=== PATIENT | female | born 1980 | race Caucasian/White ===

== ENCOUNTER 2020-08-12 22:09 | Emergency (ER) | payer MEDICAID, SELFPAY ==
--- NOTE | ~2020-08-12 | XR_ITS ---
EXAMINATION: XR CHEST CLINICAL INFORMATION: Chest pain COMPARISON: None TECHNIQUE: Frontal portable view of the chest was obtained. 10:57 PM FINDINGS: Lungs are clear. No pulmonary vascular congestion. There is no pleural effusion. The heart size is normal. The cardiac and mediastinal contours are normal. There are multilevel degenerative changes of dorsal spine. XR/XR chest 1V IMPRESSION: Unremarkable examination.
[2020-08-12 22:13] VITALS: BP 120/85; PULSE 137; RESP 22; O2SAT 99; BMI 46.9
--- NOTE | 2020-08-12 22:16 | ECG_ITS ---
Test Reason : CP Blood Pressure : / mmHG Vent. Rate : 125 BPM Atrial Rate : 125 BPM P-R Int : 152 ms QRS Dur : 076 ms QT Int : 306 ms P-R-T Axes : 055 087 045 degrees QTc Int : 441 ms Sinus tachycardia Possible Left atrial enlargement Borderline ECG No previous ECGs available Referred By: Generic ED Physician Electronically Signed By:Costa Guidry
--- NOTE | 2020-08-12 23:11 | ED.CHESTPAIN ---
HPI - Chest Pain General Chief Complaint: Chest Pain <Lore Schroeder PA-C - Last Filed: 08/13/20 02:03> Stated Complaint: cp <Lore Schroeder PA-C - Last Filed: 08/13/20 02:03> Time Seen by Provider: 08/12/20 23:02 <Lore Schroeder PA-C - Last Filed: 08/13/20 02:03> Source: patient <Lore Schroeder PA-C - Last Filed: 08/13/20 02:03> Mode of arrival: ambulatory <HEIKE Helms Last Filed: 08/13/20 02:03> Limitations: no limitations <Lore Schroeder PA-C - Last Filed: 08/13/20 02:03> History of Present Illness HPI narrative: Patient is a 39-year-old female with a past medical history of diabetes with neuropathy complaining of stabbing chest pain since yesterday. Patient states she has left-sided chest pain that is stabbing in nature which radiates to her left shoulder. She states it is worse with deep breathing and it has been getting worse over the past 2 days. She denies any injury or trauma to the area, she denies excessive coughing. She denies numbness or tingling in her neck shoulder or left arm. She denies taking any medication or using ice to try to make it feel better. She denies shortness of breath. She does state when she lifts her left arm over her head that the pain got a little bit better but that is not working anymore. <Lore Schroeder PA-C - Last Filed: 08/13/20 02:03> Related Data Allergies/Adverse Reactions: Allergies Allergy/AdvReac Type Severity Reaction Status Date / Time No Known Allergies Allergy Verified 08/12/20 22:15 <Lore Shcroeder PA-C - Last Filed: 08/13/20 02:03> Review of Systems Review of Systems: Yes all other systems are reviewed and are negative <Lore Schroeder PA-C - Last Filed: 08/13/20 02:03> [facility] Past Medical History Medical History: Medical History Diabetes <Lore Schroeder PA-C - Last Filed: 08/13/20 02:03> Social History Social History: Social History Alcohol intake: current Alcohol intake frequency: 0-2 drinks per day Patient Tobacco Use Status: Current everyday Tobacco user Smoked in Last 30 Days: Yes Use of substances other than those prescribed or required for medical reasons: No Advance Directives: No Patient : No <Lore Schroeder PA-C - Last Filed: 08/13/20 02:03> Physical Exam Vital Signs: Vital Signs: Last Vital Signs Pulse 91 08/13/20 02:00 Resp 18 08/13/20 02:00 BP 132/78 08/13/20 02:00 Pulse Ox 100 08/13/20 02:00 Body Mass Index 46.9 <Lore Schroeder PA-C - Last Filed: 08/13/20 02:03> Vital Signs: Last Vital Signs Pulse 91 08/13/20 02:00 Resp 18 08/13/20 02:00 BP 132/78 08/13/20 02:00 Pulse Ox 100 08/13/20 02:00 Body Mass Index 46.9 <Anjali Shepherd MD - Last Filed: 08/13/20 03:18> Const: General: cooperative, healthy appearing, well developed and anxious (Clutching left chest, pushing in and breathing fast) <Lore Schroeder PA-C - Last Filed: 08/13/20 02:03> Nutritional Appearance: obese <Lore Schroeder PA-C - Last Filed: 08/13/20 02:03> HENMT: Head: Yes normal to inspection, Yes No palpable skull fracture present, Yes normocephalic and Yes atraumatic <Lore Schroeder PA-C - Last Filed: 08/13/20 02:03> Eyes: General: appearance normal, both eyes and all related structures <Lore Schroeder PA-C - Last Filed: 08/13/20 02:03> Neck: Neck: Yes normal visual inspection and Yes full ROM <Lore Schroeder PA-C - Last Filed: 08/13/20 02:03> Chest: Chest palpation & inspection: normal inspection of the chest and localized rib tenderness with anteroposterior compression left mid-clavicular line <Lore Schroeder PA-C Susanne Last Filed: 08/13/20 02:03> Resp: Effort & Inspection: able to speak in complete sentences <Lore Schroeder PA-C Susanne Last Filed: 08/13/20 02:03> Auscultation: clear to auscultation bilaterally <Lore Schroeder PA-C Susanne Last Filed: 08/13/20 02:03> Cardio: Rate: tachycardic <Lore Schroeder PA-C Susanne Last Filed: 08/13/20 02:03> GI: Inspection: Yes obesity <Lore Schroeder PA-C Susanne Last Filed: 08/13/20 02:03> Palpation (GI): Soft to palpation and nontender <Lore Schroeder PA-C Susanne Last Filed: 08/13/20 02:03> Skin: General skin exam: no rashes or lesions noted <Lore Schroeder PA-C Susanne Last Filed: 08/13/20 02:03> Extrem: Other: 2 1cm circular healing wounds on right foot, dorsal aspect; NVI bilaterally, sensation to light touch intact bilaterally <Lore Schroeder PA-C Susanne Last Filed: 08/13/20 02:03> General: Yes no pedal edema <Lore Schroeder PA-C Susanne Last Filed: 08/13/20 02:03> Course Course Course Narrative: Patient is a 39-year-old female with a past medical history of diabetes with neuropathy complaining of stabbing chest pain since yesterday. Patient states she has left-sided chest pain that is stabbing in nature which radiates to her left shoulder. Vital signs significant for tachycardia at 137 BPM, tachypnea at 22, other vital signs WNL. Physical exam reveals reproducible tenderness left central chest. EKG showed sinus tachycardia at 125BPM. Will get CXR and labs to rule out cardiac issue, most likely costochondritis or possible rib fx. <HEIKE Helms Last Filed: 08/13/20 02:03> I re-evaluated the patient who states that the pain has now somewhat improved in that it is no longer constant and instead comes and goes and again is reproducible associated with deep inspiration but not changed in position from lying down to sitting up. Patient states that she is feeling overall better and endorses that she will be able to take her home medication as prescribed. On review of all investigations as well as most recent glucose level patient is stable for discharge with resumption home regimen and instructions for costochondritis. <Anjali Shepherd MD - Last Filed: 08/13/20 03:18> Reevaluation(s) Reevaluation #1: Patient is common cooperative, no longer clutching her chest an tachypneic. Her vital signs are all stable. Labs are resulting, chemistry, lipase and troponin still pending. CXR negative for acute process. <Lore Schroeder PA-C - Last Filed: 08/13/20 02:03> Time: 23:51 <Lore Schroeder PA-C - Last Filed: 08/13/20 02:03> Reevaluation #2: Patient's glucose is 519, she states she ate fruit loops for dinner but did not take her diabetes medications because of her chest pain. Patient states she checks her blood sugar each morning but she is working on it with her PCP and she has a follow-up appointment already scheduled on 08/14/2020. Will give 5U sub cu insulin and 1L LR, get acetone and UA. <Lore Schroeder PA-C - Last Filed: 08/13/20 02:03> Time: 00:26 <Lore Schroeder PA-C - Last Filed: 08/13/20 02:03> Reevaluation #3: giving pt total of 3L LR, another 5U sub cu insulin lispro. UA pending, acetone is negative. Dr Shepherd agrees with assessment and plan. Signing out pt to Dr Shepherd 2:03AM <Lore Schroeder PA-C - Last Filed: 08/13/20 02:03> Time: 01:47 <Lore Schroeder PA-C - Last Filed: 08/13/20 02:03> MDM - Chest Pain Medical Records Data Attestation: I reviewed the patient's medical records. <Lore Schroeder PA-C - Last Filed: 08/13/20 02:03> Lab Data Attestation: I reviewed the patient's lab results. <Lore Schroeder PA-C - Last Filed: 08/13/20 02:03> Result diagrams: : 08/12/20 23:19 08/12/20 23:19 <Lore Schroeder PA-C - Last Filed: 08/13/20 02:03> Labs: Lab Results 08/12/20 08/12/20 08/12/20 Range/Units 23:18 23:18 23:19 WBC 11.6 H (4.8-10.8) X10*3/uL RBC 5.51 H (4.20-5.50) X10*6/uL Hgb 12.3 (12.0-16.0) g/dl Hct 40.7 (37-47) % MCV 73.9 L (80-98) fL MCH 22.3 L (27.0-33.0) pg MCHC 30.2 L (31.0-35.0) g/dl RDW 16.4 H (11.0-16.0) % Plt Count 336 (160-400) X10*3/uL MPV 9.9 (9.4-12.3) fL Immature Gran % (Auto) 0.7 H (0.0-0.4) % Neut % (Auto) 70.3 (45-73) % Lymph % (Auto) 18.2 L (20-40) % Mason % (Auto) 9.0 (2-11) % Eos % (Auto) 1.5 (0-4) % Baso % (Auto) 0.3 (0-2) % Lymph # (Auto) 2.1 (1.2-4.9) X10*3/uL Mason # (Auto) 1.1 (0.1-1.2) X10*3/uL Eos # (Auto) 0.2 (0.0-0.4) X10*3/uL Baso # (Auto) 0.0 (0.0-0.2) X10*3/uL Abs Immat Gran (auto) 0.08 H (0.00-0.03) X10*3/uL Absolute Neuts (auto) 8.2 (2.0-8.3) X10*3/uL Absolute Nucleated RBC 0.000 (0.0-0.012) X10*3/uL Nucleated RBC % (auto) 0.0 (0.0-0.2) /100WBC PT (10.8-13.0) SEC INR (0.9-1.1) Sodium (135-145) mmol/L Potassium (3.3-5.1) mmol/L Chloride (96-108) mmol/L Carbon Dioxide (22-29) mmol/L Anion Gap (12-20) BUN (9-16) mg/dL Creatinine (0.5-1.4) mg/dL Estim Creat Clear Calc Estimated GFR POC Glucose (60-115) mg/dL Random Glucose (60-115) mg/dL Calcium (8.4-10.2) mg/dL Total Bilirubin 0.6 (0.0-1.0) mg/dL Direct Bilirubin 0.2 (0.0-0.5) mg/dL AST 21 (5-31) U/L ALT 37 H (0-31) U/L Alkaline Phosphatase 74 (39-117) U/L Troponin I High Sens 3.7 (<3.5-17.0) ng/L Total Protein 7.5 (6.5-8.0) g/dL Albumin 4.3 (3.5-5.0) g/dL Lipase 43 (8-78) U/L Specimen Comment Urine Color Urine Appearance Urine pH (5.0-8.0) Ur Specific [place] (1.005-1.025) Urine Protein (NEG-TRACE) MG/DL Urine Glucose (UA) (NEG) MG/DL Urine Ketones (NEG) MG/DL Urine Blood (NEG) Urine Nitrite (NEG) Ur Leukocyte Esterase (NEG) Urine RBC (0) /HPF Urine WBC (0-4) /HPF Ur Squamous Epith Cells /LPF Urine Bacteria /LPF Hyaline Casts /LPF Acetone, Qual Negative (Negative) 08/12/20 08/12/20 08/12/20 Range/Units 23:19 23:19 23:52 WBC (4.8-10.8) X10*3/uL RBC (4.20-5.50) X10*6/uL Hgb (12.0-16.0) g/dl Hct (37-47) % MCV (80-98) fL MCH (27.0-33.0) pg MCHC (31.0-35.0) g/dl RDW (11.0-16.0) % Plt Count (160-400) X10*3/uL MPV (9.4-12.3) fL Immature Gran % (Auto) (0.0-0.4) % Neut % (Auto) (45-73) % Lymph % (Auto) (20-40) % Mason % (Auto) (2-11) % Eos % (Auto) (0-4) % Baso % (Auto) (0-2) % Lymph # (Auto) (1.2-4.9) X10*3/uL Mason # (Auto) (0.1-1.2) X10*3/uL Eos # (Auto) (0.0-0.4) X10*3/uL Baso # (Auto) (0.0-0.2) X10*3/uL Abs Immat Gran (auto) (0.00-0.03) X10*3/uL Absolute Neuts (auto) (2.0-8.3) X10*3/uL Absolute Nucleated RBC (0.0-0.012) X10*3/uL Nucleated RBC % (auto) (0.0-0.2) /100WBC PT 11.2 (10.8-13.0) SEC INR 0.9 (0.9-1.1) Sodium 135 (135-145) mmol/L Potassium 4.5 (3.3-5.1) mmol/L Chloride 99 (96-108) mmol/L Carbon Dioxide 23 (22-29) mmol/L Anion Gap 18 (12-20) BUN 16 (9-16) mg/dL Creatinine 1.25 (0.5-1.4) mg/dL Estim Creat Clear Calc 74.3 Estimated GFR 47 POC Glucose (60-115) mg/dL Random Glucose 519 H* (60-115) mg/dL Calcium 9.4 (8.4-10.2) mg/dL Total Bilirubin (0.0-1.0) mg/dL Direct Bilirubin (0.0-0.5) mg/dL AST (5-31) U/L ALT (0-31) U/L Alkaline Phosphatase (39-117) U/L Troponin I High Sens (<3.5-17.0) ng/L Total Protein (6.5-8.0) g/dL Albumin (3.5-5.0) g/dL Lipase (8-78) U/L Specimen Comment DELAY Urine Color Urine Appearance Urine pH (5.0-8.0) Ur Specific [place] (1.005-1.025) Urine Protein (NEG-TRACE) MG/DL Urine Glucose (UA) (NEG) MG/DL Urine Ketones (NEG) MG/DL Urine Blood (NEG) Urine Nitrite (NEG) Ur Leukocyte Esterase (NEG) Urine RBC (0) /HPF Urine WBC (0-4) /HPF Ur Squamous Epith Cells /LPF Urine Bacteria /LPF Hyaline Casts /LPF Acetone, Qual (Negative) 08/13/20 08/13/20 08/13/20 Range/Units 01:11 02:05 02:38 WBC (4.8-10.8) X10*3/uL RBC (4.20-5.50) X10*6/uL Hgb (12.0-16.0) g/dl Hct (37-47) % MCV (80-98) fL MCH (27.0-33.0) pg MCHC (31.0-35.0) g/dl RDW (11.0-16.0) % Plt Count (160-400) X10*3/uL MPV (9.4-12.3) fL Immature Gran % (Auto) (0.0-0.4) % Neut % (Auto) (45-73) % Lymph % (Auto) (20-40) % Mason % (Auto) (2-11) % Eos % (Auto) (0-4) % Baso % (Auto) (0-2) % Lymph # (Auto) (1.2-4.9) X10*3/uL Mason # (Auto) (0.1-1.2) X10*3/uL Eos # (Auto) (0.0-0.4) X10*3/uL Baso # (Auto) (0.0-0.2) X10*3/uL Abs Immat Gran (auto) (0.00-0.03) X10*3/uL Absolute Neuts (auto) (2.0-8.3) X10*3/uL Absolute Nucleated RBC (0.0-0.012) X10*3/uL Nucleated RBC % (auto) (0.0-0.2) /100WBC PT (10.8-13.0) SEC INR (0.9-1.1) Sodium (135-145) mmol/L Potassium (3.3-5.1) mmol/L Chloride (96-108) mmol/L Carbon Dioxide (22-29) mmol/L Anion Gap (12-20) BUN (9-16) mg/dL Creatinine (0.5-1.4) mg/dL Estim Creat Clear Calc Estimated GFR POC Glucose 494 H* 365 H* (60-115) mg/dL Random Glucose (60-115) mg/dL Calcium (8.4-10.2) mg/dL Total Bilirubin (0.0-1.0) mg/dL Direct Bilirubin (0.0-0.5) mg/dL AST (5-31) U/L ALT (0-31) U/L Alkaline Phosphatase (39-117) U/L Troponin I High Sens (<3.5-17.0) ng/L Total Protein (6.5-8.0) g/dL Albumin (3.5-5.0) g/dL Lipase (8-78) U/L Specimen Comment Urine Color YELLOW Urine Appearance CLEAR Urine pH 6.0 (5.0-8.0) Ur Specific [place] 1.020 (1.005-1.025) Urine Protein NEG (NEG-TRACE) MG/DL Urine Glucose (UA) >=1000 H (NEG) MG/DL Urine Ketones NEG (NEG) MG/DL Urine Blood NEG (NEG) Urine Nitrite NEG (NEG) Ur Leukocyte Esterase NEG (NEG) Urine RBC 1-4 (0) /HPF Urine WBC 1-4 (0-4) /HPF Ur Squamous Epith Cells 2+ /LPF Urine Bacteria 3+ /LPF Hyaline Casts 1-4 /LPF Acetone, Qual (Negative) <Lore Schroeder PA-C - Last Filed: 08/13/20 02:03> Lab Results 08/12/20 08/12/20 08/12/20 Range/Units 23:18 23:18 23:19 WBC 11.6 H (4.8-10.8) X10*3/uL RBC 5.51 H (4.20-5.50) X10*6/uL Hgb 12.3 (12.0-16.0) g/dl Hct 40.7 (37-47) % MCV 73.9 L (80-98) fL MCH 22.3 L (27.0-33.0) pg MCHC 30.2 L (31.0-35.0) g/dl RDW 16.4 H (11.0-16.0) % Plt Count 336 (160-400) X10*3/uL MPV 9.9 (9.4-12.3) fL Immature Gran % (Auto) 0.7 H (0.0-0.4) % Neut % (Auto) 70.3 (45-73) % Lymph % (Auto) 18.2 L (20-40) % Mason % (Auto) 9.0 (2-11) % Eos % (Auto) 1.5 (0-4) % Baso % (Auto) 0.3 (0-2) % Lymph # (Auto) 2.1 (1.2-4.9) X10*3/uL Mason # (Auto) 1.1 (0.1-1.2) X10*3/uL Eos # (Auto) 0.2 (0.0-0.4) X10*3/uL Baso # (Auto) 0.0 (0.0-0.2) X10*3/uL Abs Immat Gran (auto) 0.08 H (0.00-0.03) X10*3/uL Absolute Neuts (auto) 8.2 (2.0-8.3) X10*3/uL Absolute Nucleated RBC 0.000 (0.0-0.012) X10*3/uL Nucleated RBC % (auto) 0.0 (0.0-0.2) /100WBC PT (10.8-13.0) SEC INR (0.9-1.1) Sodium (135-145) mmol/L Potassium (3.3-5.1) mmol/L Chloride (96-108) mmol/L Carbon Dioxide (22-29) mmol/L Anion Gap (12-20) BUN (9-16) mg/dL Creatinine (0.5-1.4) mg/dL Estim Creat Clear Calc Estimated GFR POC Glucose (60-115) mg/dL Random Glucose (60-115) mg/dL Calcium (8.4-10.2) mg/dL Total Bilirubin 0.6 (0.0-1.0) mg/dL Direct Bilirubin 0.2 (0.0-0.5) mg/dL AST 21 (5-31) U/L ALT 37 H (0-31) U/L Alkaline Phosphatase 74 (39-117) U/L Troponin I High Sens 3.7 (<3.5-17.0) ng/L Total Protein 7.5 (6.5-8.0) g/dL Albumin 4.3 (3.5-5.0) g/dL Lipase 43 (8-78) U/L Specimen Comment Urine Color Urine Appearance Urine pH (5.0-8.0) Ur Specific [place] (1.005-1.025) Urine Protein (NEG-TRACE) MG/DL Urine Glucose (UA) (NEG) MG/DL Urine Ketones (NEG) MG/DL Urine Blood (NEG) Urine Nitrite (NEG) Ur Leukocyte Esterase (NEG) Urine RBC (0) /HPF Urine WBC (0-4) /HPF Ur Squamous Epith Cells /LPF Urine Bacteria /LPF Hyaline Casts /LPF Acetone, Qual Negative (Negative) 08/12/20 08/12/20 08/12/20 Range/Units 23:19 23:19 23:52 WBC (4.8-10.8) X10*3/uL RBC (4.20-5.50) X10*6/uL Hgb (12.0-16.0) g/dl Hct (37-47) % MCV (80-98) fL MCH (27.0-33.0) pg MCHC (31.0-35.0) g/dl RDW (11.0-16.0) % Plt Count (160-400) X10*3/uL MPV (9.4-12.3) fL Immature Gran % (Auto) (0.0-0.4) % Neut % (Auto) (45-73) % Lymph % (Auto) (20-40) % Mason % (Auto) (2-11) % Eos % (Auto) (0-4) % Baso % (Auto) (0-2) % Lymph # (Auto) (1.2-4.9) X10*3/uL Mason # (Auto) (0.1-1.2) X10*3/uL Eos # (Auto) (0.0-0.4) X10*3/uL Baso # (Auto) (0.0-0.2) X10*3/uL Abs Immat Gran (auto) (0.00-0.03) X10*3/uL Absolute Neuts (auto) (2.0-8.3) X10*3/uL Absolute Nucleated RBC (0.0-0.012) X10*3/uL Nucleated RBC % (auto) (0.0-0.2) /100WBC PT 11.2 (10.8-13.0) SEC INR 0.9 (0.9-1.1) Sodium 135 (135-145) mmol/L Potassium 4.5 (3.3-5.1) mmol/L Chloride 99 (96-108) mmol/L Carbon Dioxide 23 (22-29) mmol/L Anion Gap 18 (12-20) BUN 16 (9-16) mg/dL Creatinine 1.25 (0.5-1.4) mg/dL Estim Creat Clear Calc 74.3 Estimated GFR 47 POC Glucose (60-115) mg/dL Random Glucose 519 H* (60-115) mg/dL Calcium 9.4 (8.4-10.2) mg/dL Total Bilirubin (0.0-1.0) mg/dL Direct Bilirubin (0.0-0.5) mg/dL AST (5-31) U/L ALT (0-31) U/L Alkaline Phosphatase (39-117) U/L Troponin I High Sens (<3.5-17.0) ng/L Total Protein (6.5-8.0) g/dL Albumin (3.5-5.0) g/dL Lipase (8-78) U/L Specimen Comment DELAY Urine Color Urine Appearance Urine pH (5.0-8.0) Ur Specific [place] (1.005-1.025) Urine Protein (NEG-TRACE) MG/DL Urine Glucose (UA) (NEG) MG/DL Urine Ketones (NEG) MG/DL Urine Blood (NEG) Urine Nitrite (NEG) Ur Leukocyte Esterase (NEG) Urine RBC (0) /HPF Urine WBC (0-4) /HPF Ur Squamous Epith Cells /LPF Urine Bacteria /LPF Hyaline Casts /LPF Acetone, Qual (Negative) 08/13/20 08/13/20 08/13/20 Range/Units 01:11 02:05 02:38 WBC (4.8-10.8) X10*3/uL RBC (4.20-5.50) X10*6/uL Hgb (12.0-16.0) g/dl Hct (37-47) % MCV (80-98) fL MCH (27.0-33.0) pg MCHC (31.0-35.0) g/dl RDW (11.0-16.0) % Plt Count (160-400) X10*3/uL MPV (9.4-12.3) fL Immature Gran % (Auto) (0.0-0.4) % Neut % (Auto) (45-73) % Lymph % (Auto) (20-40) % Mason % (Auto) (2-11) % Eos % (Auto) (0-4) % Baso % (Auto) (0-2) % Lymph # (Auto) (1.2-4.9) X10*3/uL Mason # (Auto) (0.1-1.2) X10*3/uL Eos # (Auto) (0.0-0.4) X10*3/uL Baso # (Auto) (0.0-0.2) X10*3/uL Abs Immat Gran (auto) (0.00-0.03) X10*3/uL Absolute Neuts (auto) (2.0-8.3) X10*3/uL Absolute Nucleated RBC (0.0-0.012) X10*3/uL Nucleated RBC % (auto) (0.0-0.2) /100WBC PT (10.8-13.0) SEC INR (0.9-1.1) Sodium (135-145) mmol/L Potassium (3.3-5.1) mmol/L Chloride (96-108) mmol/L Carbon Dioxide (22-29) mmol/L Anion Gap (12-20) BUN (9-16) mg/dL Creatinine (0.5-1.4) mg/dL Estim Creat Clear Calc Estimated GFR POC Glucose 494 H* 365 H* (60-115) mg/dL Random Glucose (60-115) mg/dL Calcium (8.4-10.2) mg/dL Total Bilirubin (0.0-1.0) mg/dL Direct Bilirubin (0.0-0.5) mg/dL AST (5-31) U/L ALT (0-31) U/L Alkaline Phosphatase (39-117) U/L Troponin I High Sens (<3.5-17.0) ng/L Total Protein (6.5-8.0) g/dL Albumin (3.5-5.0) g/dL Lipase (8-78) U/L Specimen Comment Urine Color YELLOW Urine Appearance CLEAR Urine pH 6.0 (5.0-8.0) Ur Specific [place] 1.020 (1.005-1.025) Urine Protein NEG (NEG-TRACE) MG/DL Urine Glucose (UA) >=1000 H (NEG) MG/DL Urine Ketones NEG (NEG) MG/DL Urine Blood NEG (NEG) Urine Nitrite NEG (NEG) Ur Leukocyte Esterase NEG (NEG) Urine RBC 1-4 (0) /HPF Urine WBC 1-4 (0-4) /HPF Ur Squamous Epith Cells 2+ /LPF Urine Bacteria 3+ /LPF Hyaline Casts 1-4 /LPF Acetone, Qual (Negative) <Anjali Shepherd MD - Last Filed: 08/13/20 03:18> Imaging Data Chest x-ray: Attestation: I personally reviewed and interpreted this imaging study as follows: <Lore Schroeder PA-C - Last Filed: 08/13/20 02:03> My impression: Nothing acute <Lore Schroeder PA-C - Last Filed: 08/13/20 02:03> Radiologist's impression: [address] [id number] ReportSigned Patient: Mc Marie#: [id number]: 1980Acct:[id number]/Sex: 39 / FADM Date: 08/12/20Loc: [facility] Dr: Ordering Physician: Generic ED Physician Date of Service: 08/12/20 Procedure(s): XR chest 1V Accession Number(s): [id number] cc: Generic ED Physician~ EXAMINATION: XR CHEST CLINICAL INFORMATION: Chest pain COMPARISON: None TECHNIQUE: Frontal portable view of the chest was obtained. 10:57 PM FINDINGS: Lungs are clear. No pulmonary vascular congestion. There is no pleural effusion. The heart size is normal. The cardiac and mediastinal contours are normal. There are multilevel degenerative changes of dorsal spine. XR/XR chest 1V IMPRESSION: Unremarkable examination. 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 Case Trim: VIDAL <Lore Schroeder PA-C - Last Filed: 08/13/20 02:03> ECG Data ECG #1: Attestation: I personally reviewed and interpreted this ECG as follows: <Lore Schroeder PA-C - Last Filed: 08/13/20 02:03> Interpretation: sinus tach at 125 BPM, Dr Carvalho signed off on it <Lore Schroeder PA-C - Last Filed: 08/13/20 02:03> Discharge Plan Discharge Clinical Impression: Costalchondritis, Elevated random blood glucose level <Lore Schroeder PA-C - Last Filed: 08/13/20 02:03> Patient Disposition: Home, Self-Care <Lore Schroeder PA-C - Last Filed: 08/13/20 02:03> Instructions: Costochondritis (ED), Diabetic Hyperglycemia (ED) <Lore Schroeder PA-C - Last Filed: 08/13/20 02:03> Additional Instructions: Your pain is likely musculoskeletal, you may use ice, ibuprofen and Tylenol, just be sure to alternate the ibuprofen and acetaminophen. Tonight in the ED, I have given you a medication called Toradol for pain, it is a type of NSAID so please do not take any NSAIDs (Aleve, Motrin, Advil, ibuprofen) for the next 8 hours. You may take acetaminophen for additional pain relief once you get home. Your costochondritis should get a little bit better each day but may take a few weeks to resolve completely, this is normal. If you have any shortness of breath, chest pain, please return to the emergency department. Please be sure to take your diabetes medications daily and check your glucose levels before each meal. If you levels remain elevated (above 180), please be sure to follow up with your PCP as you may need a medication adjustment. Recommend using [id number] lidocaine patch for additional symptom relief. Use as directed on the outside packaging. <Lore Schroeder PA-C - Last Filed: 08/13/20 02:03> Referrals: Maddison Floyd, NATALEE [Primary Care Provider] - 2 days (if not better or if glucose levels are still elevated, may need med adjustment) <Lore Schroeder PA-C - Last Filed: 08/13/20 02:03>
[2020-08-12 23:24] LABS: MANUAL DIFF FLAG NO
[2020-08-12 23:25] LABS: Basophils Percent Auto 0.3 % (0-2); Eosinophils Absolute Auto 0.2 X10*3/uL (0.0-0.4); Eosinophils Percent Auto 1.5 % (0-4); Hematocrit 40.7 % (37-47); Hemoglobin 12.3 g/dl (12.0-16.0); Imm Gran Abs Auto 0.08 X10*3/uL (0.00-0.03); Imm Gran Pct Auto 0.7 % (0.0-0.4); Lymphocytes Absolute Auto 2.1 X10*3/uL (1.2-4.9); Lymphocytes Percent Auto 18.2 % (20-40); Mean Corpuscular HGB Conc 30.2 g/dl (31.0-35.0); Mean Corpuscular Hemoglobin 22.3 pg (27.0-33.0); Mean Corpuscular Volume 73.9 fL (80-98); Mean Platelet Volume 9.9 fL (9.4-12.3); Monocytes Absolute Auto 1.1 X10*3/uL (0.1-1.2); Neutrophils Absolute Auto 8.2 X10*3/uL (2.0-8.3); Neutrophils Percent Auto 70.3 % (45-73); Platelet Count 336 X10*3/uL (160-400); Red Blood Count 5.51 X10*6/uL (4.20-5.50); Red Cell Distribution Width 16.4 % (11.0-16.0); White Blood Count 11.6 X10*3/uL (4.8-10.8)
[2020-08-12 23:30] LABS: INTERNATIONAL NORM RATIO 0.9 (0.9-1.1); Prothrombin Time 11.2 SEC (10.8-13.0)
[2020-08-12 23:45] VITALS: BP 117/69; PULSE 103; RESP 18; O2SAT 98
[2020-08-12 23:47] VITALS: PULSE 104
[2020-08-12 23:53] LABS: Delay - Chemistry DELAY
[2020-08-13 00:03] LABS: Alanine Aminotransferase 37 U/L (0-31); Albumin Level 4.3 g/dL (3.5-5.0); Alkaline Phosphatase 74 U/L (39-117); Aspartate Amino Transferase 21 U/L (5-31); Bilirubin Direct 0.2 mg/dL (0.0-0.5); Bilirubin Total 0.6 mg/dL (0.0-1.0); Lipase 43 U/L (8-78); Total Protein 7.5 g/dL (6.5-8.0)
[2020-08-13 00:04] LABS: Anion Gap 18 (12-20); Blood Urea Nitrogen 16 mg/dL (9-16); Calcium 9.4 mg/dL (8.4-10.2); Carbon Dioxide 23 mmol/L (22-29); Chloride 99 mmol/L (96-108); Creatinine Clr Calc Pharmacy 74.3; Estimated Glomerular Filt Rate 47; Glucose Random 519 mg/dL (60-115); Potassium 4.5 mmol/L (3.3-5.1); Sodium 135 mmol/L (135-145)
[2020-08-13 00:11] LABS: Troponin-I High Sensitivity 3.7 ng/L (<3.5-17.0)
[2020-08-13] MEDS: Insulin Lispro 100 UNIT/ML 3 ML VIAL SUBCUT ×2 (00:25→02:02)
[2020-08-13] MEDS: Lactated Ringers 1,000 ML 999 ML IV ×3 (00:25→01:24)
[2020-08-13] MEDS: Ketorolac Tromethamine 30 MG/ML VIAL IVPUSH (00:42)
[2020-08-13 01:15] LABS: Glucose, Whole Blood 494 mg/dL (60-115)
[2020-08-13 01:29] LABS: Acetone, serum QL Negative (Negative)
[2020-08-13 02:00] VITALS: BP 132/78; PULSE 91; RESP 18; O2SAT 100
[2020-08-13 02:17] LABS: Glucose Urine UA >=1000 MG/DL (NEG); Leukocyte Esterase Urine NEG (NEG); Nitrite Urine NEG (NEG); Urine Blood NEG (NEG); Urine Ketones NEG (NEG); Urine Protein NEG (NEG-TRACE)
[2020-08-13 02:31] LABS: Appearance Urine CLEAR; Color Urine YELLOW
[2020-08-13 02:32] LABS: Bacteria Urine 3+ /LPF; Squamous Epithelial Cell Urine 2+ /LPF
[2020-08-13 02:41] LABS: Glucose, Whole Blood 365 mg/dL (60-115)
== END 2020-08-13 03:45 | disposition home or self-care (01) ==
PROVIDERS: Physician Assistant; Emergency Provider Student in an Organized Health Care Education/Training Program; PCP Nurse Practitioner Adult Health
DX: M94.0 Chondrocostal junction syndrome [Tietze] (principal); E11.65 Type 2 diabetes mellitus with hyperglycemia; M25.512 Pain in left shoulder; R07.9 Chest pain, unspecified; R79.89 Other specified abnormal findings of blood chemistry; F17.200 Nicotine dependence, unspecified, uncomplicated; Z71.6 Tobacco abuse counseling; Z79.899 Other long term (current) drug therapy
CPT/HCPCS: 36415; 71045; 80048; 80076; 81001; 82009; 82947; 83690; 84484; 85025; 85610; 93005; 96365; 96372; 96375; 99285; J1885

== ENCOUNTER 2021-07-04 10:14 | Inpatient (IN) | payer MEDICAID, SELFPAY ==
[2021-07-04] VITALS (8 sets, daily range): BP systolic 106–152; BP diastolic 64–88; PULSE 72–87; RESP 14–19; TEMP 36.6–38; O2SAT 89–99; BMI 36.6
--- NOTE | ~2021-07-04 | US_ITS ---
EXAMINATION: US VENOUS ULTRASOUND WITH DOPPLER LOWER EXTREMITY, BILATERAL CLINICAL INFORMATION: Bilateral leg swelling COMPARISON: None TECHNIQUE: Ultrasound of the deep veins is performed from the hip to the calf with compression sonography and color and pulse Doppler assessment. Spectral analysis with color-flow imaging is performed. FINDINGS: RIGHT: There is normal venous compression and respiratory variation and augmented flow. The visualized common femoral vein, superficial femoral vein, profunda femoral vein, popliteal vein, and the trifurcation region shows no evidence of deep venous thrombosis. There is no significant popliteal fossa cyst. LEFT: There is normal venous compression and respiratory variation and augmented flow. The visualized common femoral vein, superficial femoral vein, profunda femoral vein, popliteal vein, and the trifurcation region shows no evidence of deep venous thrombosis. There is no significant popliteal fossa cyst. US/US venous duplex LE BI IMPRESSION: No DVT demonstrated in the bilateral lower extremity.
--- NOTE | ~2021-07-04 | CT_ITS ---
EXAMINATION: CT ABDOMEN AND PELVIS WITHOUT CONTRAST CLINICAL INFORMATION: Bacteremia. COMPARISON: None TECHNIQUE: Multidetector volumetric imaging was performed from the superior aspect of the liver through the pubic symphysis. Sagittal and coronal reformatted images were obtained on the technologist's workstation. This CT examination was performed using dose optimization techniques as appropriate, variously including the following: *Automated exposure control *Adjustment of mA and/or kV according to patient size (this includes techniques or standardized protocols for targeted exams where dose is matched to indication/reason for exam; i.e. extremities or head) *Use of iterative reconstruction technique DLP: 981 mGy-cm FINDINGS: LUNG BASES: Minor linear atelectasis is seen at the left lung base. LIVER, GALLBLADDER, AND BILIARY TREE: The liver is mildly enlarged measuring 21.3 cm laterally and 19 cm in the midclavicular line. Surgical clips are seen from prior cholecystectomy. PANCREAS: Unremarkable. SPLEEN: The spleen is homogeneous but enlarged measuring 13.9 cm in AP dimension and 15.8 cm in length. ADRENAL GLANDS: Unremarkable. KIDNEYS AND URETERS: The bilateral kidneys are not significantly enlarged. There is mild fullness of the left renal pelvis without significant hydronephrosis. BLADDER: The bladder is moderately distended and unremarkable. GASTROINTESTINAL TRACT: The stomach, small and large bowel are nondilated. Radiopaque density which may reflect an ingested tablet or food is seen at the gastric antrum. No bowel wall thickening. The appendix is normal. RETROPERITONEUM: Soft tissue stranding is seen in the infrarenal retroperitoneum, right greater than left side, extending to the level of the upper pelvis. No focal fluid collection is seen. ABDOMINAL WALL: Small fat-containing epigastric and umbilical hernias are demonstrated. LYMPH NODES: Normal. VASCULAR: Limited evaluation on this noncontrast study. No evidence of aneurysm. PELVIC VISCERA: Unremarkable. OSSEOUS STRUCTURES: No acute osseous abnormality is seen. Moderate spondylosis is seen in the lower thoracic spine. Mild degenerative disc disease at L5-S1. CT/CT abdomen pelvis wo con IMPRESSION: Kidneys are symmetric in size with mild fullness of the renal pelves and no significant hydronephrosis. Soft tissue stranding is seen in the infrarenal retroperitoneum, right greater than left side, without focal fluid collection. This finding is not specific. No discrete cause for the bacteremia is seen. No evidence of thickened bowel loops or bowel obstruction. The appendix is normal. Mild hepatosplenomegaly.
--- NOTE | ~2021-07-04 | XR_ITS ---
EXAMINATION: XR CHEST CLINICAL INFORMATION: Suspected infection. COMPARISON: Chest done on 08/12/2020. TECHNIQUE: Frontal view of the chest was obtained. FINDINGS: No significant abnormality is noted involving the heart, lungs, mediastinum, bony thorax or soft tissues. No significant change since prior study dated 08/12/2020. XR/XR chest 1V IMPRESSION: Unremarkable examination.
--- NOTE | ~2021-07-04 | CT_ITS ---
EXAMINATION: CT HEAD WITHOUT CONTRAST CLINICAL INFORMATION: Slow to respond for one week COMPARISON: None TECHNIQUE: Contiguous axial imaging was performed from the skull base to vertex without intravenous administration of contrast. This CT examination was performed using dose optimization techniques as appropriate, variously including the following: *Automated exposure control *Adjustment of mA and/or kV according to patient size (this includes techniques or standardized protocols for targeted exams where dose is matched to indication/reason for exam; i.e. extremities or head) *Use of iterative reconstruction technique DLP: 676 mGy-cm FINDINGS: There is no evidence of acute intracranial hemorrhage or territorial infarction. No abnormal mass effect or midline shift is seen. Melendez to white matter differentiation is well preserved. No extra-axial fluid collections are identified. The ventricles are normal in size. There is no abnormal attenuation within the brain parenchyma. The osseous structures and soft tissues are normal. The mastoid air cells and visualized portions of the paranasal sinuses are well aerated. CT/CT head/brain wo con IMPRESSION: Unremarkable exam.
[2021-07-04 11:10] LABS: Hematocrit 30.5 % (37.0-47.0); Hemoglobin 9.7 g/dl (12.0-16.0); Mean Corpuscular HGB Conc 31.8 g/dl (31.0-35.0); Mean Corpuscular Hemoglobin 23.4 pg (27.0-33.0); Mean Corpuscular Volume 73.7 fL (80.0-98.0); Mean Platelet Volume 9.9 fL (9.4-12.3); Platelet Count 269 X10*3/uL (160-400); Red Blood Count 4.14 X10*6/uL (4.20-5.50); Red Cell Distribution Width 14.9 % (11.0-16.0); White Blood Count 12.9 X10*3/uL (4.8-10.8)
[2021-07-04 11:21] LABS: Troponin-I High Sensitivity < 3.5 ng/L (<3.5-17.0)
--- NOTE | 2021-07-04 11:28 | ECG_ITS ---
Test Reason : CP Blood Pressure : / mmHG Vent. Rate : 081 BPM Atrial Rate : 081 BPM P-R Int : 186 ms QRS Dur : 114 ms QT Int : 386 ms P-R-T Axes : 058 032 055 degrees QTc Int : 448 ms Normal sinus rhythm Normal ECG When compared with ECG of 12-AUG-2020 22:18, Vent. rate has decreased BY 44 BPM Referred By: Ellen Rojo Electronically Signed By:RAVINDRA NASCIMENTO
[2021-07-04 11:39] LABS: Lactic Acid 1.5 mmol/L (0.5-2.0)
[2021-07-04 11:50] LABS: Atypical Lymph Absolute Manual 0.3 x10*3/uL; Atypical Lymphs Percent Manual 2 % (0-6); Band Neutrophils Percent 10 % (3-5); Basophils Abs Manual 0.1 X10*3/uL (0.0-0.2); Basophils Percent Manual 1 % (0-2); Lymphocytes Absolute Manual 0.6 X10*3/uL (1.2-4.9); Lymphocytes Percent Manual 5 % (20-40); Metamyelocytes Absolute 0.4 X10*3/uL; Metamyelocytes Percent 3 %; Monocytes Absolute Manual 0.9 X10*3/uL (0.1-1.2); Monocytes Percent Manual 7 % (2-11); Neutrophils Absolute Manual 10.6 X10*3/uL (2.0-8.3); Neutrophils Percent Manual 72 % (45-73)
[2021-07-04 11:51] LABS: Hypochromasia 2+ (15-30) /OIF; Microcytosis 2+ (15-30) /OIF; Platelet Estimate NORMAL (NORMAL); Platelet Morphology Comment NORMAL; RBC Morphology NOTED
[2021-07-04 11:54] LABS: Influenza A PCR NEGATIVE (Negative); Influenza B PCR NEGATIVE (Negative); Resp Syncy Virus RNA Qual PCR NEGATIVE (Negative); SARS COV2 PCR INHOUSE NEGATIVE (Negative)
--- NOTE | 2021-07-04 12:04 | ED.GENADULT ---
HPI - General Adult General Chief complaint: General Medical Stated complaint: Fever/Hallucinations/Body aches Time Seen by Provider: 07/04/21 10:45 Source: patient Mode of arrival: ambulatory Limitations: no limitations History of Present Illness HPI narrative: 40-year-old female with a past medical history of insulin-dependent diabetes, hypertension, hyperlipidemia, presents today for worsening fatigue, hallucinations, and her mother's concerns. Mother states that patient has been sleeping all week, and is slow to respond. Mother states that patient's daughter was taken by DCF in April of this year, and that she is emotionally drained. The patient states she is tired today, and for the last week has had fevers, high blood sugars, body aches, and sore throat. She has pain in her entire body. She vomited twice 5 days ago. She had a UTI that was diagnosed on June 28, and prescribed Macrobid. Her mother has been making sure she is taking her antibiotic, but she still has a refill to left when she should be almost come with them. Related Data Home Medications Medication Instructions Recorded Confirmed bupropion HCl 300 mg 24 hr tablet, 1 tab PO DAILY 07/04/21 07/04/21 extended release gabapentin 300 mg capsule 3 cap PO BEDTIME 07/04/21 07/04/21 glipizide 10 mg tablet, extended 2 tab PO QAM 07/04/21 07/04/21 release 24 hr hydroxyzine HCl 25 mg tablet 1 tab PO BEDTIME PRN 07/04/21 07/04/21 insulin aspart U-100 100 unit/mL See Rx Instructions .ROUTE .COMPLEX 07/04/21 07/04/21 (3 mL) subcutaneous pen (Novolog Flexpen U-100 Insulin aspart) insulin glargine 100 unit/mL (3 60 unit SUBCUT BID 07/04/21 07/04/21 mL) subcutaneous pen (Lantus Solostar U-100 Insulin) metformin 1,000 mg tablet 1 tab PO BID 07/04/21 07/04/21 nitrofurantoin 1 cap PO BID 07/04/21 07/04/21 monohydrate/macrocrystals 100 mg capsule rosuvastatin 5 mg tablet 1 tab PO DAILY 07/04/21 07/04/21 venlafaxine 150 mg 1 cap PO DAILY 07/04/21 07/04/21 capsule,extended release 24 hr venlafaxine 75 mg capsule,extended 1 cap PO DAILY 07/04/21 07/04/21 release 24 hr Allergies Allergy/AdvReac Type Severity Reaction Status Date / Time No Known Allergies Allergy Verified 08/12/20 22:15 Review of Systems Constitutional: Constitutional: Reports body ache(s), Reports chills, Reports fatigue, Reports fever(s), Denies headache(s), Reports malaise and Reports weakness Eyes: Eyes: Denies blurry vision and Denies diplopia ENT: Reports Normal hearing present, Denies vertigo, Denies dizziness, Denies otalgia, Denies headache(s), Denies mouth pain, Denies post nasal drip, Denies sinus pain, Denies sinus pressure, Reports sore throat and Denies throat swelling Cardiovascular: Cardiovascular: Denies chest pain, Denies syncope, Denies leg edema, Denies lightheadedness, Denies Loss of Consciousness, Denies palpitations and Denies dyspnea Respiratory: Respiratory: Denies chest congestion, Denies cough and Denies dyspnea Gastrointestinal: Gastrointestinal: Denies abdominal pain, Denies hematochezia, Denies constipation, Denies diarrhea, Reports nausea and Denies vomiting Genitourinary: Genitourinary: Denies dysuria, Denies pelvic pain, Denies flank pain, Denies urinary urgency and Denies vaginal discharge Musculoskeletal: Musculoskeletal: Reports myalgias Integumentary/Breasts: Skin/Breast: Denies rash Neurologic: Reports Normal hearing present, Denies Abnormal speech present, Denies confusion, Denies vertigo, Denies dizziness, Denies syncope, Denies headache(s), Denies lack of coordination, Denies focal weakness and Reports weakness Psychiatric: Psychiatric: Reports anxiety, Denies confusion, Reports depression, Reports auditory hallucinations and Reports visual hallucinations Endocrine: Endocrine: Reports fatigue and Denies palpitations Allergic/Immunologic: Allergic/Immunologic: Denies throat swelling PMFSH Past Medical History Medical History Diabetes Neuropathy Social History Social History Alcohol intake: current Alcohol intake frequency: 0-2 drinks per day Patient Tobacco Use Status: Current everyday Tobacco user Advance Directives: No Advance Directives Information Provided: No Patient : No Physical Exam ED Vital Signs: Vital Signs - 24 hr 07/04/21 10:17 07/04/21 10:30 07/04/21 11:40 Temperature 98 F 99.2 F 100.4 F Pulse Rate 86 81 Respiratory Rate 19 18 Blood Pressure 148/76 H 152/88 H Pulse Oximetry 96 07/04/21 14:31 07/04/21 14:32 Temperature Pulse Rate 78 Respiratory Rate 16 Blood Pressure 112/64 Pulse Oximetry 89 L 95 BMI result Body Mass Index 36.6 Const General: alert and awake; No confusion Nutritional Appearance: obese centrally obese Orientation/consciousness: patient oriented x3 and No confusion Limitations: other limitations (slow to respond) HENMT Head: Yes normal to inspection, Yes normocephalic and Yes atraumatic Ears: hearing grossly normal bilaterally General nose exam: Normal external nose present Face and sinus: Yes sinuses nontender and Yes erythema (Bilateral cheeks) Mouth: Normal oral and palatal mucosa present and abnormal tongue (Yellow coating on tongue) Throat: Yes posterior oropharynx normal Eyes Sclerae: sclerae normal Pupils: Equal, round and reactive pupils present EOM: EOMs intact bilaterally Neck Neck: Yes normal visual inspection, Yes full ROM, Yes no meningeal signs, Yes trachea midline and Yes supple Resp Effort & Inspection: normal respiratory effort and able to speak in complete sentences Auscultation: clear to auscultation bilaterally, no crackles, no rales, no rhonchi and no wheezes Cardio Rate: regular rate Rhythm: regular rhythm GI Inspection: Yes Abdominal panniculus present, Yes obesity and Yes striae Palpation (GI): Soft to palpation, nontender, no guarding and not rigid Percussion: Yes normal to percussion Auscultation: normal bowel sounds General: Yes no CVA tenderness Back/Spine/Pelvis Back: no CVA tenderness Skin General skin exam: no rashes or lesions noted Neuro General: patient oriented x3, no meningeal signs, No confusion and Unable to assess gait Cranial nerves: Yes CN's II-XII intact bilaterally, Yes Facial sensation intact/muscles of mastication intact, Yes Equal, round and reactive pupils present, Yes Bilaterally intact EOM present, Yes Nystagmus not present, Yes Normal facial strength present, Yes Midline tongue present, Yes Normal hearing present, Yes Ability to bilaterally rotate head present and Yes Ability to bilaterally elevate shoulders present Cognition (Neuro): normal cognition Speech: No Abnormal speech present Gait exam (Neuro): Unable to assess gait Motor exam (neuro): 5/5 motor strength present throughout and Pronator motor function not present Coordination: [id number] test normal and [id number] test normal Pupils: Normal pupillary reactivity/response: bilateral Extrem General: Yes normal to inspection, Yes full ROM and Yes capillary refill normal Psych Appearance: disheveled Mental Status: other ( slow to respond) Speech and movement: Clear speech present Affect: Depressed mood present Attitude: cooperative Thought content: suicidality, no homicidality and Hallucination(s) present auditory (Hearing muffled voices) and visual (Seeing black spots in her peripheral vision) Course Course Course Narrative: 40-year-old insulin-dependent diabetic female who is been sleepy and was treated for UTI 1 week ago. Patient has not been compliant with her Macrobid, patient is telling her mother she is taking her insulin, but I am not sure that is true. There is a psych component were patient had her daughter taken by DCF, patient is endorsing hallucinations and says she has thoughts of self-harm every day. On exam, patient is slow to respond, although she is able to complete her neurological exam and has no focal deficits. And patient is obese, lungs are clear to auscultation bilaterally. When asked to move, patient endorses pain in her entire body. Labs show a glucose of 586, creatinine 4.03, sodium of 120. Leukocytosis is at 12.9, H&H is 9.7 and 30.5. Patient has a potassium of 4.8 magnesium of 1.9. Troponin negative, EKG shows no ischemia, chest x-ray is negative. Urine shows infection. Patient is not For sepsis screening, patient has a temperature rectally of 100.4, and has a UTI. Lactic is 1.5, creatinine is elevated. Patient did receive sepsis bolus, blood cultures, antibiotics as soon as I identified she had UTI. Most likely patient's symptoms are from her hyperglycemia and pseudo hypo natremia. Gave insulin, ceftriaxone, fluids. I do not think this is DKA, patient has a bicarb of 21, anion gap is 16, urine is negative for ketones. However will get acetone and VBG Patient is negative for COVID, flu, strep. Medical Decision Making Lab Data Result diagrams: 07/04/21 10:51 07/04/21 11:36 Labs: Lab Results 07/04/21 07/04/21 07/04/21 Range/Units 10:51 10:51 10:51 WBC 12.9 H (4.8-10.8) X10*3/uL RBC 4.14 L (4.20-5.50) X10*6/uL Hgb 9.7 L (12.0-16.0) g/dl Hct 30.5 L (37.0-47.0) % MCV 73.7 L (80.0-98.0) fL MCH 23.4 L (27.0-33.0) pg MCHC 31.8 (31.0-35.0) g/dl RDW 14.9 (11.0-16.0) % Plt Count 269 (160-400) X10*3/uL MPV 9.9 (9.4-12.3) fL Immature Gran % (Auto) Cancelled Neut % (Auto) Cancelled Lymph % (Auto) Cancelled [place] % (Auto) Cancelled Eos % (Auto) Cancelled Baso % (Auto) Cancelled Lymph # (Auto) Cancelled [place] # (Auto) Cancelled Eos # (Auto) Cancelled Baso # (Auto) Cancelled Abs Immat Gran (auto) Cancelled Absolute Neuts (auto) Cancelled Absolute Nucleated RBC 0.000 (0.0-0.012) X10*3/uL Nucleated RBC % (auto) 0.0 (0.0-0.2) /100WBC Neutrophils % (Manual) 72 (45-73) % Band Neutrophils % 10 H (3-5) % Lymphocytes % (Manual) 5 L (20-40) % Atypical Lymphs % (Man) 2 (0-6) % Monocytes % (Manual) 7 (2-11) % Basophils % (Manual) 1 (0-2) % Metamyelocytes % 3 % Abs Neuts (Manual) 10.6 H (2.0-8.3) X10*3/uL Lymphocytes # (Manual) 0.6 L (1.2-4.9) X10*3/uL Atyp Lymphs # (Manual) 0.3 x10*3/uL Monocytes # (Manual) 0.9 (0.1-1.2) X10*3/uL Basophils # (Manual) 0.1 (0.0-0.2) X10*3/uL Metamyelocytes # 0.4 X10*3/uL Platelet Estimate NORMAL (NORMAL) Plt Morphology Comment NORMAL RBC Morphology NOTED Hypochromasia 2+ (15-30) /OIF Microcytosis 2+ (15-30) /OIF Sodium (135-145) mmol/L Potassium (3.3-5.1) mmol/L Chloride (96-108) mmol/L Carbon Dioxide (22-29) mmol/L Anion Gap (12-20) BUN (9-16) mg/dL Creatinine (0.5-1.4) mg/dL Estim Creat Clear Calc Estimated GFR POC Glucose (60-115) mg/dL Random Glucose (60-115) mg/dL Lactic Acid 1.5 (0.5-2.0) mmol/L Calcium (8.4-10.2) mg/dL Magnesium (1.6-2.6) mg/dL Total Bilirubin (0.0-1.0) mg/dL Direct Bilirubin (0.0-0.5) mg/dL AST (5-31) U/L ALT (0-31) U/L Alkaline Phosphatase (39-117) U/L Total Creatine Kinase (26-140) U/L Troponin I High Sens < 3.5 (<3.5-17.0) ng/L Total Protein (6.5-8.0) g/dL Albumin (3.5-5.0) g/dL TSH (0.32-4.0) uIU/mL Urine Color Urine Appearance Urine pH (5.0-8.0) Ur Specific [place] (1.005-1.025) Urine Protein (NEG-TRACE) MG/DL Urine Glucose (UA) (NEG) MG/DL Urine Ketones (NEG) MG/DL Urine Blood (NEG) Urine Nitrite (NEG) Ur Leukocyte Esterase (NEG) Urine RBC (0) /HPF Urine WBC (0-4) /HPF Ur Squamous Epith Cells /LPF Urine Bacteria /LPF Urine Test (NEGATIVE) Acetone, Qual (Negative) Influenza Type A (PCR) (Negative) Influenza Type B (PCR) (Negative) RSV RNA Qual (PCR) (Negative) SARS-CoV-2 RNA (RT-PCR) (Negative) S. pyogenes GrpA TABATHA (Negative) 07/04/21 07/04/21 07/04/21 Range/Units 10:51 11:36 11:36 WBC (4.8-10.8) X10*3/uL RBC (4.20-5.50) X10*6/uL Hgb (12.0-16.0) g/dl Hct (37.0-47.0) % MCV (80.0-98.0) fL MCH (27.0-33.0) pg MCHC (31.0-35.0) g/dl RDW (11.0-16.0) % Plt Count (160-400) X10*3/uL MPV (9.4-12.3) fL Immature Gran % (Auto) Neut % (Auto) Lymph % (Auto) [place] % (Auto) Eos % (Auto) Baso % (Auto) Lymph # (Auto) [place] # (Auto) Eos # (Auto) Baso # (Auto) Abs Immat Gran (auto) Absolute Neuts (auto) Absolute Nucleated RBC (0.0-0.012) X10*3/uL Nucleated RBC % (auto) (0.0-0.2) /100WBC Neutrophils % (Manual) (45-73) % Band Neutrophils % (3-5) % Lymphocytes % (Manual) (20-40) % Atypical Lymphs % (Man) (0-6) % Monocytes % (Manual) (2-11) % Basophils % (Manual) (0-2) % Metamyelocytes % % Abs Neuts (Manual) (2.0-8.3) X10*3/uL Lymphocytes # (Manual) (1.2-4.9) X10*3/uL Atyp Lymphs # (Manual) x10*3/uL Monocytes # (Manual) (0.1-1.2) X10*3/uL Basophils # (Manual) (0.0-0.2) X10*3/uL Metamyelocytes # X10*3/uL Platelet Estimate (NORMAL) Plt Morphology Comment RBC Morphology Hypochromasia /OIF Microcytosis /OIF Sodium 120 L* (135-145) mmol/L Potassium 4.8 (3.3-5.1) mmol/L Chloride 88 L (96-108) mmol/L Carbon Dioxide 21 L (22-29) mmol/L Anion Gap 16 (12-20) BUN 75 H (9-16) mg/dL Creatinine 4.03 H* (0.5-1.4) mg/dL Estim Creat Clear Calc 19.0 Estimated GFR 12 POC Glucose (60-115) mg/dL Random Glucose 586 H* (60-115) mg/dL Lactic Acid (0.5-2.0) mmol/L Calcium 7.7 L D (8.4-10.2) mg/dL Magnesium 1.9 (1.6-2.6) mg/dL Total Bilirubin 0.7 (0.0-1.0) mg/dL Direct Bilirubin 0.3 (0.0-0.5) mg/dL AST 33 H D (5-31) U/L ALT 35 H (0-31) U/L Alkaline Phosphatase 324 H D (39-117) U/L Total Creatine Kinase 133 (26-140) U/L Troponin I High Sens (<3.5-17.0) ng/L Total Protein 5.9 L D (6.5-8.0) g/dL Albumin 2.4 L D (3.5-5.0) g/dL TSH 3.22 (0.32-4.0) uIU/mL Urine Color Urine Appearance Urine pH (5.0-8.0) Ur Specific [place] (1.005-1.025) Urine Protein (NEG-TRACE) MG/DL Urine Glucose (UA) (NEG) MG/DL Urine Ketones (NEG) MG/DL Urine Blood (NEG) Urine Nitrite (NEG) Ur Leukocyte Esterase (NEG) Urine RBC (0) /HPF Urine WBC (0-4) /HPF Ur Squamous Epith Cells /LPF Urine Bacteria /LPF Urine Test (NEGATIVE) Acetone, Qual Negative (Negative) Influenza Type A (PCR) NEGATIVE (Negative) Influenza Type B (PCR) NEGATIVE (Negative) RSV RNA Qual (PCR) NEGATIVE (Negative) SARS-CoV-2 RNA (RT-PCR) NEGATIVE (Negative) S. pyogenes GrpA TABATHA Negative (Negative) 04/24/22 04/24/22 04/24/22 Range/Units 12:26 12:26 13:03 WBC (4.8-10.8) X10*3/uL RBC (4.20-5.50) X10*6/uL Hgb (12.0-16.0) g/dl Hct (37.0-47.0) % MCV (80.0-98.0) fL MCH (27.0-33.0) pg MCHC (31.0-35.0) g/dl RDW (11.0-16.0) % Plt Count (160-400) X10*3/uL MPV (9.4-12.3) fL Immature Gran % (Auto) Neut % (Auto) Lymph % (Auto) [place] % (Auto) Eos % (Auto) Baso % (Auto) Lymph # (Auto) [place] # (Auto) Eos # (Auto) Baso # (Auto) Abs Immat Gran (auto) Absolute Neuts (auto) Absolute Nucleated RBC (0.0-0.012) X10*3/uL Nucleated RBC % (auto) (0.0-0.2) /100WBC Neutrophils % (Manual) (45-73) % Band Neutrophils % (3-5) % Lymphocytes % (Manual) (20-40) % Atypical Lymphs % (Man) (0-6) % Monocytes % (Manual) (2-11) % Basophils % (Manual) (0-2) % Metamyelocytes % % Abs Neuts (Manual) (2.0-8.3) X10*3/uL Lymphocytes # (Manual) (1.2-4.9) X10*3/uL Atyp Lymphs # (Manual) x10*3/uL Monocytes # (Manual) (0.1-1.2) X10*3/uL Basophils # (Manual) (0.0-0.2) X10*3/uL Metamyelocytes # X10*3/uL Platelet Estimate (NORMAL) Plt Morphology Comment RBC Morphology Hypochromasia /OIF Microcytosis /OIF Sodium (135-145) mmol/L Potassium (3.3-5.1) mmol/L Chloride (96-108) mmol/L Carbon Dioxide (22-29) mmol/L Anion Gap (12-20) BUN (9-16) mg/dL Creatinine (0.5-1.4) mg/dL Estim Creat Clear Calc Estimated GFR POC Glucose 507 H* (60-115) mg/dL Random Glucose (60-115) mg/dL Lactic Acid (0.5-2.0) mmol/L Calcium (8.4-10.2) mg/dL Magnesium (1.6-2.6) mg/dL Total Bilirubin (0.0-1.0) mg/dL Direct Bilirubin (0.0-0.5) mg/dL AST (5-31) U/L ALT (0-31) U/L Alkaline Phosphatase (39-117) U/L Total Creatine Kinase (26-140) U/L Troponin I High Sens (<3.5-17.0) ng/L Total Protein (6.5-8.0) g/dL Albumin (3.5-5.0) g/dL TSH (0.32-4.0) uIU/mL Urine Color YELLOW Urine Appearance CLOUDY Urine pH 6.0 (5.0-8.0) Ur Specific [place] <= 1.005 (1.005-1.025) Urine Protein NEG (NEG-TRACE) MG/DL Urine Glucose (UA) >=1000 H (NEG) MG/DL Urine Ketones NEG (NEG) MG/DL Urine Blood 3+ H (NEG) Urine Nitrite NEG (NEG) Ur Leukocyte Esterase 1+ H (NEG) Urine RBC 1-4 (0) /HPF Urine WBC 5-9 H (0-4) /HPF Ur Squamous Epith Cells 2+ /LPF Urine Bacteria 2+ /LPF Urine Test NEGATIVE (NEGATIVE) Acetone, Qual (Negative) Influenza Type A (PCR) (Negative) Influenza Type B (PCR) (Negative) RSV RNA Qual (PCR) (Negative) SARS-CoV-2 RNA (RT-PCR) (Negative) S. pyogenes GrpA TABATHA (Negative) 07/04/21 Range/Units 14:29 WBC (4.8-10.8) X10*3/uL RBC (4.20-5.50) X10*6/uL Hgb (12.0-16.0) g/dl Hct (37.0-47.0) % MCV (80.0-98.0) fL MCH (27.0-33.0) pg MCHC (31.0-35.0) g/dl RDW (11.0-16.0) % Plt Count (160-400) X10*3/uL MPV (9.4-12.3) fL Immature Gran % (Auto) Neut % (Auto) Lymph % (Auto) [place] % (Auto) Eos % (Auto) Baso % (Auto) Lymph # (Auto) [place] # (Auto) Eos # (Auto) Baso # (Auto) Abs Immat Gran (auto) Absolute Neuts (auto) Absolute Nucleated RBC (0.0-0.012) X10*3/uL Nucleated RBC % (auto) (0.0-0.2) /100WBC Neutrophils % (Manual) (45-73) % Band Neutrophils % (3-5) % Lymphocytes % (Manual) (20-40) % Atypical Lymphs % (Man) (0-6) % Monocytes % (Manual) (2-11) % Basophils % (Manual) (0-2) % Metamyelocytes % % Abs Neuts (Manual) (2.0-8.3) X10*3/uL Lymphocytes # (Manual) (1.2-4.9) X10*3/uL Atyp Lymphs # (Manual) x10*3/uL Monocytes # (Manual) (0.1-1.2) X10*3/uL Basophils # (Manual) (0.0-0.2) X10*3/uL Metamyelocytes # X10*3/uL Platelet Estimate (NORMAL) Plt Morphology Comment RBC Morphology Hypochromasia /OIF Microcytosis /OIF Sodium (135-145) mmol/L Potassium (3.3-5.1) mmol/L Chloride (96-108) mmol/L Carbon Dioxide (22-29) mmol/L Anion Gap (12-20) BUN (9-16) mg/dL Creatinine (0.5-1.4) mg/dL Estim Creat Clear Calc Estimated GFR POC Glucose 438 H* (60-115) mg/dL Random Glucose (60-115) mg/dL Lactic Acid (0.5-2.0) mmol/L Calcium (8.4-10.2) mg/dL Magnesium (1.6-2.6) mg/dL Total Bilirubin (0.0-1.0) mg/dL Direct Bilirubin (0.0-0.5) mg/dL AST (5-31) U/L ALT (0-31) U/L Alkaline Phosphatase (39-117) U/L Total Creatine Kinase (26-140) U/L Troponin I High Sens (<3.5-17.0) ng/L Total Protein (6.5-8.0) g/dL Albumin (3.5-5.0) g/dL TSH (0.32-4.0) uIU/mL Urine Color Urine Appearance Urine pH (5.0-8.0) Ur Specific [place] (1.005-1.025) Urine Protein (NEG-TRACE) MG/DL Urine Glucose (UA) (NEG) MG/DL Urine Ketones (NEG) MG/DL Urine Blood (NEG) Urine Nitrite (NEG) Ur Leukocyte Esterase (NEG) Urine RBC (0) /HPF Urine WBC (0-4) /HPF Ur Squamous Epith Cells /LPF Urine Bacteria /LPF Urine Test (NEGATIVE) Acetone, Qual (Negative) Influenza Type A (PCR) (Negative) Influenza Type B (PCR) (Negative) RSV RNA Qual (PCR) (Negative) SARS-CoV-2 RNA (RT-PCR) (Negative) S. pyogenes GrpA TABATHA (Negative) ECG Data Interpretation: Sinus at a rate of 81, MD interval 186, QRS 114, QTC 448, normal axis, no ST depressions or elevations, no T-wave abnormalities. Discharge Plan Discharge Clinical Impression: Acute hyperglycemia, Acute hyponatremia, UTI (urinary tract infection), TOÑO (acute kidney injury), Hallucinations
[2021-07-04] MEDS: Ketorolac Tromethamine 30 MG/ML VIAL IVPUSH (12:08)
[2021-07-04 12:14] LABS: IDNOW Serial# 08D9AD1C
[2021-07-04 12:15] LABS: Strep A Nucleic Acid Negative (Negative)
[2021-07-04] MEDS: 0.9 % Sodium Chloride 2,721.54 ML 2721.54 ML IV (12:15)
[2021-07-04] MEDS: Acetaminophen 325 MG TABLET 975 MG PO (12:19)
[2021-07-04 12:20] LABS: Alanine Aminotransferase 35 U/L (0-31); Albumin Level 2.4 g/dL (3.5-5.0); Alkaline Phosphatase 324 U/L (39-117); Anion Gap 16 (12-20); Aspartate Amino Transferase 33 U/L (5-31); Bilirubin Direct 0.3 mg/dL (0.0-0.5); Bilirubin Total 0.7 mg/dL (0.0-1.0); Blood Urea Nitrogen 75 mg/dL (9-16); Calcium 7.7 mg/dL (8.4-10.2); Carbon Dioxide 21 mmol/L (22-29); Chloride 88 mmol/L (96-108); Estimated Glomerular Filt Rate 12; Glucose Random 586 mg/dL (60-115); Potassium 4.8 mmol/L (3.3-5.1); Sodium 120 mmol/L (135-145); Total Protein 5.9 g/dL (6.5-8.0)
[2021-07-04 12:40] LABS: Appearance Urine CLOUDY; Color Urine YELLOW; Glucose Urine UA >=1000 MG/DL (NEG); Leukocyte Esterase Urine 1+ (NEG); Nitrite Urine NEG (NEG); Specific Gravity - Urine <= 1.005 (1.005-1.025); UACC Culture Trigger YES; Urine Blood 3+ (NEG); Urine Ketones NEG (NEG); Urine Protein NEG (NEG-TRACE)
[2021-07-04 12:44] LABS: UPreg QC Valid YES; Urine Pregnancy NEGATIVE (NEGATIVE)
[2021-07-04 12:46] LABS: Squamous Epithelial Cell Urine 2+ /LPF
[2021-07-04 12:49] LABS: Bacteria Urine 2+ /LPF
[2021-07-04] MEDS: Insulin Regular, Human 100 UNIT/ML 3 ML VIAL 10 UNIT IVPUSH (13:03)
[2021-07-04 13:04] LABS: Magnesium 1.9 mg/dL (1.6-2.6)
[2021-07-04 13:09] LABS: Glucose, Whole Blood 507 mg/dL (60-115)
[2021-07-04] MEDS: cefTRIAXone sodium 2 GM in 0.9 % Sodium Chloride 50 ML IV (13:14)
[2021-07-04 14:08] LABS: Thyroid Stimulating Hormone 3.22 uIU/mL (0.32-4.0)
[2021-07-04 14:37] LABS: Glucose, Whole Blood 438 mg/dL (60-115)
--- NOTE | 2021-07-04 15:10 | PHA.MEDREC ---
Pharmacy Consult ? Medication Reconciliation Pharmacy has completed the medication reconciliation.
[2021-07-04 15:18] LABS: Acetone, serum QL Negative (Negative)
--- NOTE | 2021-07-04 15:33 | PM.IMHP ---
History of Present Illness Date of Service: 07/04/21 Attending physician on admission: Javier Stewart Chief Complaint: dm uncontrolled, toño 40-year-old female with history of diabetes, hypercholesteremia,, depression, peripheral neuropathy: Patient was getting weak, fevers, chills and urinary discomfort 5-7 days back an she went to her PCP and was given antibiotics-nitrofurantoin: Patient claims that make her nauseated so she decided not to take it, in addition even before having these symptoms patient was noncompliant with her diabetic medications and getting sleepy. Her mother is at bedside who added that patient was not hydrating herself fell as well as not compliant with her medication due to possible depression and noncompliance at the baseline also. She denies any other complaints except has suprapubic discomfort and still generalized weak, also complains of throat pain. She denies any sick contacts, but feels sad and depressed says that she has suicidal thoughts often. But so far did not try to commit suicide. Her mother says that she had fever of 102 5-7 days back but afterwards resolved. , she also had headache 5 days back which were resolved. ED physician also noted question of hallucination but patient denies it. has nausea Denies any new complaint of chest pain or shortness of breath or abdominal pain or vomiting Denies any cough or [place] or any ear pain. Denies any weakness or numbness. Lab imaging and EKG reviewed: Review of Systems Review of Systems: As above. Yes all other systems are reviewed and are negative [facility] Medical History Diabetes Neuropathy Pertinent family history: Her father has diabetes, and her stepsister also has diabetes, step sister has diabetes, steps brother had diabetes and he . Social History Alcohol intake: current Alcohol intake frequency: 0-2 drinks per day Patient Tobacco Use Status: Current everyday Tobacco user Advance Directives: No Advance Directives Information Provided: No Patient : No Meds Allergies Allergy/AdvReac Type Severity Reaction Status Date / Time No Known Allergies Allergy Verified 08/12/20 22:15 Active Medications: Current Medications Dextrose (Dextrose 50 % 25 Gm/50 Ml Syringe) 25 gm IVPUSH Q15M PRN; Protocol PRN Reason: per Hypoglycemia Standing Ord. Glucose (Glucose Gel 15 Gm Gel..Gram.) 15 gm PO Q15M PRN; Protocol PRN Reason: per Hypoglycemia Standing Ord. Heparin Sodium (Porcine) (Heparin Sodium,Porcine 5,000 Unit/Ml Vial) 5,000 unit SUBCUT Q8H [facility] Lactated Ringer's (Lr) 1,000 mls @ 100 mls/hr IVCONT .Q10H [facility] Ceftriaxone Sodium 1 gm/ (Sodium Chloride) 50 mls @ 100 mls/hr IV DAILY [facility] Insulin Human Lispro (Insulin Lispro 100 Unit/Ml 3 Ml Vial) 0 unit SUBCUT QIDACHS [facility]; Protocol Omeprazole (Omeprazole 20 Mg Capsule.Dr) 20 mg PO DAILY [facility] Pharmacy Consult (Consult Rx Perform Med Rec) 1 each MISCELLANE ONCE PRN PRN Reason: Consult order Sodium Chloride (0.9 % Sodium Chloride Flush 3 Ml Syringe) 3 ml IVFLUSH QSHIFT [facility] Home Medications Medication Instructions Recorded Confirmed Last Taken Type bupropion HCl 300 mg 24 hr tablet, 1 tab PO DAILY 07/04/21 07/04/21 07/03/21 History extended release gabapentin 300 mg capsule 3 cap PO BEDTIME 07/04/21 07/04/21 07/03/21 History glipizide 10 mg tablet, extended 2 tab PO QAM 07/04/21 07/04/21 07/03/21 History release 24 hr hydroxyzine HCl 25 mg tablet 1 tab PO BEDTIME PRN 07/04/21 07/04/21 07/03/21 History insulin aspart U-100 100 unit/mL See Rx Instructions .ROUTE .COMPLEX 07/04/21 07/04/21 07/03/21 History (3 mL) subcutaneous pen (Novolog Flexpen U-100 Insulin aspart) insulin glargine 100 unit/mL (3 60 unit SUBCUT BID 07/04/21 07/04/21 07/03/21 History mL) subcutaneous pen (Lantus Solostar U-100 Insulin) metformin 1,000 mg tablet 1 tab PO BID 07/04/21 07/04/21 07/03/21 History nitrofurantoin 1 cap PO BID 07/04/21 07/04/21 07/04/21 History monohydrate/macrocrystals 100 mg capsule rosuvastatin 5 mg tablet 1 tab PO DAILY 07/04/21 07/04/21 07/03/21 History venlafaxine 150 mg 1 cap PO DAILY 07/04/21 07/04/21 07/03/21 History capsule,extended release 24 hr venlafaxine 75 mg capsule,extended 1 cap PO DAILY 07/04/21 07/04/21 07/03/21 History release 24 hr Physical Exam Vital Signs and Narrative: Vital Signs: Last Vital Signs Temp 100.4 F 07/04/21 11:40 Pulse 78 07/04/21 14:31 Resp 16 07/04/21 14:31 BP 112/64 07/04/21 14:31 Pulse Ox 95 07/04/21 14:32 BMI result Body Mass Index 36.6 Appearance: Alert.? Oriented X3 but some what confused .? Seems more alert but still very weak Eyes: Pupils equal, round and reactive to light.? Sclera nonicteric.? ENT: Pharynx normal.? Moist mucous dry. cvs: rrr, [id number] . res: clear to auscultation ,no rhonchii or wheezing abd: no rebound or guarding ,nt, bs present. ext pulses present , no cyanosis . neuro: axo3 , moves all extremities. Results Labs CBC and Chem 7: 07/04/21 10:51 07/04/21 11:36 Labs: Laboratory Results - last 24 hr 07/04/21 07/04/21 07/04/21 10:51 10:51 10:51 MCV 73.7 L MCH 23.4 L MCHC 31.8 RDW 14.9 Plt Count 269 MPV 9.9 Immature Gran % (Auto) Cancelled Neut % (Auto) Cancelled Lymph % (Auto) Cancelled [place] % (Auto) Cancelled Eos % (Auto) Cancelled Baso % (Auto) Cancelled Lymph # (Auto) Cancelled [place] # (Auto) Cancelled Eos # (Auto) Cancelled Baso # (Auto) Cancelled Abs Immat Gran (auto) Cancelled Absolute Neuts (auto) Cancelled Absolute Nucleated RBC 0.000 Nucleated RBC % (auto) 0.0 Neutrophils % (Manual) 72 Band Neutrophils % 10 H Lymphocytes % (Manual) 5 L Atypical Lymphs % (Man) 2 Monocytes % (Manual) 7 Basophils % (Manual) 1 Metamyelocytes % 3 Abs Neuts (Manual) 10.6 H Lymphocytes # (Manual) 0.6 L Atyp Lymphs # (Manual) 0.3 Monocytes # (Manual) 0.9 Basophils # (Manual) 0.1 Metamyelocytes # 0.4 Platelet Estimate NORMAL Plt Morphology Comment NORMAL RBC Morphology NOTED Hypochromasia 2+ (15-30) Microcytosis 2+ (15-30) Anion Gap Estim Creat Clear Calc Estimated GFR POC Glucose Random Glucose Lactic Acid 1.5 Calcium Magnesium Total Bilirubin Direct Bilirubin AST ALT Alkaline Phosphatase Total Creatine Kinase Troponin I High Sens < 3.5 Total Protein Albumin TSH Urine Color Urine Appearance Urine pH Ur Specific Sikes Urine Protein Urine Glucose (UA) Urine Ketones Urine Blood Urine Nitrite Ur Leukocyte Esterase Urine RBC Urine WBC Ur Squamous Epith Cells Urine Bacteria Urine Test Acetone, Qual Influenza Type A (PCR) Influenza Type B (PCR) RSV RNA Qual (PCR) SARS-CoV-2 RNA (RT-PCR) S. pyogenes GrpA TABATHA 07/04/21 07/04/21 07/04/21 10:51 11:36 11:36 MCV MCH MCHC RDW Plt Count MPV Immature Gran % (Auto) Neut % (Auto) Lymph % (Auto) [place] % (Auto) Eos % (Auto) Baso % (Auto) Lymph # (Auto) [place] # (Auto) Eos # (Auto) Baso # (Auto) Abs Immat Gran (auto) Absolute Neuts (auto) Absolute Nucleated RBC Nucleated RBC % (auto) Neutrophils % (Manual) Band Neutrophils % Lymphocytes % (Manual) Atypical Lymphs % (Man) Monocytes % (Manual) Basophils % (Manual) Metamyelocytes % Abs Neuts (Manual) Lymphocytes # (Manual) Atyp Lymphs # (Manual) Monocytes # (Manual) Basophils # (Manual) Metamyelocytes # Platelet Estimate Plt Morphology Comment RBC Morphology Hypochromasia Microcytosis Anion Gap 16 Estim Creat Clear Calc 19.0 Estimated GFR 12 POC Glucose Random Glucose 586 H* Lactic Acid Calcium 7.7 L D Magnesium 1.9 Total Bilirubin 0.7 Direct Bilirubin 0.3 AST 33 H D ALT 35 H Alkaline Phosphatase 324 H D Total Creatine Kinase 133 Troponin I High Sens Total Protein 5.9 L D Albumin 2.4 L D TSH 3.22 Urine Color Urine Appearance Urine pH Ur Specific Sikes Urine Protein Urine Glucose (UA) Urine Ketones Urine Blood Urine Nitrite Ur Leukocyte Esterase Urine RBC Urine WBC Ur Squamous Epith Cells Urine Bacteria Urine Test Acetone, Qual Negative Influenza Type A (PCR) NEGATIVE Influenza Type B (PCR) NEGATIVE RSV RNA Qual (PCR) NEGATIVE SARS-CoV-2 RNA (RT-PCR) NEGATIVE S. pyogenes GrpA TABATHA Negative 07/04/21 07/04/21 07/04/21 12:26 12:26 13:03 MCV MCH MCHC RDW Plt Count MPV Immature Gran % (Auto) Neut % (Auto) Lymph % (Auto) [place] % (Auto) Eos % (Auto) Baso % (Auto) Lymph # (Auto) [place] # (Auto) Eos # (Auto) Baso # (Auto) Abs Immat Gran (auto) Absolute Neuts (auto) Absolute Nucleated RBC Nucleated RBC % (auto) Neutrophils % (Manual) Band Neutrophils % Lymphocytes % (Manual) Atypical Lymphs % (Man) Monocytes % (Manual) Basophils % (Manual) Metamyelocytes % Abs Neuts (Manual) Lymphocytes # (Manual) Atyp Lymphs # (Manual) Monocytes # (Manual) Basophils # (Manual) Metamyelocytes # Platelet Estimate Plt Morphology Comment RBC Morphology Hypochromasia Microcytosis Anion Gap Estim Creat Clear Calc Estimated GFR POC Glucose 507 H* Random Glucose Lactic Acid Calcium Magnesium Total Bilirubin Direct Bilirubin AST ALT Alkaline Phosphatase Total Creatine Kinase Troponin I High Sens Total Protein Albumin TSH Urine Color YELLOW Urine Appearance CLOUDY Urine pH 6.0 Ur Specific Sikes <= 1.005 Urine Protein NEG Urine Glucose (UA) >=1000 H Urine Ketones NEG Urine Blood 3+ H Urine Nitrite NEG Ur Leukocyte Esterase 1+ H Urine RBC 1-4 Urine WBC 5-9 H Ur Squamous Epith Cells 2+ Urine Bacteria 2+ Urine Test NEGATIVE Acetone, Qual Influenza Type A (PCR) Influenza Type B (PCR) RSV RNA Qual (PCR) SARS-CoV-2 RNA (RT-PCR) S. pyogenes GrpA TABATHA 07/04/21 14:29 MCV MCH MCHC RDW Plt Count MPV Immature Gran % (Auto) Neut % (Auto) Lymph % (Auto) [place] % (Auto) Eos % (Auto) Baso % (Auto) Lymph # (Auto) [place] # (Auto) Eos # (Auto) Baso # (Auto) Abs Immat Gran (auto) Absolute Neuts (auto) Absolute Nucleated RBC Nucleated RBC % (auto) Neutrophils % (Manual) Band Neutrophils % Lymphocytes % (Manual) Atypical Lymphs % (Man) Monocytes % (Manual) Basophils % (Manual) Metamyelocytes % Abs Neuts (Manual) Lymphocytes # (Manual) Atyp Lymphs # (Manual) Monocytes # (Manual) Basophils # (Manual) Metamyelocytes # Platelet Estimate Plt Morphology Comment RBC Morphology Hypochromasia Microcytosis Anion Gap Estim Creat Clear Calc Estimated GFR POC Glucose 438 H* Random Glucose Lactic Acid Calcium Magnesium Total Bilirubin Direct Bilirubin AST ALT Alkaline Phosphatase Total Creatine Kinase Troponin I High Sens Total Protein Albumin TSH Urine Color Urine Appearance Urine pH Ur Specific Sikes Urine Protein Urine Glucose (UA) Urine Ketones Urine Blood Urine Nitrite Ur Leukocyte Esterase Urine RBC Urine WBC Ur Squamous Epith Cells Urine Bacteria Urine Test Acetone, Qual Influenza Type A (PCR) Influenza Type B (PCR) RSV RNA Qual (PCR) SARS-CoV-2 RNA (RT-PCR) S. pyogenes GrpA TABATHA ECG Attestation: I personally reviewed and interpreted this ECG as follows: (EKG seems fine nsr) Imaging Radiologist's Impressions: Impressions Chest X-Ray 07/04/21 12:00 IMPRESSION: Unremarkable examination. Head CT 07/04/21 12:57 IMPRESSION: Unremarkable exam. Assessment and Plan (1) Acute hyperglycemia: Status: Acute (2) Acute hyponatremia: Status: Acute (3) UTI (urinary tract infection): Status: Acute (4) TOÑO (acute kidney injury): Status: Acute Plan 46-year-old female who came to the hospital because of TOÑO, uncontrolled diabetes, toxic metabolic encephalopathy and UTI. Sepsis secondary to UTI: As per ED physician note patient temperature rectally was 100.4, has white count of 12.9 Patient was given IV antibiotic, blood cultures sent, lactic acid normal, sepsis exam completed, patient also received fluid bolus as per sepsis. TOÑO: Multifactorial dehydration, uncontrolled diabetes, UTI Started patient on hydration and received IV insulin in the ED. Monitor renal function closely. Uncontrolled diabetes due to noncompliance. Fingersticks improving to 400 range Monitor fingerstick with sliding scale coverage, hemoglobin A1c. Hold oralhypoglycemic for now. Patient has component pseudo hyponatremia due to hyperglycemia-when adjust for fingersticks-patient's sodium should be around 128 instead of 120. Will check BMP. Peripheral neuropathy: Continue gabapentin. toxic metabolic encephalopathy: Multifactorial UTI, TOÑO, uncontrolled diabetes, decreased p.o. intake. Getting treatment with hydration, insulin, antibiotics and will continue to monitor. CT head is negative She is improving mental status . Morbid obesity: Encouraged to cut down calories once stable and encourage for weight loss. anemia microcytic : denies any hx of blood moniter h/h added anemia workup DVT prophylaxis with subQ heparin Above management discussed the patient and her mother at the bedside they both understand and in agreement with the above plan, time spent 70 minute, patient full code, considering multiple issues above UTI, TOÑO, uncontrolled diabetes, toxic metabolic encephalopathy patient may benefit from 2 midnight stays. Quality Stroke Does the patient have a stroke diagnosis?: No VTE Prior VTE?: No VTE Risk Level:: Medical - moderate - high VTE Device Contraindication: N/A - Device Ordered VTE Drug Contraindication: N/A - Med Ordered
[2021-07-04 16:19] LABS: Glucose, Whole Blood 415 mg/dL (60-115)
[2021-07-04] MEDS: Heparin Sodium,Porcine 5,000 UNIT/ML VIAL 5000 UNIT SUBCUT (16:20)
[2021-07-04] MEDS: Insulin Lispro 100 UNIT/ML 3 ML VIAL SUBCUT ×2 (16:20→21:17)
[2021-07-04] MEDS: Lactated Ringers 1,000 ML 100 ML IVCONT (16:28)
[2021-07-04] MEDS: 0.9 % Sodium Chloride Flush 3 ML SYRINGE IVFLUSH (16:29)
[2021-07-04 16:31] LABS: Hemoglobin A1c % > 14.0 %
--- NOTE | 2021-07-04 17:33 | PM.CNNEP ---
History of Present Illness Reason for Consult Consult date: 07/04/21 Reason for consult: TOÑO Chief Complaint Chief complaint: TOÑO/Hyperglycemia/Toxic metabolic encephalopathy, History of Present Illness Narrative: 40-year-old female with history of diabetes, hypercholesteremia,, depression, peripheral neuropathy: Patient was getting weak, fevers, chills and urinary discomfort 5-7 days back an she went to her PCP and was given antibiotics-nitrofurantoin. She vomited twice ~ 5 days ago. Patient has not been hydrating herself well according to her mother. Her mother says that she had fever of 102 5-7 days back but afterwards resolved. , she also had headache 5 days back which were resolved. ROS otherwise negative. Review of Systems Review of Systems Yes all other systems are reviewed and are negative Constitutional: Reports as per [facility] Past Medical History Medical History Diabetes Neuropathy Social History Social History Alcohol intake: current Alcohol intake frequency: 0-2 drinks per day Patient Tobacco Use Status: Current everyday Tobacco user Advance Directives: No Advance Directives Information Provided: No Patient : No Meds Allergies Allergy/AdvReac Type Severity Reaction Status Date / Time No Known Allergies Allergy Verified 08/12/20 22:15 Active Medications: Current Medications Dextrose (Dextrose 50 % 25 Gm/50 Ml Syringe) 25 gm IVPUSH Q15M PRN; Protocol PRN Reason: per Hypoglycemia Standing Ord. Glucose (Glucose Gel 15 Gm Gel..Gram.) 15 gm PO Q15M PRN; Protocol PRN Reason: per Hypoglycemia Standing Ord. Heparin Sodium (Porcine) (Heparin Sodium,Porcine 5,000 Unit/Ml Vial) 5,000 unit SUBCUT Q8H [facility] Last Admin: 07/04/21 16:20 Dose: 5,000 unit Documented by: Lactated Ringer's (Lr) 1,000 mls @ 100 mls/hr IVCONT .Q10H [facility] Last Admin: 07/04/21 16:28 Dose: 100 mls/hr Documented by: Ceftriaxone Sodium 1 gm/ (Sodium Chloride) 50 mls @ 100 mls/hr IV Q24H [facility] Insulin Human Lispro (Insulin Lispro 100 Unit/Ml 3 Ml Vial) 0 unit SUBCUT QIDACHS [facility]; Protocol Last Admin: 07/04/21 16:20 Dose: 10 unit Documented by: Omeprazole (Omeprazole 20 Mg Odalys.) 20 mg PO DAILY@0630 [facility] Pharmacy Consult (Consult Rx Perform Med Rec) 1 each MISCELLANE ONCE PRN PRN Reason: Consult order Sodium Chloride (0.9 % Sodium Chloride Flush 3 Ml Syringe) 3 ml IVFLUSH [facility] Last Admin: 07/04/21 16:29 Dose: 3 ml Documented by: Home Medications Medication Instructions Recorded Confirmed Last Taken Type bupropion HCl 300 mg 24 hr tablet, 1 tab PO DAILY 07/04/21 07/04/21 07/03/21 History extended release gabapentin 300 mg capsule 3 cap PO BEDTIME 07/04/21 07/04/21 07/03/21 History glipizide 10 mg tablet, extended 2 tab PO QAM 07/04/21 07/04/21 07/03/21 History release 24 hr hydroxyzine HCl 25 mg tablet 1 tab PO BEDTIME PRN 07/04/21 07/04/21 07/03/21 History insulin aspart U-100 100 unit/mL See Rx Instructions .ROUTE .COMPLEX 07/04/21 07/04/21 07/03/21 History (3 mL) subcutaneous pen (Novolog Flexpen U-100 Insulin aspart) insulin glargine 100 unit/mL (3 60 unit SUBCUT BID 07/04/21 07/04/21 07/03/21 History mL) subcutaneous pen (Lantus Solostar U-100 Insulin) metformin 1,000 mg tablet 1 tab PO BID 07/04/21 07/04/21 07/03/21 History nitrofurantoin 1 cap PO BID 07/04/21 07/04/21 07/04/21 History monohydrate/macrocrystals 100 mg capsule rosuvastatin 5 mg tablet 1 tab PO DAILY 07/04/21 07/04/21 07/03/21 History venlafaxine 150 mg 1 cap PO DAILY 07/04/21 07/04/21 07/03/21 History capsule,extended release 24 hr venlafaxine 75 mg capsule,extended 1 cap PO DAILY 07/04/21 07/04/21 07/03/21 History release 24 hr Physical Exam Vital Signs: Last Vital Signs Temp 98.4 F 07/04/21 16:23 Pulse 72 07/04/21 16:23 Resp 14 07/04/21 16:23 BP 147/83 H 07/04/21 16:23 Pulse Ox 99 07/04/21 16:23 BMI result Body Mass Index 36.6 Const General: cooperative, comfortable and no acute distress Orientation/consciousness: patient oriented x3 HEENT Head: Yes normocephalic and Yes atraumatic Neck Neck: Yes no JVD Resp Effort & Inspection: normal respiratory effort Auscultation: clear to auscultation bilaterally Cardio Jugular venous distension: no JVD Rate: regular rate Rhythm: regular rhythm Heart sounds: S1 normal heart sound present and S2 normal heart sound present GI Auscultation: normal bowel sounds Neuro General: patient oriented x3 Extrem General: Yes no clubbing, cyanosis or edema Results Lab Results Result Diagrams: 07/04/21 10:51 07/04/21 11:36 Lab results: Chemistry 07/04/21 11:36 Sodium 120 L* Potassium 4.8 Carbon Dioxide 21 L BUN 75 H Creatinine 4.03 H* Calcium 7.7 L D Hematology 07/04/21 10:51 WBC 12.9 H Hgb 9.7 L Plt Count 269 Urinalysis 07/04/21 12:26 Urine Color YELLOW Urine Appearance CLOUDY Urine pH 6.0 Ur Specific [employer] <= 1.005 Urine Protein NEG Urine Glucose (UA) >=1000 H Urine Ketones NEG Urine Blood 3+ H Urine Nitrite NEG Ur Leukocyte Esterase 1+ H Urine RBC 1-4 Urine WBC 5-9 H Ur Squamous Epith Cells 2+ Assessment and Plan (1) Acute hyponatremia: Status: Acute (2) TOÑO (acute kidney injury): Status: Acute Plan #TOÑO, non-oliguric: secondary to volume depletion and hyperglycemia which resulted in osmotic diuresis and further pre-renal injury. -Prior BL S-Cr (last known ~ 1.25 mg/dL on 08/2020) consistent with mild ckd at BL. -In setting of TOÑO from osmotic diuresis and subsequent use of nitrofurantoin, its possible she also predisposed herself to renal injury from AIN. will attain UA to assess for hematuria/proteinuria and will also add urine eosinophils. -Continue with volume replacement with IVF's. -Renal panel daily. -Monitor K, phos, calcium, Mg with volume repletion. -Added urine studies. -Hold metformin -Please attain renal US -I/O's, please place garrett if patient becomes oliguric -avoidance of metformin for now, avoidance of nsaids, acei/arb, IV contrast, renal dosing abx #Hyponatremia - combination of pseudohyponatremia given hyperglycemia (c-Na ~ 127 meq/L), volume depletion with some loss of medullary gradient. Continue with volume support in form of IVF s. -Hold SSRI's/SNRI's, hold thiazide diuretics, #Hyperglycemia - mgt per primary team #glucosuria - BS control. #Anemia - Iron panel added. May be component of CKD. Establish BL S-Cr. Procedures Date of Service Date of Service: 07/04/21
[2021-07-04 17:41] LABS: Alanine Aminotransferase 40 U/L (0-31); Albumin Level 2.4 g/dL (3.5-5.0); Alkaline Phosphatase 337 U/L (39-117); Anion Gap 15 (12-20); Aspartate Amino Transferase 42 U/L (5-31); Bilirubin Direct 0.3 mg/dL (0.0-0.5); Bilirubin Total 0.4 mg/dL (0.0-1.0); Blood Urea Nitrogen 78 mg/dL (9-16); Calcium 7.7 mg/dL (8.4-10.2); Carbon Dioxide 19 mmol/L (22-29); Chloride 93 mmol/L (96-108); Creatinine Clr Calc Pharmacy 18.4; Estimated Glomerular Filt Rate 12; Glucose Random 480 mg/dL (60-115); Iron 41 mcg/dL (30-160); Percent Iron Saturation 17 % (15-50); Potassium 4.9 mmol/L (3.3-5.1); Sodium 122 mmol/L (135-145); Total Iron Binding Capacity 235 mcg/dL (228-428); Total Protein 5.9 g/dL (6.5-8.0); Unsaturated Iron Binding 194 ug/dL
[2021-07-04 17:43] LABS: Ferritin 294 ng/mL (10-250)
[2021-07-04 18:03] LABS: Glucose, Whole Blood 435 mg/dL (60-115)
[2021-07-04 20:40] LABS: Glucose, Whole Blood 309 mg/dL (60-115)
[2021-07-04 20:43] LABS: Amphetamine Screen Urine Not Detected (Not Detect); Barbiturates, Urine Not Detected (Not Detect); Benzodiazepines Screen Urine Not Detected (Not Detect); Cannabinoid Screen Urine Not Detected (Not Detect); Cocaine Screen Urine Not Detected (Not Detect); Fentanyl, urine Not Detected (Not Detect); Opiate Screen Urine Not Detected (Not Detect); Phencyclidine Screen Urine Not Detected (Not Detect)
[2021-07-04 20:51] LABS: Anion Gap 15 (12-20); Blood Urea Nitrogen 77 mg/dL (9-16); Calcium 7.8 mg/dL (8.4-10.2); Carbon Dioxide 20 mmol/L (22-29); Chloride 93 mmol/L (96-108); Creatinine Clr Calc Pharmacy 18.9; Estimated Glomerular Filt Rate 12; Glucose Random 369 mg/dL (60-115); Sodium 123 mmol/L (135-145)
[2021-07-04] MEDS: Insulin Glargine,Hum.rec.anlog 100 UNIT/ML 10 ML VIAL 60 UNIT SUBCUT (21:17)
[2021-07-04] MEDS: Gabapentin 300 MG CAPSULE 900 MG PO (21:18)
[2021-07-05 01:04] LABS: Lactic Acid 1.4 mmol/L (0.5-2.0)
[2021-07-05] MEDS: Lactated Ringers 1,000 ML 100 ML IVCONT ×2 (02:12→12:58)
[2021-07-05] MEDS: vancomycin HCL 1,250 MG in 0.9 % Sodium Chloride 250 ML 166.67 MG IV (02:17)
--- NOTE | 2021-07-05 04:36 | PC.NURSE ---
I assumed nursing care of Elis at 1900. Since that time she has been sleepy but arousable to verbal stimuli and oriented x 3. She makes eye contact with Rn and is calm and cooperative, normal affect. Respirations are non-labored, RR WNL, no cyanosis, room air sat's 95% or better. She denies nausea, no vomiting. She denies chest pain. She has been taking PO fluids without difficulty - ice water, lots of it. She has ambulated to and from the bathroom independently with slow but steady gait. Elis is aware that she has been admitted to the hospital and verbalizes an understanding that she is awaiting a bed assignment. T-Max was 100.1. pt requested and was given PO Tylenol and additional blood cultures and venous lactate were obtained at that time by phlebotomy,. Will continue to monitor.
[2021-07-05 05:42] VITALS: BP 114/63; PULSE 83; RESP 14; TEMP 37.2; O2SAT 95
[2021-07-05 05:58] LABS: Glucose, Whole Blood 290 mg/dL (60-115)
[2021-07-05 06:08] LABS: Hematocrit 31.2 % (37.0-47.0); Hemoglobin 9.7 g/dl (12.0-16.0); Mean Corpuscular HGB Conc 31.1 g/dl (31.0-35.0); Mean Corpuscular Hemoglobin 23.4 pg (27.0-33.0); Mean Corpuscular Volume 75.2 fL (80.0-98.0); Platelet Count 271 X10*3/uL (160-400); Red Blood Count 4.15 X10*6/uL (4.20-5.50); White Blood Count 12.5 X10*3/uL (4.8-10.8)
[2021-07-05 06:21] LABS: Folate 13.3 ng/mL (> or = 4.0); Vitamin B12 1275 pg/mL (200-900)
[2021-07-05 06:30] LABS: Anion Gap 15 (12-20); Blood Urea Nitrogen 72 mg/dL (9-16); Calcium 7.7 mg/dL (8.4-10.2); Carbon Dioxide 20 mmol/L (22-29); Chloride 94 mmol/L (96-108); Creatinine Clr Calc Pharmacy 20.2; Estimated Glomerular Filt Rate 13; Glucose Random 313 mg/dL (60-115); Potassium 4.8 mmol/L (3.3-5.1); Sodium 124 mmol/L (135-145)
[2021-07-05] MEDS: Omeprazole 20 MG CAPSULE.DR PO (06:57)
[2021-07-05 07:16] VITALS: BP 115/69; PULSE 83; RESP 19; TEMP 38.1; O2SAT 95
[2021-07-05 07:30] LABS: Glucose, Whole Blood 291 mg/dL (60-115)
[2021-07-05] MEDS: Heparin Sodium,Porcine 5,000 UNIT/ML VIAL 5000 UNIT SUBCUT ×3 (07:57→23:58)
[2021-07-05] MEDS: buPROPion HCl XL 300 MG TAB.ER.24H PO (07:58)
[2021-07-05] MEDS: Insulin Lispro 100 UNIT/ML 3 ML VIAL SUBCUT ×4 (07:58→20:43)
[2021-07-05] MEDS: Venlafaxine HCl ER 150 MG CAP.ER.24H PO (07:58)
[2021-07-05] MEDS: Atorvastatin Calcium 20 MG TABLET PO (07:58)
[2021-07-05] MEDS: Venlafaxine HCl ER 75 MG CAP.ER.24H PO (07:58)
--- NOTE | 2021-07-05 08:05 | P.PNIM_ITS ---
Subjective Subjective Date of Service: 07/05/21 Interval History: toño,hyponatremia ,uncontrolled dm Review of Systems Seems more awake and active today walk to the bathroom, denies any chest pain or shortness of breath or abdominal pain or fever chills Physical Exam Vital Signs: Vital Signs: Last Vital Signs Temp 100.5 F H 07/05/21 07:16 Pulse 83 07/05/21 07:16 Resp 19 07/05/21 07:16 BP 115/69 07/05/21 07:16 Pulse Ox 95 07/05/21 07:16 BMI result Body Mass Index 36.6 Appearance: Alert.? Oriented X3,Seems more alert but still very weak cvs: rrr, [id number] . res: clear to auscultation ,no rhonchii or wheezing abd: no rebound or guarding ,nt, bs present. ext pulses present , no cyanosis . neuro: axo3 , moves all extremities. Objective Data Active Medications Acetaminophen (Acetaminophen 325 Mg Tablet) 650 mg PO Q6H PRN PRN Reason: Pain, Severe (Pain Scale 7-10) Atorvastatin Calcium (Atorvastatin Calcium 20 Mg Tablet) 20 mg PO DAILY [facility] [place] Last Admin: 07/05/21 07:58 Dose: 20 mg Documented by: ERMELINDA Bupropion HCl (Bupropion Hcl Xl 300 Mg Tab.Er.24h) 300 mg PO DAILY [facility] [place] Last Admin: 07/05/21 07:58 Dose: 300 mg Documented by: ERMELINDA Dextrose (Dextrose 50 % 25 Gm/50 Ml Syringe) 25 gm IVPUSH Q15M PRN; Protocol PRN Reason: per Hypoglycemia Standing Ord. Gabapentin (Gabapentin 300 Mg Capsule) 900 mg PO BEDTIME [facility] [place] Last Admin: 07/04/21 21:18 Dose: 900 mg Documented by: HARDEEP Glucose (Glucose Gel 15 Gm Gel..Gram.) 15 gm PO Q15M PRN; Protocol PRN Reason: per Hypoglycemia Standing Ord. Heparin Sodium (Porcine) (Heparin Sodium,Porcine 5,000 Unit/Ml Vial) 5,000 unit SUBCUT Q8H [facility] [place] Last Admin: 07/05/21 07:57 Dose: 5,000 unit Documented by: ERMELINDA Hydroxyzine HCl (Hydroxyzine Hcl 25 Mg Tablet) 25 mg PO BEDTIME PRN PRN Reason: insomnia Lactated Ringer's (Lr) 1,000 mls @ 100 mls/hr IVCONT .Q10H [facility] [place] Last Admin: 07/05/21 02:12 Dose: 100 mls/hr Documented by: HARDEEP Ceftriaxone Sodium 1 gm/ (Sodium Chloride) 50 mls @ 100 mls/hr IV Q24H [facility] [place] Vancomycin HCl 1,250 mg/ (Sodium Chloride) 250 mls @ 166.667 mls/hr IV Q12H [facility] [place] Last Admin: 07/05/21 02:17 Dose: 166.67 mls/hr Documented by: HARDEEP Insulin Glargine (Insulin Glargine,Hum.Rec.Anlog 100 Unit/Ml 10 Ml Vial) 60 unit SUBCUT BID [facility] [place] Insulin Human Lispro (Insulin Lispro 100 Unit/Ml 3 Ml Vial) 0 unit SUBCUT QIDACHS [facility]; Protocol Last Admin: 07/05/21 07:58 Dose: 6 unit Documented by: ERMELINDA Omeprazole (Omeprazole 20 Mg Capsule.Dr) 20 mg PO DAILY@0630 [facility] [place] Last Admin: 07/05/21 06:57 Dose: 20 mg Documented by: ALVINIA Pharmacy Consult (Consult Rx Perform Med Rec) 1 each MISCELLANE ONCE PRN PRN Reason: Consult order Pharmacy Consult (Consult Rx Vancomycin Dosing) 1 each MISCELLANE DAILY PRN PRN Reason: Consult order Sodium Chloride (0.9 % Sodium Chloride Flush 3 Ml Syringe) 3 ml IVFLUSH QSHIFT [facility] [place] Last Admin: 07/05/21 08:02 Dose: Not Given Documented by: ERMELINDA Non-Admin Reason: IV Running Venlafaxine HCl (Venlafaxine Hcl Er 75 Mg Cap.Er.24h) 75 mg PO DAILY [facility] [place] Last Admin: 07/05/21 07:58 Dose: 75 mg Documented by: ERMELINDA Venlafaxine HCl (Venlafaxine Hcl Er 150 Mg Cap.Er.24h) 150 mg PO DAILY [facility] [place] Last Admin: 07/05/21 07:58 Dose: 150 mg Documented by: ERMELINDA Labs CBC & Chem 7: 07/05/21 06:02 07/05/21 06:02 Labs: Laboratory Results - last 24 hr 07/04/21 07/04/21 07/04/21 10:51 10:51 10:51 MCV 73.7 L MCH 23.4 L MCHC 31.8 RDW 14.9 Plt Count 269 MPV 9.9 Immature Gran % (Auto) Cancelled Neut % (Auto) Cancelled Lymph % (Auto) Cancelled [place] % (Auto) Cancelled Eos % (Auto) Cancelled Baso % (Auto) Cancelled Lymph # (Auto) Cancelled [place] # (Auto) Cancelled Eos # (Auto) Cancelled Baso # (Auto) Cancelled Abs Immat Gran (auto) Cancelled Absolute Neuts (auto) Cancelled Absolute Nucleated RBC 0.000 Nucleated RBC % (auto) 0.0 Neutrophils % (Manual) 72 Band Neutrophils % 10 H Lymphocytes % (Manual) 5 L Atypical Lymphs % (Man) 2 Monocytes % (Manual) 7 Basophils % (Manual) 1 Metamyelocytes % 3 Abs Neuts (Manual) 10.6 H Lymphocytes # (Manual) 0.6 L Atyp Lymphs # (Manual) 0.3 Monocytes # (Manual) 0.9 Basophils # (Manual) 0.1 Metamyelocytes # 0.4 Platelet Estimate NORMAL Plt Morphology Comment NORMAL RBC Morphology NOTED Hypochromasia 2+ (15-30) Microcytosis 2+ (15-30) Anion Gap Estim Creat Clear Calc Estimated GFR POC Glucose Random Glucose Estimat Average Glucose Hemoglobin A1c % Lactic Acid 1.5 Calcium Magnesium Iron TIBC % Saturation Unsat Iron Binding Ferritin Total Bilirubin Direct Bilirubin AST ALT Alkaline Phosphatase Total Creatine Kinase Troponin I High Sens < 3.5 Total Protein Albumin Vitamin B12 Folate TSH Urine Color Urine Appearance Urine pH Ur Specific [place] Urine Protein Urine Glucose (UA) Urine Ketones Urine Blood Urine Nitrite Ur Leukocyte Esterase Urine RBC Urine WBC Ur Squamous Epith Cells Urine Bacteria Urine Test Urine Opiates Screen Urine Fentanyl Screen Ur Barbiturates Screen Ur Phencyclidine Scrn Ur Amphetamines Screen U Benzodiazepines Scrn Urine Cocaine Screen U Marijuana (THC) Screen Acetone, Qual Influenza Type A (PCR) Influenza Type B (PCR) RSV RNA Qual (PCR) SARS-CoV-2 RNA (RT-PCR) S. pyogenes GrpA TABATHA 07/04/21 07/04/21 07/04/21 10:51 10:56 11:36 MCV MCH MCHC RDW Plt Count MPV Immature Gran % (Auto) Neut % (Auto) Lymph % (Auto) [place] % (Auto) Eos % (Auto) Baso % (Auto) Lymph # (Auto) [place] # (Auto) Eos # (Auto) Baso # (Auto) Abs Immat Gran (auto) Absolute Neuts (auto) Absolute Nucleated RBC Nucleated RBC % (auto) Neutrophils % (Manual) Band Neutrophils % Lymphocytes % (Manual) Atypical Lymphs % (Man) Monocytes % (Manual) Basophils % (Manual) Metamyelocytes % Abs Neuts (Manual) Lymphocytes # (Manual) Atyp Lymphs # (Manual) Monocytes # (Manual) Basophils # (Manual) Metamyelocytes # Platelet Estimate Plt Morphology Comment RBC Morphology Hypochromasia Microcytosis Anion Gap 16 Estim Creat Clear Calc 19.0 Estimated GFR 12 POC Glucose Random Glucose 586 H* Estimat Average Glucose TNP Hemoglobin A1c % > 14.0 Lactic Acid Calcium 7.7 L D Magnesium 1.9 Iron TIBC % Saturation Unsat Iron Binding Ferritin Total Bilirubin 0.7 Direct Bilirubin 0.3 AST 33 H D ALT 35 H Alkaline Phosphatase 324 H D Total Creatine Kinase 133 Troponin I High Sens Total Protein 5.9 L D Albumin 2.4 L D Vitamin B12 Folate TSH 3.22 Urine Color Urine Appearance Urine pH Ur Specific [place] Urine Protein Urine Glucose (UA) Urine Ketones Urine Blood Urine Nitrite Ur Leukocyte Esterase Urine RBC Urine WBC Ur Squamous Epith Cells Urine Bacteria Urine Test Urine Opiates Screen Urine Fentanyl Screen Ur Barbiturates Screen Ur Phencyclidine Scrn Ur Amphetamines Screen U Benzodiazepines Scrn Urine Cocaine Screen U Marijuana (THC) Screen Acetone, Qual Negative Influenza Type A (PCR) NEGATIVE Influenza Type B (PCR) NEGATIVE RSV RNA Qual (PCR) NEGATIVE SARS-CoV-2 RNA (RT-PCR) NEGATIVE S. pyogenes GrpA TABATHA 07/04/21 07/04/21 07/04/21 11:36 12:26 12:26 MCV MCH MCHC RDW Plt Count MPV Immature Gran % (Auto) Neut % (Auto) Lymph % (Auto) [place] % (Auto) Eos % (Auto) Baso % (Auto) Lymph # (Auto) [place] # (Auto) Eos # (Auto) Baso # (Auto) Abs Immat Gran (auto) Absolute Neuts (auto) Absolute Nucleated RBC Nucleated RBC % (auto) Neutrophils % (Manual) Band Neutrophils % Lymphocytes % (Manual) Atypical Lymphs % (Man) Monocytes % (Manual) Basophils % (Manual) Metamyelocytes % Abs Neuts (Manual) Lymphocytes # (Manual) Atyp Lymphs # (Manual) Monocytes # (Manual) Basophils # (Manual) Metamyelocytes # Platelet Estimate Plt Morphology Comment RBC Morphology Hypochromasia Microcytosis Anion Gap Estim Creat Clear Calc Estimated GFR POC Glucose Random Glucose Estimat Average Glucose Hemoglobin A1c % Lactic Acid Calcium Magnesium Iron TIBC % Saturation Unsat Iron Binding Ferritin Total Bilirubin Direct Bilirubin AST ALT Alkaline Phosphatase Total Creatine Kinase Troponin I High Sens Total Protein Albumin Vitamin B12 Folate TSH Urine Color YELLOW Urine Appearance CLOUDY Urine pH 6.0 Ur Specific [place] <= 1.005 Urine Protein NEG Urine Glucose (UA) >=1000 H Urine Ketones NEG Urine Blood 3+ H Urine Nitrite NEG Ur Leukocyte Esterase 1+ H Urine RBC 1-4 Urine WBC 5-9 H Ur Squamous Epith Cells 2+ Urine Bacteria 2+ Urine Test NEGATIVE Urine Opiates Screen Urine Fentanyl Screen Ur Barbiturates Screen Ur Phencyclidine Scrn Ur Amphetamines Screen U Benzodiazepines Scrn Urine Cocaine Screen U Marijuana (THC) Screen Acetone, Qual Influenza Type A (PCR) Influenza Type B (PCR) RSV RNA Qual (PCR) SARS-CoV-2 RNA (RT-PCR) S. pyogenes GrpA TABATHA Negative 07/04/21 07/04/21 07/04/21 12:26 13:03 14:29 MCV MCH MCHC RDW Plt Count MPV Immature Gran % (Auto) Neut % (Auto) Lymph % (Auto) [place] % (Auto) Eos % (Auto) Baso % (Auto) Lymph # (Auto) [place] # (Auto) Eos # (Auto) Baso # (Auto) Abs Immat Gran (auto) Absolute Neuts (auto) Absolute Nucleated RBC Nucleated RBC % (auto) Neutrophils % (Manual) Band Neutrophils % Lymphocytes % (Manual) Atypical Lymphs % (Man) Monocytes % (Manual) Basophils % (Manual) Metamyelocytes % Abs Neuts (Manual) Lymphocytes # (Manual) Atyp Lymphs # (Manual) Monocytes # (Manual) Basophils # (Manual) Metamyelocytes # Platelet Estimate Plt Morphology Comment RBC Morphology Hypochromasia Microcytosis Anion Gap Estim Creat Clear Calc Estimated GFR POC Glucose 507 H* 438 H* Random Glucose Estimat Average Glucose Hemoglobin A1c % Lactic Acid Calcium Magnesium Iron TIBC % Saturation Unsat Iron Binding Ferritin Total Bilirubin Direct Bilirubin AST ALT Alkaline Phosphatase Total Creatine Kinase Troponin I High Sens Total Protein Albumin Vitamin B12 Folate TSH Urine Color Urine Appearance Urine pH Ur Specific [place] Urine Protein Urine Glucose (UA) Urine Ketones Urine Blood Urine Nitrite Ur Leukocyte Esterase Urine RBC Urine WBC Ur Squamous Epith Cells Urine Bacteria Urine Test Urine Opiates Screen Not Detected Urine Fentanyl Screen Not Detected Ur Barbiturates Screen Not Detected Ur Phencyclidine Scrn Not Detected Ur Amphetamines Screen Not Detected U Benzodiazepines Scrn Not Detected Urine Cocaine Screen Not Detected U Marijuana (THC) Screen Not Detected Acetone, Qual Influenza Type A (PCR) Influenza Type B (PCR) RSV RNA Qual (PCR) SARS-CoV-2 RNA (RT-PCR) S. pyogenes GrpA TABATHA 07/04/21 07/04/21 07/04/21 16:15 16:55 16:55 MCV MCH MCHC RDW Plt Count MPV Immature Gran % (Auto) Neut % (Auto) Lymph % (Auto) [place] % (Auto) Eos % (Auto) Baso % (Auto) Lymph # (Auto) [place] # (Auto) Eos # (Auto) Baso # (Auto) Abs Immat Gran (auto) Absolute Neuts (auto) Absolute Nucleated RBC Nucleated RBC % (auto) Neutrophils % (Manual) Band Neutrophils % Lymphocytes % (Manual) Atypical Lymphs % (Man) Monocytes % (Manual) Basophils % (Manual) Metamyelocytes % Abs Neuts (Manual) Lymphocytes # (Manual) Atyp Lymphs # (Manual) Monocytes # (Manual) Basophils # (Manual) Metamyelocytes # Platelet Estimate Plt Morphology Comment RBC Morphology Hypochromasia Microcytosis Anion Gap 15 Estim Creat Clear Calc 18.4 Estimated GFR 12 POC Glucose 415 H* Random Glucose 480 H* Estimat Average Glucose Hemoglobin A1c % Lactic Acid Calcium 7.7 L Magnesium Iron 41 TIBC 235 % Saturation 17 Unsat Iron Binding 194 Ferritin 294 H Total Bilirubin 0.4 Direct Bilirubin 0.3 AST 42 H ALT 40 H Alkaline Phosphatase 337 H Total Creatine Kinase Troponin I High Sens Total Protein 5.9 L Albumin 2.4 L Vitamin B12 1275 H Folate 13.3 TSH Urine Color Urine Appearance Urine pH Ur Specific [place] Urine Protein Urine Glucose (UA) Urine Ketones Urine Blood Urine Nitrite Ur Leukocyte Esterase Urine RBC Urine WBC Ur Squamous Epith Cells Urine Bacteria Urine Test Urine Opiates Screen Urine Fentanyl Screen Ur Barbiturates Screen Ur Phencyclidine Scrn Ur Amphetamines Screen U Benzodiazepines Scrn Urine Cocaine Screen U Marijuana (THC) Screen Acetone, Qual Influenza Type A (PCR) Influenza Type B (PCR) RSV RNA Qual (PCR) SARS-CoV-2 RNA (RT-PCR) S. pyogenes GrpA TABATHA 07/04/21 07/04/21 07/04/21 18:00 20:11 20:37 MCV MCH MCHC RDW Plt Count MPV Immature Gran % (Auto) Neut % (Auto) Lymph % (Auto) [place] % (Auto) Eos % (Auto) Baso % (Auto) Lymph # (Auto) [place] # (Auto) Eos # (Auto) Baso # (Auto) Abs Immat Gran (auto) Absolute Neuts (auto) Absolute Nucleated RBC Nucleated RBC % (auto) Neutrophils % (Manual) Band Neutrophils % Lymphocytes % (Manual) Atypical Lymphs % (Man) Monocytes % (Manual) Basophils % (Manual) Metamyelocytes % Abs Neuts (Manual) Lymphocytes # (Manual) Atyp Lymphs # (Manual) Monocytes # (Manual) Basophils # (Manual) Metamyelocytes # Platelet Estimate Plt Morphology Comment RBC Morphology Hypochromasia Microcytosis Anion Gap 15 Estim Creat Clear Calc 18.9 Estimated GFR 12 POC Glucose 435 H* 309 H Random Glucose 369 H* Estimat Average Glucose Hemoglobin A1c % Lactic Acid Calcium 7.8 L Magnesium Iron TIBC % Saturation Unsat Iron Binding Ferritin Total Bilirubin Direct Bilirubin AST ALT Alkaline Phosphatase Total Creatine Kinase Troponin I High Sens Total Protein Albumin Vitamin B12 Folate TSH Urine Color Urine Appearance Urine pH Ur Specific [place] Urine Protein Urine Glucose (UA) Urine Ketones Urine Blood Urine Nitrite Ur Leukocyte Esterase Urine RBC Urine WBC Ur Squamous Epith Cells Urine Bacteria Urine Test Urine Opiates Screen Urine Fentanyl Screen Ur Barbiturates Screen Ur Phencyclidine Scrn Ur Amphetamines Screen U Benzodiazepines Scrn Urine Cocaine Screen U Marijuana (THC) Screen Acetone, Qual Influenza Type A (PCR) Influenza Type B (PCR) RSV RNA Qual (PCR) SARS-CoV-2 RNA (RT-PCR) S. pyogenes GrpA TABATHA 07/05/21 07/05/21 07/05/21 00:42 05:37 06:02 MCV 75.2 L MCH 23.4 L MCHC 31.1 RDW 15.0 Plt Count 271 MPV 10.0 Immature Gran % (Auto) Neut % (Auto) Lymph % (Auto) [place] % (Auto) Eos % (Auto) Baso % (Auto) Lymph # (Auto) [place] # (Auto) Eos # (Auto) Baso # (Auto) Abs Immat Gran (auto) Absolute Neuts (auto) Absolute Nucleated RBC 0.000 Nucleated RBC % (auto) 0.0 Neutrophils % (Manual) Band Neutrophils % Lymphocytes % (Manual) Atypical Lymphs % (Man) Monocytes % (Manual) Basophils % (Manual) Metamyelocytes % Abs Neuts (Manual) Lymphocytes # (Manual) Atyp Lymphs # (Manual) Monocytes # (Manual) Basophils # (Manual) Metamyelocytes # Platelet Estimate Plt Morphology Comment RBC Morphology Hypochromasia Microcytosis Anion Gap Estim Creat Clear Calc Estimated GFR POC Glucose 290 H Random Glucose Estimat Average Glucose Hemoglobin A1c % Lactic Acid 1.4 Calcium Magnesium Iron TIBC % Saturation Unsat Iron Binding Ferritin Total Bilirubin Direct Bilirubin AST ALT Alkaline Phosphatase Total Creatine Kinase Troponin I High Sens Total Protein Albumin Vitamin B12 Folate TSH Urine Color Urine Appearance Urine pH Ur Specific [place] Urine Protein Urine Glucose (UA) Urine Ketones Urine Blood Urine Nitrite Ur Leukocyte Esterase Urine RBC Urine WBC Ur Squamous Epith Cells Urine Bacteria Urine Test Urine Opiates Screen Urine Fentanyl Screen Ur Barbiturates Screen Ur Phencyclidine Scrn Ur Amphetamines Screen U Benzodiazepines Scrn Urine Cocaine Screen U Marijuana (THC) Screen Acetone, Qual Influenza Type A (PCR) Influenza Type B (PCR) RSV RNA Qual (PCR) SARS-CoV-2 RNA (RT-PCR) S. pyogenes GrpA TABATHA 07/05/21 07/05/21 06:02 07:14 MCV MCH MCHC RDW Plt Count MPV Immature Gran % (Auto) Neut % (Auto) Lymph % (Auto) [place] % (Auto) Eos % (Auto) Baso % (Auto) Lymph # (Auto) [place] # (Auto) Eos # (Auto) Baso # (Auto) Abs Immat Gran (auto) Absolute Neuts (auto) Absolute Nucleated RBC Nucleated RBC % (auto) Neutrophils % (Manual) Band Neutrophils % Lymphocytes % (Manual) Atypical Lymphs % (Man) Monocytes % (Manual) Basophils % (Manual) Metamyelocytes % Abs Neuts (Manual) Lymphocytes # (Manual) Atyp Lymphs # (Manual) Monocytes # (Manual) Basophils # (Manual) Metamyelocytes # Platelet Estimate Plt Morphology Comment RBC Morphology Hypochromasia Microcytosis Anion Gap 15 Estim Creat Clear Calc 20.2 Estimated GFR 13 POC Glucose 291 H Random Glucose 313 H Estimat Average Glucose Hemoglobin A1c % Lactic Acid Calcium 7.7 L Magnesium Iron TIBC % Saturation Unsat Iron Binding Ferritin Total Bilirubin Direct Bilirubin AST ALT Alkaline Phosphatase Total Creatine Kinase Troponin I High Sens Total Protein Albumin Vitamin B12 Folate TSH Urine Color Urine Appearance Urine pH Ur Specific [place] Urine Protein Urine Glucose (UA) Urine Ketones Urine Blood Urine Nitrite Ur Leukocyte Esterase Urine RBC Urine WBC Ur Squamous Epith Cells Urine Bacteria Urine Test Urine Opiates Screen Urine Fentanyl Screen Ur Barbiturates Screen Ur Phencyclidine Scrn Ur Amphetamines Screen U Benzodiazepines Scrn Urine Cocaine Screen U Marijuana (THC) Screen Acetone, Qual Influenza Type A (PCR) Influenza Type B (PCR) RSV RNA Qual (PCR) SARS-CoV-2 RNA (RT-PCR) S. pyogenes GrpA TABATHA Microbiology Microbiology Results: Microbiology 07/04/21 10:51 Blood Culture - Preliminary Blood - Venous Prelim: GPC Gram Stain only Prelim: GNR Gram Stain only 07/04/21 10:51 Blood Culture - Preliminary Blood - Venous Prelim: GPC Gram Stain only Prelim: GNR Gram Stain only Assessment and Plan (1) Acute hyperglycemia: Status: Acute (2) Acute hyponatremia: Status: Acute (3) UTI (urinary tract infection): Status: Acute (4) TOÑO (acute kidney injury): Status: Acute Plan 46-year-old female who came to the hospital because of TOÑO, uncontrolled diabetes, toxic metabolic encephalopathy and UTI. Sepsis secondary to UTI: As per ED physician note patient temperature rectally was 100.4, has white count of 12.9 Patient was given IV antibiotic, blood cultures pending, lactic acid normal, sepsis exam completed, patient also received fluid bolus as per sepsis. ?TOÑO: Multifactorial dehydration, uncontrolled diabetes, UTI Started patient on hydration and received IV insulin in the ED. slightly imrpoving Monitor renal function closely. ?Uncontrolled diabetes due to noncompliance. Fingersticks improving [id number] range Patient has component? pseudo hyponatremia due to hyperglycemia-when adjust for fingersticks-patient's sodium should be around 127-128 instead of 124. Monitor fingerstick with sliding scale coverage, hemoglobin A1c-14 Hold oralhypoglycemic for now. Since renal function is slow to respond, will adjust Lantus to 40 b.i.d. for for now. Will check BMP. ?Peripheral neuropathy:? Continue gabapentin. ?toxic metabolic encephalopathy:? Multifactorial UTI, TOÑO, uncontrolled diabetes, decreased p.o. intake. Getting treatment with hydration, insulin, antibiotics -seems to be improved to baseline. CT head is negative Morbid obesity:? Encouraged to cut down calories once stable and encourage for weight loss. anemia? microcytic : denies any hx of blood moniter h/h anemia workup added , fobt . Depression and SI: currently denies any plan added care team lance,also has bhn added intially by ed. also spoke to Ed staff in detail about sitter. DVT prophylaxis with subQ heparin Quality Stroke Does the patient have a stroke diagnosis?: No VTE Prior VTE?: No VTE Risk Level:: Medical - moderate - high VTE Device Contraindication: N/A - Device Ordered VTE Drug Contraindication: N/A - Med Ordered
--- NOTE | 2021-07-05 09:04 | PHA.PROG ---
Admission Date/Time: July 04, 2021 15:28 Indication: Sepsis secondary to UTI Weight in k.718 kg Adjusted body weight in K.347 [place] body weight in K.1 Obesity Dosing Indication % IBW: 81% Serum Creatinine - Last 168 Hours 07/04/21 07/04/21 07/04/21 11:36 16:55 20:11 Creatinine 4.03 H* 4.15 H* 4.05 H* 07/05/21 06:02 Creatinine 3.79 H Estimated CrCl and GFR - Last 168 Hours 07/04/21 07/04/21 07/04/21 11:36 16:55 20:11 Estim Creat Clear Calc 19.0 18.4 18.9 Estimated GFR 12 12 12 07/05/21 06:02 Estim Creat Clear Calc 20.2 Estimated GFR 13 Vancomycin Loading Dose: 1250mg x 1 Current Vancomycin Dosing Regimen: 750mg Q24H Vancomycin Monitoring using AUC goal of 400 - 600 range with trough as surrogate marker: 520mg/L Date and Time for next Vancomycin Level to be drawn: random level 07/06/21 @1999 Pharmacist Comments on Vancomycin Plan: Pt is in TOÑO, used obese model. Starting at 750mg Q24H to start, will continue to monitor Vancomycin dosing will take advantage of [employer] as a clinical decision support tool that uses Bayesian modeling to calculate individual patient's pharmacokinetic parameters and forecast the patient's drug concentration time course with the target goal AUC 24 range of 400 - 600 mg/L/hr.
[2021-07-05 09:56] VITALS: BP 120/65; PULSE 82; RESP 18; TEMP 37.8; O2SAT 97
[2021-07-05] MEDS: Insulin Glargine,Hum.rec.anlog 100 UNIT/ML 10 ML VIAL 60 UNIT SUBCUT (10:02)
[2021-07-05 10:03] LABS: Glucose, Whole Blood 295 mg/dL (60-115)
--- NOTE | 2021-07-05 10:28 | PC.NURSE ---
pt changed over- belongings placed in locker 12
--- NOTE | 2021-07-05 11:25 | P.PNNP_ITS ---
Subjective Subjective Date of Service: 07/09/21 Interval history: toño,hyponatremia ,uncontrolled dm Physical Exam Vital Signs: Vital Signs: Last Vital Signs Temp 100.0 F 07/05/21 09:56 Pulse 82 07/05/21 09:56 Resp 18 07/05/21 09:56 BP 120/65 07/05/21 09:56 Pulse Ox 97 07/05/21 09:56 BMI result Body Mass Index 36.6 Const: General: comfortable and alert Eyes: Sclerae: sclerae normal Resp: Effort & Inspection: able to speak in complete sentences Auscultation: no crackles Cardio: Jugular venous distension: no JVD Heart sounds: S2 normal heart sound present GI: Palpation (GI): nontender Auscultation: normal bowel sounds : General: Yes no CVA tenderness Back/Spine/Pelvis: Back: no CVA tenderness Skin: General skin exam: no rashes or lesions noted Extrem: General: Yes full ROM Objective Data Labs CBC & Chem 7: 07/06/21 05:51 07/09/21 06:32 Labs: Laboratory Results - last 24 hr 07/04/21 07/04/21 07/04/21 10:51 10:51 10:51 WBC RBC Hgb Hct MCV MCH MCHC RDW Plt Count MPV Absolute Nucleated RBC Nucleated RBC % (auto) Neutrophils % (Manual) 72 Band Neutrophils % 10 H Lymphocytes % (Manual) 5 L Atypical Lymphs % (Man) 2 Monocytes % (Manual) 7 Basophils % (Manual) 1 Metamyelocytes % 3 Abs Neuts (Manual) 10.6 H Lymphocytes # (Manual) 0.6 L Atyp Lymphs # (Manual) 0.3 Monocytes # (Manual) 0.9 Basophils # (Manual) 0.1 Metamyelocytes # 0.4 Platelet Estimate NORMAL Plt Morphology Comment NORMAL RBC Morphology NOTED Hypochromasia 2+ (15-30) Microcytosis 2+ (15-30) Sodium Potassium Chloride Carbon Dioxide Anion Gap BUN Creatinine Estim Creat Clear Calc Estimated GFR POC Glucose Random Glucose Estimat Average Glucose Hemoglobin A1c % Lactic Acid 1.5 Calcium Magnesium Iron TIBC % Saturation Unsat Iron Binding Ferritin Total Bilirubin Direct Bilirubin AST ALT Alkaline Phosphatase Total Creatine Kinase Total Protein Albumin Vitamin B12 Folate TSH Urine Color Urine Appearance Urine pH Ur Specific Rombauer Urine Protein Urine Glucose (UA) Urine Ketones Urine Blood Urine Nitrite Ur Leukocyte Esterase Urine RBC Urine WBC Ur Squamous Epith Cells Urine Bacteria Urine Test Urine Opiates Screen Urine Fentanyl Screen Ur Barbiturates Screen Ur Phencyclidine Scrn Ur Amphetamines Screen U Benzodiazepines Scrn Urine Cocaine Screen U Marijuana (THC) Screen Acetone, Qual Influenza Type A (PCR) NEGATIVE Influenza Type B (PCR) NEGATIVE RSV RNA Qual (PCR) NEGATIVE SARS-CoV-2 RNA (RT-PCR) NEGATIVE S. pyogenes GrpA TABATHA 07/04/21 07/04/21 07/04/21 10:56 11:36 11:36 WBC RBC Hgb Hct MCV MCH MCHC RDW Plt Count MPV Absolute Nucleated RBC Nucleated RBC % (auto) Neutrophils % (Manual) Band Neutrophils % Lymphocytes % (Manual) Atypical Lymphs % (Man) Monocytes % (Manual) Basophils % (Manual) Metamyelocytes % Abs Neuts (Manual) Lymphocytes # (Manual) Atyp Lymphs # (Manual) Monocytes # (Manual) Basophils # (Manual) Metamyelocytes # Platelet Estimate Plt Morphology Comment RBC Morphology Hypochromasia Microcytosis Sodium 120 L* Potassium 4.8 Chloride 88 L Carbon Dioxide 21 L Anion Gap 16 BUN 75 H Creatinine 4.03 H* Estim Creat Clear Calc 19.0 Estimated GFR 12 POC Glucose Random Glucose 586 H* Estimat Average Glucose TNP Hemoglobin A1c % > 14.0 Lactic Acid Calcium 7.7 L D Magnesium 1.9 Iron TIBC % Saturation Unsat Iron Binding Ferritin Total Bilirubin 0.7 Direct Bilirubin 0.3 AST 33 H D ALT 35 H Alkaline Phosphatase 324 H D Total Creatine Kinase 133 Total Protein 5.9 L D Albumin 2.4 L D Vitamin B12 Folate TSH 3.22 Urine Color Urine Appearance Urine pH Ur Specific Rombauer Urine Protein Urine Glucose (UA) Urine Ketones Urine Blood Urine Nitrite Ur Leukocyte Esterase Urine RBC Urine WBC Ur Squamous Epith Cells Urine Bacteria Urine Test Urine Opiates Screen Urine Fentanyl Screen Ur Barbiturates Screen Ur Phencyclidine Scrn Ur Amphetamines Screen U Benzodiazepines Scrn Urine Cocaine Screen U Marijuana (THC) Screen Acetone, Qual Negative Influenza Type A (PCR) Influenza Type B (PCR) RSV RNA Qual (PCR) SARS-CoV-2 RNA (RT-PCR) S. pyogenes GrpA TABATHA Negative 07/04/21 07/04/21 07/04/21 12:26 12:26 12:26 WBC RBC Hgb Hct MCV MCH MCHC RDW Plt Count MPV Absolute Nucleated RBC Nucleated RBC % (auto) Neutrophils % (Manual) Band Neutrophils % Lymphocytes % (Manual) Atypical Lymphs % (Man) Monocytes % (Manual) Basophils % (Manual) Metamyelocytes % Abs Neuts (Manual) Lymphocytes # (Manual) Atyp Lymphs # (Manual) Monocytes # (Manual) Basophils # (Manual) Metamyelocytes # Platelet Estimate Plt Morphology Comment RBC Morphology Hypochromasia Microcytosis Sodium Potassium Chloride Carbon Dioxide Anion Gap BUN Creatinine Estim Creat Clear Calc Estimated GFR POC Glucose Random Glucose Estimat Average Glucose Hemoglobin A1c % Lactic Acid Calcium Magnesium Iron TIBC % Saturation Unsat Iron Binding Ferritin Total Bilirubin Direct Bilirubin AST ALT Alkaline Phosphatase Total Creatine Kinase Total Protein Albumin Vitamin B12 Folate TSH Urine Color YELLOW Urine Appearance CLOUDY Urine pH 6.0 Ur Specific Rombauer <= 1.005 Urine Protein NEG Urine Glucose (UA) >=1000 H Urine Ketones NEG Urine Blood 3+ H Urine Nitrite NEG Ur Leukocyte Esterase 1+ H Urine RBC 1-4 Urine WBC 5-9 H Ur Squamous Epith Cells 2+ Urine Bacteria 2+ Urine Test NEGATIVE Urine Opiates Screen Not Detected Urine Fentanyl Screen Not Detected Ur Barbiturates Screen Not Detected Ur Phencyclidine Scrn Not Detected Ur Amphetamines Screen Not Detected U Benzodiazepines Scrn Not Detected Urine Cocaine Screen Not Detected U Marijuana (THC) Screen Not Detected Acetone, Qual Influenza Type A (PCR) Influenza Type B (PCR) RSV RNA Qual (PCR) SARS-CoV-2 RNA (RT-PCR) S. pyogenes GrpA TABATHA 07/04/21 07/04/21 07/04/21 13:03 14:29 16:15 WBC RBC Hgb Hct MCV MCH MCHC RDW Plt Count MPV Absolute Nucleated RBC Nucleated RBC % (auto) Neutrophils % (Manual) Band Neutrophils % Lymphocytes % (Manual) Atypical Lymphs % (Man) Monocytes % (Manual) Basophils % (Manual) Metamyelocytes % Abs Neuts (Manual) Lymphocytes # (Manual) Atyp Lymphs # (Manual) Monocytes # (Manual) Basophils # (Manual) Metamyelocytes # Platelet Estimate Plt Morphology Comment RBC Morphology Hypochromasia Microcytosis Sodium Potassium Chloride Carbon Dioxide Anion Gap BUN Creatinine Estim Creat Clear Calc Estimated GFR POC Glucose 507 H* 438 H* 415 H* Random Glucose Estimat Average Glucose Hemoglobin A1c % Lactic Acid Calcium Magnesium Iron TIBC % Saturation Unsat Iron Binding Ferritin Total Bilirubin Direct Bilirubin AST ALT Alkaline Phosphatase Total Creatine Kinase Total Protein Albumin Vitamin B12 Folate TSH Urine Color Urine Appearance Urine pH Ur Specific [place] Urine Protein Urine Glucose (UA) Urine Ketones Urine Blood Urine Nitrite Ur Leukocyte Esterase Urine RBC Urine WBC Ur Squamous Epith Cells Urine Bacteria Urine Test Urine Opiates Screen Urine Fentanyl Screen Ur Barbiturates Screen Ur Phencyclidine Scrn Ur Amphetamines Screen U Benzodiazepines Scrn Urine Cocaine Screen U Marijuana (THC) Screen Acetone, Qual Influenza Type A (PCR) Influenza Type B (PCR) RSV RNA Qual (PCR) SARS-CoV-2 RNA (RT-PCR) S. pyogenes GrpA TABATHA 07/04/21 07/04/21 07/04/21 16:55 16:55 18:00 WBC RBC Hgb Hct MCV MCH MCHC RDW Plt Count MPV Absolute Nucleated RBC Nucleated RBC % (auto) Neutrophils % (Manual) Band Neutrophils % Lymphocytes % (Manual) Atypical Lymphs % (Man) Monocytes % (Manual) Basophils % (Manual) Metamyelocytes % Abs Neuts (Manual) Lymphocytes # (Manual) Atyp Lymphs # (Manual) Monocytes # (Manual) Basophils # (Manual) Metamyelocytes # Platelet Estimate Plt Morphology Comment RBC Morphology Hypochromasia Microcytosis Sodium 122 L Potassium 4.9 Chloride 93 L Carbon Dioxide 19 L Anion Gap 15 BUN 78 H Creatinine 4.15 H* Estim Creat Clear Calc 18.4 Estimated GFR 12 POC Glucose 435 H* Random Glucose 480 H* Estimat Average Glucose Hemoglobin A1c % Lactic Acid Calcium 7.7 L Magnesium Iron 41 TIBC 235 % Saturation 17 Unsat Iron Binding 194 Ferritin 294 H Total Bilirubin 0.4 Direct Bilirubin 0.3 AST 42 H ALT 40 H Alkaline Phosphatase 337 H Total Creatine Kinase Total Protein 5.9 L Albumin 2.4 L Vitamin B12 1275 H Folate 13.3 TSH Urine Color Urine Appearance Urine pH Ur Specific R[place] Urine Protein Urine Glucose (UA) Urine Ketones Urine Blood Urine Nitrite Ur Leukocyte Esterase Urine RBC Urine WBC Ur Squamous Epith Cells Urine Bacteria Urine Test Urine Opiates Screen Urine Fentanyl Screen Ur Barbiturates Screen Ur Phencyclidine Scrn Ur Amphetamines Screen U Benzodiazepines Scrn Urine Cocaine Screen U Marijuana (THC) Screen Acetone, Qual Influenza Type A (PCR) Influenza Type B (PCR) RSV RNA Qual (PCR) SARS-CoV-2 RNA (RT-PCR) S. pyogenes GrpA TABATHA 07/04/21 07/04/21 07/05/21 20:11 20:37 00:42 WBC RBC Hgb Hct MCV MCH MCHC RDW Plt Count MPV Absolute Nucleated RBC Nucleated RBC % (auto) Neutrophils % (Manual) Band Neutrophils % Lymphocytes % (Manual) Atypical Lymphs % (Man) Monocytes % (Manual) Basophils % (Manual) Metamyelocytes % Abs Neuts (Manual) Lymphocytes # (Manual) Atyp Lymphs # (Manual) Monocytes # (Manual) Basophils # (Manual) Metamyelocytes # Platelet Estimate Plt Morphology Comment RBC Morphology Hypochromasia Microcytosis Sodium 123 L Potassium 5.0 Chloride 93 L Carbon Dioxide 20 L Anion Gap 15 BUN 77 H Creatinine 4.05 H* Estim Creat Clear Calc 18.9 Estimated GFR 12 POC Glucose 309 H Random Glucose 369 H* Estimat Average Glucose Hemoglobin A1c % Lactic Acid 1.4 Calcium 7.8 L Magnesium Iron TIBC % Saturation Unsat Iron Binding Ferritin Total Bilirubin Direct Bilirubin AST ALT Alkaline Phosphatase Total Creatine Kinase Total Protein Albumin Vitamin B12 Folate TSH Urine Color Urine Appearance Urine pH Ur Specific R[place] Urine Protein Urine Glucose (UA) Urine Ketones Urine Blood Urine Nitrite Ur Leukocyte Esterase Urine RBC Urine WBC Ur Squamous Epith Cells Urine Bacteria Urine Test Urine Opiates Screen Urine Fentanyl Screen Ur Barbiturates Screen Ur Phencyclidine Scrn Ur Amphetamines Screen U Benzodiazepines Scrn Urine Cocaine Screen U Marijuana (THC) Screen Acetone, Qual Influenza Type A (PCR) Influenza Type B (PCR) RSV RNA Qual (PCR) SARS-CoV-2 RNA (RT-PCR) S. pyogenes GrpA TABATHA 07/05/21 07/05/21 07/05/21 05:37 06:02 06:02 WBC 12.5 H RBC 4.15 L Hgb 9.7 L Hct 31.2 L MCV 75.2 L MCH 23.4 L MCHC 31.1 RDW 15.0 Plt Count 271 MPV 10.0 Absolute Nucleated RBC 0.000 Nucleated RBC % (auto) 0.0 Neutrophils % (Manual) Band Neutrophils % Lymphocytes % (Manual) Atypical Lymphs % (Man) Monocytes % (Manual) Basophils % (Manual) Metamyelocytes % Abs Neuts (Manual) Lymphocytes # (Manual) Atyp Lymphs # (Manual) Monocytes # (Manual) Basophils # (Manual) Metamyelocytes # Platelet Estimate Plt Morphology Comment RBC Morphology Hypochromasia Microcytosis Sodium 124 L Potassium 4.8 Chloride 94 L Carbon Dioxide 20 L Anion Gap 15 BUN 72 H Creatinine 3.79 H Estim Creat Clear Calc 20.2 Estimated GFR 13 POC Glucose 290 H Random Glucose 313 H Estimat Average Glucose Hemoglobin A1c % Lactic Acid Calcium 7.7 L Magnesium Iron TIBC % Saturation Unsat Iron Binding Ferritin Total Bilirubin Direct Bilirubin AST ALT Alkaline Phosphatase Total Creatine Kinase Total Protein Albumin Vitamin B12 Folate TSH Urine Color Urine Appearance Urine pH Ur Specific [place] Urine Protein Urine Glucose (UA) Urine Ketones Urine Blood Urine Nitrite Ur Leukocyte Esterase Urine RBC Urine WBC Ur Squamous Epith Cells Urine Bacteria Urine Test Urine Opiates Screen Urine Fentanyl Screen Ur Barbiturates Screen Ur Phencyclidine Scrn Ur Amphetamines Screen U Benzodiazepines Scrn Urine Cocaine Screen U Marijuana (THC) Screen Acetone, Qual Influenza Type A (PCR) Influenza Type B (PCR) RSV RNA Qual (PCR) SARS-CoV-2 RNA (RT-PCR) S. pyogenes GrpA TABATHA 07/05/21 07/05/21 07:14 09:55 WBC RBC Hgb Hct MCV MCH MCHC RDW Plt Count MPV Absolute Nucleated RBC Nucleated RBC % (auto) Neutrophils % (Manual) Band Neutrophils % Lymphocytes % (Manual) Atypical Lymphs % (Man) Monocytes % (Manual) Basophils % (Manual) Metamyelocytes % Abs Neuts (Manual) Lymphocytes # (Manual) Atyp Lymphs # (Manual) Monocytes # (Manual) Basophils # (Manual) Metamyelocytes # Platelet Estimate Plt Morphology Comment RBC Morphology Hypochromasia Microcytosis Sodium Potassium Chloride Carbon Dioxide Anion Gap BUN Creatinine Estim Creat Clear Calc Estimated GFR POC Glucose 291 H 295 H Random Glucose Estimat Average Glucose Hemoglobin A1c % Lactic Acid Calcium Magnesium Iron TIBC % Saturation Unsat Iron Binding Ferritin Total Bilirubin Direct Bilirubin AST ALT Alkaline Phosphatase Total Creatine Kinase Total Protein Albumin Vitamin B12 Folate TSH Urine Color Urine Appearance Urine pH Ur Specific [place] Urine Protein Urine Glucose (UA) Urine Ketones Urine Blood Urine Nitrite Ur Leukocyte Esterase Urine RBC Urine WBC Ur Squamous Epith Cells Urine Bacteria Urine Test Urine Opiates Screen Urine Fentanyl Screen Ur Barbiturates Screen Ur Phencyclidine Scrn Ur Amphetamines Screen U Benzodiazepines Scrn Urine Cocaine Screen U Marijuana (THC) Screen Acetone, Qual Influenza Type A (PCR) Influenza Type B (PCR) RSV RNA Qual (PCR) SARS-CoV-2 RNA (RT-PCR) S. pyogenes GrpA TABATHA Microbiology Microbiology Results: Microbiology 07/04/21 10:51 Blood - Venous Blood Culture - Preliminary Prelim: GPC Gram Stain only Gram negative philip 07/04/21 10:51 Blood - Venous Blood Culture - Preliminary Prelim: GPC Gram Stain only Prelim: GNR Gram Stain only Procedures Date of Service Date of Service: 07/05/21 Assessment & Plan Assessment and plan (1) Acute hyponatremia: Status: Acute (2) TOÑO (acute kidney injury): Status: Acute Plan #TOÑO, non-oliguric: secondary to volume depletion and hyperglycemia which resulted in osmotic diuresis and further pre-renal injury. -Prior BL S-Cr (last known ~ 1.25 mg/dL on 08/2020) consistent with mild ckd at BL. -In setting of TOÑO from osmotic diuresis and subsequent use of nitrofurantoin, its possible she also predisposed herself to renal injury from AIN. will attain UA to assess for hematuria/proteinuria and will also add urine eosinophils. -Continue with volume replacement with IVF's. -Renal panel daily. -Monitor K, phos, calcium, Mg with volume repletion. -Added urine studies. -Hold metformin -Please attain renal US -I/O's, please place garrett if patient becomes oliguric -avoidance of metformin for now, avoidance of nsaids, acei/arb, IV contrast, renal dosing abx #Hyponatremia - combination of pseudohyponatremia given hyperglycemia (c-Na ~ 127 meq/L), volume depletion with some loss of medullary gradient. Continue with volume support in form of IVF s. -Hold SSRI's/SNRI's, hold thiazide diuretics, #Hyperglycemia - mgt per primary team #glucosuria - BS control. #Anemia - . May be component of CKD. Establish BL S-Cr. Time Spent With Patient Time: Total time spent is greater than 50% in coordination of care (as documented) at patient's floor/unit and/or counseling patient: Progress Note: Quality Stroke Does the patient have a stroke diagnosis?: No
[2021-07-05 12:27] LABS: Glucose, Whole Blood 265 mg/dL (60-115)
[2021-07-05] MEDS: cefTRIAXone sodium 1 GM in 0.9 % Sodium Chloride 50 ML IV (12:53)
--- NOTE | 2021-07-05 14:09 | W.PM.IDCN ---
History of Present Illness Data of Consult Service Date: 07/05/21 Requesting physician: Javier Stewart Primary Care Provider: Maddison Floyd NP HPI Reason for consult: bacteremia She was brought in to ER hallucinating and lethargic per family this am She has no prior incidents She has chills She has blood culture gram negative philip and gram positive cocci, Review of Systems Review of Systems: Yes all other systems are reviewed and are negative PMFSH Past Medical History Medical History (Updated 07/05/21 @ 14:11 by Farideh Aquino MD) Bacteremia Diabetes Neuropathy Family History Family history: reviewed and not pertinent Social History Social History Alcohol intake: current Alcohol intake frequency: 0-2 drinks per day Patient Tobacco Use Status: Current everyday Tobacco user Advance Directives: No Advance Directives Information Provided: No Patient : No Meds Allergies Allergy/AdvReac Type Severity Reaction Status Date / Time No Known Allergies Allergy Verified 08/12/20 22:15 Active Medications: Current Medications Acetaminophen (Acetaminophen 325 Mg Tablet) 650 mg PO Q6H PRN PRN Reason: Pain, Severe (Pain Scale 7-10) Atorvastatin Calcium (Atorvastatin Calcium 20 Mg Tablet) 20 mg PO DAILY [facility] Last Admin: 07/05/21 07:58 Dose: 20 mg Documented by: Bupropion HCl (Bupropion Hcl Xl 300 Mg Tab.Er.24h) 300 mg PO DAILY [facility] Last Admin: 07/05/21 07:58 Dose: 300 mg Documented by: Dextrose (Dextrose 50 % 25 Gm/50 Ml Syringe) 25 gm IVPUSH Q15M PRN; Protocol PRN Reason: per Hypoglycemia Standing Ord. Gabapentin (Gabapentin 300 Mg Capsule) 900 mg PO BEDTIME [facility] Last Admin: 07/04/21 21:18 Dose: 900 mg Documented by: Glucose (Glucose Gel 15 Gm Gel..Gram.) 15 gm PO Q15M PRN; Protocol PRN Reason: per Hypoglycemia Standing Ord. Heparin Sodium (Porcine) (Heparin Sodium,Porcine 5,000 Unit/Ml Vial) 5,000 unit SUBCUT Q8H [facility] Last Admin: 07/05/21 07:57 Dose: 5,000 unit Documented by: Hydroxyzine HCl (Hydroxyzine Hcl 25 Mg Tablet) 25 mg PO BEDTIME PRN PRN Reason: insomnia Lactated Ringer's (Lr) 1,000 mls @ 100 mls/hr IVCONT .Q10H [facility] Last Admin: 07/05/21 12:58 Dose: 100 mls/hr Documented by: Ceftriaxone Sodium 1 gm/ (Sodium Chloride) 50 mls @ 100 mls/hr IV Q24H [facility] Last Admin: 07/05/21 12:53 Dose: 100 mls/hr Documented by: Vancomycin HCl 750 mg/ Sodium (Chloride) 265 mls @ 265 mls/hr IV Q24H [facility] Insulin Glargine (Insulin Glargine,Hum.Rec.Anlog 100 Unit/Ml 10 Ml Vial) 40 unit SUBCUT BID [facility] Insulin Human Lispro (Insulin Lispro 100 Unit/Ml 3 Ml Vial) 0 unit SUBCUT QIDACHS [facility]; Protocol Last Admin: 07/05/21 12:52 Dose: 6 unit Documented by: Omeprazole (Omeprazole 20 Mg Capsule.Dr) 20 mg PO DAILY@0630 [facility] Last Admin: 07/05/21 06:57 Dose: 20 mg Documented by: Pharmacy Consult (Consult Rx Perform Med Rec) 1 each MISCELLANE ONCE PRN PRN Reason: Consult order Pharmacy Consult (Consult Rx Vancomycin Dosing) 1 each MISCELLANE DAILY PRN PRN Reason: Consult order Sodium Chloride (0.9 % Sodium Chloride Flush 3 Ml Syringe) 3 ml IVFLUSH QSHIFT [facility] Last Admin: 07/05/21 08:02 Dose: Not Given Documented by: Venlafaxine HCl (Venlafaxine Hcl Er 75 Mg Cap.Er.24h) 75 mg PO DAILY [facility] [place] Last Admin: 07/05/21 07:58 Dose: 75 mg Documented by: Venlafaxine HCl (Venlafaxine Hcl Er 150 Mg Cap.Er.24h) 150 mg PO DAILY [facility] [place] Last Admin: 07/05/21 07:58 Dose: 150 mg Documented by: Home Medications Medication Instructions Recorded Confirmed Last Taken Type bupropion HCl 300 mg 24 hr tablet, 1 tab PO DAILY 07/04/21 07/04/21 07/03/21 History extended release gabapentin 300 mg capsule 3 cap PO BEDTIME 07/04/21 07/04/21 07/03/21 History glipizide 10 mg tablet, extended 2 tab PO QAM 07/04/21 07/04/21 07/03/21 History release 24 hr hydroxyzine HCl 25 mg tablet 1 tab PO BEDTIME PRN 07/04/21 07/04/21 07/03/21 History insulin aspart U-100 100 unit/mL See Rx Instructions .ROUTE .COMPLEX 07/04/21 07/04/21 07/03/21 History (3 mL) subcutaneous pen (Novolog Flexpen U-100 Insulin aspart) insulin glargine 100 unit/mL (3 60 unit SUBCUT BID 07/04/21 07/04/21 07/03/21 History mL) subcutaneous pen (Lantus Solostar U-100 Insulin) metformin 1,000 mg tablet 1 tab PO BID 07/04/21 07/04/21 07/03/21 History nitrofurantoin 1 cap PO BID 07/04/21 07/04/21 07/04/21 History monohydrate/macrocrystals 100 mg capsule rosuvastatin 5 mg tablet 1 tab PO DAILY 07/04/21 07/04/21 07/03/21 History venlafaxine 150 mg 1 cap PO DAILY 07/04/21 07/04/21 07/03/21 History capsule,extended release 24 hr venlafaxine 75 mg capsule,extended 1 cap PO DAILY 07/04/21 07/04/21 07/03/21 History release 24 hr Physical Exam Vital Signs: Vital Signs: Last Vital Signs Temp 100.0 F 07/05/21 09:56 Pulse 82 07/05/21 09:56 Resp 18 07/05/21 09:56 BP 120/65 07/05/21 09:56 Pulse Ox 97 07/05/21 09:56 BMI result Body Mass Index 36.6 Const: General: cooperative HEENT: Head: Yes normal to inspection Mouth: Normal oral and palatal mucosa present Resp: Effort & Inspection: normal respiratory effort Cardio: Rate: regular rate Rhythm: regular rhythm GI: Palpation (GI): Soft to palpation and nontender Extrem: General: Yes normal to inspection Results Labs CBC & Chem 7: 07/05/21 06:02 07/05/21 06:02 Labs: Short CBC 07/05/21 Range/Units 06:02 WBC 12.5 H (4.8-10.8) X10*3/uL Hgb 9.7 L (12.0-16.0) g/dl Hct 31.2 L (37.0-47.0) % Plt Count 271 (160-400) X10*3/uL BMP 07/04/21 07/04/21 07/05/21 16:55 20:11 06:02 Sodium 122 L 123 L 124 L Potassium 4.9 5.0 4.8 Chloride 93 L 93 L 94 L Carbon Dioxide 19 L 20 L 20 L BUN 78 H 77 H 72 H Creatinine 4.15 H* 4.05 H* 3.79 H Calcium 7.7 L 7.8 L 7.7 L Liver Function 07/04/21 Range/Units 16:55 Total Bilirubin 0.4 (0.0-1.0) mg/dL Direct Bilirubin 0.3 (0.0-0.5) mg/dL AST 42 H (5-31) U/L ALT 40 H (0-31) U/L Alkaline Phosphatase 337 H (39-117) U/L Albumin 2.4 L (3.5-5.0) g/dL Microbiology Microbiology Results: Microbiology 07/04/21 Unknown Urine clean catch - Urine carver top Urine Culture - Preliminary Culture in progress. 07/04/21 10:51 Blood - Venous Blood Culture - Preliminary Prelim: GPC Gram Stain only Gram negative philip 07/04/21 10:51 Blood - Venous Blood Culture - Preliminary Prelim: GPC Gram Stain only Prelim: GNR Gram Stain only Assessment and Plan (1) Acute hyperglycemia: Status: Acute (2) UTI (urinary tract infection): Status: Acute (3) Bacteremia: Status: Acute She has bacteremia,gram negative philip Gram positive cocci There is concern over UTI or abdominal process,obstructive Plan Check CT abdomen and pelvis,no contrast and look obstruction Continue Vancomycin Change Ceftriaxone to Zosyn until ID of blood culture
--- NOTE | 2021-07-05 14:10 | MHC.CM.PN ---
CM HAS ATTEMPTED TO SEE PT TWICE, PT CONTINUES TO SLEEP SOUNDLY AND DOES NOT RESPOND TO T/W. CM WILL REVISIT
--- NOTE | 2021-07-05 14:48 | MHC.CARE ---
CARE Team met with Pt who reported depression and SI. Pt aware of plan to have crisis assessment when medically cleared.
--- NOTE | 2021-07-05 15:04 | MHC.CARE ---
CARE Team will be re-consulted when medically cleared.
--- NOTE | 2021-07-05 15:12 | MHC.CARE ---
Section 12A placed in chart after discussion with Dr. Stewart
[2021-07-05 16:40] LABS: Glucose, Whole Blood 264 mg/dL (60-115)
[2021-07-05 16:53] VITALS: BP 117/47; PULSE 88; TEMP 37.2; O2SAT 97
--- NOTE | 2021-07-05 18:44 | MHC.CM.PN ---
Awakened for assessment. Pt has room assignment. A&Ox3. No HCP on file. Pt states copy at PCP's. Copy requested if needed. HCP/mother Ya Chatman ([phone]). Pt is NOT vaccinated against Covid 19. Lives at home with 2 children, 9 and 15 years old. Pt mother is caring for children while she is hospitalized. 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 Has DM testing supplies at home and has no services. D/C plan: Home without services. Family to provide transportation home. CM to follow for d/c needs.
[2021-07-05 20:00] VITALS: BP 139/65; PULSE 95; RESP 18; TEMP 37.9; O2SAT 98
[2021-07-05 20:30] LABS: Glucose, Whole Blood 354 mg/dL (60-115)
[2021-07-05] MEDS: Gabapentin 300 MG CAPSULE 900 MG PO (20:42)
[2021-07-05] MEDS: Insulin Glargine,Hum.rec.anlog 100 UNIT/ML 10 ML VIAL 40 UNIT SUBCUT (20:43)
[2021-07-05] MEDS: vancomycin HCL 750 MG in 0.9 % Sodium Chloride 250 ML 265 MG IV (21:29)
[2021-07-06] VITALS (7 sets, daily range): BP systolic 119–130; BP diastolic 57–86; PULSE 80–112; RESP 16–20; TEMP 36.8–37.8; O2SAT 94–99
[2021-07-06] MEDS: Acetaminophen 325 MG TABLET 650 MG PO ×2 (00:05→20:50)
[2021-07-06] MEDS: Lactated Ringers 1,000 ML 100 ML IVCONT ×3 (01:26→15:18)
[2021-07-06] MEDS: Omeprazole 20 MG CAPSULE.DR PO (05:51)
[2021-07-06 06:02] LABS: Hematocrit 27.3 % (37.0-47.0); Hemoglobin 8.6 g/dl (12.0-16.0); Mean Corpuscular HGB Conc 31.5 g/dl (31.0-35.0); Mean Corpuscular Hemoglobin 23.8 pg (27.0-33.0); Mean Corpuscular Volume 75.6 fL (80.0-98.0); Mean Platelet Volume 9.6 fL (9.4-12.3); Platelet Count 309 X10*3/uL (160-400); Red Blood Count 3.61 X10*6/uL (4.20-5.50); Red Cell Distribution Width 15.3 % (11.0-16.0); White Blood Count 12.7 X10*3/uL (4.8-10.8)
[2021-07-06 06:13] LABS: Anion Gap 12 (12-20); Blood Urea Nitrogen 65 mg/dL (9-16); Carbon Dioxide 22 mmol/L (22-29); Chloride 100 mmol/L (96-108); Creatinine Clr Calc Pharmacy 21.3; Estimated Glomerular Filt Rate 14; Glucose Random 181 mg/dL (60-115); Potassium 4.5 mmol/L (3.3-5.1); Sodium 129 mmol/L (135-145)
[2021-07-06] MEDS: Throat Lozenge, Medicated LOZENGE 1 LOZENGE MUCOUS MEM ×3 (06:22→21:17)
[2021-07-06 07:17] LABS: Glucose, Whole Blood 149 mg/dL (60-115)
[2021-07-06] MEDS: Piperacillin Sodium/Tazobactam 2.25 GM in 0.9 % Sodium Chloride 50 ML IV ×3 (08:21→20:51)
[2021-07-06] MEDS: Heparin Sodium,Porcine 5,000 UNIT/ML VIAL 5000 UNIT SUBCUT ×3 (08:21→23:07)
[2021-07-06] MEDS: Insulin Glargine,Hum.rec.anlog 100 UNIT/ML 10 ML VIAL 40 UNIT SUBCUT ×2 (08:21→20:50)
[2021-07-06] MEDS: Venlafaxine HCl ER 75 MG CAP.ER.24H PO (08:23)
[2021-07-06] MEDS: buPROPion HCl XL 300 MG TAB.ER.24H PO (08:23)
[2021-07-06] MEDS: Atorvastatin Calcium 20 MG TABLET PO (08:23)
[2021-07-06] MEDS: Venlafaxine HCl ER 150 MG CAP.ER.24H PO (08:23)
[2021-07-06 08:59] LABS: Adenovirus PCR Not Detected (Not Detect.); Bordetella parapertussis PCR Not Detected (Not Detect.); Bordetella pertussis PCR Not Detected (Not Detect.); Chlamydia pneumoniae PCR Not Detected (Not Detect.); Coronavirus 229E PCR Not Detected (Not Detect.); Coronavirus HKU1 PCR Not Detected (Not Detect.); Coronavirus NL63 PCR Not Detected (Not Detect.); Coronavirus OC43 PCR Not Detected (Not Detect.); Human metapneumovirus PCR Not Detected (Not Detect.); Influenza A PCR Not Detected (Not Detect.); Influenza B PCR Not Detected (Not Detect.); Mycoplasma pneumoniae PCR Not Detected (Not Detect.); Parainfluenza 1 PCR Not Detected (Not Detect.); Parainfluenza 2 PCR Not Detected (Not Detect.); Parainfluenza 3 PCR Not Detected (Not Detect.); Parainfluenza 4 PCR Not Detected (Not Detect.); RSV PCR Not Detected (Not Detect.); Rhino/Enterovirus PCR Not Detected (Not Detect.); SARS-CoV-2 PCR Not Detected (Not Detect.)
--- NOTE | 2021-07-06 10:40 | P.PNNP_ITS ---
Subjective Subjective Date of Service: 07/09/21 Interval history: toño,hyponatremia ,uncontrolled dm Sleepy Arousible Physical Exam Vital Signs: Vital Signs: Last Vital Signs Temp 99.3 F 07/06/21 07:45 Pulse 84 07/06/21 07:45 Resp 20 07/06/21 07:45 BP 130/71 07/06/21 07:45 Pulse Ox 97 07/06/21 07:45 BMI result Body Mass Index 36.6 Const: General: comfortable and alert Eyes: Sclerae: sclerae normal Resp: Effort & Inspection: able to speak in complete sentences Au scultation: no crackles Cardio: Jugular venous distension: no JVD Heart sounds: S2 normal heart sound present GI: Palpation (GI): nontender Auscultation: normal bowel sounds : General: Yes no CVA tenderness Back/Spine/Pelvis: Back: no CVA tenderness Skin: General skin exam: no rashes or lesions noted Extrem: General: Yes full ROM Objective Data Labs CBC & Chem 7: 07/06/21 05:51 07/09/21 06:32 Labs: Laboratory Results - last 24 hr 07/05/21 07/05/21 07/05/21 12:21 16:33 17:00 WBC RBC Hgb Hct MCV MCH MCHC RDW Plt Count MPV Absolute Nucleated RBC Nucleated RBC % (auto) Sodium Potassium Chloride Carbon Dioxide Anion Gap BUN Creatinine Estim Creat Clear Calc Estimated GFR POC Glucose 265 H 264 H Random Glucose Calcium Respiratory Panel Kirkpatrick See Note Adenovirus (Rapid PCR) Not Detected B.pert (TEM-PCR) Not Detected B.parapertussis DNA PCR Not Detected C. pneumoniae DNA (PCR) Not Detected Coronavirus OC43 (PCR) Not Detected Coronavirus HKU1 (PCR) Not Detected Coronavirus 229E (PCR) Not Detected Coronavirus NL63 (PCR) Not Detected Human Metapneumovir PCR Not Detected Influenza A (RT-PCR) Not Detected Influenza B (RT-PCR) Not Detected M. pneumoniae (PCR) Not Detected Parainfluenza 1 (PCR) Not Detected Parainfluenza 2 (PCR) Not Detected Parainfluenza 3 (PCR) Not Detected Parainfluenza 4 (PCR) Not Detected RSV (PCR) Not Detected Entero/Rhino (PCR) Not Detected SARS-CoV-2 RNA (RT-PCR) Not Detected 07/05/21 07/06/21 07/06/21 20:26 05:51 05:51 WBC 12.7 H RBC 3.61 L Hgb 8.6 L Hct 27.3 L MCV 75.6 L MCH 23.8 L MCHC 31.5 RDW 15.3 Plt Count 309 MPV 9.6 Absolute Nucleated RBC 0.000 Nucleated RBC % (auto) 0.0 Sodium 129 L Potassium 4.5 Chloride 100 Carbon Dioxide 22 Anion Gap 12 BUN 65 H Creatinine 3.59 H Estim Creat Clear Calc 21.3 Estimated GFR 14 POC Glucose 354 H* Random Glucose 181 H Calcium 8.0 L Respiratory Panel Kirkpatrick Adenovirus (Rapid PCR) B.pert (TEM-PCR) B.parapertussis DNA PCR C. pneumoniae DNA (PCR) Coronavirus OC43 (PCR) Coronavirus HKU1 (PCR) Coronavirus 229E (PCR) Coronavirus NL63 (PCR) Human Metapneumovir PCR Influenza A (RT-PCR) Influenza B (RT-PCR) M. pneumoniae (PCR) Parainfluenza 1 (PCR) Parainfluenza 2 (PCR) Parainfluenza 3 (PCR) Parainfluenza 4 (PCR) RSV (PCR) Entero/Rhino (PCR) SARS-CoV-2 RNA (RT-PCR) 07/06/21 07:09 WBC RBC Hgb Hct MCV MCH MCHC RDW Plt Count MPV Absolute Nucleated RBC Nucleated RBC % (auto) Sodium Potassium Chloride Carbon Dioxide Anion Gap BUN Creatinine Estim Creat Clear Calc Estimated GFR POC Glucose 149 H Random Glucose Calcium Respiratory Panel Kirkpatrick Adenovirus (Rapid PCR) B.pert (TEM-PCR) B.parapertussis DNA PCR C. pneumoniae DNA (PCR) Coronavirus OC43 (PCR) Coronavirus HKU1 (PCR) Coronavirus 229E (PCR) Coronavirus NL63 (PCR) Human Metapneumovir PCR Influenza A (RT-PCR) Influenza B (RT-PCR) M. pneumoniae (PCR) Parainfluenza 1 (PCR) Parainfluenza 2 (PCR) Parainfluenza 3 (PCR) Parainfluenza 4 (PCR) RSV (PCR) Entero/Rhino (PCR) SARS-CoV-2 RNA (RT-PCR) Microbiology Microbiology Results: Microbiology 07/04/21 10:51 Blood - Venous Blood Culture - Preliminary Prelim: GPC Gram Stain only Escherichia coli 07/05/21 00:42 Blood - Venous Blood Culture - Preliminary No growth after 24 hours. 07/05/21 00:42 Blood - Venous Blood Culture - Preliminary Prelim: GPC Gram Stain only 07/04/21 Unknown Urine clean catch - Urine carver top Urine Culture - Preliminary Culture in progress. 07/04/21 10:51 Blood - Venous Blood Culture - Preliminary Prelim: GPC Gram Stain only Prelim: GNR Gram Stain only Procedures Date of Service Date of Service: 07/06/21 Assessment & Plan Assessment and plan (1) Acute hyponatremia: Status: Acute (2) TOÑO (acute kidney injury): Status: Acute Plan #TOÑO, non-oliguric: secondary to volume depletion and hyperglycemia which resulted in osmotic diuresis and further pre-renal injury. -Prior BL S-Cr (last known ~ 1.25 mg/dL on 08/2020) consistent with mild ckd at BL. -In setting of TOÑO from osmotic diuresis and subsequent use of nitrofurantoin, its possible she also predisposed herself to renal injury from AIN. will attain UA to assess for hematuria/proteinuria and will also add urine eosinophils. -Continue with volume replacement with IVF's. -Renal panel daily. -Monitor K, phos, calcium, Mg with volume repletion. -Hold metformin renal US -avoidance of metformin for now, avoidance of nsaids, acei/arb, IV contrast, renal dosing abx #Hyponatremia - combination of pseudohyponatremia given hyperglycemia (c-Na ~ 127 meq/L), volume depletion with some loss of medullary gradient. Continue with volume support in form of IVF s. -Hold SSRI's/SNRI's, hold thiazide diuretics, #Hyperglycemia - mgt per primary team #glucosuria - BS control. #Anemia - . May be component of CKD. Establish BL S-Cr. Sepsis - ID note appreciated Creatinine is gradually trending down KeepI > O NO indication for dialysis Time Spent With Patient Time: Total time spent is greater than 50% in coordination of care (as documented) at patient's floor/unit and/or counseling patient: Progress Note: Quality Stroke Does the patient have a stroke diagnosis?: No
[2021-07-06 11:24] LABS: Glucose, Whole Blood 275 mg/dL (60-115)
[2021-07-06] MEDS: Insulin Lispro 100 UNIT/ML 3 ML VIAL SUBCUT ×3 (11:48→20:50)
--- NOTE | 2021-07-06 12:17 | P.PNIM_ITS ---
Subjective Subjective Date of Service: 07/06/21 Interval History: F/u on sepsis, TOÑO interval history: She seems pretty clear, cooperative Review of Systems no fever/chills no dysuria Physical Exam Vital Signs: Vital Signs: Last Vital Signs Temp 98.9 F 07/06/21 11:04 Pulse 87 07/06/21 11:04 Resp 16 07/06/21 11:04 BP 123/57 L 07/06/21 11:04 Pulse Ox 96 07/06/21 11:04 BMI result Body Mass Index 36.6 Const: Other: General: AO X 3, no acute distress Resp: CTA bilateral CVS: S1,S2,RRR GI: +BS, NT, no distention Skin: No rash Neuro: motor grossly intact Psych: appropriate affect Objective Data Active Medications Acetaminophen (Acetaminophen 325 Mg Tablet) 650 mg PO Q6H PRN PRN Reason: Pain, Severe (Pain Scale 7-10) Last Admin: 07/06/21 00:05 Dose: 650 mg Documented by: ORLIN Atorvastatin Calcium (Atorvastatin Calcium 20 Mg Tablet) 20 mg PO DAILY [facility] Last Admin: 07/06/21 08:23 Dose: 20 mg Documented by: GISELA Benzocaine (Throat Lozenge, Medicated Lozenge) 1 lozenge MUCOUS MEM Q2H PRN PRN Reason: Sore Throat Last Admin: 07/06/21 06:22 Dose: 1 lozenge Documented by: ORLIN Bupropion HCl (Bupropion Hcl Xl 300 Mg Tab.Er.24h) 300 mg PO DAILY [facility] Last Admin: 07/06/21 08:23 Dose: 300 mg Documented by: GISELA Dextrose (Dextrose 50 % 25 Gm/50 Ml Syringe) 25 gm IVPUSH Q15M PRN; Protocol PRN Reason: per Hypoglycemia Standing Ord. Gabapentin (Gabapentin 300 Mg Capsule) 900 mg PO BEDTIME [facility] Last Admin: 07/05/21 20:42 Dose: 900 mg Documented by: LIZETTE Glucose (Glucose Gel 15 Gm Gel..Gram.) 15 gm PO Q15M PRN; Protocol PRN Reason: per Hypoglycemia Standing Ord. Heparin Sodium (Porcine) (Heparin Sodium,Porcine 5,000 Unit/Ml Vial) 5,000 unit SUBCUT Q8H [facility] Last Admin: 07/06/21 08:21 Dose: 5,000 unit Documented by: GISELA Hydroxyzine HCl (Hydroxyzine Hcl 25 Mg Tablet) 25 mg PO BEDTIME PRN PRN Reason: insomnia Lactated Ringer's (Lr) 1,000 mls @ 100 mls/hr IVCONT .Q10H [facility] Last Admin: 07/06/21 08:32 Dose: 100 mls/hr Documented by: GISELA Vancomycin HCl 750 mg/ Sodium (Chloride) 265 mls @ 265 mls/hr IV Q24H [facility] Last Infusion: 07/05/21 23:05 Dose: 0 mls/hr Documented by: LIZETTE Piperacillin Sod/Tazobactam (Sod 2.25 gm/ Sodium Chloride) 50 mls @ 100 mls/hr IV Q6H [facility] Last Infusion: 07/06/21 09:41 Dose: 0 mls/hr Documented by: GISELA Insulin Glargine (Insulin Glargine,Hum.Rec.Anlog 100 Unit/Ml 10 Ml Vial) 40 unit SUBCUT BID [facility] Last Admin: 07/06/21 08:21 Dose: 40 unit Documented by: GISELA Insulin Human Lispro (Insulin Lispro 100 Unit/Ml 3 Ml Vial) 0 unit SUBCUT QIDACHS [facility]; Protocol Last Admin: 07/06/21 11:48 Dose: 6 unit Documented by: GISELA Omeprazole (Omeprazole 20 Mg Capsule.Dr) 20 mg PO DAILY@0630 [facility] Last Admin: 07/06/21 05:51 Dose: 20 mg Documented by: ORLIN Pharmacy Consult (Consult Rx Perform Med Rec) 1 each MISCELLANE ONCE PRN PRN Reason: Consult order Pharmacy Consult (Consult Rx Vancomycin Dosing) 1 each MISCELLANE DAILY PRN PRN Reason: Consult order Sodium Chloride (0.9 % Sodium Chloride Flush 3 Ml Syringe) 3 ml IVFLUSH QSHIFT [facility] Last Admin: 07/06/21 09:42 Dose: Not Given Documented by: GISELA Non-Admin Reason: IV Running Venlafaxine HCl (Venlafaxine Hcl Er 75 Mg Cap.Er.24h) 75 mg PO DAILY [facility] Last Admin: 07/06/21 08:23 Dose: 75 mg Documented by: GISELA Venlafaxine HCl (Venlafaxine Hcl Er 150 Mg Cap.Er.24h) 150 mg PO DAILY [facility] Last Admin: 07/06/21 08:23 Dose: 150 mg Documented by: GISELA Labs CBC & Chem 7: 07/06/21 05:51 07/06/21 05:51 Labs: Laboratory Results - last 24 hr 07/04/21 07/04/21 07/04/21 11:36 16:55 20:11 MCV MCH MCHC RDW Plt Count MPV Absolute Nucleated RBC Nucleated RBC % (auto) Anion Gap Creatinine 4.03 H* 4.15 H* 4.05 H* Estim Creat Clear Calc Estimated GFR POC Glucose Random Glucose Calcium Respiratory Panel Kirkpatrick Adenovirus (Rapid PCR) B.pert (TEM-PCR) B.parapertussis DNA PCR C. pneumoniae DNA (PCR) Coronavirus OC43 (PCR) Coronavirus HKU1 (PCR) Coronavirus 229E (PCR) Coronavirus NL63 (PCR) Human Metapneumovir PCR Influenza A (RT-PCR) Influenza B (RT-PCR) M. pneumoniae (PCR) Parainfluenza 1 (PCR) Parainfluenza 2 (PCR) Parainfluenza 3 (PCR) Parainfluenza 4 (PCR) RSV (PCR) Entero/Rhino (PCR) SARS-CoV-2 RNA (RT-PCR) 07/05/21 07/05/21 07/05/21 06:02 12:21 16:33 MCV MCH MCHC RDW Plt Count MPV Absolute Nucleated RBC Nucleated RBC % (auto) Anion Gap Creatinine 3.79 H Estim Creat Clear Calc Estimated GFR POC Glucose 265 H 264 H Random Glucose Calcium Respiratory Panel Kirkpatrick Adenovirus (Rapid PCR) B.pert (TEM-PCR) B.parapertussis DNA PCR C. pneumoniae DNA (PCR) Coronavirus OC43 (PCR) Coronavirus HKU1 (PCR) Coronavirus 229E (PCR) Coronavirus NL63 (PCR) Human Metapneumovir PCR Influenza A (RT-PCR) Influenza B (RT-PCR) M. pneumoniae (PCR) Parainfluenza 1 (PCR) Parainfluenza 2 (PCR) Parainfluenza 3 (PCR) Parainfluenza 4 (PCR) RSV (PCR) Entero/Rhino (PCR) SARS-CoV-2 RNA (RT-PCR) 07/05/21 07/05/21 07/06/21 17:00 20:26 05:51 MCV 75.6 L MCH 23.8 L MCHC 31.5 RDW 15.3 Plt Count 309 MPV 9.6 Absolute Nucleated RBC 0.000 Nucleated RBC % (auto) 0.0 Anion Gap Creatinine Estim Creat Clear Calc Estimated GFR POC Glucose 354 H* Random Glucose Calcium Respiratory Panel Kirkpatrick See Note Adenovirus (Rapid PCR) Not Detected B.pert (TEM-PCR) Not Detected B.parapertussis DNA PCR Not Detected C. pneumoniae DNA (PCR) Not Detected Coronavirus OC43 (PCR) Not Detected Coronavirus HKU1 (PCR) Not Detected Coronavirus 229E (PCR) Not Detected Coronavirus NL63 (PCR) Not Detected Human Metapneumovir PCR Not Detected Influenza A (RT-PCR) Not Detected Influenza B (RT-PCR) Not Detected M. pneumoniae (PCR) Not Detected Parainfluenza 1 (PCR) Not Detected Parainfluenza 2 (PCR) Not Detected Parainfluenza 3 (PCR) Not Detected Parainfluenza 4 (PCR) Not Detected RSV (PCR) Not Detected Entero/Rhino (PCR) Not Detected SARS-CoV-2 RNA (RT-PCR) Not Detected 07/06/21 07/06/21 07/06/21 05:51 07:09 11:03 MCV MCH MCHC RDW Plt Count MPV Absolute Nucleated RBC Nucleated RBC % (auto) Anion Gap 12 Creatinine 3.59 H Estim Creat Clear Calc 21.3 Estimated GFR 14 POC Glucose 149 H 275 H Random Glucose 181 H Calcium 8.0 L Respiratory Panel Kirkpatrick Adenovirus (Rapid PCR) B.pert (TEM-PCR) B.parapertussis DNA PCR C. pneumoniae DNA (PCR) Coronavirus OC43 (PCR) Coronavirus HKU1 (PCR) Coronavirus 229E (PCR) Coronavirus NL63 (PCR) Human Metapneumovir PCR Influenza A (RT-PCR) Influenza B (RT-PCR) M. pneumoniae (PCR) Parainfluenza 1 (PCR) Parainfluenza 2 (PCR) Parainfluenza 3 (PCR) Parainfluenza 4 (PCR) RSV (PCR) Entero/Rhino (PCR) SARS-CoV-2 RNA (RT-PCR) Microbiology Microbiology Results: Microbiology 07/04/21 Unknown Urine Culture - Final Urine clean catch - Urine carver top Strep agalactiae (Grp B) 07/05/21 00:42 Blood Culture - Preliminary Blood - Venous Prelim: GPC Gram Stain only 07/04/21 10:51 Blood Culture - Preliminary Blood - Venous Strep agalactiae (Grp B) Escherichia coli 07/04/21 10:51 Blood Culture - Preliminary Blood - Venous Strep agalactiae (Grp B) Gram negative philip 07/05/21 00:42 Blood Culture - Preliminary Blood - Venous No growth after 24 hours. Assessment and Plan (1) Acute hyperglycemia: Status: Acute (2) Acute hyponatremia: Status: Acute (3) UTI (urinary tract infection): Status: Acute (4) TOÑO (acute kidney injury): Status: Acute Plan 46-year-old female who came to the hospital because of TOÑO, uncontrolled di abetes, toxic metabolic encephalopathy and UTI. Sepsis secondary to UTI, blood cultures = E. coli and Group B strep. She is on on Vanco and Zosyn, I will change it to Ceftriaxone. TOÑO: Likely ATN. Cr is trendind down slowly, Ongoing work up by Nephrology Diabetes--FBS 181, continue Lantus and SSI Peripheral neuropathy:? Continue gabapentin. Toxic metabolic encephalopathy:? Multifactorial UTI, TOÑO, uncontrolled diabetes, decreased p.o. intake. Getting treatment with hydration, insulin, antibiotics -seems to be improved to baseline. CT head is negative -At the present she is lucid. - Morbid obesity:? Encouraged to cut down calories once stable and encourage for weight loss. anemia? microcytic : denies any hx of blood moniter h/h anemia workup added , fobt . Depression and SI: currently denies any plan added care team lance,also has bhn added intially by ed. continue sitter DVT prophylaxis with subQ heparin Quality Stroke Does the patient have a stroke diagnosis?: No VTE Prior VTE?: No VTE Risk Level:: Medical - moderate - high VTE Device Contraindication: N/A - Device Ordered VTE Drug Contraindication: N/A - Med Ordered
[2021-07-06 15:50] LABS: Glucose, Whole Blood 268 mg/dL (60-115)
[2021-07-06 19:55] LABS: Glucose, Whole Blood 231 mg/dL (60-115)
[2021-07-06] MEDS: Gabapentin 300 MG CAPSULE 900 MG PO (20:50)
[2021-07-06 20:52] LABS: Vancomycin Random 14.9 mcg/mL (15-20)
--- NOTE | 2021-07-06 20:58 | HE.PHANOTE ---
Vancomycin Dosing Based off trough of 14.9 today 07/06 dose continued at 011e70s. Next trough 07/08 @1999. predicted AUC of 549
[2021-07-06] MEDS: 0.9 % Sodium Chloride Flush 3 ML SYRINGE IVFLUSH ×2 (21:12)
[2021-07-06] MEDS: vancomycin HCL 750 MG in 0.9 % Sodium Chloride 250 ML 265 MG IV (23:03)
[2021-07-07] VITALS: BP 145/78; PULSE 75; RESP 19; TEMP 37.1; O2SAT 96
[2021-07-07] MEDS: Piperacillin Sodium/Tazobactam 2.25 GM in 0.9 % Sodium Chloride 50 ML IV ×2 (02:00→08:16)
[2021-07-07 03:47] VITALS: BP 118/64; PULSE 76; RESP 17; TEMP 36.8; O2SAT 96
[2021-07-07] MEDS: Omeprazole 20 MG CAPSULE.DR PO (05:40)
[2021-07-07] MEDS: Throat Lozenge, Medicated LOZENGE 1 LOZENGE MUCOUS MEM ×2 (05:46→20:53)
[2021-07-07 07:04] LABS: Glucose, Whole Blood 132 mg/dL (60-115)
[2021-07-07 07:12] VITALS: BP 121/60; PULSE 87; RESP 17; TEMP 36.8; O2SAT 98
--- NOTE | 2021-07-07 08:04 | PHA.PROG ---
Admission Date/Time: July 04, 2021 15:28 Indication: Weight in k.718 kg Adjusted body weight in Kg: Powell body weight in Kg: Obesity Dosing Indication % IBW: Obese model used for predictions Serum Creatinine - Last 168 Hours 07/04/21 07/04/21 07/04/21 11:36 16:55 20:11 Creatinine 4.03 H* 4.15 H* 4.05 H* 07/05/21 07/06/21 06:02 05:51 Creatinine 3.79 H 3.59 H Estimated CrCl and GFR - Last 168 Hours 07/04/21 07/04/21 07/04/21 11:36 16:55 20:11 Estim Creat Clear Calc 19.0 18.4 18.9 Estimated GFR 12 12 12 07/05/21 07/06/21 06:02 05:51 Estim Creat Clear Calc 20.2 21.3 Estimated GFR 13 14 Vancomycin Loading Dose: Current Vancomycin Dosing Regimen: Changed the regimen to 500 mg q24h because last trough came back at 14.9. Vancomycin Monitoring using AUC goal of 400 - 600 range with trough as surrogate marker: the program predicts a AUC of 512 and a trough of 18.8 with the new regimen. Date and Time for next Vancomycin Level to be drawn: Will get a random level 07/07. Pharmacist Comments on Vancomycin Plan: Will continue to monitor renal function Vancomycin dosing will take advantage of [employer] as a clinical decision support tool that uses Bayesian modeling to calculate individual patient's pharmacokinetic parameters and forecast the patient's drug concentration time course with the target goal AUC 24 range of 400 - 600 mg/L/hr.
[2021-07-07] MEDS: 0.9 % Sodium Chloride Flush 3 ML SYRINGE IVFLUSH ×3 (08:14→21:06)
[2021-07-07] MEDS: Heparin Sodium,Porcine 5,000 UNIT/ML VIAL 5000 UNIT SUBCUT ×2 (08:15→16:50)
[2021-07-07] MEDS: Insulin Glargine,Hum.rec.anlog 100 UNIT/ML 10 ML VIAL 40 UNIT SUBCUT ×2 (08:15→20:53)
[2021-07-07] MEDS: Venlafaxine HCl ER 150 MG CAP.ER.24H PO (08:16)
[2021-07-07] MEDS: buPROPion HCl XL 300 MG TAB.ER.24H PO (08:16)
[2021-07-07] MEDS: Atorvastatin Calcium 20 MG TABLET PO (08:16)
[2021-07-07] MEDS: Venlafaxine HCl ER 75 MG CAP.ER.24H PO (08:16)
--- NOTE | 2021-07-07 08:38 | P.CDIC_ITS ---
CDI Concurrent Query Documentation Clarification: PHYSICIAN'S DOCUMENTATION REQUEST Date of Query: 07/07/21 0838 Patient Name: Elis Marie Admit Date: 07/04/21 Dear Doctor, A review of the medical record indicates additional documentation may be needed. Please review below and update the documentation accordingly. Clinical Indicators: The following clinical information was noted in the record: Risk Factors/Clinical Indicators/Treatments Nephrology note 07/04 - Prior BL S-CR 1.25 consistent with mild CKD at BL. Nephrology note 07/06 - Assessment/plan - anemia - may be component of CKD. Please clarify which of the following accurately represents the patient's renal status: * Acute renal failure (with type, appropriate) on Chronic Kidney Disease (CKD) - see criteria * CKD, please provide stage - see criteria * Other (please specify) * Unable to determine Criteria for TOÑO* Stages of Chronic Kidney Disease* 1. Increase in serum creatinine by ? 0.3 mg/dL Level Description GFR (?26.5 micromol/L) within 48 hours, or G1 Normal or High > 90 2. Increase in serum creatinine to ?1.5 times baseline, G2 Mildly decreased 60 ? 89 which is known or presumed to have occurred within 7 days, or G3a Mildly to moderately decreased 45 ? 59 3. Urine volume <0.5 mL/kg/hour for six hours G3b Moderately to severely decreased 30 - 44 G4 Severely decreased 15 ? 29 G5 Kidney failure < 15 *Source: Kidney Disease: Improving Global Outcomes (KDIGO) 2012 Use of terms such as suspected, likely, concern for, or probable (associated with a specific diagnosis that is being evaluated, monitored, or treated as if it exists) are acceptable and can be coded in the inpatient setting, when documented at the time of discharge. Thank you, Valeria Spicer [facility], CDIS Extension: [phone] Please use your independent medical judgment in providing your response. THIS QUERY IS PART OF THE PERMANENT MEDICAL RECORD Provider Response: CKD Stage 1
[2021-07-07 09:56] LABS: Creatinine Clr Calc Pharmacy 22.1; Estimated Glomerular Filt Rate 14
[2021-07-07 09:58] LABS: Anion Gap 14 (12-20); Blood Urea Nitrogen 58 mg/dL (9-16); Calcium 8.5 mg/dL (8.4-10.2); Carbon Dioxide 22 mmol/L (22-29); Chloride 103 mmol/L (96-108); Creatinine Clr Calc Pharmacy 21.8; Estimated Glomerular Filt Rate 14; Glucose Random 154 mg/dL (60-115); Sodium 134 mmol/L (135-145)
--- NOTE | 2021-07-07 11:03 | P.PNIM_ITS ---
Subjective Subjective Date of Service: 07/07/21 Interval History: F/u on sepsis, TOÑO interval history: She seems pretty clear, cooperative and no SI, Cre is slightly worse today Review of Systems no fever/chills no dysuria Physical Exam Vital Signs: Vital Signs: Last Vital Signs Temp 98.3 F 07/07/21 07:12 Pulse 87 07/07/21 07:12 Resp 17 07/07/21 07:12 BP 121/60 07/07/21 07:12 Pulse Ox 98 07/07/21 07:12 BMI result Body Mass Index 36.6 Const: Other: General: AO X 3, no acute distress Resp: CTA bilateral CVS: S1,S2,RRR GI: +BS, NT, no distention Skin: No rash Neuro: motor grossly intact Psych: appropriate affect Objective Data Active Medications Acetaminophen (Acetaminophen 325 Mg Tablet) 650 mg PO Q6H PRN PRN Reason: Pain, Severe (Pain Scale 7-10) Last Admin: 07/06/21 20:50 Dose: 650 mg Documented by: JADON Atorvastatin Calcium (Atorvastatin Calcium 20 Mg Tablet) 20 mg PO DAILY [facility] Last Admin: 07/07/21 08:16 Dose: 20 mg Documented by: FLACA Benzocaine (Throat Lozenge, Medicated Lozenge) 1 lozenge MUCOUS MEM Q2H PRN PRN Reason: Sore Throat Last Admin: 07/07/21 05:46 Dose: 1 lozenge Documented by: JADON Bupropion HCl (Bupropion Hcl Xl 300 Mg Tab.Er.24h) 300 mg PO DAILY [facility] Last Admin: 07/07/21 08:16 Dose: 300 mg Documented by: FLACA Dextrose (Dextrose 50 % 25 Gm/50 Ml Syringe) 25 gm IVPUSH Q15M PRN; Protocol PRN Reason: per Hypoglycemia Standing Ord. Gabapentin (Gabapentin 300 Mg Capsule) 900 mg PO BEDTIME [facility] Last Admin: 07/06/21 20:50 Dose: 900 mg Documented by: JADON Glucose (Glucose Gel 15 Gm Gel..Gram.) 15 gm PO Q15M PRN; Protocol PRN Reason: per Hypoglycemia Standing Ord. Heparin Sodium (Porcine) (Heparin Sodium,Porcine 5,000 Unit/Ml Vial) 5,000 unit SUBCUT Q8H [facility] Last Admin: 07/07/21 08:15 Dose: 5,000 unit Documented by: FLACA Hydroxyzine HCl (Hydroxyzine Hcl 25 Mg Tablet) 25 mg PO BEDTIME PRN PRN Reason: insomnia Ceftriaxone Sodium 2 gm/ (Sodium Chloride) 50 mls @ 100 mls/hr IV Q24H [facility] Insulin Glargine (Insulin Glargine,Hum.Rec.Anlog 100 Unit/Ml 10 Ml Vial) 40 unit SUBCUT BID [facility] Last Admin: 07/07/21 08:15 Dose: 40 unit Documented by: FLACA Insulin Human Lispro (Insulin Lispro 100 Unit/Ml 3 Ml Vial) 0 unit SUBCUT QIDACHS [facility]; Protocol Last Admin: 07/07/21 08:14 Dose: Not Given Documented by: FLACA Non-Admin Reason: No Insulin Coverage Omeprazole (Omeprazole 20 Mg Capsule.Dr) 20 mg PO DAILY@0630 [facility] Last Admin: 07/07/21 05:40 Dose: 20 mg Documented by: JADON Pharmacy Consult (Consult Rx Perform Med Rec) 1 each MISCELLANE ONCE PRN PRN Reason: Consult order Pharmacy Consult (Consult Rx Vancomycin Dosing) 1 each MISCELLANE DAILY PRN PRN Reason: Consult order Sodium Chloride (0.9 % Sodium Chloride Flush 3 Ml Syringe) 3 ml IVFLUSH QSHIFT [facility] Last Admin: 07/07/21 08:14 Dose: 3 ml Documented by: FLACA Venlafaxine HCl (Venlafaxine Hcl Er 75 Mg Cap.Er.24h) 75 mg PO DAILY [facility] Last Admin: 07/07/21 08:16 Dose: 75 mg Documented by: FLACA Venlafaxine HCl (Venlafaxine Hcl Er 150 Mg Cap.Er.24h) 150 mg PO DAILY [facility] Last Admin: 07/07/21 08:16 Dose: 150 mg Documented by: FLACA Labs CBC & Chem 7: 07/06/21 05:51 07/07/21 09:20 Labs: Laboratory Results - last 24 hr 07/06/21 07/06/21 07/06/21 11:03 15:47 19:12 Anion Gap Estim Creat Clear Calc Estimated GFR POC Glucose 275 H 268 H 231 H Random Glucose Calcium Random Vancomycin 07/06/21 07/07/21 07/07/21 20:18 06:57 09:20 Anion Gap Estim Creat Clear Calc 22.1 Estimated GFR 14 POC Glucose 132 H Random Glucose Calcium Random Vancomycin 14.9 L 07/07/21 09:20 Anion Gap 14 Estim Creat Clear Calc 21.8 Estimated GFR 14 POC Glucose Random Glucose 154 H Calcium 8.5 D Random Vancomycin Microbiology Microbiology Results: Microbiology 07/05/21 00:42 Blood Culture - Preliminary Blood - Venous Staphylococcus aureus 07/04/21 10:51 Blood Culture - Final Blood - Venous Strep agalactiae (Grp B) Escherichia coli 07/04/21 10:51 Blood Culture - Preliminary Blood - Venous Strep agalactiae (Grp B) Escherichia coli Staphylococcus aureus 07/05/21 00:42 Blood Culture - Preliminary Blood - Venous No growth after 48 hours. 07/04/21 Unknown Urine Culture - Final Urine clean catch - Urine carver top Strep agalactiae (Grp B) Assessment and Plan (1) Acute hyperglycemia: Status: Acute (2) Acute hyponatremia: Status: Acute (3) UTI (urinary tract infection): Status: Acute (4) TOÑO (acute kidney injury): Status: Acute Plan 46-year-old female who came to the hospital because of TOÑO, uncontrolled diabetes, toxic metabolic encephalopathy and UTI. Sepsis secondary to UTI, blood cultures = E. coli and Group B strep. She is on on Vanco and Zosyn, Change to Ceftriaxone TOÑO: Likely ATN, and possibly underlying mild CKD Cr is slighly up today, Ongoing work up by Nephrology Diabetes--FBS 181, continue Lantus and SSI Peripheral neuropathy:? Continue gabapentin. Toxic metabolic encephalopathy:? Multifactorial UTI, TOÑO, uncontrolled diabetes, decreased p.o. intake. Getting treatment with hydration, insulin, antibiotics -seems to be improved to baseline. CT head is negative -At the present she is lucid. - Morbid obesity:? Encouraged to cut down calories once stable and encourage for weight loss. anemia? microcytic : denies any hx of blood moniter h/h anemia workup added , fobt . Depression and SI: Denies, SI, she has lots of social stresses but not intention to harm herself. BHN to clear and dc sitter DVT prophylaxis with subQ heparin Quality Stroke Does the patient have a stroke diagnosis?: No VTE Prior VTE?: No VTE Risk Level:: Medical - moderate - high VTE Device Contraindication: N/A - Device Ordered VTE Drug Contraindication: N/A - Med Ordered
--- NOTE | 2021-07-07 11:11 | MHC.CM.PN ---
Per ROUNDS discussion, Patient is not yet medically cleared for dc (Sitter r/t SI/needs BHN clearance before anticipated dc to home); CM will follow.
[2021-07-07 11:16] VITALS: BP 136/77; PULSE 84; RESP 17; TEMP 37.2; O2SAT 98
[2021-07-07] MEDS: cefTRIAXone sodium 2 GM in 0.9 % Sodium Chloride 50 ML IV (11:22)
[2021-07-07] MEDS: Insulin Lispro 100 UNIT/ML 3 ML VIAL SUBCUT ×3 (11:28→20:53)
[2021-07-07] MEDS: Acetaminophen 325 MG TABLET 650 MG PO (11:28)
[2021-07-07 11:47] LABS: Glucose, Whole Blood 198 mg/dL (60-115)
[2021-07-07 16:00] VITALS: BP 151/84; PULSE 82; RESP 17; TEMP 37.1; O2SAT 100
[2021-07-07 16:34] LABS: Glucose, Whole Blood 228 mg/dL (60-115)
--- NOTE | 2021-07-07 17:42 | MHC.CARE ---
CARE Team meets with pt after being advised that she has been medically cleared.? Pt stated that there are a great number of stressors in her life, her daughter overdosed, she lost her children to [facility] as a result, and there have been frequent interactions since that point with [facility] that have been anxiety provoking.? She stated she feels like giving up, she is tired.? She clarifies by saying that the multiple stressors have been exhausting and she wants her children back.? She stated that she ?wants to give up, because I?m tired, but that doesn?t mean I want to .?? She states that her children are very important to her and she desires to have them back in the home.? At present they are with her Mother.? She denies SI, HI, , and self-harm urges and has not had any such thoughts. She reports having a director of residence life who used to be her counselor until he retired.? She has a prescriber who works closely with her director of residence life. Pt does not appear to be a risk for self harm.
--- NOTE | 2021-07-07 18:16 | PM.PNNEP ---
Subjective Subjective Date of Service: 07/10/21 Interval history: F/u on sepsis, TOÑO interval history: She seems pretty clear, cooperative and no SI, Cre is slightly worse today Physical Exam Vital Signs: Vital Signs: Last Vital Signs Temp 98.7 F 07/07/21 16:00 Pulse 82 07/07/21 16:00 Resp 17 07/07/21 16:00 BP 151/84 H 07/07/21 16:00 Pulse Ox 100 07/07/21 16:00 BMI result Body Mass Index 36.6 Const: General: comfortable and alert Eyes: Sclerae: sclerae normal Resp: Effort & Inspection: able to speak in complete sentences Auscultation: no crackles Cardio: Jugular venous distension: no JVD Heart sounds: S2 normal heart sound present GI: Palpation (GI): nontender Auscultation: normal bowel sounds : General: Yes no CVA tenderness Back/Spine/Pelvis: Back: no CVA tenderness Skin: General skin exam: no rashes or lesions noted Extrem: General: Yes full ROM Objective Data Labs CBC & Chem 7: 07/06/21 05:51 07/10/21 06:18 Labs: Laboratory Results - last 24 hr 07/06/21 07/06/21 07/07/21 19:12 20:18 06:57 Sodium Potassium Chloride Carbon Dioxide Anion Gap BUN Creatinine Estim Creat Clear Calc Estimated GFR POC Glucose 231 H 132 H Random Glucose Calcium Random Vancomycin 14.9 L 07/07/21 07/07/21 07/07/21 09:20 09:20 11:18 Sodium 134 L Potassium 5.0 Chloride 103 Carbon Dioxide 22 Anion Gap 14 BUN 58 H Creatinine 3.47 H 3.51 H Estim Creat Clear Calc 22.1 21.8 Estimated GFR 14 14 POC Glucose 198 H Random Glucose 154 H Calcium 8.5 D Random Vancomycin 07/07/21 16:30 Sodium Potassium Chloride Carbon Dioxide Anion Gap BUN Creatinine Estim Creat Clear Calc Estimated GFR POC Glucose 228 H Random Glucose Calcium Random Vancomycin Microbiology Microbiology Results: Microbiology 07/05/21 00:42 Blood - Venous Blood Culture - Preliminary Staphylococcus aureus 07/04/21 10:51 Blood - Venous Blood Culture - Final Strep agalactiae (Grp B) Escherichia coli 07/04/21 10:51 Blood - Venous Blood Culture - Preliminary Strep agalactiae (Grp B) Escherichia coli Staphylococcus aureus 07/05/21 00:42 Blood - Venous Blood Culture - Preliminary No growth after 48 hours. 07/04/21 Unknown Urine clean catch - Urine carver top Urine Culture - Final Strep agalactiae (Grp B) Procedures Date of Service Date of Service: 07/07/21 Assessment & Plan Assessment and plan (1) Acute hyponatremia: Status: Acute (2) TOÑO (acute kidney injury): Status: Acute Plan #TOÑO, non-oliguric: secondary to volume depletion and hyperglycemia which resulted in osmotic diuresis and further pre-renal injury. -Prior BL S-Cr (last known ~ 1.25 mg/dL on 08/2020) consistent with mild ckd at BL. -In setting of TOÑO from osmotic diuresis and subsequent use of nitrofurantoin, its possible she also predisposed herself to renal injury from AIN. will attain UA to assess for hematuria/proteinuria and will also add urine eosinophils. -Continue with volume replacement with IVF's. -Renal panel daily. -Monitor K, phos, calcium, Mg with volume repletion. -Hold metformin renal US -avoidance of metformin for now, avoidance of nsaids, acei/arb, IV contrast, renal dosing abx #Hyponatremia - combination of pseudohyponatremia given hyperglycemia (c-Na ~ 127 meq/L), volume depletion with some loss of medullary gradient. Continue with volume support in form of IVF s. -Hold SSRI's/SNRI's, hold thiazide diuretics, #Hyperglycemia - mgt per primary team #glucosuria - BS control. #Anemia - . May be component of CKD. Establish BL S-Cr. Sepsis - ID note appreciated Creatinine is gradually trending down KeepI > O NO indication for dialysis Time Spent With Patient Time: Total time spent is greater than 50% in coordination of care (as documented) at patient's floor/unit and/or counseling patient: Progress Note: Quality Stroke Does the patient have a stroke diagnosis?: No
[2021-07-07 19:27] VITALS: BP 151/89; PULSE 89; RESP 17; TEMP 36.6; O2SAT 98
[2021-07-07 20:19] LABS: Glucose, Whole Blood 229 mg/dL (60-115)
[2021-07-07] MEDS: Gabapentin 300 MG CAPSULE 900 MG PO (20:53)
[2021-07-08 00:11] VITALS: BP 140/79; PULSE 90; RESP 18; TEMP 37.5; O2SAT 94
[2021-07-08] MEDS: Heparin Sodium,Porcine 5,000 UNIT/ML VIAL 5000 UNIT SUBCUT ×3 (00:39→16:23)
[2021-07-08] MEDS: Throat Lozenge, Medicated LOZENGE 1 LOZENGE MUCOUS MEM ×7 (00:39→20:24)
[2021-07-08] MEDS: Omeprazole 20 MG CAPSULE.DR PO (05:47)
[2021-07-08] MEDS: Acetaminophen 325 MG TABLET 650 MG PO (05:59)
[2021-07-08 06:24] LABS: Anion Gap 13 (12-20); Blood Urea Nitrogen 50 mg/dL (9-16); Calcium 8.1 mg/dL (8.4-10.2); Carbon Dioxide 24 mmol/L (22-29); Chloride 107 mmol/L (96-108); Creatinine Clr Calc Pharmacy 26.2; Estimated Glomerular Filt Rate 18; Glucose Random 107 mg/dL (60-115); Sodium 139 mmol/L (135-145)
[2021-07-08 08:16] LABS: Glucose, Whole Blood 95 mg/dL (60-115)
[2021-07-08] MEDS: Insulin Glargine,Hum.rec.anlog 100 UNIT/ML 10 ML VIAL 40 UNIT SUBCUT ×2 (09:23→20:25)
[2021-07-08] MEDS: Venlafaxine HCl ER 75 MG CAP.ER.24H PO (09:23)
[2021-07-08] MEDS: Venlafaxine HCl ER 150 MG CAP.ER.24H PO (09:23)
[2021-07-08] MEDS: 0.9 % Sodium Chloride Flush 3 ML SYRINGE IVFLUSH ×3 (09:23→20:26)
[2021-07-08] MEDS: Atorvastatin Calcium 20 MG TABLET PO (09:23)
[2021-07-08] MEDS: buPROPion HCl XL 300 MG TAB.ER.24H PO (09:23)
[2021-07-08] MEDS: cefTRIAXone sodium 2 GM in 0.9 % Sodium Chloride 50 ML IV (09:24)
--- NOTE | 2021-07-08 10:14 | PM.PNNEP ---
Subjective Subjective Date of Service: 07/09/21 Interval history: More awake today Physical Exam Vital Signs: Vital Signs: Last Vital Signs Temp 97.5 F 07/08/21 07:17 Pulse 80 07/08/21 07:17 Resp 16 07/08/21 07:17 BP 119/70 07/08/21 07:17 Pulse Ox 92 07/08/21 07:17 BMI result Body Mass Index 36.6 Const: General: comfortable and alert Eyes: Sclerae: sclerae normal Resp: Effort & Inspection: able to speak in complete sentences Auscultation: no crackles Cardio: Jugular venous distension: no JVD Heart sounds: S2 normal heart sound present GI: Palpation (GI): nontender Auscultation: normal bowel sounds : General: Yes no CVA tenderness Back/Spine/Pelvis: Back: no CVA tenderness Skin: General skin exam: no rashes or lesions noted Extrem: General: Yes full ROM Objective Data Labs CBC & Chem 7: 07/06/21 05:51 07/09/21 06:32 Labs: Laboratory Results - last 24 hr 07/07/21 07/07/21 07/07/21 11:18 16:30 20:15 Sodium Potassium Chloride Carbon Dioxide Anion Gap BUN Creatinine Estim Creat Clear Calc Estimated GFR POC Glucose 198 H 228 H 229 H Random Glucose Calcium 07/08/21 07/08/21 06:00 07:20 Sodium 139 Potassium 5.0 Chloride 107 Carbon Dioxide 24 Anion Gap 13 BUN 50 H Creatinine 2.93 H Estim Creat Clear Calc 26.2 Estimated GFR 18 POC Glucose 95 Random Glucose 107 Calcium 8.1 L Microbiology Microbiology Results: Microbiology 07/05/21 00:42 Blood - Venous Blood Culture - Final Staphylococcus aureus 07/04/21 10:51 Blood - Venous Blood Culture - Final Strep agalactiae (Grp B) Escherichia coli Staphylococcus aureus 07/04/21 10:51 Blood - Venous Blood Culture - Final Strep agalactiae (Grp B) Escherichia coli 07/05/21 00:42 Blood - Venous Blood Culture - Preliminary No growth after 48 hours. 07/04/21 Unknown Urine clean catch - Urine carver top Urine Culture - Final Strep agalactiae (Grp B) Procedures Date of Service Date of Service: 07/08/21 Assessment & Plan Assessment and plan (1) Acute hyponatremia: Status: Acute (2) TOÑO (acute kidney injury): Status: Acute Plan #TOÑO, non-oliguric: secondary to volume depletion and hyperglycemia which resulted in osmotic diuresis and further pre-renal injury. -Prior BL S-Cr (last known ~ 1.25 mg/dL on 08/2020) consistent with mild ckd at BL. -In setting of TOÑO from osmotic diuresis and subsequent use of nitrofurantoin, its possible she also predisposed herself to renal injury from AIN. will attain UA to assess for hematuria/proteinuria and will also add urine eosinophils. -Continue with volume replacement with IVF's. -Renal panel daily. -Monitor K, phos, calcium, Mg with volume repletion. -Hold metformin renal US -avoidance of metformin for now, avoidance of nsaids, acei/arb, IV contrast, renal dosing abx #Hyponatremia - combination of pseudohyponatremia given hyperglycemia (c-Na ~ 127 meq/L), volume depletion with some loss of medullary gradient. Continue with volume support in form of IVF s. -Hold SSRI's/SNRI's, hold thiazide diuretics, #Hyperglycemia - mgt per primary team #Anemia - . May be component of CKD. Establish BL S-Cr. Creatinine is gradually trending down Keep I > O NO indication for dialysis Time Spent With Patient Time: Total time spent is greater than 50% in coordination of care (as documented) at patient's floor/unit and/or counseling patient: Progress Note: Quality Stroke Does the patient have a stroke diagnosis?: No
[2021-07-08 11:09] LABS: Glucose, Whole Blood 155 mg/dL (60-115)
[2021-07-08] MEDS: Insulin Lispro 100 UNIT/ML 3 ML VIAL SUBCUT ×2 (11:35→16:23)
--- NOTE | 2021-07-08 11:43 | P.PNIM_ITS ---
Subjective Subjective Date of Service: 07/08/21 Interval History: F/u on sepsis, TOÑO interval history: Feel better, fully alert Review of Systems no fever/chills no dysuria Physical Exam 2 Vital Signs: Vital Signs: Last Vital Signs Temp 97.5 F 07/08/21 07:17 Pulse 80 07/08/21 07:17 Resp 16 07/08/21 07:17 BP 119/70 07/08/21 07:17 Pulse Ox 92 07/08/21 07:17 BMI result Body Mass Index 36.6 Const: Other: General: AO X 3, no acute distress Resp: CTA bilateral CVS: S1,S2,RRR GI: +BS, NT, no distention Skin: No rash Neuro: motor grossly intact Psych: appropriate affect Objective Data Active Medications Acetaminophen (Acetaminophen 325 Mg Tablet) 650 mg PO Q6H PRN PRN Reason: Pain, Severe (Pain Scale 7-10) Last Admin: 07/08/21 05:59 Dose: 650 mg Documented by: CECILIA Atorvastatin Calcium (Atorvastatin Calcium 20 Mg Tablet) 20 mg PO DAILY [facility] Last Admin: 07/08/21 09:23 Dose: 20 mg Documented by: MARY KATE Benzocaine (Throat Lozenge, Medicated Lozenge) 1 lozenge MUCOUS MEM Q2H PRN PRN Reason: Sore Throat Last Admin: 07/08/21 11:34 Dose: 1 lozenge Documented by: MARY KATE Bupropion HCl (Bupropion Hcl Xl 300 Mg Tab.Er.24h) 300 mg PO DAILY [facility] Last Admin: 07/08/21 09:23 Dose: 300 mg Documented by: MARY KATE Dextrose (Dextrose 50 % 25 Gm/50 Ml Syringe) 25 gm IVPUSH Q15M PRN; Protocol PRN Reason: per Hypoglycemia Standing Ord. Gabapentin (Gabapentin 300 Mg Capsule) 900 mg PO BEDTIME [facility] Last Admin: 07/07/21 20:53 Dose: 900 mg Documented by: CECILIA Glucose (Glucose Gel 15 Gm Gel..Gram.) 15 gm PO Q15M PRN; Protocol PRN Reason: per Hypoglycemia Standing Ord. Heparin Sodium (Porcine) (Heparin Sodium,Porcine 5,000 Unit/Ml Vial) 5,000 unit SUBCUT Q8H [facility] Last Admin: 07/08/21 09:23 Dose: 5,000 unit Documented by: MARY KATE Hydroxyzine HCl (Hydroxyzine Hcl 25 Mg Tablet) 25 mg PO BEDTIME PRN PRN Reason: insomnia Ceftriaxone Sodium 2 gm/ (Sodium Chloride) 50 mls @ 100 mls/hr IV Q24H [facility] Last Infusion: 07/08/21 09:54 Dose: 0 mls/hr Documented by: MARY KATE Insulin Glargine (Insulin Glargine,Hum.Rec.Anlog 100 Unit/Ml 10 Ml Vial) 40 unit SUBCUT BID [facility] Last Admin: 07/08/21 09:23 Dose: 40 unit Documented by: MARY KATE Insulin Human Lispro (Insulin Lispro 100 Unit/Ml 3 Ml Vial) 0 unit SUBCUT QIDACHS [facility]; Protocol Last Admin: 07/08/21 11:35 Dose: 2 unit Documented by: MARY KATE Omeprazole (Omeprazole 20 Mg Capsule.Dr) 20 mg PO DAILY@0630 [facility] Last Admin: 07/08/21 05:47 Dose: 20 mg Documented by: CECILIA Pharmacy Consult (Consult Rx Perform Med Rec) 1 each MISCELLANE ONCE PRN PRN Reason: Consult order Pharmacy Consult (Consult Rx Vancomycin Dosing) 1 each MISCELLANE DAILY PRN PRN Reason: Consult order Sodium Chloride (0.9 % Sodium Chloride Flush 3 Ml Syringe) 3 ml IVFLUSH QSHIFT [facility] Last Admin: 07/08/21 09:23 Dose: 3 ml Documented by: MARY KATE Venlafaxine HCl (Venlafaxine Hcl Er 75 Mg Cap.Er.24h) 75 mg PO DAILY [facility] Last Admin: 07/08/21 09:23 Dose: 75 mg Documented by: MARY KATE Venlafaxine HCl (Venlafaxine Hcl Er 150 Mg Cap.Er.24h) 150 mg PO DAILY [facility] Last Admin: 07/08/21 09:23 Dose: 150 mg Documented by: MARY KATE Labs CBC & Chem 7: 07/06/21 05:51 07/08/21 06:00 Labs: Laboratory Results - last 24 hr 07/07/21 07/07/21 07/07/21 11:18 16:30 20:15 Anion Gap Estim Creat Clear Calc Estimated GFR POC Glucose 198 H 228 H 229 H Random Glucose Calcium 07/08/21 07/08/21 07/08/21 02:01 06:00 07:20 Anion Gap 13 Estim Creat Clear Calc Cancelled 26.2 Estimated GFR Cancelled 18 POC Glucose 95 Random Glucose 107 Calcium 8.1 L 07/08/21 11:01 Anion Gap Estim Creat Clear Calc Estimated GFR POC Glucose 155 H Random Glucose Calcium Microbiology Microbiology Results: Microbiology 07/05/21 00:42 Blood Culture - Final Blood - Venous Staphylococcus aureus 07/04/21 10:51 Blood Culture - Final Blood - Venous Strep agalactiae (Grp B) Escherichia coli Staphylococcus aureus 07/04/21 10:51 Blood Culture - Final Blood - Venous Strep agalactiae (Grp B) Escherichia coli Assessment and Plan (1) Acute hyperglycemia: Status: Acute (2) Acute hyponatremia: Status: Acute (3) UTI (urinary tract infection): Status: Acute (4) TOÑO (acute kidney injury): Status: Acute Plan 46-year-old female who came to the hospital because of TOÑO, uncontrolled diabetes, toxic metabolic encephalopathy and UTI. Sepsis secondary to UTI, blood cultures = E. coli and Group B strep. She was on on Vanco and Zosyn, Changed to Ceftriaxone TOÑO: Likely ATN, and possibly underlying mild CKD 2, Cr is slighly better today, Ongoing work up by Nephrology, continue IVF for one more day Diabetes--, continue Lantus and SSI Peripheral neuropathy:? Continue gabapentin. Toxic metabolic encephalopathy:? Multifactorial d/t UTI, TOÑO, uncontrolled diabetes, decreased p.o. intake. This has resolveed Morbid obesity:? Encouraged to cut down calories once stable and encourage for weight loss. anemia? microcytic : denies any hx of blood moniter h/h anemia workup added , fobt . Depression and ? SI: Denies, SI, she has lots of social stresses but not intention to harm herself. Has been cleared by [facility], doesn't need sitter DVT prophylaxis with subQ heparin Quality Stroke Does the patient have a stroke diagnosis?: No VTE Prior VTE?: No VTE Risk Level:: Medical - moderate - high VTE Device Contraindication: N/A - Device Ordered VTE Drug Contraindication: N/A - Med Ordered
[2021-07-08 12:03] VITALS: BP 119/70; PULSE 80; RESP 16; TEMP 36.4; O2SAT 92
[2021-07-08 15:53] VITALS: BP 147/72; PULSE 88; RESP 17; TEMP 36.4; O2SAT 95
[2021-07-08 16:01] LABS: Glucose, Whole Blood 169 mg/dL (60-115)
[2021-07-08 19:10] VITALS: BP 141/63; PULSE 89; RESP 17; TEMP 36.7; O2SAT 98
[2021-07-08 19:38] LABS: Glucose, Whole Blood 147 mg/dL (60-115)
[2021-07-08] MEDS: Gabapentin 300 MG CAPSULE 900 MG PO (20:25)
[2021-07-08 21:00] LABS: Vancomycin Random 9.2 mcg/mL (15-20)
[2021-07-08 23:51] VITALS: BP 128/63; PULSE 87; RESP 16; TEMP 36.4; O2SAT 94
[2021-07-09 04:00] VITALS: BP 131/63; PULSE 79; RESP 18; TEMP 37.3; O2SAT 95
[2021-07-09] MEDS: Throat Lozenge, Medicated LOZENGE 1 LOZENGE MUCOUS MEM ×2 (06:22→21:23)
[2021-07-09] MEDS: Omeprazole 20 MG CAPSULE.DR PO (06:22)
[2021-07-09 07:14] VITALS: BP 140/73; PULSE 88; RESP 20; TEMP 36.9; O2SAT 98
[2021-07-09 07:20] LABS: Anion Gap 13 (12-20); Blood Urea Nitrogen 40 mg/dL (9-16); Calcium 8.5 mg/dL (8.4-10.2); Carbon Dioxide 24 mmol/L (22-29); Chloride 104 mmol/L (96-108); Creatinine Clr Calc Pharmacy 29.2; Estimated Glomerular Filt Rate 20; Glucose Random 168 mg/dL (60-115); Sodium 136 mmol/L (135-145)
[2021-07-09 07:45] LABS: Glucose, Whole Blood 137 mg/dL (60-115)
[2021-07-09] MEDS: Heparin Sodium,Porcine 5,000 UNIT/ML VIAL 5000 UNIT SUBCUT ×2 (08:42→17:41)
[2021-07-09] MEDS: Venlafaxine HCl ER 150 MG CAP.ER.24H PO (08:43)
[2021-07-09] MEDS: buPROPion HCl XL 300 MG TAB.ER.24H PO (08:43)
[2021-07-09] MEDS: Atorvastatin Calcium 20 MG TABLET PO (08:43)
[2021-07-09] MEDS: 0.9 % Sodium Chloride Flush 3 ML SYRINGE IVFLUSH ×3 (08:43→21:20)
[2021-07-09] MEDS: Venlafaxine HCl ER 75 MG CAP.ER.24H PO (08:43)
[2021-07-09] MEDS: Insulin Glargine,Hum.rec.anlog 100 UNIT/ML 10 ML VIAL 40 UNIT SUBCUT ×2 (08:44→21:18)
[2021-07-09] MEDS: cefTRIAXone sodium 2 GM in 0.9 % Sodium Chloride 50 ML IV (10:15)
[2021-07-09 11:21] VITALS: BP 158/76; PULSE 80; RESP 20; TEMP 36.7; O2SAT 96
[2021-07-09 11:28] LABS: Glucose, Whole Blood 216 mg/dL (60-115)
[2021-07-09] MEDS: Insulin Lispro 100 UNIT/ML 3 ML VIAL SUBCUT ×2 (12:12→17:41)
--- NOTE | 2021-07-09 12:17 | P.PNNP_ITS ---
Subjective Subjective Date of Service: 07/09/21 Interval history: F/u on sepsis, TOÑO interval history: Feel better, fully alert Physical Exam Vital Signs: Vital Signs: Last Vital Signs Temp 98.0 F 07/09/21 11:21 Pulse 80 07/09/21 11:21 Resp 20 07/09/21 11:21 BP 158/76 H 07/09/21 11:21 Pulse Ox 96 07/09/21 11:21 BMI result Body Mass Index 36.6 Const: General: comfortable and alert Eyes: Sclerae: sclerae normal Resp: Effort & Inspection: able to speak in complete sentences Auscultation: no crackles Cardio: Jugular venous distension: no JVD Heart sounds: S2 normal heart so und present GI: Palpation (GI): nontender Auscultation: normal bowel sounds : General: Yes no CVA tenderness Back/Spine/Pelvis: Back: no CVA tenderness Skin: General skin exam: no rashes or lesions noted Extrem: General: Yes full ROM Objective Data Labs CBC & Chem 7: 07/06/21 05:51 07/09/21 06:32 Labs: Laboratory Results - last 24 hr 07/08/21 07/08/21 07/08/21 15:57 19:14 20:14 Sodium Potassium Chloride Carbon Dioxide Anion Gap BUN Creatinine Estim Creat Clear Calc Estimated GFR POC Glucose 169 H 147 H Random Glucose Calcium Random Vancomycin 9.2 L 07/09/21 07/09/21 07/09/21 06:32 07:12 11:19 Sodium 136 Potassium 5.0 Chloride 104 Carbon Dioxide 24 Anion Gap 13 BUN 40 H Creatinine 2.62 H Estim Creat Clear Calc 29.2 Estimated GFR 20 POC Glucose 137 H 216 H Random Glucose 168 H Calcium 8.5 Random Vancomycin Microbiology Microbiology Results: Microbiology 07/05/21 00:42 Blood - Venous Blood Culture - Final Staphylococcus aureus 07/04/21 10:51 Blood - Venous Blood Culture - Final Strep agalactiae (Grp B) Escherichia coli Staphylococcus aureus 07/04/21 10:51 Blood - Venous Blood Culture - Final Strep agalactiae (Grp B) Escherichia coli 07/05/21 00:42 Blood - Venous Blood Culture - Preliminary No growth after 48 hours. 07/04/21 Unknown Urine clean catch - Urine carver top Urine Culture - Final Strep agalactiae (Grp B) Procedures Date of Service Date of Service: 07/09/21 Assessment & Plan Assessment and plan (1) Acute hyponatremia: Status: Acute (2) TOÑO (acute kidney injury): Status: Acute Plan #TOÑO, non-oliguric: secondary to volume depletion and hyperglycemia which resulted in osmotic diuresis and further pre-renal injury. -Prior BL S-Cr (last known ~ 1.25 mg/dL on 08/2020) consistent with mild ckd at BL. -In setting of TOÑO from osmotic diuresis and subsequent use of nitrofurantoin, its possible she also predisposed herself to renal injury from AIN. will attain UA to assess for hematuria/proteinuria and will also add urine eosinophils. -Continue with volume replacement with IVF's. -Renal panel daily. -Monitor K, phos, calcium, Mg with volume repletion. -Hold metformin renal US -avoidance of metformin for now, avoidance of nsaids, acei/arb, IV contrast, renal dosing abx #Hyponatremia - combination of pseudohyponatremia given hyperglycemia (c-Na ~ 127 meq/L), volume depletion with some loss of medullary gradient. Continue with volume support in form of IVF s. -Hold SSRI's/SNRI's, hold thiazide diuretics, #Hyperglycemia - mgt per primary team #glucosuria - BS control. #Anemia - . May be component of CKD. Establish BL S-Cr. Sepsis - ID note appreciated Creatinine is gradually trending down KeepI > O NO indication for dialysis Time Spent With Patient Time: Total time spent is greater than 50% in coordination of care (as documented) at patient's floor/unit and/or counseling patient: Progress Note: Quality Stroke Does the patient have a stroke diagnosis?: No
--- NOTE | 2021-07-09 12:26 | P.PNIM_ITS ---
Subjective Subjective Date of Service: 07/09/21 Interval History: F/u on sepsis, TOÑO interval history: Feel better, no new issues Review of Systems no fever/chills no dysuria Physical Exam Vital Signs: Vital Signs: Last Vital Signs Temp 98.0 F 07/09/21 11:21 Pulse 80 07/09/21 11:21 Resp 20 07/09/21 11:21 BP 158/76 H 07/09/21 11:21 Pulse Ox 96 07/09/21 11:21 BMI result Body Mass Index 36.6 Const: Other: General: AO X 3, no acute distress Resp: CTA bilateral CVS: S1,S2,RRR GI: +BS, NT, no distention Skin: No rash Neuro: motor grossly intact Psych: appropriate affect Objective Data Active Medications Acetaminophen (Acetaminophen 325 Mg Tablet) 650 mg PO Q6H PRN PRN Reason: Pain, Severe (Pain Scale 7-10) Last Admin: 07/08/21 05:59 Dose: 650 mg Documented by: CECILIA Atorvastatin Calcium (Atorvastatin Calcium 20 Mg Tablet) 20 mg PO DAILY [facility] Last Admin: 07/09/21 08:43 Dose: 20 mg Documented by: MARIA EUGENIA Benzocaine (Throat Lozenge, Medicated Lozenge) 1 lozenge MUCOUS MEM Q2H PRN PRN Reason: Sore Throat Last Admin: 07/09/21 06:22 Dose: 1 lozenge Documented by: MATTEI Bupropion HCl (Bupropion Hcl Xl 300 Mg Tab.Er.24h) 300 mg PO DAILY [facility] Last Admin: 07/09/21 08:43 Dose: 300 mg Documented by: MARIA EUGENIA Dextrose (Dextrose 50 % 25 Gm/50 Ml Syringe) 25 gm IVPUSH Q15M PRN; Protocol PRN Reason: per Hypoglycemia Standing Ord. Gabapentin (Gabapentin 300 Mg Capsule) 900 mg PO BEDTIME [facility] Last Admin: 07/08/21 20:25 Dose: 900 mg Documented by: CECILIA Glucose (Glucose Gel 15 Gm Gel..Gram.) 15 gm PO Q15M PRN; Protocol PRN Reason: per Hypoglycemia Standing Ord. Heparin Sodium (Porcine) (Heparin Sodium,Porcine 5,000 Unit/Ml Vial) 5,000 unit SUBCUT Q8H [facility] Last Admin: 07/09/21 08:42 Dose: 5,000 unit Documented by: MARIA EUGENIA Hydroxyzine HCl (Hydroxyzine Hcl 25 Mg Tablet) 25 mg PO BEDTIME PRN PRN Reason: insomnia Ceftriaxone Sodium 2 gm/ (Sodium Chloride) 50 mls @ 100 mls/hr IV Q24H [facility] Last Infusion: 07/09/21 11:03 Dose: 0 mls/hr Documented by: MARIA EUGENIA Insulin Glargine (Insulin Glargine,Hum.Rec.Anlog 100 Unit/Ml 10 Ml Vial) 40 unit SUBCUT BID [facility] Last Admin: 07/09/21 08:44 Dose: 40 unit Documented by: MARIA EUGENIA Insulin Human Lispro (Insulin Lispro 100 Unit/Ml 3 Ml Vial) 0 unit SUBCUT QIDACHS [facility]; Protocol Last Admin: 07/09/21 12:12 Dose: 4 unit Documented by: MARIA EUGENIA Omeprazole (Omeprazole 20 Mg Capsule.Dr) 20 mg PO DAILY@0630 [facility] Last Admin: 07/09/21 06:22 Dose: 20 mg Documented by: MATTIE Pharmacy Consult (Consult Rx Perform Med Rec) 1 each MISCELLANE ONCE PRN PRN Reason: Consult order Pharmacy Consult (Consult Rx Vancomycin Dosing) 1 each MISCELLANE DAILY PRN PRN Reason: Consult order Sodium Chloride (0.9 % Sodium Chloride Flush 3 Ml Syringe) 3 ml IVFLUSH QSHIFT [facility] Last Admin: 07/09/21 08:43 Dose: 3 ml Documented by: MARIA EUGENIA Venlafaxine HCl (Venlafaxine Hcl Er 75 Mg Cap.Er.24h) 75 mg PO DAILY [facility] Last Admin: 07/09/21 08:43 Dose: 75 mg Documented by: MARIA EUGENIA Venlafaxine HCl (Venlafaxine Hcl Er 150 Mg Cap.Er.24h) 150 mg PO DAILY [facility] Last Admin: 07/09/21 08:43 Dose: 150 mg Documented by: MARIA EUGENIA Labs CBC & Chem 7: 07/06/21 05:51 07/09/21 06:32 Labs: Laboratory Results - last 24 hr 07/08/21 07/08/21 07/08/21 15:57 19:14 20:14 Anion Gap Estim Creat Clear Calc Estimated GFR POC Glucose 169 H 147 H Random Glucose Calcium Random Vancomycin 9.2 L 07/09/21 07/09/21 07/09/21 06:32 07:12 11:19 Anion Gap 13 Estim Creat Clear Calc 29.2 Estimated GFR 20 POC Glucose 137 H 216 H Random Glucose 168 H Calcium 8.5 Random Vancomycin Microbiology Microbiology Results: Microbiology 07/05/21 00:42 Blood Culture - Final Blood - Venous Staphylococcus aureus Assessment and Plan (1) Bacteremia: Status: Acute (2) Acute hyperglycemia: Status: Acute (3) UTI (urinary tract infection): Status: Acute (4) TOÑO (acute kidney injury): Status: Acute Plan 46-year-old female who came to the hospital because of TOÑO, uncontrolled diabetes, toxic metabolic encephalopathy and UTI. Sepsis secondary to UTI, blood cultures = E. coli and Group B strep. She was on on Vanco and Zosyn, Changed to Ceftriaxone TOÑO: Likely ATN, and possibly underlying mild CKD 2, Cr is slighly better today, will discuss further management with Nephrology, Diabetes--, continue Lantus and SSI Peripheral neuropathy:? Continue gabapentin. Toxic metabolic encephalopathy:? Multifactorial d/t UTI, TOÑO, uncontrolled diabetes, decreased p.o. intake. This has resolveed Morbid obesity:? Encouraged to cut down calories once stable and encourage for weight loss. anemia? microcytic : denies any hx of blood moniter h/h anemia workup added , fobt . Depression and ? SI: Denies, SI, she has lots of social stresses but not intention to harm herself. Has been cleared by [facility], doesn't need sitter DVT prophylaxis with subQ heparin Quality Stroke Does the patient have a stroke diagnosis?: No VTE Prior VTE?: No VTE Risk Level:: Medical - moderate - high VTE Device Contraindication: N/A - Device Ordered VTE Drug Contraindication: N/A - Med Ordered
--- NOTE | 2021-07-09 12:33 | MHC.CM.PN ---
per rounds today possible dc today plan home no servceis
[2021-07-09 15:13] VITALS: BP 140/65; PULSE 85; RESP 18; TEMP 36.6; O2SAT 97
[2021-07-09 17:19] LABS: Glucose, Whole Blood 162 mg/dL (60-115)
[2021-07-09 20:00] VITALS: BP 165/76; PULSE 88; RESP 16; TEMP 37.2; O2SAT 97
[2021-07-09 20:18] LABS: Glucose, Whole Blood 146 mg/dL (60-115)
[2021-07-09] MEDS: Gabapentin 300 MG CAPSULE 900 MG PO (21:18)
[2021-07-09 23:27] VITALS: BP 130/75; PULSE 83; RESP 20; TEMP 36.4; O2SAT 97
[2021-07-10 02:57] VITALS: BP 163/77; PULSE 81; RESP 20; TEMP 36.9; O2SAT 98
[2021-07-10] MEDS: Omeprazole 20 MG CAPSULE.DR PO (06:04)
[2021-07-10 06:55] LABS: Creatinine Clr Calc Pharmacy 36.6; Estimated Glomerular Filt Rate 26
[2021-07-10 07:23] VITALS: BP 142/75; PULSE 78; RESP 18; TEMP 36.6; O2SAT 95
[2021-07-10 07:32] LABS: Glucose, Whole Blood 78 mg/dL (60-115)
[2021-07-10] MEDS: buPROPion HCl XL 300 MG TAB.ER.24H PO (09:29)
[2021-07-10] MEDS: Heparin Sodium,Porcine 5,000 UNIT/ML VIAL 5000 UNIT SUBCUT ×2 (09:29→16:39)
[2021-07-10] MEDS: Venlafaxine HCl ER 150 MG CAP.ER.24H PO (09:29)
[2021-07-10] MEDS: Venlafaxine HCl ER 75 MG CAP.ER.24H PO (09:29)
[2021-07-10] MEDS: Atorvastatin Calcium 20 MG TABLET PO (09:29)
[2021-07-10] MEDS: Insulin Glargine,Hum.rec.anlog 100 UNIT/ML 10 ML VIAL 40 UNIT SUBCUT ×2 (09:29→21:28)
--- NOTE | 2021-07-10 09:42 | P.PNIM_ITS ---
Subjective Subjective Date of Service: 07/10/21 Interval History: F/u on sepsis, TOÑO interval history: Feel better, no new issues some nausea this morning but doesn't med Review of Systems no fever/chills no dysuria Physical Exam Vital Signs: Vital Signs: Last Vital Signs Temp 97.8 F 07/10/21 07:23 Pulse 78 07/10/21 07:23 Resp 18 07/10/21 07:23 BP 142/75 H 07/10/21 07:23 Pulse Ox 95 07/10/21 07:23 BMI result Body Mass Index 36.6 Const: Other: General: AO X 3, no acute distress Resp: CTA bilateral CVS: S1,S2,RRR GI: +BS, NT, no distention Skin: No rash Neuro: motor grossly intact Psych: appropriate affect Objective Data Active Medications Acetaminophen (Acetaminophen 325 Mg Tablet) 650 mg PO Q6H PRN PRN Reason: Pain, Severe (Pain Scale 7-10) Last Admin: 07/08/21 05:59 Dose: 650 mg Documented by: CECILIA Atorvastatin Calcium (Atorvastatin Calcium 20 Mg Tablet) 20 mg PO DAILY [facility] Last Admin: 07/10/21 09:29 Dose: 20 mg Documented by: MARIA EUGENIA Benzocaine (Throat Lozenge, Medicated Lozenge) 1 lozenge MUCOUS MEM Q2H PRN PRN Reason: Sore Throat Last Admin: 07/09/21 21:23 Dose: 1 lozenge Documented by: JADON Bupropion HCl (Bupropion Hcl Xl 300 Mg Tab.Er.24h) 300 mg PO DAILY [facility] Last Admin: 07/10/21 09:29 Dose: 300 mg Documented by: MARIA EUGENIA Dextrose (Dextrose 50 % 25 Gm/50 Ml Syringe) 25 gm IVPUSH Q15M PRN; Protocol PRN Reason: per Hypoglycemia Standing Ord. Gabapentin (Gabapentin 300 Mg Capsule) 900 mg PO BEDTIME [facility] Last Admin: 07/09/21 21:18 Dose: 900 mg Documented by: JADON Glucose (Glucose Gel 15 Gm Gel..Gram.) 15 gm PO Q15M PRN; Protocol PRN Reason: per Hypoglycemia Standing Ord. Heparin Sodium (Porcine) (Heparin Sodium,Porcine 5,000 Unit/Ml Vial) 5,000 unit SUBCUT Q8H [facility] Last Admin: 07/10/21 09:29 Dose: 5,000 unit Documented by: MARIA EUGENIA Hydroxyzine HCl (Hydroxyzine Hcl 25 Mg Tablet) 25 mg PO BEDTIME PRN PRN Reason: insomnia Ceftriaxone Sodium 2 gm/ (Sodium Chloride) 50 mls @ 100 mls/hr IV Q24H [facility] Last Infusion: 07/09/21 11:03 Dose: 0 mls/hr Documented by: MARIA EUGENIA Sodium Chloride (Ns) 1,000 mls @ 100 mls/hr IVCONT .Q10H [facility] Insulin Glargine (Insulin Glargine,Hum.Rec.Anlog 100 Unit/Ml 10 Ml Vial) 40 unit SUBCUT BID [facility] Last Admin: 07/10/21 09:29 Dose: 40 unit Documented by: MARIA EUGENIA Insulin Human Lispro (Insulin Lispro 100 Unit/Ml 3 Ml Vial) 0 unit SUBCUT QIDACHS [facility]; Protocol Last Admin: 07/10/21 07:36 Dose: Not Given Documented by: MARIA EUGENIA Non-Admin Reason: IV Running Omeprazole (Omeprazole 20 Mg Capsule.Dr) 20 mg PO DAILY@0630 [facility] Last Admin: 07/10/21 06:04 Dose: 20 mg Documented by: JADON Pharmacy Consult (Consult Rx Perform Med Rec) 1 each MISCELLANE ONCE PRN PRN Reason: Consult order Pharmacy Consult (Consult Rx Vancomycin Dosing) 1 each MISCELLANE DAILY PRN PRN Reason: Consult order Sodium Chloride (0.9 % Sodium Chloride Flush 3 Ml Syringe) 3 ml IVFLUSH QSHIFT [facility] Last Admin: 07/10/21 09:27 Dose: Not Given Documented by: MARIA EUGENIA Non-Admin Reason: No Access Venlafaxine HCl (Venlafaxine Hcl Er 75 Mg Cap.Er.24h) 75 mg PO DAILY [facility] Last Admin: 07/10/21 09:29 Dose: 75 mg Documented by: MARIA EUGENIA Venlafaxine HCl (Venlafaxine Hcl Er 150 Mg Cap.Er.24h) 150 mg PO DAILY [facility] Last Admin: 07/10/21 09:29 Dose: 150 mg Documented by: MARIA EUGENIA Labs CBC & Chem 7: 07/06/21 05:51 07/10/21 06:18 Labs: Laboratory Results - last 24 hr 07/09/21 07/09/21 07/09/21 11:19 17:15 20:09 Estim Creat Clear Calc Estimated GFR POC Glucose 216 H 162 H 146 H 07/10/21 07/10/21 06:18 07:25 Estim Creat Clear Calc 36.6 Estimated GFR 26 POC Glucose 78 Microbiology Microbiology Results: Microbiology 07/05/21 00:42 Blood Culture - Final Blood - Venous No growth after 5 days. Assessment and Plan (1) Bacteremia: Status: Acute (2) Acute hyperglycemia: Status: Acute Plan 46-year-old female who came to the hospital because of TOÑO, uncontrolled diabetes, toxic metabolic encephalopathy and UTI. Sepsis secondary to UTI, blood cultures = E. coli and Group B strep and staph aurueus. Changing Abx to Ceftriaxone for E.coli and group B and Doxy and Doxy for Staph and ID to make further recommendation TOÑO: Likely ATN, and possibly underlying mild CKD 2, Cr is slighly better today, resume IVF and discuss with nephrology Diabetes--, continue Lantus and SSI Peripheral neuropathy:? Continue gabapentin. Toxic metabolic encephalopathy:? Multifactorial d/t UTI, TOÑO, uncontrolled diabetes, decreased p.o. intake. This has resolveed Morbid obesity:? Encouraged to cut down calories once stable and encourage for weight loss. anemia? microcytic : denies any hx of blood moniter h/h anemia workup added , fobt . Depression and ? SI: Denies, SI, she has lots of social stresses but not intention to harm herself. Needing IV antibiotics for bacteremia DVT prophylaxis with subQ heparin Quality Stroke Does the patient have a stroke diagnosis?: No VTE Prior VTE?: No VTE Risk Level:: Medical - moderate - high VTE Device Contraindication: N/A - Device Ordered VTE Drug Contraindication: N/A - Med Ordered
[2021-07-10 11:18] VITALS: BP 157/75; PULSE 75; RESP 20; TEMP 36.4; O2SAT 97
[2021-07-10 11:28] LABS: Glucose, Whole Blood 165 mg/dL (60-115)
[2021-07-10] MEDS: cefTRIAXone sodium 2 GM in 0.9 % Sodium Chloride 50 ML IV (11:49)
[2021-07-10] MEDS: 0.9 % Sodium Chloride 1,000 ML 100 ML IVCONT (11:49)
[2021-07-10] MEDS: Insulin Lispro 100 UNIT/ML 3 ML VIAL SUBCUT ×2 (12:07→16:38)
--- NOTE | 2021-07-10 12:14 | PM.PNNEP ---
Subjective Subjective Date of Service: 07/10/21 Interval history: Events noted Does not want to go home now Physical Exam Vital Signs: Vital Signs: Last Vital Signs Temp 97.5 F 07/10/21 11:18 Pulse 75 07/10/21 11:18 Resp 20 07/10/21 11:18 BP 157/75 H 07/10/21 11:18 Pulse Ox 97 07/10/21 11:18 BMI result Body Mass Index 36.6 Const: General: comfortable and alert Eyes: Sclerae: sclerae normal Resp: Effort & Inspection: able to speak in complete sentences Auscultation: no crackles Cardio: Jugular venous distension: no JVD Heart sounds: S2 normal heart sound present GI: Palpation (GI): nontender Auscultation: normal bowel sounds : General: Yes no CVA tenderness Back/Spine/Pelvis: Back: no CVA tenderness Skin: General skin exam: no rashes or lesions noted Extrem: General: Yes full ROM Objective Data Labs CBC & Chem 7: 07/06/21 05:51 07/10/21 06:18 Labs: Laboratory Results - last 24 hr 07/09/21 07/09/21 07/10/21 17:15 20:09 06:18 Creatinine 2.10 H Estim Creat Clear Calc 36.6 Estimated GFR 26 POC Glucose 162 H 146 H 07/10/21 07/10/21 07:25 11:20 Creatinine Estim Creat Clear Calc Estimated GFR POC Glucose 78 165 H Microbiology Microbiology Results: Microbiology 07/05/21 00:42 Blood - Venous Blood Culture - Final No growth after 5 days. 07/05/21 00:42 Blood - Venous Blood Culture - Final Staphylococcus aureus 07/04/21 10:51 Blood - Venous Blood Culture - Final Strep agalactiae (Grp B) Escherichia coli Staphylococcus aureus 07/04/21 10:51 Blood - Venous Blood Culture - Final Strep agalactiae (Grp B) Escherichia coli 07/04/21 Unknown Urine clean catch - Urine carver top Urine Culture - Final Strep agalactiae (Grp B) Procedures Date of Service Date of Service: 07/10/21 Assessment & Plan Assessment and plan (1) Acute hyponatremia: Status: Acute (2) TOÑO (acute kidney injury): Status: Acute Plan #TOÑO, non-oliguric: secondary to volume depletion and hyperglycemia which resulted in osmotic diuresis and further pre-renal injury. -Prior BL S-Cr (last known ~ 1.25 mg/dL on 08/2020) consistent with mild ckd at BL. -In setting of TOÑO from osmotic diuresis and subsequent use of nitrofurantoin, its possible she also predisposed herself to renal injury from AIN. will attain UA to assess for hematuria/proteinuria and will also add urine eosinophils. -Continue with volume replacement with IVF's. -Renal panel daily. -Monitor K, phos, calcium, Mg with volume repletion. -Hold metformin renal US -avoidance of metformin for now, avoidance of nsaids, acei/arb, IV contrast, renal dosing abx #Hyponatremia - combination of pseudohyponatremia given hyperglycemia (c-Na ~ 127 meq/L), volume depletion with some loss of medullary gradient. Continue with volume support in form of IVF s. -Hold SSRI's/SNRI's, hold thiazide diuretics, #Hyperglycemia - mgt per primary team #glucosuria - BS control. #Anemia - . May be component of CKD. Establish BL S-Cr. Sepsis - ID note appreciated Creatinine is gradually trending down Keep I > O NO indication for dialysis Shall follow as outpatient once discharged Time Spent With Patient Time: Total time spent is greater than 50% in coordination of care (as documented) at patient's floor/unit and/or counseling patient: Progress Note: Quality Stroke Does the patient have a stroke diagnosis?: No
[2021-07-10] MEDS: Doxycycline Hyclate 100 MG in 0.9 % Sodium Chloride 250 ML 166.67 MG IV ×2 (12:53→23:01)
[2021-07-10] MEDS: Acetaminophen 325 MG TABLET 650 MG PO (14:00)
[2021-07-10 15:17] VITALS: BP 157/78; PULSE 77; RESP 14; TEMP 35.8; O2SAT 98
[2021-07-10 16:05] LABS: Glucose, Whole Blood 178 mg/dL (60-115)
[2021-07-10 19:09] VITALS: BP 165/87; PULSE 83; RESP 14; TEMP 36; O2SAT 99
[2021-07-10 20:48] LABS: Glucose, Whole Blood 118 mg/dL (60-115)
[2021-07-10] MEDS: Gabapentin 300 MG CAPSULE 900 MG PO (21:28)
[2021-07-10] MEDS: Throat Lozenge, Medicated LOZENGE 1 LOZENGE MUCOUS MEM (21:28)
[2021-07-10] MEDS: 0.9 % Sodium Chloride Flush 3 ML SYRINGE IVFLUSH (21:31)
[2021-07-10 23:08] VITALS: BP 159/87; PULSE 94; RESP 18; TEMP 37.1; O2SAT 99
[2021-07-11] MEDS: 0.9 % Sodium Chloride 1,000 ML 100 ML IVCONT ×2 (01:39→16:34)
[2021-07-11 03:04] VITALS: BP 136/77; PULSE 87; RESP 18; TEMP 36.4; O2SAT 96
[2021-07-11] MEDS: Omeprazole 20 MG CAPSULE.DR PO (05:48)
[2021-07-11 07:28] VITALS: BP 162/77; PULSE 76; RESP 20; TEMP 36.6; O2SAT 97
[2021-07-11 07:35] LABS: Glucose, Whole Blood 68 mg/dL (60-115)
[2021-07-11 08:41] LABS: Anion Gap 13 (12-20); Blood Urea Nitrogen 28 mg/dL (9-16); Calcium 8.5 mg/dL (8.4-10.2); Carbon Dioxide 24 mmol/L (22-29); Chloride 108 mmol/L (96-108); Estimated Glomerular Filt Rate 29; Glucose Random 92 mg/dL (60-115); Potassium 4.7 mmol/L (3.3-5.1); Sodium 140 mmol/L (135-145)
[2021-07-11] MEDS: Heparin Sodium,Porcine 5,000 UNIT/ML VIAL 5000 UNIT SUBCUT ×2 (09:10→16:34)
[2021-07-11] MEDS: cefTRIAXone sodium 2 GM in 0.9 % Sodium Chloride 50 ML IV (09:11)
[2021-07-11] MEDS: buPROPion HCl XL 300 MG TAB.ER.24H PO (09:11)
[2021-07-11] MEDS: Venlafaxine HCl ER 150 MG CAP.ER.24H PO (09:11)
[2021-07-11] MEDS: Venlafaxine HCl ER 75 MG CAP.ER.24H PO (09:11)
[2021-07-11] MEDS: Atorvastatin Calcium 20 MG TABLET PO (09:11)
[2021-07-11] MEDS: Insulin Glargine,Hum.rec.anlog 100 UNIT/ML 10 ML VIAL 40 UNIT SUBCUT ×2 (09:12→20:26)
[2021-07-11] MEDS: Acetaminophen 325 MG TABLET 650 MG PO (09:19)
[2021-07-11 11:14] LABS: Glucose, Whole Blood 162 mg/dL (60-115)
[2021-07-11 11:38] VITALS: BP 143/83; PULSE 73; RESP 16; TEMP 36.6; O2SAT 95
--- NOTE | 2021-07-11 12:07 | PM.PNNEP ---
Subjective Subjective Date of Service: 07/11/21 Interval history: Events noted Does not want to go home now Physical Exam Vital Signs: Vital Signs: Last Vital Signs Temp 97.9 F 07/11/21 11:38 Pulse 73 07/11/21 11:38 Resp 16 07/11/21 11:38 BP 143/83 H 07/11/21 11:38 Pulse Ox 95 07/11/21 11:38 BMI result Body Mass Index 36.6 Const: Other: General: AO X 3, no acute distress Resp: CTA bilateral CVS: S1,S2,RRR GI: +BS, NT, no distention Skin: No rash Neuro: motor grossly intact Psych: appropriate affect Objective Data Labs CBC & Chem 7: 07/06/21 05:51 07/11/21 08:07 Labs: Laboratory Results - last 24 hr 07/10/21 07/10/21 07/11/21 15:56 20:36 07:27 Sodium Potassium Chloride Carbon Dioxide Anion Gap BUN Creatinine Estim Creat Clear Calc Estimated GFR POC Glucose 178 H 118 H 68 Random Glucose Calcium 07/11/21 07/11/21 08:07 11:06 Sodium 140 Potassium 4.7 Chloride 108 Carbon Dioxide 24 Anion Gap 13 BUN 28 H Creatinine 1.92 H Estim Creat Clear Calc 40.0 Estimated GFR 29 POC Glucose 162 H Random Glucose 92 Calcium 8.5 Microbiology Microbiology Results: Microbiology 07/05/21 00:42 Blood - Venous Blood Culture - Final No growth after 5 days. 07/05/21 00:42 Blood - Venous Blood Culture - Final Staphylococcus aureus 07/04/21 10:51 Blood - Venous Blood Culture - Final Strep agalactiae (Grp B) Escherichia coli Staphylococcus aureus 07/04/21 10:51 Blood - Venous Blood Culture - Final Strep agalactiae (Grp B) Escherichia coli 07/04/21 Unknown Urine clean catch - Urine carver top Urine Culture - Final Strep agalactiae (Grp B) Procedures Date of Service Date of Service: 07/11/21 Assessment & Plan Assessment and plan (1) Acute hyponatremia: Status: Acute (2) TOÑO (acute kidney injury): Status: Acute Plan #TOÑO, non-oliguric: secondary to volume depletion and hyperglycemia which resulted in osmotic diuresis and further pre-renal injury. -Prior BL S-Cr (last known ~ 1.25 mg/dL on 08/2020) consistent with mild ckd at BL. -In setting of TOÑO from osmotic diuresis and subsequent use of nitrofurantoin, its possible she also predisposed herself to renal injury from AIN. will attain UA to assess for hematuria/proteinuria and will also add urine eosinophils. -Continue with volume replacement with IVF's. -Renal panel daily. -Monitor K, phos, calcium, Mg with volume repletion. -Hold metformin renal US -avoidance of metformin for now, avoidance of nsaids, acei/arb, IV contrast, renal dosing abx #Hyponatremia - combination of pseudohyponatremia given hyperglycemia (c-Na ~ 127 meq/L), volume depletion with some loss of medullary gradient. Continue with volume support in form of IVF s. -Hold SSRI's/SNRI's, hold thiazide diuretics, #Hyperglycemia - mgt per primary team #glucosuria - BS control. #Anemia - . May be component of CKD. Establish BL S-Cr. Creatinine is gradually trending down - close to baseline Keep I > O NO indication for dialysis OK to DC from a renal stand point Shall follow as outpatient once discharged Time Spent With Patient Time: Total time spent is greater than 50% in coordination of care (as documented) at patient's floor/unit and/or counseling patient: Progress Note: Quality Stroke Does the patient have a stroke diagnosis?: No
--- NOTE | 2021-07-11 12:08 | MHC.CM.PN ---
Patient has been medically cleared for dc to home today, self care.
[2021-07-11] MEDS: cephALEXin 500 MG CAPSULE PO (12:38)
[2021-07-11] MEDS: Insulin Lispro 100 UNIT/ML 3 ML VIAL SUBCUT ×3 (12:38→20:26)
[2021-07-11 15:23] VITALS: BP 165/72; PULSE 79; RESP 14; TEMP 36.5; O2SAT 100
[2021-07-11 16:19] LABS: Glucose, Whole Blood 188 mg/dL (60-115)
[2021-07-11] MEDS: 0.9 % Sodium Chloride Flush 3 ML SYRINGE IVFLUSH ×2 (16:35→20:28)
[2021-07-11 19:27] VITALS: BP 166/90; PULSE 95; RESP 14; TEMP 36.8; O2SAT 97
[2021-07-11 20:19] LABS: Glucose, Whole Blood 170 mg/dL (60-115)
[2021-07-11] MEDS: Gabapentin 300 MG CAPSULE 900 MG PO (20:26)
[2021-07-11 23:23] VITALS: BP 172/82; PULSE 86; RESP 18; TEMP 36.8; O2SAT 99
[2021-07-12] MEDS: cephALEXin 500 MG CAPSULE PO ×3 (00:20→09:40)
[2021-07-12] MEDS: Heparin Sodium,Porcine 5,000 UNIT/ML VIAL 5000 UNIT SUBCUT ×2 (00:20→09:41)
[2021-07-12 03:45] VITALS: BP 136/65; PULSE 94; RESP 17; TEMP 37.7; O2SAT 95
--- NOTE | 2021-07-12 03:46 | PC.NURSE ---
Most recent IV site infiltrated in patient left lower arm and taken out.Overnight Md aware. Patient refused new IV to be placed
[2021-07-12] MEDS: Omeprazole 20 MG CAPSULE.DR PO (05:41)
[2021-07-12 07:08] VITALS: BP 160/80; PULSE 85; RESP 18; TEMP 36.9; O2SAT 95
[2021-07-12 07:19] LABS: Glucose, Whole Blood 65 mg/dL (60-115)
[2021-07-12 09:20] LABS: Anion Gap 13 (12-20); Blood Urea Nitrogen 23 mg/dL (9-16); Calcium 8.4 mg/dL (8.4-10.2); Carbon Dioxide 24 mmol/L (22-29); Chloride 106 mmol/L (96-108); Creatinine Clr Calc Pharmacy 42.3; Estimated Glomerular Filt Rate 31; Glucose Random 155 mg/dL (60-115); Potassium 4.9 mmol/L (3.3-5.1); Sodium 138 mmol/L (135-145)
[2021-07-12] MEDS: Venlafaxine HCl ER 75 MG CAP.ER.24H PO (09:39)
[2021-07-12] MEDS: buPROPion HCl XL 300 MG TAB.ER.24H PO (09:39)
[2021-07-12] MEDS: Venlafaxine HCl ER 150 MG CAP.ER.24H PO (09:39)
[2021-07-12] MEDS: Atorvastatin Calcium 20 MG TABLET PO (09:40)
[2021-07-12] MEDS: Insulin Glargine,Hum.rec.anlog 100 UNIT/ML 10 ML VIAL 40 UNIT SUBCUT (09:40)
--- NOTE | 2021-07-12 10:24 | P.DS_ITS ---
DS: Providers Provider Date of Service: 07/12/21 Date of admission: 07/04/21 15:28 Primary care physician: Maddison Floyd NP Consults: 07/04/21 11:28 Consult to Care Team Stat Comment: Reason for consultation: hallucinations Consult to Crisis Stat Reason for consultation: hallucinations 07/04/21 15:30 Consult to Nephrology Routine Consulting Provider: Deonte Barillas Reason for consultation: dm uncontrolled , toño Has provider been notified: No 07/05/21 07:34 Consult to Infectious Diseases Routine Consulting Provider: Farideh Aquino Reason for consultation: bacteremia Has provider been notified: No 07/05/21 09:19 Consult to Care Team Routine Comment: Reason for consultation: depression and SI 07/07/21 09:04 BHN [Consult to Crisis] Stat Reason for consultation: ?SI, medically clear.. Is sitter still needed DS: Diagnosis Discharge Diagnosis (1) Acute hyponatremia: Status: Acute (2) TOÑO (acute kidney injury): Status: Acute DS: Summary Hospital Course Hospital Course: Chief Complaint: dm uncontrolled, toño 40-year-old female with history of diabetes, hypercholesteremia,, depression, peripheral neuropathy:? Patient was getting weak, fevers, chills and urinary discomfort 5-7 days back an she went to her PCP and was given antibiotics- nitrofurantoin:? Patient claims that make her nauseated so she decided not to take it, in addition even before having these symptoms patient was noncompliant with her diabetic medications and getting sleepy. Her mother is at bedside who added that patient was not hydrating herself fell as well as not compliant with her medication due to possible depression and noncompliance at the baseline also. She denies any other complaints except has suprapubic discomfort and still gene ralized weak, also complains of throat pain. She denies any sick contacts, but feels sad and depressed says that she has suicidal thoughts often.? But so far did not try to commit suicide.? Her mother says that she had fever of 102 5-7 days back but afterwards resolved. , she also had headache 5 days back which were resolved. ED physician also noted question of hallucination but patient denies it. has nausea Denies any new complaint of chest pain or shortness of breath or abdominal pain? or vomiting Denies any cough or [place] or any ear pain. Denies any weakness or numbness. Hospital Sepsis secondary to UTI, blood cultures = E. coli and Group B strep and staph aurueus. CT of abdomen and pelvis no no bostruction or abscess, initially was on Vanconycin and Zosyn, then changed to Ceftin and Doxy to cover staph and following final culture report ID is recommending Keflex and will therefore discharge with Cefadrozil 500 bid for 14 days. TOÑO: Likely ATN, and possibly underlying mild CKD 2, ? Treated with IVF and followed by Nephrology , creatinine has improved from 4.03 on admission July 04 to 1.81 today. Diabetes--, continue? Lantus and SSI Peripheral neuropathy:? Continue gabapentin. Toxic metabolic encephalopathy:? Multifactorial d/t? UTI, TOÑO, uncontrolled diabetes, decreased p.o. intake. This has resolveed she is lucid and is at her baseline mental status. Morbid obesity:? Encouraged to cut down calories once stable and encourage for weight loss. anemia? microcytic : denies any hx of blood moniter h/h ?anemia workup added , fobt . Depression and ? SI:? Denies, SI, she has lots of social stresses but not intention to harm herself.? Was seen by the care team and was cleared. Time Spent with Patient Time attestation: Total time spent providing and/or coordinating discharge services: Discharge coordination time: Greater than 30 minutes Quality: Safe Use of Opioids Does Pt have an Active Cancer Diagnosis on the Problem List?: No Quality: Stroke Does the patient have a stroke diagnosis?: No Physical Exam Vital Signs: Vital Signs: Selected Entries 07/12/21 07:08 Temperature 98.4 F Pulse Rate 85 Blood Pressure 160/80 H Const: Other: General: AO X 3, no acute distress Resp: CTA bilateral CVS: S1,S2,RRR GI: +BS, NT, no distention Skin: No rash Neuro: motor grossly intact Psych: appropriate affect DS: Data Data Completed and Pending Labs on day of discharge: Laboratory Results - last 24 hr 07/10/21 07/10/21 07/11/21 15:56 20:36 07:27 Sodium Potassium Chloride Carbon Dioxide Anion Gap BUN Creatinine Estim Creat Clear Calc Estimated GFR POC Glucose 178 H 118 H 68 Random Glucose Calcium 07/11/21 07/11/21 08:07 11:06 Sodium 140 Potassium 4.7 Chloride 108 Carbon Dioxide 24 Anion Gap 13 BUN 28 H Creatinine 1.92 H Estim Creat Clear Calc 40.0 Estimated GFR 29 POC Glucose 162 H Random Glucose 92 Calcium 8.5 Discharge Plan Discharge Anticipated Discharge Date/Time: 07/12/21 10:09 Patient Disposition: Home, Self-Care Discharge Diagnosis: Sepsis, Bacteremia, TOÑO Referrals: Maddison Floyd NP [Primary Care Provider] - 1 Week Deonte Barillas MD [Physician] - 1 Week Discharge Medications: New cefadroxil 500 mg capsule 500 mg PO BID 14 Days Qty: 28 0RF Continued venlafaxine 75 mg capsule,extended release 24hr 1 cap PO DAILY 0RF glipizide 10 mg tablet extended release 24hr 2 tab PO QAM 0RF venlafaxine 150 mg capsule,extended release 24hr 1 cap PO DAILY 0RF gabapentin 300 mg capsule 3 cap PO BEDTIME 0RF hydroxyzine HCl 25 mg tablet 1 tab PO BEDTIME PRN (Reason: insomnia) 0RF insulin aspart U-100 [Novolog Flexpen U-100 Insulin] 100 unit/mL (3 mL) insulin pen See Rx Instructions .ROUTE .COMPLEX 0RF Rx Instructions: Patient takes sliding scale but doesnt know scale rosuvastatin 5 mg tablet 1 tab PO DAILY 0RF bupropion HCl 300 mg tablet extended release 24 hr 1 tab PO DAILY 0RF Lantus Solostar U-100 Insulin 100 unit/mL (3 mL) insulin pen 60 unit subcut BID 0RF Discontinued metformin 1,000 mg tablet 1 tab PO BID 0RF nitrofurantoin monohyd/m-cryst 100 mg capsule 1 cap PO BID 0RF Discharge Orders: Discharge Order (Routine); Ordered 07/11/21 Ordered By: Jelani Mckenzie Diet: advance to usual diet Activity on Discharge: As tolerated Stand Alone Forms: Patient Portal Discharge page Other Ambulatory Orders: Basic Metabolic Panel (Routine) Timeframe: [id number] Facility: [facility] - Location: Laboratory Ordered By: Jelani Mckenzie Care Plan Goals: Full recovery from renal failure, sepsis/bacteremia Health Concerns: Acute renal failure, UTI, bacteremia Plan of Treatment: Take Cefadroxil 500 mg twice daily for 14 days, Follow up with your PCP in a week Follow up withk Nephrology (Dr. Barillas or amy) in week Blood work (Basic Metabolic Panel ) within a week, Avodi Motrinm, Advil, Naproxen and other over the counter medications, check with your doctor first Stop taking metformin and discuss with yor Doctor Assessment: As above
--- NOTE | 2021-07-12 11:00 | MHC.CM.PN ---
PT DCD HOME NO SKILLED SERVCEIS ORDERED BY
== END 2021-07-12 11:32 | disposition home or self-care (01) | DRG 720 ==
LOC: HO.ED 11:26 → HO.EDOVER 15:43 → HO.IMC 07-05 18:28
PROVIDERS: Internal Medicine; Physician Assistant; Admitting Provider Internal Medicine; Emergency Provider Emergency Medicine; PCP Nurse Practitioner Adult Health; Visit Provider Internal Medicine
DX: A41.9 Sepsis, unspecified organism (principal); N17.0 Acute kidney failure with tubular necrosis; G92.8 Other toxic encephalopathy; R45.851 Suicidal ideations; D63.1 Anemia in chronic kidney disease; E86.0 Dehydration; E11.42 Type 2 diabetes mellitus with diabetic polyneuropathy; N39.0 Urinary tract infection, site not specified; Z20.822 Contact with and (suspected) exposure to COVID-19; E11.65 Type 2 diabetes mellitus with hyperglycemia; E78.5 Hyperlipidemia, unspecified; N18.2 Chronic kidney disease, stage 2 (mild); F32.A Depression, unspecified; E11.22 Type 2 diabetes mellitus with diabetic chronic kidney disease; B96.20 Unspecified Escherichia coli [E. coli] as the cause of diseases classified elsewhere; B95.1 Streptococcus, group B, as the cause of diseases classified elsewhere; Z91.14 Patient's other noncompliance with medication regimen; E66.01 Morbid (severe) obesity due to excess calories; Z68.36 Body mass index [BMI] 36.0-36.9, adult; Z87.891 Personal history of nicotine dependence; Z87.440 Personal history of urinary (tract) infections; Z79.4 Long term (current) use of insulin; Z79.899 Other long term (current) drug therapy
CPT/HCPCS: 0241U; 36415; 70450; 71045; 74176; 80048; 80053; 80076; 80202; 80307; 81001; 81025; 82009; 82248; 82550; 82565; 82607; 82728; 82746; 82947; 83036; 83540; 83605; 83735; 84443; 84484; 85007; 85025; 85027; 87040; 87077; 87086; 87147; 87186; 87205; 87633; 87651; 93005; 93970; 96361; 96365; 96375; 99285; J0696; J1885; J2543; J3370

== ENCOUNTER 2022-04-05 12:53 | Outpatient (RCR) | payer MEDICAID, SELFPAY | END 2022-05-16 16:00 | disposition home or self-care (01) | LOC: HO.WCC 12:53 | PROVIDERS: PCP Internal Medicine; Visit Provider Physician Assistant | DX: E11.628 Type 2 diabetes mellitus with other skin complications (principal); T24.231D Burn of second degree of right lower leg, subsequent encounter; E11.610 Type 2 diabetes mellitus with diabetic neuropathic arthropathy; E11.40 Type 2 diabetes mellitus with diabetic neuropathy, unspecified; T31.0 Burns involving less than 10% of body surface; Z87.891 Personal history of nicotine dependence | CPT/HCPCS: 11042; 16020; 99212 ==

== ENCOUNTER 2022-10-22 17:30 | Emergency (ER) | payer OTHER, SELFPAY ==
--- NOTE | ~2022-10-22 | XR_ITS ---
EXAMINATION: XR TOES, RIGHT CLINICAL INFORMATION: Great toe pain COMPARISON: None available. TECHNIQUE: 3 views of the right toes were obtained. FINDINGS: Degenerative spurring of the medial eminence of the 1st metatarsal head with overlying soft tissue swelling. No suspicious soft tissue calcification or erosion. Minimal 1st MTP joint osteoarthritis. XR/XR toe RT min 2V IMPRESSION: Degenerative spurring of the medial eminence of the 1st metatarsal head with overlying soft tissue swelling. No acute osseous abnormality.
[2022-10-22 18:13] VITALS: BP 153/90; PULSE 74; RESP 18; TEMP 37.3; O2SAT 100; BMI 42.7
--- NOTE | 2022-10-22 18:14 | ED_ITS ---
HPI - General Adult General Chief complaint: Extremity Injury, Lower Stated complaint: R toe injury Time Seen by Provider: 10/22/22 18:53 Source: patient Mode of arrival: ambulatory Limitations: no limitations History of Present Illness HPI narrative: 41-year-old female with history of extensive diabetic peripheral neuropathy do not have good feeling in her bilateral feet presented with left great toe swelling, patient may have stubbed it but do not recall. Declined any fever, chills. Related Data Home Medications Medication Instructions Recorded Confirmed bupropion HCl 300 mg 24 hr tablet, 1 tab PO DAILY 07/04/21 07/04/21 extended release gabapentin 300 mg capsule 3 cap PO BEDTIME 07/04/21 07/04/21 glipizide 10 mg tablet, extended 2 tab PO QAM 07/04/21 07/04/21 release 24 hr hydroxyzine HCl 25 mg tablet 1 tab PO BEDTIME PRN insomnia 07/04/21 07/04/21 insulin aspart U-100 100 unit/mL See Rx Instructions .Route .COMPLEX 07/04/21 07/04/21 (3 mL) subcutaneous pen (Novolog FlexPen U-100 Insulin aspart) insulin glargine 100 unit/mL (3 60 unit subcut BID 07/04/21 07/04/21 mL) subcutaneous pen (Lantus Solostar U-100 Insulin) rosuvastatin 5 mg tablet 1 tab PO DAILY 07/04/21 07/04/21 venlafaxine 150 mg 1 cap PO DAILY 07/04/21 07/04/21 capsule,extended release 24 hr venlafaxine 75 mg capsule,extended 1 cap PO DAILY 07/04/21 07/04/21 release 24 hr Previous Rx's Medication Instructions Recorded cefadroxil 500 mg capsule 500 mg PO BID 14 days #28 caps 07/11/21 doxycycline hyclate 150 mg tablet 100 mg PO BID #14 tabs 10/22/22 mupirocin 2 % ointment topical kit 1 appl topical TID #1 ea 10/22/22 Allergies Allergy/AdvReac Type Severity Reaction Status Date / Time No Known Allergies Allergy Verified 10/22/22 18:12 Review of Systems Review of Systems: All other systems are reviewed and are negative Constitutional: Reports as per HPI and Reports no additional constitutional complaints Eyes: Reports as per HPI and Reports no additional eye complaints Reports system reviewed and no additional complaints, except as documented Cardiovascular: Reports as per HPI and Reports no additional cardiovascular complaints Respiratory: Reports as per HPI and Reports no additional respiratory complaints Gastrointestinal: Reports as per HPI and Reports no additional gastrointestinal complaints Genitourinary: Reports no additional female genitourinary complaints Musculoskeletal: Reports no additional musculoskeletal complaints Skin/Breast: Reports system reviewed and no additional complaints, except as docu Psychiatric: Reports no additional psychiatric complaints Endocrine: Reports no additional endocrine complaints Hematologic/Lymphatic: Reports no additional hematologic/lymphatic complaints Allergic/Immunologic: Reports no additional allergic/immunologic complaints Reports system reviewed and no additional complaints, except as documented and Reports Abnormal speech present. [facility] Past Medical History Medical History (Updated 10/22/22 @ 19:47 by Landry Bennett MD) Bacteremia Diabetes Neuropathy Social History Social History Household Members: Family Housing: House Do you presently have visiting nurse or other home services: No Alcohol intake: current Alcohol intake frequency: 0-2 drinks per day Patient Tobacco Use Status: Former Tobacco user Advance Directives: No Advance Directives Information Provided: Yes service: No Current occupational status: employed Physical Exam ED Vital Signs: Vital Signs - 24 hr 10/22/22 18:13 Temperature 99.2 F Pulse Rate 74 Respiratory Rate 18 Blood Pressure 153/90 H Pulse Oximetry 100 Oxygen Delivery Method Room Air BMI result Body Mass Index 42.7 Vital signs have been reviewed as appeared to be correct. Blood pressure normal. Heart rate normal. Respiration rate normal. Temperature normal. Oxygen saturation normal. Appearance: Alert. Oriented X3. No acute distress. Head: Normal external exam. Normocephalic. Atraumatic. No Jiang signs noted. No raccoon eyes noted Eyes: PERRLA. EOMI. Conjunctiva and sclera normal. Eyelids normal. ENT: TM's Normal. Pharynx normal. Uvula midline. Moist mucous membranes. No trismus noted. No drooling noted. No muffled voice noted. Neck: Normal inspection. Neck supple. FROM. No adenopathy. Thyroid Normal. No meningeal signs. No neck mass noted. CVS: Normal heart rate and rhythm. Heart sound normal. No murmurs noted. Pulses normal throughout. Respiratory: No respiratory distress. Painless inspiration. Breath sounds normal. No wheezes/rales/rhonchi noted. Chest nontender. No accessory muscle usage noted or decreased air movement noted. Abdomen: Soft and nontender. Bowel sounds normal in all 4 quadrants. No distention noted. No organomegaly noted. No visible injury noted. Back: No CVA tenderness. Full range of motion noted. Skin: Skin warm and dry. Normal skin color. Normal skin turgor. No rashes/lesions/lacerations noted. Extremities: Left foot: Mild swelling at the nail bed, after complete a sterile technique fine needle drainage shows serosagnaous discharges. Neuro: Oriented X 3. Cranial nerve exam: II-XII are grossly intact No motor deficit. No sensory deficit. Reflexes normal. Course Course Course Narrative: RME- 41-year-old female presents for evaluation of right great toe swelling, pain. She has some ecchymosis and a small open wound just proximal to the nail bed. X-ray ordered Reevaluation(s) Reevaluation #1: 41-year-old female with history of advanced peripheral neuropathy due to diabetes presented with left toe swelling, no history of trauma, mild paronychia around the toenail, with complete sterile technique fine needle aspiration with serosanguineous discharge, will start the patient on doxycycline and mupirocin ointment with close follow-up. Time: 19:51 Medical Decision Making Differential Diagnosis Differential Diagnoses: The differential diagnosis associated with the presentation includes (Paronychia, felon, cellulitis, fracture.) Admission/Observation Consideration of admission/observation: Escalation of care including admission/observation considered Independent Interpretation I performed an independent interpretation of an: Plain X-Ray (Left foot:Degenerative spurring of the medial eminence of the 1st metatarsal head with overlying soft tissue swelling. No acute osseous abnormality. ) Radiology Impression Discussion of test interpretation with radiology: I have reviewed the radiologist's reading. Discharge Plan Discharge Clinical Impression: Paronychia of great toe Patient Disposition: Home, Self-Care Instructions: Paronychia (ED) Additional Instructions: Seek immediate medical attention if any fever, chills or swelling of the great toe. Return to the emergency department or see your primary doctor in 2 days to check on your toe. Prescriptions: New doxycycline hyclate 150 mg tablet 100 mg PO BID Qty: 14 0RF mupirocin 2 % ointment kit 1 appl topical TID Qty: 1 0RF No Action venlafaxine 75 mg capsule,extended release 24hr 1 cap PO DAILY glipizide 10 mg tablet extended release 24hr 2 tab PO QAM venlafaxine 150 mg capsule,extended release 24hr 1 cap PO DAILY gabapentin 300 mg capsule 3 cap PO BEDTIME hydroxyzine HCl 25 mg tablet 1 tab PO BEDTIME PRN (Reason: insomnia) insulin aspart U-100 [Novolog FlexPen U-100 Insulin] 100 unit/mL (3 mL) insulin pen See Rx Instructions .ROUTE .COMPLEX Rx Instructions: Patient takes sliding scale but doesnt know scale rosuvastatin 5 mg tablet 1 tab PO DAILY bupropion HCl 300 mg tablet extended release 24 hr 1 tab PO DAILY Lantus Solostar U-100 Insulin 100 unit/mL (3 mL) insulin pen 60 unit subcut BID cefadroxil 500 mg capsule 500 mg PO BID 14 Days Qty: 28 0RF Referrals: Mohit Dove MD [Primary Care Provider] - Stand Alone Forms: Work/School Release
== END 2022-10-22 20:48 | disposition home or self-care (01) ==
PROVIDERS: Emergency Provider Emergency Medicine; PCP Internal Medicine
DX: L03.031 Cellulitis of right toe (principal); M79.89 Other specified soft tissue disorders; E11.40 Type 2 diabetes mellitus with diabetic neuropathy, unspecified; Z79.4 Long term (current) use of insulin
CPT/HCPCS: 73660; 99282; 99283

== ENCOUNTER 2023-06-21 13:55 | Outpatient (RCR) | payer OTHER, SELFPAY | END 2023-10-06 12:19 | disposition home or self-care (01) | LOC: HO.WCC 13:55 | PROVIDERS: PCP Internal Medicine; Visit Provider Surgery | DX: E11.621 Type 2 diabetes mellitus with foot ulcer (principal); L97.512 Non-pressure chronic ulcer of other part of right foot with fat layer exposed; E11.40 Type 2 diabetes mellitus with diabetic neuropathy, unspecified; L84 Corns and callosities; Z87.891 Personal history of nicotine dependence | CPT/HCPCS: 11042; 99212 ==

== ENCOUNTER 2023-07-15 22:57 | Emergency (ER) | payer OTHER, SELFPAY ==
--- NOTE | ~2023-07-15 | XR_ITS ---
EXAMINATION: XR FOOT, RIGHT CLINICAL INFORMATION: Pain. COMPARISON: 10/22/2022 TECHNIQUE: AP, lateral, and oblique views of the right foot. FINDINGS: There is soft tissue swelling is notable throughout the foot, most pronounced at the third toe. No fracture or malalignment. No evidence of acute osteomyelitis. 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 Moderate-sized enthesopathic spurs are present at the Achilles tendon insertion and plantar fascial origin on the calcaneus. XR/XR foot RT min 3V IMPRESSION: Soft tissue swelling at the right foot, most notably at the third toe. No acute osseous findings.
[2023-07-15 23:08] VITALS: BP 160/90; PULSE 99; RESP 18; TEMP 36.8; O2SAT 96; BMI 40.0
--- NOTE | 2023-07-16 00:15 | ED_ITS ---
HPI - General Adult General Chief complaint: Extremity Problem Stated complaint: RT foot pain and swelling Time Seen by Provider: 07/16/23 00:15 Source: patient Mode of arrival: ambulatory Limitations: no limitations History of Present Illness HPI narrative: Patient is a 42 year old assigned female at with a history of DM and neuropathy presenting to the emergency department today with right foot pain. Patient states that over the last 3 days she has had right foot pain that is worse with walking. Patient states that she has a right 3rd toe wound that she follows with the wound center for that is healing well and she does not have pain there. Patient denies any dizziness, lightheadedness, abdominal pain, nausea, vomiting, fever, chills, blurry vision, double vision, loss of vision, chest pain, difficulty breathing, shortness of breath, back pain, night sweats, pain with urination, increased urinary frequency, increased urinary urgency, blood in her urine or stool, syncope or a near syncopal episode, recent trauma or falls, bowel incontinence, bladder incontinence, bowel retention, bladder retention, or any other complaints at this time. Onset (ago): day(s) (3) Location: right and lower extremity Radiation: non-radiation Severity: mild Severity scale (1-10): 3 Quality: aching and dull Pain Consistency: constant Relieving factors: none Exacerbating factors: other (palpation and walking on it) Associated symptoms: denies other symptoms Treatments prior to arrival: none Related Data Home Medications ?Medication ?Instructions ?Recorded ?Confirmed bupropion HCl 300 mg 24 hr tablet, 1 tab PO DAILY 07/04/21 07/04/21 extended release gabapentin 300 mg capsule 3 cap PO BEDTIME 07/04/21 07/04/21 glipizide 10 mg tablet, extended 2 tab PO QAM 07/04/21 07/04/21 release 24 hr hydroxyzine HCl 25 mg tablet 1 tab PO BEDTIME PRN insomnia 07/04/21 07/04/21 insulin aspart U-100 100 unit/mL See Rx Instructions .Route .COMPLEX 07/04/21 07/04/21 (3 mL) subcutaneous pen (Novolog FlexPen U-100 Insulin aspart) insulin glargine 100 unit/mL (3 60 unit subcut BID 07/04/21 07/04/21 mL) subcutaneous pen (Lantus Solostar U-100 Insulin) rosuvastatin 5 mg tablet 1 tab PO DAILY 07/04/21 07/04/21 venlafaxine 150 mg 1 cap PO DAILY 07/04/21 07/04/21 capsule,extended release 24 hr venlafaxine 75 mg capsule,extended 1 cap PO DAILY 07/04/21 07/04/21 release 24 hr Previous Rx's ?Medication ?Instructions ?Recorded cefadroxil 500 mg capsule 500 mg PO BID 14 days #28 caps 07/11/21 doxycycline hyclate 150 mg tablet 100 mg (0.6667 x 150 mg) PO BID 10/22/22 #14 tabs mupirocin 2 % ointment topical kit 1 appl topical TID #1 ea 10/22/22 cephalexin 500 mg capsule 500 mg PO Q6H 7 days #28 caps 07/16/23 doxycycline hyclate 100 mg tablet 100 mg PO BID 7 days #14 tabs 07/16/23 prednisone 20 mg tablet 20 mg PO DAILY 7 days #7 tabs 07/16/23 Allergies Allergy/AdvReac Type Severity Reaction Status Date / Time No Known Allergies Allergy Verified 07/15/23 23:17 Review of Systems Constitutional: Constitutional: Reports no additional constitutional complaints, Denies chills, Denies fever(s) and Denies night sweats Eyes: Eyes: Reports no additional eye complaints, Denies blurry vision, Denies change in vision, Denies diplopia, Denies eye discharge, Denies loss of vision and Denies eye pain ENT: Denies dizziness Cardiovascular: Cardiovascular: Reports no additional cardiovascular complaints, Denies chest pain, Denies lightheadedness, Denies Loss of Consciousness and Denies dyspnea Respiratory: Respiratory: Reports no additional respiratory complaints and Denies dyspnea Gastrointestinal: Gastrointestinal: Reports no additional gastrointestinal complaints, Denies abdominal pain, Denies melena, Denies hematochezia, Denies change in bowel habits and Denies change in stool character Genitourinary: Genitourinary: Denies hematuria, Denies urinary frequency, Denies dysuria, Denies urinary incontinence, Denies urinary hesitancy and Denies urinary urgency Musculoskeletal: Musculoskeletal: Reports no additional musculoskeletal complaints, Denies numbness and Denies tingling Comments: right foot pain Neurologic: Denies dizziness, Denies loss of vision, Denies numbness and Denies tingling Psychiatric: Psychiatric: Reports no additional psychiatric complaints Endocrine: Endocrine: Reports no additional endocrine complaints Hematologic/Lymphatic: Hematologic/Lymphatic: Reports no additional hematologic/lymphatic complaints Allergic/Immunologic: Allergic/Immunologic: Reports no additional allergic/immunologic complaints [facility] Past Medical History Attestation statement: The following information was validated with the patient. Source: old records reviewed and nursing notes reviewed Medical History Bacteremia Neuropathy Diabetes Social History Social History Household Members: Family Housing: House Do you presently have visiting nurse or other home services: No Alcohol intake: current Alcohol intake frequency: 0-2 drinks per day Comment: 1:1 sitter for SI Patient Tobacco Use Status: Former Tobacco user Advance Directives: No Advance Directives Information Provided: No service: No Current occupational status: employed Physical Exam ED Vital Signs: Vital Signs - 24 hr 07/15/23 23:08 Temperature 98.2 F Pulse Rate 99 Respiratory Rate 18 Blood Pressure 160/90 H Pulse Oximetry 96 Oxygen Delivery Method Room Air BMI result Body Mass Index 40.0 Const General: cooperative, no acute distress, alert and awake Nutritional Appearance: well nourished Orientation/consciousness: patient oriented x3 Limitations: no limitations HENMT Head: Yes normal to inspection and Yes atraumatic Ears: hearing grossly normal bilaterally and external ears normal General nose exam: Normal external nose present, no nasal discharge noted and no epistaxis Face and sinus: Yes normal facial exam, No abrasion and No laceration Mouth: Normal oral and palatal mucosa present, no drooling and no muffled voice Eyes General: appearance normal, both eyes and all related structures Periorbital: periorbital findings normal Eyelids: Yes eyelids normal Conjunctivae: conjunctivae normal Pupils: Equal, round and reactive pupils present EOM: EOMs intact bilaterally Neck Neck: Yes normal visual inspection, Yes full ROM and Yes no lymphadenopathy Chest Chest palpation & inspection: normal inspection of the chest Resp Effort & Inspection: normal respiratory effort and able to speak in complete sentences GI Inspection: Yes normal to inspection Neuro General: patient oriented x3 and moves all extremities Cranial nerves: Yes Equal, round and reactive pupils present Cognition (Neuro): normal cognition Motor exam (neuro): 5/5 motor strength present throughout Sensory Exam: Normal double simultaneous stimulation for sensation Coordination: [id number] test normal Extrem Other: minimal plantar swelling of the right foot with minimal erythema General: Yes full ROM and Yes capillary refill normal Psych Appearance: grossly normal Mental Status: mental status grossly normal Affect: normal affect Attitude: cooperative Thought process: Normal thought process present Thought content: Normal thought content present Insight: Good insight present (Psych) Medications Administered Discontinued Medications Generic Name Dose Route Start Last Admin Trade Name Geoffq PRN Reason Stop Dose Admin Cephalexin HCl 500 mg 07/16/23 00:47 07/16/23 01:05 Cephalexin 500 Mg Capsule PO 07/16/23 00:48 500 mg ONCE ONE Administration Doxycycline Monohydrate 100 mg 07/16/23 00:47 07/16/23 01:05 Doxycycline Monohydrate 100 Mg Capsule PO 07/16/23 00:48 100 mg ONCE ONE Administration Ketorolac Tromethamine 15 mg 07/16/23 00:34 07/16/23 01:05 Ketorolac Tromethamine 15 Mg/Ml Vial IM 07/16/23 00:35 15 mg ONCE ONE Administration Medical Decision Making Medical Decision Making [facility] Narrative: Patient is a 42 year old assigned female at with a history of DM and neuropathy presenting to the emergency department today with right foot pain. Patient's physical exam was as noted in the physical exam portion of this note. Patient's right foot x-ray showed no acute process. Patient's clinical presentation is most consistent with plantar fasciitis but given the patient's history of DM and the erythema present - will cover with ABX. I explained my physical exam findings as well as all test results to the patient. I answered all questions asked by the patient. I stressed the importance of the patient taking her medication as prescribed. I stressed the importance of the patient following up with her primary care provider. I stressed the importance of the patient returning to the emergency department immediately if her symptoms were to worsen or if she were to develop any dizziness, shortness of breath, difficulty breathing, chest pain, blurry vision, loss of vision, nausea, vomiti ng, abdominal pain, fever, chills, back pain, or any other complaints. Patient verbalized agreement and understanding with this treatment plan and discharge. Differential Diagnosis Differential Diagnoses: The differential diagnosis associated with the presentation includes Right foot pain Right plantar fasciitis Cellulitis Admission/Observation Consideration of admission/observation: Escalation of care including admission/observation considered Patient would have been admitted to the hospital had her work up had any findings where hospital admission was appropriate and her clinical presentation warranted hospital admission. Independent Interpretation I performed an independent interpretation of an: Plain X-Ray Interpretation: My interpretation is in agreement with the radiologist's impression of this imaging study. EXAMINATION: XR FOOT, RIGHT CLINICAL INFORMATION: Pain. COMPARISON: 10/22/2022 TECHNIQUE: AP, lateral, and oblique views of the right foot. FINDINGS: There is soft tissue swelling is notable throughout the foot, most pronounced at the third toe. No fracture or malalignment. No evidence of acute osteomyelitis. 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 Moderate-sized enthesopathic spurs are present at the Achilles tendon insertion and plantar fascial origin on the calcaneus. XR/XR foot RT min 3V IMPRESSION: Soft tissue swelling at the right foot, most notably at the third toe. No acute osseous findings. Dictated By: Alvarez Dsouza MD Signed By: Electronically signed by Alvarez Dsouza MD 07/16/23 0134 Radiology Impression Discussion of test interpretation with radiology: I have reviewed the radiologist's reading. Prescription Management I considered prescription management with: Antibiotic (patient prescribed an antibiotic to cover for possible cellulitis) Chronic Conditions Patient?s care impacted by: Diabetes Discharge Plan Discharge Clinical Impression: Cellulitis, Plantar fasciitis Patient Disposition: Home, Self-Care Instructions: Cellulitis (DC), Plantar Fasciitis (ED), Plantar Fasciitis Exercises (ED) Additional Instructions: Take your medication as prescribed. Follow up with your primary care provider and an orthopedic provider. Continue following up with the wound center. Return to the emergency department immediately if your symptoms worsen or if you develop any dizziness, shortness of breath, difficulty breathing, chest pain, blurry vision, loss of vision, nausea, vomiting, abdominal pain, fever, chills, back pain, or any other complaints. Prescriptions: New prednisone 20 mg tablet 20 mg PO DAILY 7 Days Qty: 7 0RF cephalexin 500 mg capsule 500 mg PO Q6H 7 Days Qty: 28 0RF doxycycline hyclate 100 mg tablet 100 mg PO BID 7 Days Qty: 14 0RF No Action venlafaxine 75 mg capsule,extended release 24hr 1 cap PO DAILY glipizide 10 mg tablet extended release 24hr 2 tab PO QAM venlafaxine 150 mg capsule,extended release 24hr 1 cap PO DAILY gabapentin 300 mg capsule 3 cap PO BEDTIME hydroxyzine HCl 25 mg tablet 1 tab PO BEDTIME PRN (Reason: insomnia) insulin aspart U-100 [Novolog FlexPen U-100 Insulin] 100 unit/mL (3 mL) insulin pen See Rx Instructions .ROUTE .COMPLEX Rx Instructions: Patient takes sliding scale but doesnt know scale rosuvastatin 5 mg tablet 1 tab PO DAILY bupropion HCl 300 mg tablet extended release 24 hr 1 tab PO DAILY Lantus Solostar U-100 Insulin 100 unit/mL (3 mL) insulin pen 60 unit subcut BID cefadroxil 500 mg capsule 500 mg PO BID 14 Days Qty: 28 0RF doxycycline hyclate 150 mg tablet 100 mg PO BID Qty: 14 0RF mupirocin 2 % ointment kit 1 appl topical TID Qty: 1 0RF Referrals: [facility] [Provider Group] (Call to establish and follow up with an orthopedic provider.) Maddison Floyd NP [Primary Care Provider] - Stand Alone Forms: Work/School Release Interventions: ED Discharge Assessment Last Done: 07/16/23 02:49 Discharge Date/Time: 07/16/23 02:50 Print Language: Somali
[2023-07-16] MEDS: Doxycycline Monohydrate 100 MG CAPSULE PO (01:05)
[2023-07-16] MEDS: Ketorolac Tromethamine 15 MG/ML VIAL IM (01:05)
[2023-07-16] MEDS: cephALEXin 500 MG CAPSULE PO (01:05)
[2023-07-16 02:49] VITALS: BP 152/78; PULSE 84; RESP 16; TEMP 36.8; O2SAT 100
== END 2023-07-16 02:50 | disposition home or self-care (01) ==
PROVIDERS: Emergency Provider Emergency Medicine Emergency Medical Services; PCP Nurse Practitioner Adult Health
DX: L03.115 Cellulitis of right lower limb (principal); M72.2 Plantar fascial fibromatosis; E11.40 Type 2 diabetes mellitus with diabetic neuropathy, unspecified
CPT/HCPCS: 73630; 96372; 99284; J1885

== ENCOUNTER 2024-03-01 19:22 | Inpatient (IN) | payer OTHER, SELFPAY ==
--- NOTE | ~2024-03-01 | US_ITS ---
EXAMINATION: US TRIPLEX LOWER EXTREMITY, RIGHT CLINICAL INFORMATION: Pain, spinal COMPARISON: None available. TECHNIQUE: Color-flow triplex imaging with spectral analysis and compression Doppler were performed on the right lower extremity. FINDINGS: Respiratory variation, normal compression and augmented flow are noted throughout the right lower extremity. The visualized common femoral vein, superficial femoral vein, profunda femoral vein, popliteal vein and midcalf peroneal and posterior tibial venous segments show no evidence of deep venous thrombosis. There is no Kolb's cyst. Enlarged left inguinal lymph node measuring 3.3 x 1.1 x 1.2 cm. US/US venous duplex LE RT IMPRESSION: No evidence of deep venous thrombosis involving the right lower extremity. Electronically signed by: Bartolome Zapien DO 03/01/2024 09:39 PM [facility]
--- NOTE | ~2024-03-01 | XR_ITS ---
EXAMINATION: XR FOOT, RIGHT CLINICAL INFORMATION: Osteomyelitis of the 1st/2nd metatarsals. COMPARISON: Right foot radiographs from 07/16/2023. TECHNIQUE: 3 views of the right foot (AP, lateral, and oblique views). FINDINGS: No fracture or dislocation of the right foot. The joint spaces are well-preserved. Moderate heel spur. Small enthesophyte formation at the insertion of the Achilles tendon. Chronic irregularity of the tuft of the 3rd distal phalanx. No demonstrated additional abnormal lytic or sclerotic osseous changes/regions of erosion. Mild to moderate soft tissue swelling throughout the foot. No radiopaque foreign bodies. XR/XR foot RT min 3V IMPRESSION: 1. No evidence of acute fracture or dislocation of the right foot. 2. Chronic irregularity of the tuft of the 3rd distal phalanx. No demonstrated additional regions of erosion. 3. Moderate soft tissue swelling throughout the foot. Electronically signed by: Rashad Perez DO 03/02/2024 12:42 AM [facility]
--- NOTE | 2024-03-01 19:34 | ED_ITS ---
HPI - General Adult General Chief complaint: Skin/Abscess/Foreign Body Stated complaint: cellulitis in leg/sent by pcp Time Seen by Provider: 03/01/24 21:45 Source: patient Mode of arrival: ambulatory Limitations: no limitations History of Present Illness ED Provider: Dr. Lydia Naik HPI narrative: Patient comes to the emergency room complaining of cellulitis in the right foot. Patient states it started about 2-3 days ago. Patient states that she went to see her primary care physician today, sent her to the emergency room for further evaluation. According to the patient she has not had any fever chills, patient states that her right foot is very tender and red streaks are going up her right leg. Related Data Home Medications ?Medication ?Instructions ?Recorded ?Confirmed bupropion HCl 300 mg 24 hr tablet, 1 tab PO DAILY 07/04/21 07/04/21 extended release gabapentin 300 mg capsule 3 cap PO BEDTIME 07/04/21 07/04/21 glipizide 10 mg tablet, extended 2 tab PO QAM 07/04/21 07/04/21 release 24 hr hydroxyzine HCl 25 mg tablet 1 tab PO BEDTIME PRN insomnia 07/04/21 07/04/21 insulin aspart U-100 100 unit/mL See Rx Instructions .Route .COMPLEX 07/04/21 07/04/21 (3 mL) subcutaneous pen (Novolog FlexPen U-100 Insulin aspart) insulin glargine 100 unit/mL (3 60 unit subcut BID 07/04/21 07/04/21 mL) subcutaneous pen (Lantus Solostar U-100 Insulin) rosuvastatin 5 mg tablet 1 tab PO DAILY 07/04/21 07/04/21 venlafaxine 150 mg 1 cap PO DAILY 07/04/21 07/04/21 capsule,extended release 24 hr venlafaxine 75 mg capsule,extended 1 cap PO DAILY 07/04/21 07/04/21 release 24 hr Previous Rx's ?Medication ?Instructions ?Recorded cefadroxil 500 mg capsule 500 mg PO BID 14 days #28 caps 07/11/21 doxycycline hyclate 150 mg tablet 100 mg (0.6667 x 150 mg) PO BID 10/22/22 #14 tabs mupirocin 2 % ointment topical kit 1 appl topical TID #1 ea 10/22/22 cephalexin 500 mg capsule 500 mg PO Q6H 7 days #28 caps 07/16/23 doxycycline hyclate 100 mg tablet 100 mg PO BID 7 days #14 tabs 07/16/23 prednisone 20 mg tablet 20 mg PO DAILY 7 days #7 tabs 07/16/23 Allergies Allergy/AdvReac Type Severity Reaction Status Date / Time No Known Allergies Allergy Verified 03/01/24 19:38 Review of Systems 2 Review of Systems: Constitutional : No Weight loss, No Fever, No Chills, No Night Sweats, No Fatigue, No Malaise ENT/Mouth : No Hearing loss, No Ear Pain, No Nasal Congestion, No Sinus Pain, No Hoarseness, No sore throat, No Rhinorrhea, No Swallowing Difficulty Eyes: No Eye Pain, No Swelling, No Redness, No Foreign Body, No Discharge, No Vision Changes Cardiovascular : No Chest Pain, No SOB, No Dyspnea on Exertion, No Orthopnea, No Edema, No Palpitations Respiratory : No Cough, No Sputum, No Wheezing, No Smoke Exposure, No Dyspnea Gastrointestinal : No Nausea, No Vomiting, No Diarrhea, No Constipation, No abdominal Pain, No Hematochezia, No Melena Genitourinary : no irregular bleeding, No Dysuria, No Urinary Frequency, No Hematuria, No Urinary Incontinence, No Urgency, No Flank Pain, No Urinary Flow Changes, No Hesitancy Musculoskeletal : No joint pain, No Myalgias, No Joint Swelling Skin : Complaining of cellulitis in the right foot with red streaks going up the right thigh Neuro : No Weakness, No Numbness, No Paresthesias, No Loss of Consciousness, No Dizziness, No Headache Psych : No Anxiety/Panic, No Depression, No SI/HI/AH/VH, No Social Issues, Heme/Lymph: No Bruising, No Bleeding,No Lymphadenopathy Endocrine : No Polyuria, No Polydipsia, No Temperature Intolerance PMFSH Past Medical History Medical History Bacteremia Neuropathy Diabetes Social History Social History Household Members: Family Housing: House Do you presently have visiting nurse or other home services: No Alcohol intake: current Alcohol intake frequency: 0-2 drinks per day Comment: 1:1 sitter for SI Patient Tobacco Use Status: Former Tobacco user Smoked in Last 30 Days: No Use of substances other than those prescribed or required for medical reasons: No Advance Directives: No Advance Directives Information Provided: Yes Do you have a plan to hurt others: No Plan Patient : No service: No Current occupational status: employed Physical Exam ED Vital Signs: Vital Signs - 24 hr 03/01/24 19:35 03/01/24 22:05 03/01/24 23:19 Temperature 99.9 F 98.8 F 99.2 F Pulse Rate 106 H 96 96 Respiratory Rate 16 18 16 Blood Pressure 134/86 120/67 127/69 Pulse Oximetry 100 100 96 Oxygen Delivery Method Room Air Room Air Room Air BMI result Body Mass Index 41.5 Const Other: Appearance: Alert. Oriented X3. No acute distress. Eyes: Pupils equal, round and reactive to light. ENT: Pharynx normal. Neck: Normal inspection. Neck supple. No lymph nodes noted. No crepitus CVS: Normal heart rate and rhythm. Pulses normal. Normal S1 and S2 Respiratory: No respiratory distress. Breath sounds normal. No Wheezing. No rales Abdomen: Soft and nontender. No rigidity. No distention. Skin: Skin warm and dry. Patient's dorsum of the foot is erythematous, light drainage present between the 1st and 2nd toes, thick callus without ulcer on the plantar aspect below the great toe, erythema extending upwards towards the right thigh through the medial aspect. see pictures below Extremities: See pictures above Neuro: Oriented X 3. No motor deficit. No sensory deficit. Moving all extremities. No slurred speech. CN 2 through 12 grossly intact Psych: calm, cooperative, normal affect Course Course Course Narrative: This is a rapid medical exam performed by Jarocho Cary NP: Additional HPI, ROS, PE not included below will be deferred to primary provider. Patient is a 43-year-old female with history of DM, neuropathy referred to the ED by PCP for cellulitis. Patient arrives with right foot bandaged but states she is unsure if she has any wounds. Right foot with significant erythema, warmth, 2+ DP pulse. Right leg exquisitely painful to touch. States pain extends up to thigh. Serous drainage between 1st/2nd toes. Plan: labs, U/S Medications Administered Generic Name Dose Route Start Last Admin Trade Name Freq PRN Reason Stop Dose Admin Enoxaparin Sodium 40 mg 03/01/24 23:00 03/01/24 22:44 Enoxaparin Sodium 40 Mg/0.4 Ml Syringe SUBCUT 40 mg Q24H ALEXUS Administration Insulin Glargine 48 unit 03/01/24 22:30 03/01/24 22:44 Insulin Glargine,Hum.Rec.Anlog 100 Unit/Ml 10 Ml Vial SUBCUT 48 unit BEDTIME ALEXUS Administration Discontinued Medications Generic Name Dose Route Start Last Admin Trade Name Loni PRN Reason Stop Dose Admin Vancomycin HCl 2,000 mg in 500 mls @ 250 mls/hr 03/01/24 21:52 03/01/24 22:45 Vancomycin/Ns IV 03/01/24 23:51 250 mls/hr ONCE ONE Administration Piperacillin Sod/Tazobactam 50 mls @ 100 mls/hr 03/01/24 21:52 03/01/24 22:35 Sod 3.375 gm/ Sodium Chloride IV 03/01/24 22:21 Infused ONCE ONE Infusion Sodium Chloride 1,000 mls @ 999 mls/hr 03/01/24 21:52 03/01/24 23:21 Ns IVCONT 03/01/24 22:52 Infused .Q1H1M ONE Infusion Medical Decision Making Medical Decision Making [facility] Narrative: My interpretation of labs: Patient's white blood cell count within normal limits. Patient is chronically anemic. Chemistry shows a sodium of 130, glucose of 392, lactic acid 2.8. Patient's lactic acid improved to 0.7. My interpretation of x-rays of the foot: No obvious signs of osteomyelitis. Patient being treated with vancomycin, Zosyn, IV fluids No episodes of hypotension fever tachycardia, sepsis is not suspected I discussed the patient with Dr. Garces, patient is being admitted. Patient has only pain to palpation over the erythematous area. No significant gross swelling, DVT not suspected Differential Diagnosis Differential Diagnoses: The differential diagnosis associated with the presentation includes (Cellulitis, osteomyelitis) Lab Data [facility] Lab Attestation statement: I reviewed the patient's lab results. 03/01/24 20:34 03/01/24 20:34 Labs: Lab Results 03/01/24 03/01/24 03/01/24 Range/Units 20:34 21:44 23:13 WBC 10.7 (4.8-10.8) X10*3/uL RBC 4.52 D (4.20-5.50) X10*6/uL Hgb 8.5 L (12.0-16.0) g/dl Hct 28.9 L (37.0-47.0) % MCV 63.9 L (80.0-98.0) fL MCH 18.8 L (27.0-33.0) pg MCHC 29.4 L (31.0-35.0) g/dl RDW 16.7 H (11.0-16.0) % Plt Count 251 (160-400) X10*3/uL MPV 9.9 (9.4-12.3) fL Immature Gran % (Auto) 0.4 (0.0-0.4) % Neut % (Auto) 79.2 H (45-73) % Lymph % (Auto) 10.3 L (20-40) % [place] % (Auto) 9.4 (2-11) % Eos % (Auto) 0.4 (0-4) % Baso % (Auto) 0.3 (0-2) % Lymph # (Auto) 1.1 L (1.2-4.9) X10*3/uL [place] # (Auto) 1.0 (0.1-1.2) X10*3/uL Eos # (Auto) 0.0 (0.0-0.4) X10*3/uL Baso # (Auto) 0.0 (0.0-0.2) X10*3/uL Abs Immat Gran (auto) 0.04 H (0.00-0.03) X10*3/uL Absolute Neuts (auto) 8.5 H (2.0-8.3) x10*3/uL Absolute Nucleated RBC 0.000 (0.0-0.012) X10*3/uL Nucleated RBC % (auto) 0.0 (0.0-0.2) /100WBC ESR 74 H (0-20) MM/HR PT 11.4 (10.9-12.4) SEC INR 1.0 (0.9-1.1) Sodium 130 L (135-145) mmol/L Potassium 4.8 (3.3-5.1) mmol/L Chloride 97 (96-108) mmol/L Carbon Dioxide 21 L (22-29) mmol/L Anion Gap 17 (12-20) BUN 18 H (9-16) mg/dL Creatinine 1.12 (0.5-1.4) mg/dL Estim Creat Clear Calc 71.3 Estimated GFR 53 POC Glucose 360 H* (60-115) mg/dL Random Glucose 392 H* (60-115) mg/dL Lactic Acid 2.8 H* (0.5-2.0) mmol/L Lactic Acid F/U @ 2Hr 0.7 (0.5-2.0) mmol/L Calcium 9.0 D (8.4-10.2) mg/dL Total Bilirubin 0.5 (0.0-1.0) mg/dL AST 20 (5-31) U/L ALT 19 (0-31) U/L Alkaline Phosphatase 79 (39-117) U/L C-Reactive Protein 21.52 H (< or = 0.50) mg/dL Total Protein 7.3 (6.5-8.0) g/dL Albumin 3.5 (3.5-5.0) g/dL Independent Interpretation I performed an independent interpretation of an: Plain X-Ray Critical Care Time Critical Care Time Critical Care Time: Yes Total Critical Care Time: 60 Attestation: I have personally provided critical care time. Time includes review of lab data, radiology results, discussion with consultants, and monitoring for potential decompensation. Intervention performed as documented. Discharge Plan Discharge Clinical Impression: Cellulitis of right foot Patient Disposition: Admitted As Inpatient Prescriptions: No Action venlafaxine 75 mg capsule,extended release 24hr 1 cap PO DAILY glipizide 10 mg tablet extended release 24hr 2 tab PO QAM venlafaxine 150 mg capsule,extended release 24hr 1 cap PO DAILY gabapentin 300 mg capsule 3 cap PO BEDTIME hydroxyzine HCl 25 mg tablet 1 tab PO BEDTIME PRN (Reason: insomnia) insulin aspart U-100 [Novolog FlexPen U-100 Insulin] 100 unit/mL (3 mL) insulin pen See Rx Instructions .ROUTE .COMPLEX Rx Instructions: Patient takes sliding scale but doesnt know scale rosuvastatin 5 mg tablet 1 tab PO DAILY bupropion HCl 300 mg tablet extended release 24 hr 1 tab PO DAILY Lantus Solostar U-100 Insulin 100 unit/mL (3 mL) insulin pen 60 unit subcut BID cefadroxil 500 mg capsule 500 mg PO BID 14 Days Qty: 28 0RF prednisone 20 mg tablet 20 mg PO DAILY 7 Days Qty: 7 0RF cephalexin 500 mg capsule 500 mg PO Q6H 7 Days Qty: 28 0RF doxycycline hyclate 100 mg tablet 100 mg PO BID 7 Days Qty: 14 0RF doxycycline hyclate 150 mg tablet 100 mg PO BID Qty: 14 0RF mupirocin 2 % ointment kit 1 appl topical TID Qty: 1 0RF Print Language: Serbian
[2024-03-01 19:35] VITALS: BP 134/86; PULSE 106; RESP 16; TEMP 37.7; O2SAT 100; BMI 41.5
[2024-03-01 20:41] LABS: MANUAL DIFF FLAG NO
[2024-03-01 20:42] LABS: Basophils Percent Auto 0.3 % (0-2); Eosinophils Percent Auto 0.4 % (0-4); Hematocrit 28.9 % (37.0-47.0); Hemoglobin 8.5 g/dl (12.0-16.0); Imm Gran Abs Auto 0.04 X10*3/uL (0.00-0.03); Imm Gran Pct Auto 0.4 % (0.0-0.4); Lymphocytes Absolute Auto 1.1 X10*3/uL (1.2-4.9); Lymphocytes Percent Auto 10.3 % (20-40); Mean Corpuscular HGB Conc 29.4 g/dl (31.0-35.0); Mean Corpuscular Hemoglobin 18.8 pg (27.0-33.0); Mean Corpuscular Volume 63.9 fL (80.0-98.0); Mean Platelet Volume 9.9 fL (9.4-12.3); Monocytes Percent Auto 9.4 % (2-11); Neutrophils Absolute Auto 8.5 x10*3/uL (2.0-8.3); Neutrophils Percent Auto 79.2 % (45-73); Platelet Count 251 X10*3/uL (160-400); Red Blood Count 4.52 X10*6/uL (4.20-5.50); Red Cell Distribution Width 16.7 % (11.0-16.0); White Blood Count 10.7 X10*3/uL (4.8-10.8)
[2024-03-01 20:47] LABS: Prothrombin Time 11.4 SEC (10.9-12.4)
[2024-03-01 21:04] LABS: Alanine Aminotransferase 19 U/L (0-31); Albumin Level 3.5 g/dL (3.5-5.0); Alkaline Phosphatase 79 U/L (39-117); Anion Gap 17 (12-20); Aspartate Amino Transferase 20 U/L (5-31); Bilirubin Total 0.5 mg/dL (0.0-1.0); Blood Urea Nitrogen 18 mg/dL (9-16); C Reactive Protein 21.52 mg/dL (< or = 0.50); Carbon Dioxide 21 mmol/L (22-29); Chloride 97 mmol/L (96-108); Creatinine Clr Calc Pharmacy 71.3; Estimated Glomerular Filt Rate 53; Glucose Random 392 mg/dL (60-115); Potassium 4.8 mmol/L (3.3-5.1); Sodium 130 mmol/L (135-145); Total Protein 7.3 g/dL (6.5-8.0)
[2024-03-01 21:09] LABS: Lactic Acid 2.8 mmol/L (0.5-2.0)
[2024-03-01 21:20] LABS: Erythrocyte Sedimentation Rate 74 MM/HR (0-20)
--- NOTE | 2024-03-01 21:47 | PC.NURSE ---
pt from home a&ox4, respirations even and unlabored. pt reporting onset of right foot cellulites, pt reports she has hx of this. pt reporting 10/10 right foot pain, radiating up the leg stopping at the knee. some redness noted. pt reports hx of diabetes but reports she is not always med compliant. 20G placed in right ac, aware of labs.
[2024-03-01 21:50] LABS: Glucose, Whole Blood 360 mg/dL (60-115)
[2024-03-01 22:05] VITALS: BP 120/67; PULSE 96; RESP 18; TEMP 37.1; O2SAT 100
[2024-03-01] MEDS: 0.9 % Sodium Chloride 1,000 ML 999 ML IVCONT (22:05)
[2024-03-01] MEDS: Piperacillin Sodium/Tazobactam 3.375 GM in 0.9 % Sodium Chloride 50 ML IV (22:05)
--- NOTE | 2024-03-01 22:09 | PC.NURSE ---
iv fluids administered and iv antibiotics started, per provider, no sepsis alert at this time.
--- NOTE | 2024-03-01 22:28 | PM.IMHP ---
History of Present Illness Date of Service: 03/01/24 Chief Complaint: Foot infection This is a 43-year-old female with pertinent history of insulin-dependent diabetes mellitus, mood disorder, mixed hyperlipidemia who presents to the emergency department for concerns of right foot infection. Patient states she started having right foot pain 3 days prior to presentation. It has been persistent and progressive. Also noticed erythema, warmth to the right foot. States she has had skin infection in the past but not this bad. On the day of presentation, noticed pus drainage between her 1st and 2nd toes of the right foot. Patient was evaluated by PCP who sent the patient to the ER for IV antibiotics. No fever, chills, chest pain, palpitations, shortness of breath, abdominal pain, changes in urinary or bowel habits. In the emergency department, POC 392, lactic acid 2.8, CRP 21.5 and ESR 70. Patient was initiated on IV vancomycin and Zosyn and hospital medicine team consulted for admission. Review of Systems Constitutional: Constitutional: Reports no additional constitutional complaints Cardiovascular: Cardiovascular: Reports no additional cardiovascular complaints Respiratory: Respiratory: Reports no additional respiratory complaints Gastrointestinal: Gastrointestinal: Reports no additional gastrointestinal complaints Genitourinary: Genitourinary: Reports no additional female genitourinary complaints [facility] Medical History Bacteremia Neuropathy Diabetes Pertinent family history: No family history of early CAD Social History Household Members: Family Housing: House Do you presently have visiting nurse or other home services: No Alcohol intake: current Alcohol intake frequency: 0-2 drinks per day Comment: 1:1 sitter for SI Patient Tobacco Use Status: Former Tobacco user Smoked in Last 30 Days: No Use of substances other than those prescribed or required for medical reasons: No Advance Directives: No Advance Directives Information Provided: Yes Do you have a plan to hurt others: No Plan Patient : No service: No Current occupational status: employed Meds Allergies Allergy/AdvReac Type Severity Reaction Status Date / Time No Known Allergies Allergy Verified 03/01/24 19:38 Active Medications: Current Medications Vancomycin HCl (Vancomycin/Ns) 2,000 mg in 500 mls @ 250 mls/hr IV ONCE ONE Stop: 03/01/24 23:51 Sodium Chloride (Ns) 1,000 mls @ 999 mls/hr IVCONT .Q1H1M ONE Stop: 03/01/24 22:52 Last Admin: 03/01/24 22:05 Dose: 999 mls/hr Home Medications ?Medication ?Instructions ?Recorded ?Confirmed ?Last Taken ?Type bupropion HCl 300 mg 24 hr tablet, 1 tab PO DAILY 07/04/21 07/04/21 07/03/21 History extended release gabapentin 300 mg capsule 3 cap PO BEDTIME 07/04/21 07/04/21 07/03/21 History glipizide 10 mg tablet, extended 2 tab PO QAM 07/04/21 07/04/21 07/03/21 History release 24 hr hydroxyzine HCl 25 mg tablet 1 tab PO BEDTIME PRN insomnia 07/04/21 07/04/21 07/03/21 History insulin aspart U-100 100 unit/mL See Rx Instructions .Route .COMPLEX 07/04/21 07/04/21 07/03/21 History (3 mL) subcutaneous pen (Novolog FlexPen U-100 Insulin aspart) insulin glargine 100 unit/mL (3 60 unit subcut BID 07/04/21 07/04/21 07/03/21 History mL) subcutaneous pen (Lantus Solostar U-100 Insulin) rosuvastatin 5 mg tablet 1 tab PO DAILY 07/04/21 07/04/21 07/03/21 History venlafaxine 150 mg 1 cap PO DAILY 07/04/21 07/04/21 07/03/21 History capsule,extended release 24 hr venlafaxine 75 mg capsule,extended 1 cap PO DAILY 07/04/21 07/04/21 07/03/21 History release 24 hr Physical Exam Vital Signs and Narrative: Vital Signs: Last Vital Signs Temp 98.8 F 03/01/24 22:05 Pulse 96 03/01/24 22:05 Resp 18 03/01/24 22:05 BP 120/67 03/01/24 22:05 Pulse Ox 100 03/01/24 22:05 O2 Del Method Room Air 03/01/24 22:05 BMI result Body Mass Index 41.5 Middle-aged female lying in bed in no distress Neck supple, no JVD Regular rate and rhythm, S1-S2 heard Regular breath sounds bilaterally, no wheezing or crackles appreciated Abdomen soft nontender, no guarding, no rigidity Patient is awake, alert and oriented to self, place, time and person ; no focal motor deficit Psych: Normal mood Right foot with erythema, warmth and tenderness Results Labs 03/01/24 20:34 03/01/24 20:34 Labs: Laboratory Results - last 24 hr 03/01/24 03/01/24 20:34 21:44 MCV 63.9 L MCH 18.8 L MCHC 29.4 L RDW 16.7 H Plt Count 251 MPV 9.9 Immature Gran % (Auto) 0.4 Neut % (Auto) 79.2 H Lymph % (Auto) 10.3 L [place] % (Auto) 9.4 Eos % (Auto) 0.4 Baso % (Auto) 0.3 Lymph # (Auto) 1.1 L [place] # (Auto) 1.0 Eos # (Auto) 0.0 Baso # (Auto) 0.0 Abs Immat Gran (auto) 0.04 H Absolute Neuts (auto) 8.5 H Absolute Nucleated RBC 0.000 Nucleated RBC % (auto) 0.0 ESR 74 H PT 11.4 INR 1.0 Anion Gap 17 Estim Creat Clear Calc 71.3 Estimated GFR 53 POC Glucose 360 H* Random Glucose 392 H* Lactic Acid 2.8 H* Calcium 9.0 D Total Bilirubin 0.5 AST 20 ALT 19 Alkaline Phosphatase 79 C-Reactive Protein 21.52 H Total Protein 7.3 Albumin 3.5 Imaging Radiologist's Impressions: Impressions Venous Duplex 03/01/24 19:56 IMPRESSION: No evidence of deep venous thrombosis involving the right lower extremity. Electronically signed by: Bartolome Zapien DO 03/01/2024 09:39 PM [facility] Assessment and Plan (1) Cellulitis of right foot: Status: Acute Plan This is a 43-year-old female with pertinent history of insulin-dependent diabetes mellitus, mood disorder, mixed hyperlipidemia who presents to the emergency department for concerns of right foot infection. #. Right foot cellulitis: Will admit patient with IV antibiotics due to extensive cellulitis. Initiated IV vancomycin and Zosyn. X-ray pending. #. Insulin-dependent diabetes mellitus with hyperglycemia: Initiating basal plus insulin regimen. #. Acute lactic acidosis. No sepsis #. Microcytic anemia: Obtaining iron panel #. Mood disorder: Continue home mood stabilizers #. Mixed hyperlipidemia: On statin Med rec pending DVT prophylaxis: Lovenox Full code Admit as inpatient and will require two night minimum hospital stay for IV antibiotics (as above), which is not possible in a lesser acute setting. Quality Stroke Does the patient have a stroke diagnosis?: No VTE Prior VTE?: No VTE Risk Level:: Medical - moderate - high VTE Device Contraindication: Treatment Not Indicated VTE Drug Contraindication: N/A - Med Ordered
[2024-03-01] MEDS: Enoxaparin Sodium 40 MG/0.4 ML SYRINGE SUBCUT (22:44)
[2024-03-01] MEDS: Insulin Glargine,Hum.rec.anlog 100 UNIT/ML 10 ML VIAL 48 UNIT SUBCUT (22:44)
[2024-03-01 22:45] LABS: Reflex Lactate? Lactic Acid Added
[2024-03-01] MEDS: vancomycin/NS 2,000 MG/500 ML PLAST..BAG 250 MG IV (22:45)
[2024-03-01 23:19] VITALS: BP 127/69; PULSE 96; RESP 16; TEMP 37.3; O2SAT 96
[2024-03-01 23:32] LABS: ~Lactic Acid-LAB USE ONLY 0.7 mmol/L (0.5-2.0)
--- NOTE | 2024-03-02 00:39 | PC.NURSE ---
pt noted to desat to 81% while sleeping, pt placed on 2L nasal cannula and woken up, pt sating 98%. dr.vali wallace.
[2024-03-02 01:28] VITALS: BMI 42.6
[2024-03-02 01:49] VITALS: BP 128/75; PULSE 87; RESP 20; TEMP 37.1; O2SAT 96
[2024-03-02 03:58] VITALS: BP 114/60; PULSE 86; RESP 20; TEMP 36.9
[2024-03-02] MEDS: Piperacillin Sodium/Tazobactam 3.375 GM in 0.9 % Sodium Chloride 50 ML IV ×4 (05:00→21:10)
[2024-03-02] MEDS: Acetaminophen 325 MG TABLET 650 MG PO (06:12)
[2024-03-02 07:00] LABS: MANUAL DIFF FLAG NO
[2024-03-02 07:10] LABS: Basophils Percent Auto 0.3 % (0-2); Eosinophils Absolute Auto 0.1 X10*3/uL (0.0-0.4); Eosinophils Percent Auto 0.8 % (0-4); Hematocrit 25.8 % (37.0-47.0); Hemoglobin 7.4 g/dl (12.0-16.0); Imm Gran Abs Auto 0.05 X10*3/uL (0.00-0.03); Imm Gran Pct Auto 0.7 % (0.0-0.4); Lymphocytes Absolute Auto 0.8 X10*3/uL (1.2-4.9); Lymphocytes Percent Auto 9.9 % (20-40); Mean Corpuscular HGB Conc 28.7 g/dl (31.0-35.0); Mean Corpuscular Hemoglobin 18.5 pg (27.0-33.0); Monocytes Absolute Auto 0.9 X10*3/uL (0.1-1.2); Monocytes Percent Auto 11.9 % (2-11); Neutrophils Absolute Auto 5.8 x10*3/uL (2.0-8.3); Neutrophils Percent Auto 76.4 % (45-73); Platelet Count 208 X10*3/uL (160-400); Red Cell Distribution Width 16.5 % (11.0-16.0); White Blood Count 7.6 X10*3/uL (4.8-10.8)
[2024-03-02 07:13] VITALS: BP 119/60; PULSE 80; RESP 18; TEMP 36.2; O2SAT 96
[2024-03-02 07:16] LABS: Anion Gap 14 (12-20); Blood Urea Nitrogen 13 mg/dL (9-16); Calcium 8.1 mg/dL (8.4-10.2); Carbon Dioxide 21 mmol/L (22-29); Chloride 103 mmol/L (96-108); Creatinine Clr Calc Pharmacy 73.7; Estimated Glomerular Filt Rate 54; Glucose Random 335 mg/dL (60-115); Iron 7 mcg/dL (30-160); Percent Iron Saturation 3 % (15-50); Potassium 4.1 mmol/L (3.3-5.1); Sodium 134 mmol/L (135-145); Total Iron Binding Capacity 233 mcg/dL (228-428); Unsaturated Iron Binding 226 ug/dL
[2024-03-02 07:23] LABS: Mean Corpuscular Volume 64.5 fL (80.0-98.0)
[2024-03-02 07:32] LABS: Glucose, Whole Blood 299 mg/dL (60-115)
--- NOTE | 2024-03-02 07:38 | HO.PM.IMPN ---
Subjective Subjective Date of Service: 03/02/24 Review of Systems Follow up cellulitis to right foot feeling better no fever, chills Physical Exam Vital Signs: Vital Signs: Last Vital Signs Temp 97.2 F 03/02/24 07:13 Pulse 80 03/02/24 07:13 Resp 18 03/02/24 07:13 BP 119/60 03/02/24 07:13 Pulse Ox 96 03/02/24 07:13 O2 Del Method Room Air 03/02/24 07:13 BMI result Body Mass Index 42.6 Appearing in no acute distress lung sounds are clear to auscultation heart regular rate rhythm, clear S1, S2 positive bowel sounds, abdomen is soft, nontender neuro patient is alert x3, no focal deficits Objective Data Active Medications Acetaminophen (Acetaminophen 325 Mg Tablet) 650 mg PO Q6H PRN PRN Reason: Pain, Mild (Pain Scale 1-3), fever or headache Last Admin: 03/02/24 06:12 Dose: 650 mg Documented By: JAZZY Calcium Carbonate (Calcium Carbonate 750 Mg Tab.Chew) 750 mg PO Q4H PRN PRN Reason: Heartburn Enoxaparin Sodium (Enoxaparin Sodium 40 Mg/0.4 Ml Syringe) 40 mg SUBCUT Q24H [facility] Last Admin: 03/01/24 22:44 Dose: 40 mg Documented By: MIRIAM Glucose (Glucose Gel 15 Gm Gel..Gram.) 15 gm PO Q15M PRN; Protocol PRN Reason: per Hypoglycemia Standing Ord. Dextrose (D10) 250 mls @ 750 mls/hr IV Q15M PRN; Protocol PRN Reason: per Hypoglycemia Standing Ord. Piperacillin Sod/Tazobactam (Sod 3.375 gm/ Sodium Chloride) 50 mls @ 100 mls/hr IV Q6H [facility] Last Infusion: 03/02/24 05:30 Dose: Infused Documented By: JAZZY Vancomycin HCl 750 mg/ Sodium (Chloride) 265 mls @ 265 mls/hr IV Q12H [facility] Influenza Virus Vaccine (Flu Vacc [id number](6mos Up)/Pf 0.5 Ml Syringe) 0.5 ml IM .ONCE ONE Stop: 03/02/24 08:01 Insulin Glargine (Insulin Glargine,Hum.Rec.Anlog 100 Unit/Ml 10 Ml Vial) 48 unit SUBCUT BEDTIME [facility] Last Admin: 03/01/24 22:44 Dose: 48 unit Documented By: MIRIAM Insulin Human Lispro (Insulin Lispro 100 Unit/Ml 3 Ml Vial) 0 unit SUBCUT QIDACHS [facility]; Protocol Magnesium Hydroxide (Milk Of Magnesia 30 Ml Oral.Susp) 30 ml PO DAILY PRN PRN Reason: Constipation Melatonin (Melatonin 3 Mg Tablet) 6 mg PO BEDTIME PRN PRN Reason: Insomnia Ondansetron HCl (Ondansetron Hcl 4 Mg/2 Ml Vial) 4 mg IVPUSH Q8H PRN PRN Reason: Nausea and Vomiting Pharmacy Consult (Consult Rx Vancomycin Dosing) 1 each MISCELLANE DAILY PRN PRN Reason: Consult order Sodium Chloride (0.9 % Sodium Chloride Flush 3 Ml Syringe) 3 ml IVFLUSH QSHIFT [facility] Last Admin: 03/02/24 00:06 Dose: Not Given Documented By: MIRIAM Non-Admin Reason: IV Running Labs 03/02/24 06:36 03/02/24 06:36 Labs: Laboratory Results - last 24 hr 03/01/24 03/01/24 03/01/24 20:34 21:44 23:13 MCV 63.9 L MCH 18.8 L MCHC 29.4 L RDW 16.7 H Plt Count 251 MPV 9.9 Immature Gran % (Auto) 0.4 Neut % (Auto) 79.2 H Lymph % (Auto) 10.3 L [place] % (Auto) 9.4 Eos % (Auto) 0.4 Baso % (Auto) 0.3 Lymph # (Auto) 1.1 L [place] # (Auto) 1.0 Eos # (Auto) 0.0 Baso # (Auto) 0.0 Abs Immat Gran (auto) 0.04 H Absolute Neuts (auto) 8.5 H Absolute Nucleated RBC 0.000 Nucleated RBC % (auto) 0.0 ESR 74 H PT 11.4 INR 1.0 Anion Gap 17 Estim Creat Clear Calc 71.3 Estimated GFR 53 POC Glucose 360 H* Random Glucose 392 H* Lactic Acid 2.8 H* Lactic Acid F/U @ 2Hr 0.7 Calcium 9.0 D Iron TIBC % Saturation Unsat Iron Binding Total Bilirubin 0.5 AST 20 ALT 19 Alkaline Phosphatase 79 C-Reactive Protein 21.52 H Total Protein 7.3 Albumin 3.5 03/02/24 03/02/24 06:36 07:09 MCV 64.5 L MCH 18.5 L MCHC 28.7 L RDW 16.5 H Plt Count 208 MPV 10.0 Immature Gran % (Auto) 0.7 H Neut % (Auto) 76.4 H Lymph % (Auto) 9.9 L [place] % (Auto) 11.9 H Eos % (Auto) 0.8 Baso % (Auto) 0.3 Lymph # (Auto) 0.8 L [place] # (Auto) 0.9 Eos # (Auto) 0.1 Baso # (Auto) 0.0 Abs Immat Gran (auto) 0.05 H Absolute Neuts (auto) 5.8 Absolute Nucleated RBC 0.000 Nucleated RBC % (auto) 0.0 ESR PT INR Anion Gap 14 Estim Creat Clear Calc 73.7 Estimated GFR 54 POC Glucose 299 H Random Glucose 335 H Lactic Acid Lactic Acid F/U @ 2Hr Calcium 8.1 L D Iron 7 L TIBC 233 % Saturation 3 L Unsat Iron Binding 226 Total Bilirubin AST ALT Alkaline Phosphatase C-Reactive Protein Total Protein Albumin Assessment and Plan (1) Cellulitis of right foot: Status: Acute Plan 43-year-old female with pertinent history of insulin-dependent diabetes mellitus, mood disorder, mixed hyperlipidemia who presents to the emergency department for concerns of right foot infection. Right foot cellulitis IV antibiotics due to extensive cellulitis. IV vancomycin and Zosyn. X-ray neg for osteo Microcytic anemia no active bleeding low HH iron 7/TIBC 233/% 3 IV iron for 3 days check stool occult Insulin-dependent diabetes mellitus 2 with hyperglycemia Initiating basal plus insulin regimen. Acute lactic acidosis. No sepsis Mood disorder Continue home mood stabilizers Mixed hyperlipidemia On statin Morbid obesity. BMI 42.6 Weight management DVT prophylaxis: Lovenox Full code Quality Stroke Does the patient have a stroke diagnosis?: No VTE Prior VTE?: No VTE Risk Level:: Medical - moderate - high VTE Device Contraindication: Treatment Not Indicated VTE Drug Contraindication: N/A - Med Ordered
[2024-03-02] MEDS: Insulin Lispro 100 UNIT/ML 3 ML VIAL SUBCUT ×4 (08:16→21:16)
[2024-03-02] MEDS: Iron Sucrose Complex 200 MG/10 ML VIAL IVPUSH (08:16)
[2024-03-02] MEDS: 0.9 % Sodium Chloride Flush 3 ML SYRINGE IVFLUSH ×2 (08:19→21:19)
--- NOTE | 2024-03-02 09:31 | MHC.CM.PN ---
CM met with Patient at bedside. Patient lives in a house with her 2 children ages 12 & 17 years of age. Patient's car([employer]) has been parked in front of the ED and per her request, CM has informed Security.? Home with IV ABT R/T (R) Foot Infection, CM has initiated and will follow for dc planning. PCP is Dr. Maddison Floyd and Patient's Mother/Ya and Sister are the HCPs.
--- NOTE | 2024-03-02 09:54 | PHA.MEDREC ---
Addendum entered by Cass Burgos RPh 03/02/24 10:02: Reviewed by [facility] Original Note: Pharmacy Consult ? Medication Reconciliation Pharmacy has completed the medication reconciliation. Spoke with patient to confirm. SHE HAS NOT TAKEN ANY OF HER MEDICATIONS FOR A FEW WEEKS. She reports she has lantus and lispro at home however [facility] pharmacy reported she has not picked up lantus since 2021 and lispro since 2022. Leaving off of med rec. When she does take her medications, she takes 3 caps of the 300 mg gabapentin at bedtime, she takes 150 mg + 75 mg of venlafaxine at bedtime, and only takes one tablet of the glipizide in the morning. Hospitalist is aware.
[2024-03-02 11:16] LABS: Glucose, Whole Blood 326 mg/dL (60-115)
[2024-03-02] MEDS: vancomycin HCL 750 MG in 0.9 % Sodium Chloride 250 ML 265 MG IV ×2 (11:23→22:52)
[2024-03-02 15:11] VITALS: BP 134/60; PULSE 84; RESP 20; TEMP 36.8; O2SAT 97
[2024-03-02 16:06] LABS: Glucose, Whole Blood 334 mg/dL (60-115)
[2024-03-02 19:41] VITALS: BP 124/61; PULSE 97; RESP 20; TEMP 37.1; O2SAT 94
[2024-03-02 20:35] LABS: Glucose, Whole Blood 344 mg/dL (60-115)
[2024-03-02] MEDS: Insulin Glargine,Hum.rec.anlog 100 UNIT/ML 10 ML VIAL 48 UNIT SUBCUT (21:10)
[2024-03-02 21:32] LABS: Vancomycin Random 9.4 mcg/mL (15-20)
[2024-03-02] MEDS: Enoxaparin Sodium 40 MG/0.4 ML SYRINGE SUBCUT (22:53)
[2024-03-03] MEDS: Piperacillin Sodium/Tazobactam 3.375 GM in 0.9 % Sodium Chloride 50 ML IV ×2 (04:02→14:15)
[2024-03-03 07:20] LABS: Glucose, Whole Blood 217 mg/dL (60-115)
[2024-03-03 07:24] LABS: Estimated Glomerular Filt Rate > 60
[2024-03-03 07:28] LABS: Mean Corpuscular Hemoglobin 18.4 pg (27.0-33.0); Mean Corpuscular Volume 65.8 fL (80.0-98.0); Mean Platelet Volume 9.8 fL (9.4-12.3); Platelet Count 227 X10*3/uL (160-400); Red Cell Distribution Width 16.8 % (11.0-16.0); White Blood Count 7.5 X10*3/uL (4.8-10.8)
[2024-03-03 08:00] VITALS: BP 110/64; PULSE 82; RESP 20; TEMP 36.9; O2SAT 96
[2024-03-03] MEDS: 0.9 % Sodium Chloride Flush 3 ML SYRINGE IVFLUSH (08:29)
[2024-03-03] MEDS: Insulin Lispro 100 UNIT/ML 3 ML VIAL SUBCUT ×3 (08:29→11:57)
[2024-03-03] MEDS: Iron Sucrose Complex 200 MG/10 ML VIAL IVPUSH (08:29)
[2024-03-03 09:55] VITALS: BP 126/58; PULSE 81; RESP 20; TEMP 37.1; O2SAT 96
[2024-03-03] MEDS: Gabapentin 300 MG CAPSULE 900 MG PO (09:56)
[2024-03-03 09:57] VITALS: BP 126/58; PULSE 81; RESP 20; TEMP 37.1
[2024-03-03 10:16] VITALS: BP 119/63; PULSE 80; RESP 18; TEMP 36.9
[2024-03-03 11:12] LABS: Glucose, Whole Blood 254 mg/dL (60-115)
--- NOTE | 2024-03-03 11:23 | PM.DS ---
DS: Providers Provider Date of Service: 03/03/24 Date of admission: 03/01/24 22:26 Primary care physician: Maddison Floyd NP Consults: 03/02/24 01:53 Consult to Wound Care Routine Reason for consultation: between Great and second toe open slit, Under great toe flat blister 03/03/24 07:55 Consult to Hematology / Oncology Routine Consulting Provider: [facility] [place] Reason for consultation: anemia DS: Diagnosis Discharge Diagnosis (1) Cellulitis of right foot: Status: Acute DS: Summary Hospital Course Hospital Course: History and physical as per admitting provider. This is a 43-year-old female with pertinent history of insulin-dependent diabetes mellitus, mood disorder, mixed hyperlipidemia who presents to the emergency department for concerns of right foot infection. Patient states she started having right foot pain 3 days prior to presentation. It has been persistent and progressive. Also noticed erythema, warmth to the right foot. States she has had skin infection in the past but not this bad. On the day of presentation, noticed pus drainage between her 1st and 2nd toes of the right foot. Patient was evaluated by PCP who sent the patient to the ER for IV antibiotics. No fever, chills, chest pain, palpitations, shortness of breath, abdominal pain, changes in urinary or bowel habits. In the emergency department, POC 392, lactic acid 2.8, CRP 21.5 and ESR 70. Patient was initiated on IV vancomycin and Zosyn and hospital medicine team consulted for admission. Right foot cellulitis. IV antibiotics due to extensive cellulitis. Treated with IV vancomycin and Zosyn. X-ray neg for osteo. Home with doxycycline and Augmentin to complete 10 day treatment Microcytic anemia. no active bleeding. iron 7/TIBC 233/% 3. IV iron ordered x2 doses. tx 1 unit PRBC. Patient will start on oral iron, increased fiber or start on stool softeners to avoid constipation. Follow up with Hematology for further workup for anemia. Check CBC in 1 week Insulin-dependent diabetes mellitus 2 with hyperglycemia. continue home medications Acute lactic acidosis. No sepsis Mood disorder. Continue home mood stabilizers Mixed hyperlipidemia. On statin Morbid obesity. BMI 42.6. Weight management Time Attestation Discharge Coordination Time (in mins): 42 Quality: Safe Use of Opioids Does Pt have an Active Cancer Diagnosis on the Problem List?: No Quality: Stroke Does the patient have a stroke diagnosis?: No Physical Exam Vital Signs: Vital Signs: Last Vital Signs Temp 98.4 F 03/03/24 10:16 Pulse 80 03/03/24 10:16 Resp 18 03/03/24 10:16 BP 119/63 03/03/24 10:16 Pulse Ox 96 03/03/24 09:55 O2 Del Method Room Air 03/03/24 09:55 BMI result Body Mass Index 42.6 Appearing in no acute distress head is normocephalic atraumatic eyes pupils are PERRLA sclera is anicteric mouth throat mucous membranes are intact and moist neck is supple no lymphadenopathy, no JVD noted lung sounds are clear to auscultation heart regular rate rhythm, clear S1, S2 positive bowel sounds, abdomen is soft, nontender neuro patient is alert x3, no focal deficits DS: Data Data Completed and Pending Labs on day of discharge: Laboratory Results - last 24 hr 03/02/24 03/02/24 03/02/24 15:59 20:29 21:03 WBC RBC Hgb Hct MCV MCH MCHC RDW Plt Count MPV Absolute Nucleated RBC Nucleated RBC % (auto) Creatinine Estim Creat Clear Calc Estimated GFR POC Glucose 334 H 344 H Random Vancomycin 9.4 L Blood Type Antibody Screen Crossmatch 03/03/24 03/03/24 03/03/24 07:01 07:13 08:35 WBC 7.5 RBC 3.80 L Hgb 7.0 L* Hct 25.0 L MCV 65.8 L MCH 18.4 L MCHC 28.0 L RDW 16.8 H Plt Count 227 MPV 9.8 Absolute Nucleated RBC 0.000 Nucleated RBC % (auto) 0.0 Creatinine 0.81 Estim Creat Clear Calc 100.0 Estimated GFR > 60 POC Glucose 217 H Random Vancomycin Blood Type A Negative Antibody Screen NEGATIVE Crossmatch See Detail 03/03/24 11:07 WBC RBC Hgb Hct MCV MCH MCHC RDW Plt Count MPV Absolute Nucleated RBC Nucleated RBC % (auto) Creatinine Estim Creat Clear Calc Estimated GFR POC Glucose 254 H Random Vancomycin Blood Type Antibody Screen Crossmatch Preliminary micro results at discharge 03/01/24 20:42 Blood Culture - Preliminary Blood - Venous No growth after 24 hours. 03/01/24 20:34 Blood Culture - Preliminary Blood - Venous No growth after 24 hours. Discharge Plan Discharge Anticipated Discharge Date/Time: 03/03/24 14:25 Patient Disposition: Home, Self-Care Discharge Diagnosis: Right foot cellulitis Iron-deficiency anemia Referrals: Maddison Floyd NP [Primary Care Provider] - 1 Week Sanjiv Boss MD [Physician] - None Discharge Medications: New ferrous sulfate 324 mg (65 mg iron) tablet,delayed release (DR/EC) 324 mg PO DAILY Qty: 30 0RF doxycycline hyclate 100 mg tablet 100 mg PO BID Qty: 16 0RF amoxicillin-pot clavulanate 875-125 mg tablet 1 tab PO BID Qty: 16 0RF oxycodone 5 mg tablet 5 mg PO Q8H PRN (Reason: pain) Qty: 6 0RF Rx Instructions: Partial Fill upon patient request. Continued venlafaxine 75 mg capsule,extended release 24hr 1 cap PO BEDTIME glipizide 10 mg tablet extended release 24hr 1 tab PO DAILY venlafaxine 150 mg capsule,extended release 24hr 1 cap PO BEDTIME gabapentin 300 mg capsule 3 cap PO BEDTIME rosuvastatin 5 mg tablet 1 tab PO BEDTIME acetaminophen 325 mg tablet 650 mg PO TID PRN (Reason: Pain) clobetasol 0.05 % ointment 1 appl topical DAILY PRN (Reason: Rash) Discharge Orders: Discharge Order (Routine); Ordered 03/03/24 Ordered By: Kaye Burgos Diet: Advance to usual diet Activity on Discharge: As tolerated Stand Alone Forms: Patient Portal Discharge page, Work/School Release Print Language: Armenian Other Ambulatory Orders: Complete Blood Count no Diff (Routine) Timeframe: 1 Week Facility: [facility] - Location: Laboratory Ordered By: Kaye Burgos Care Plan Goals: Follow up with hematology as needed for further workup of anemia may use ice and heat alternated to help with pain and swelling of right foot avoid walking barefoot Keep feet moisturized to avoid dryness and cracking that can introduce bacteria take a stool softener or increase fiver in diet to avoid constipation with iron supplement Health Concerns: Right lower extremity cellulitis Iron-deficiency anemia Plan of Treatment: Follow-up with primary care provider as needed Take all medications as prescribed Assessment: See discharge summary Patient Instructions: Cellulitis (DC), Anemia (DC)
[2024-03-03 14:15] LABS: Hematocrit 27.5 % (37.0-47.0); Hemoglobin 8.1 g/dl (12.0-16.0)
[2024-03-03 14:26] VITALS: BP 135/73; PULSE 88; RESP 16; TEMP 36.9
--- NOTE | 2024-03-03 14:48 | MHC.CM.PN ---
Patient has been medically cleared for dc to home today, self care.
[2024-03-03] MEDS: vancomycin HCL 750 MG in 0.9 % Sodium Chloride 250 ML 265 MG IV (15:13)
== END 2024-03-03 17:59 | disposition home or self-care (01) | DRG 383 ==
LOC: HO.ED 03-02 00:03 → HO.EDOVER 03-02 00:16 → HO.IMC 03-02 00:39
PROVIDERS: Registered Nurse Emergency; Admitting Provider Student in an Organized Health Care Education/Training Program; Emergency Provider Emergency Medicine; PCP Nurse Practitioner Adult Health; Visit Provider Nurse Practitioner Acute Care
DX: L03.115 Cellulitis of right lower limb (principal); E87.21 Acute metabolic acidosis; E11.40 Type 2 diabetes mellitus with diabetic neuropathy, unspecified; D50.9 Iron deficiency anemia, unspecified; E11.65 Type 2 diabetes mellitus with hyperglycemia; E66.01 Morbid (severe) obesity due to excess calories; E78.2 Mixed hyperlipidemia; Z79.84 Long term (current) use of oral hypoglycemic drugs; Z79.899 Other long term (current) drug therapy; Z68.41 Body mass index [BMI] 40.0-44.9, adult
CPT/HCPCS: 36415; 73630; 80048; 80053; 80202; 82565; 82947; 83540; 83605; 85014; 85018; 85025; 85027; 85610; 85652; 86140; 86850; 86900; 86901; 86923; 87040; 93971; 99222; 99285; J1650; J1756; J2543; J3370; P9016

== ENCOUNTER → 2024-03-01 20:25 | Outpatient (BNV) | payer OTHER, SELFPAY | PROVIDERS: Emergency Provider Emergency Medicine; PCP Nurse Practitioner Adult Health; Visit Provider Student in an Organized Health Care Education/Training Program | DX: L03.115 Cellulitis of right lower limb (principal); E11.65 Type 2 diabetes mellitus with hyperglycemia; E87.21 Acute metabolic acidosis; D50.9 Iron deficiency anemia, unspecified | CPT/HCPCS: 99222; 99232 ==

== ENCOUNTER 2024-03-19 18:21 | Inpatient (IN) | payer OTHER, SELFPAY ==
--- NOTE | ~2024-03-19 | MR_ITS ---
EXAMINATION: MR FOOT WITHOUT THEN WITH IV CONTRAST RIGHT HISTORY: Right foot wound. Evaluate for osteomyelitis. TECHNIQUE: Sagittal and axial T1 and STIR coronal STIR, and axial fat-suppressed T1 weighted MR images of the right forefoot were obtained. Subsequently, axial and sagittal fat-suppressed T1-weighted images were obtained after the intravenous administration of 10 mL Gadavist. COMPARISON: Correlation is made to plain films of the right foot dated 03/19/2024. FINDINGS: There is a soft tissue defect at the plantar aspect of the foot between the 1st and 2nd toes. Communicating with this defect, there is a rim-enhancing fluid collection measuring 4.7 x 2.7 x 1.2 cm in greatest dimension, compatible with abscess. Bone marrow signal intensity is normal. There is no marrow edema or osseous destruction to suggest osteomyelitis. There is diffuse skin and subcutaneous edema compatible with cellulitis. No tendon or ligamentous abnormality is seen. MR/MR foot RT wo/w con IMPRESSION: Soft tissue defect at the plantar aspect of the foot between the 1st and 2nd toes in communication with a 4.2 x 2.7 x 1.2 cm fluid collection, compatible with an abscess. No evidence of osteomyelitis. Electronically signed by: Wm Owen MD 03/20/2024 02:43 PM [facility]
--- NOTE | ~2024-03-19 | XR_ITS ---
CLINICAL HISTORY: Right foot wound. osteomyelitits? 3 view right foot Comparison: None Findings: Bones intact. No dislocations. Periarticular osteophyte formation at the tibiotalar, talonavicular, naviculocuneiform, and subtalar joints. Calcaneal spurring. No ankle effusion. No radiopaque foreign body. IMPRESSION: 1. No acute findings. This document has been electronically signed by: Ruby Mast MD on 03/19/2024 20:35:47
[2024-03-19 19:06] VITALS: BP 162/86; PULSE 89; RESP 18; TEMP 36.3; O2SAT 98; BMI 42.7
--- NOTE | 2024-03-19 19:13 | ED_ITS ---
HPI - General Adult General Chief complaint: Wound/Laceration Stated complaint: Ulcer, sent by PCP Time Seen by Provider: 03/19/24 21:23 Source: patient Mode of arrival: ambulatory Limitations: no limitations History of Present Illness ED Provider: HPI narrative: Patient is diabetic with nonhealing wound of the right foot for 2 weeks was admitted here on 03/01 and discharged on 03/03 on Augmentin and doxycycline comes here as wound is not healing does have foul odor smell and pus discharge wound is located between the 1st and 2nd toe patient's blood sugar been uncontrolled lately patient's patient is on oral hypoglycemic denied any fever or chills Related Data Home Medications ?Medication ?Instructions ?Recorded ?Confirmed gabapentin 300 mg capsule 3 cap PO BEDTIME 07/04/21 03/02/24 glipizide 10 mg tablet, extended 1 tab PO DAILY 07/04/21 03/02/24 release 24 hr rosuvastatin 5 mg tablet 1 tab PO BEDTIME 07/04/21 03/02/24 venlafaxine 150 mg 1 cap PO BEDTIME 07/04/21 03/02/24 capsule,extended release 24 hr venlafaxine 75 mg capsule,extended 1 cap PO BEDTIME 07/04/21 03/02/24 release 24 hr acetaminophen 325 mg tablet 650 mg PO TID PRN Pain 03/02/24 03/02/24 clobetasol 0.05 % topical ointment 1 appl topical DAILY PRN Rash 03/02/24 03/02/24 Previous Rx's ?Medication ?Instructions ?Recorded amoxicillin 875 mg-potassium 1 tab PO BID #16 tabs 03/03/24 clavulanate 125 mg tablet doxycycline hyclate 100 mg tablet 100 mg PO BID #16 tabs 03/03/24 ferrous sulfate 324 mg (65 mg 324 mg PO DAILY #30 tabs 03/03/24 iron) tablet,delayed release oxycodone 5 mg tablet 5 mg PO Q8H PRN pain #6 tabs 03/03/24 Allergies Allergy/AdvReac Type Severity Reaction Status Date / Time No Known Allergies Allergy Verified 03/19/24 19:09 Review of Systems 2 Review of Systems: Yes all other systems are reviewed and are negative PMFSH Past Medical History Medical History Anemia Bacteremia Neuropathy Diabetes Surgical History History of laparoscopic cholecystectomy Social History Social History Household Members: Children Housing: House Do you presently have visiting nurse or other home services: No Alcohol intake: current Alcohol intake frequency: does not drink Comment: refuses to put nonskid socks Patient Tobacco Use Status: Former Tobacco user Smoked in Last 30 Days: No Second Hand Smoke Exposure: No Use of substances other than those prescribed or required for medical reasons: No Advance Directives: No Advance Directives Information Provided: No Do you have a plan to hurt others: No Plan service: No Current occupational status: employed Physical Exam ED Vital Signs: Vital Signs - 24 hr 03/19/24 19:06 03/19/24 21:13 03/20/24 01:08 Temperature 97.3 F 98.5 F 98.2 F Pulse Rate 89 86 77 Respiratory Rate 18 18 16 Blood Pressure 162/86 H 153/80 H 147/87 H Pulse Oximetry 98 96 97 Oxygen Delivery Method Room Air Room Air Room Air BMI result Body Mass Index 42.7 Appearance: Alert. Oriented X3. No acute distress. Eyes: PERRLA, No Nystagmus ENT: Pharynx normal. Oral Mucosa moist Neck: Normal inspection. Neck supple. CVS: Normal heart rate and rhythm. Pulses normal. Respiratory: No respiratory distress. Equal air entry bilateral, no wheezing/rales/rhonchi Abdomen: Soft and nontender. Bowel sounds are present, no mass palpable, no CVA tenderness Skin: Skin warm and dry. Normal skin color. Normal skin turgor. Extremities: No lower extremity edema. No calf tenderness fall odor smell routine right 1st and 2nd with a wound between and at the base of greater toe picture has a touch Neuro: Oriented X 3. No motor deficit. No sensory deficit.No cerebellar signs , cranial nerves II-XII intact Course Course Course Narrative: RME: 43 yold female present so the ED for infected right foot wound. patient states ulcer not healing. labs xray ordered Medications Administered Generic Name Dose Route Start Last Admin Trade Name Freq PRN Reason Stop Dose Admin Enoxaparin Sodium 40 mg 03/20/24 02:00 03/20/24 02:40 Enoxaparin Sodium 40 Mg/0.4 Ml Syringe SUBCUT 40 mg Q24H ALEXUS Administration Piperacillin Sod/Tazobactam 50 mls @ 100 mls/hr 03/20/24 05:30 03/20/24 06:21 Sod 3.375 gm/ Sodium Chloride IV 100 mls/hr Q6H ALEXUS Administration Discontinued Medications Generic Name Dose Route Start Last Admin Trade Name Freq PRN Reason Stop Dose Admin Sodium Chloride 1,000 mls @ 999 mls/hr 03/19/24 21:48 03/19/24 23:45 Ns IV 03/19/24 22:48 Infused .Q1H1M ONE Infusion Vancomycin HCl 2,000 mg in 500 mls @ 250 mls/hr 03/19/24 21:48 03/20/24 01:00 Vancomycin/Ns IV 03/19/24 23:47 Infused ONCE ONE Infusion Piperacillin Sod/Tazobactam 50 mls @ 100 mls/hr 03/19/24 21:48 03/19/24 22:35 Sod 3.375 gm/ Sodium Chloride IV 03/19/24 22:17 Infused ONCE ONE Infusion Insulin Glargine 48 unit 03/20/24 02:24 03/20/24 02:39 Insulin Glargine,Hum.Rec.Anlog 100 Unit/Ml 10 Ml Vial SUBCUT 03/20/24 02:25 48 unit ONCE ONE Administration Insulin Human Lispro 12 unit 03/19/24 21:48 03/19/24 22:06 Insulin Lispro 100 Unit/Ml 3 Ml Vial SUBCUT 03/19/24 21:49 12 unit ONCE ONE Administration Medical Decision Making Medical Decision Making [facility] Narrative: Patient clinically with osteomyelitis with swelling of the 1st metatarsal around with a deeper wound in between 1st and 2nd will admit patient for IV antibiotic plan for MRI and further evaluation Differential Diagnosis Differential Diagnoses: The differential diagnosis associated with the presentation includes Cellulitis/superficial wounds/osteomyelitis Admission/Observation Consideration of admission/observation: Escalation of care including admission/observation considered Consult Healthcare Provider Management of the patient was discussed with: Hospitalist Lab Data [facility] Lab Attestation statement: I reviewed the patient's lab results. 03/20/24 04:47 03/20/24 04:47 Labs: Lab Results 03/19/24 Range/Units 19:58 WBC 6.2 (4.8-10.8) X10*3/uL RBC 5.17 D (4.20-5.50) X10*6/uL Hgb 10.7 L D (12.0-16.0) g/dl Hct 36.3 L D (37.0-47.0) % MCV 70.2 L (80.0-98.0) fL MCH 20.7 L (27.0-33.0) pg MCHC 29.5 L (31.0-35.0) g/dl RDW 23.6 H (11.0-16.0) % Plt Count 393 D (160-400) X10*3/uL MPV 10.1 (9.4-12.3) fL Immature Gran % (Auto) 0.6 H (0.0-0.4) % Neut % (Auto) 65.5 (45-73) % Lymph % (Auto) 22.5 (20-40) % [place] % (Auto) 9.1 (2-11) % Eos % (Auto) 1.5 (0-4) % Baso % (Auto) 0.8 (0-2) % Lymph # (Auto) 1.4 (1.2-4.9) X10*3/uL [place] # (Auto) 0.6 (0.1-1.2) X10*3/uL Eos # (Auto) 0.1 (0.0-0.4) X10*3/uL Baso # (Auto) 0.1 (0.0-0.2) X10*3/uL Abs Immat Gran (auto) 0.04 H (0.00-0.03) X10*3/uL Absolute Neuts (auto) 4.0 (2.0-8.3) x10*3/uL Absolute Nucleated RBC 0.000 (0.0-0.012) X10*3/uL Nucleated RBC % (auto) 0.0 (0.0-0.2) /100WBC ESR 34 H (0-20) MM/HR Sodium 134 L (135-145) mmol/L Potassium 4.0 (3.3-5.1) mmol/L Chloride 100 (96-108) mmol/L Carbon Dioxide 26 (22-29) mmol/L Anion Gap 12 (12-20) BUN 29 H (9-16) mg/dL Creatinine 1.11 (0.5-1.4) mg/dL Estim Creat Clear Calc 73.2 Estimated GFR 53 Random Glucose 413 H* (60-115) mg/dL Estimat Average Glucose TNP Hemoglobin A1c % > 14.0 H (<6.0) % Lactic Acid 0.8 (0.5-2.0) mmol/L Calcium 9.2 D (8.4-10.2) mg/dL Total Bilirubin 0.3 (0.0-1.0) mg/dL AST 20 (5-31) U/L ALT 15 (0-31) U/L Alkaline Phosphatase 75 (39-117) U/L C-Reactive Protein 1.28 H (< or = 0.50) mg/dL Total Protein 7.7 (6.5-8.0) g/dL Albumin 3.7 (3.5-5.0) g/dL Independent Interpretation I performed an independent interpretation of an: Plain X-Ray Radiology Impression Discussion of test interpretation with radiology: I have reviewed the radiologist's reading. Discharge Plan Discharge Clinical Impression: Diabetic foot infection Patient Disposition: Admitted As Inpatient
--- OUTSIDE RECORDS SUMMARY | 2024-03-19 19:39 | XMS_ITS | Continuity of Care Document ---
Author Organization [facility] Reg Mayur lt Address [address] [place] [id number]- Care Team Providers Care Meat Butcher Name Role Phone Mohit Dove MD Primary Care Physician [facility]counter [facility] [id number] Date(s): 03/01/24 - 03/08/24 [facility] Marty Finney Adult [address] [place] [address]- Attending Physician: Awa DUNN, Alejo Jesus Encounter Type: Office Visit Allergies, Adverse Reactions, Alerts Substance Criticality Severity Reaction Reaction Severity Status Bee Stings Active Immunizations Given and Recorded Vaccine Date Status Refusal Reason influenza virus vaccine, inactivated 1 12/08/22 Gi dimitri influenza virus vaccine, inactivated 03/30/22 Give n influenza virus vaccine, inactivated 12/16/19 Give n influenza virus vaccine, inactivated 03/26/19 Give n Human Papillomavirus Vaccine 08/26/21 Recorded tetanus/diphtheria/pertussis, acel(Tdap) 08/26/21 Recorded tetanus-diphtheria toxoids (Td) 03/26/19 Given 1Result Comment: [facility]: 66242-360-46 Medications buPROPion 300 mg/24 hours (XL) oral tablet, extended release 1 tablet, By Mouth, Daily, # 30 tablet, 6 Refills, 08/10/21 9:23:00 AM EDT, [facility], 160, cm, 08/10/21 8:55:00 EDT, Height Start Date: 08/10/21 Status: Ordered Quantity: 30.0 Unit: tablet Repeat number: 7 Dexcom G6 Video System Repairer Kit Dexcom G6 Video System Repairer Kit, See Instructions, # 1 pack/packet, Refills 0, Tot. Refills 0, Maintenance, Dexcom G6 Video System Repairer KIt-1 pack [facility] [id number] use to monitor blood glucose, 10/02/23 3:45:00 PM EDT, Supply, 160, cm, 09/21/23 14:48:00 EDT, Height Start Date: 10/02/23 Status: Ordered Quantity: 1.0 Unit: pack/packet Repeat number: 1 Dexcom G6 system Dexcom G6 system, See Instructions, # 3 each, Refills 11, Tot. Refills 11, Maintenance, Use to check glucose levels change every 10 days Dx: Diabetes type 2 (E11.9), 03/10/23 3:31:00 PM EST, Supply, 160, cm, 03/10/23 15:20:00 EST, Height Start Date: 03/10/23 Status: Ordered Quantity: 3.0 Unit: each Repeat number: 12 Dexcom G6 Transmitter Kit Dexcom G6 Transmitter Kit, See Instructions, # 1 pack/packet, Refills 4, Tot. Refills 4, Maintenance, Dexcom G6 Transmitter Kit, refill 1 pack every 3 months [facility] [id number] change transmitter every 3 months , fastened on top of the sensor and wirelessly sends date to flight hostess, 03/10/23 3:31:00 PM EST, Supply, 160, cm, 03/10/23 15:20:00 EST, Height Start Date: 03/10/23 Status: Ordered Quantity: 1.0 Unit: pack/packet Repeat number: 5 EpiPen 2-Mihir 0.3 mg injectable kit = 0.3 mg, Intramuscular, Once, CALL 911 IF USING, # 1 each, 1 Refills, Soft Stop, 12/23/22 1:39:00 PM EDT, [facility], Partial fill upon patient request if the prescription is for a schedule II opioid drug., 160, cm, 12/08/22 15:16:00 EDT, Height Start Date: 12/23/22 Status: Ordered Quantity: 1.0 Unit: each Repeat number: 2 Freestyle Lite Lancets See Instructions, # 100 each, Refills 11, Tot. Refills 11, Maintenance, check blood sugar twice a day E11.9, 06/15/23 1:53:00 PM EDT, Supply, 160, cm, 06/12/23 15:18:00 EDT, Height Start Date: 06/15/23 Status: Ordered Quantity: 100.0 Unit: each Repeat number: 12 Freestyle Lite Monitor See Instructions, # 1 each, Maintenance, check blood sugar twice a day E11.9, 06/15/23 1:52:00 PM EDT, Supply, 160, cm, 06/12/23 15:18:00 EDT, Height Start Date: 06/15/23 Status: Ordered Quantity: 1.0 Unit: each Repeat number: 1 Freestyle Lite Test Strips See Instructions, # 100 each, Maintenance, check blood sugar twice a day E11.9, 06/15/23 1:52:00 PM EDT, Supply, 160, cm, 06/12/23 15:18:00 EDT, Height Start Date: 06/15/23 Status: Ordered Quantity: 100.0 Unit: each Repeat number: 1 gabapentin 300 mg oral capsule 3, capsule, By Mouth, Daily at bedtime, # 270 capsule, Refills 0, Tot. Refills 0, Maintenance, 01/18/24 10:54:00 AM EST, Route to Pharmacy Electronically, [facility], 160, cm, 12/19/23 8:53:00 EDT, Height Start Date: 01/18/24 Status: Ordered Quantity: 270.0 Unit: capsule Repeat number: 1 glipiZIDE 10 mg oral tablet, extended release See Instructions, TAKE 2 TABLETS BY MOUTH ONCE DAILY WITH BREAKFAST, # 180 tablet, 0 Refills, Maintenance, 09/21/23 4:28:00 PM EDT, [facility], 160, cm, 09/21/23 14:48:00 EDT, Height Start Date: 09/21/23 Status: Ordered Quantity: 180.0 Unit: tablet Repeat number: 1 guanFACINE 1 mg oral tablet, extended release 1 tablet = 1 mg, By Mouth, Daily, do not chew or break tablets 1mg and then titrate to 2mg., # 14 tablet, 0 Refills, Maintenance, 10/03/23 4:36:00 PM EDT, ER Tablet, [facility], Partial fill upon patient request if the prescription is for a schedule II opioid drug., 160, cm, 10/03/23 16:02:00 EDT, Height Start Date: 10/03/23 Stop Date: 10/17/23 Status: Ordered Quantity: 14.0 Unit: tablet Repeat number: 1 guanFACINE 2 mg oral tablet, extended release 1 tablet = 2 mg, By Mouth, Daily, do not crush or chew, # 60 tablet, 0 Refills, Maintenance, 09/21/23 4:26:00 PM EDT, ER Tablet, [facility], Partial fill upon patient request if the prescription is for a schedule II opioid drug., 160, cm, 09/21/23 14:48:00 EDT, Height Start Date: 09/21/23 Status: Ordered Quantity: 60.0 Unit: tablet Repeat number: 1 hydrOXYzine hydrochloride 25 mg oral tablet 1 tablet, By Mouth, Daily at bedtime, PRN NEEDED FOR SLEEP, # 30 tablet, 5 Refills, Maintenance,08/10/21 9:23:00 AM EDT, [facility], 160, cm, 08/10/21 8:55:00 EDT, Height Start Date: 08/10/21 Status: Ordered Quantity: 30.0 Unit: tablet Repeat number: 6 hydrOXYzine hydrochloride 50 mg oral tablet 1 tablet = 50 mg, By Mouth, 4 times a day, 0 Refills, Maintenance, 08/15/22 12:55:00 PM EDT, Partial fill upon patient request if the prescription is for a schedule II opioid drug. Start Date: 08/15/22 Status: Ordered Repeat number: 1 Insulin Lispro KwikPen 100 units/mL injectable solution See Instructions, Subcutaneous Injection 3 times a day before meals per sliding scale <150=0, 150-200=2units, 201-250=4units,251-300=6u,301-350=8u,351-400=10u >450 call md replaces novolog, # 15 mL, 11 Refills, Maintenance, 03/30/22 11:40:00 AM EST, [facility], Partial fill upon patient request if the prescription is for a schedule II opioid drug. md replaces novolog, 160, cm, 03/30/22 10:20:00 EST, Height Start Date: 03/30/22 Status: Ordered Quantity: 15.0 Unit: mL Repeat number: 12 isopropyl alcohol 70% topical pad See Instructions, use before testing sugars 4 times a day for Type 2 Diabetes Mellitus (E11.9), # 200 each, 11 Refills, Maintenance, 06/29/22 10:12:00 AM EDT, [facility], use before testingsugars 4 times a day for Type 2 Diabetes Mellitus (E11.9), 160, cm, 05/09/22 12:52:00 EST, Height Start Date: 06/29/22 Status: Ordered Quantity: 200.0 Unit: each Repeat number: 12 Lantus Solostar Pen 100 units/mL subcutaneous solution See Instructions, INJECT 80 UNITS SUBCUTANEOUSLY TWICE DAILY. ROTATE INJECTION SITES. MAX DAILY DOSE OF 160 UNITS, # 90 mL, 0 Refills, Maintenance, 12/27/21 12:55:00 PM EDT, [facility], 160, cm, 10/22/21 7:00:00 EDT, Height Start Date: 12/27/21 Status: Ordered Quantity: 90.0 Unit: mL Repeat number: 1 Pen [place], 31 G x 5 mm BD Ultra Fine III See Instructions, # 200 each, Refills 5, Tot. Refills 5, Maintenance, use as directed for Type 2 Diabetes Mellitus, 08/10/21 9:22:00 AM EDT, Supply, 160, cm, 08/10/21 8:55:00 EDT, Height Start Date: 08/10/21 Stop Date: 02/06/22 Status: Ordered Quantity: 200.0 Unit: each Repeat number: 6 rosuvastatin 5 mg oral tablet 1 tablet, By Mouth, Daily, # 30 tablet, 5 Refills, 09/21/23 4:28:00 PM EDT, [facility], 160, cm, 09/21/23 14:48:00 EDT, Height Start Date: 09/21/23 Status: Ordered Quantity: 30.0 Unit: tablet Repeat number: 6 traZODone 100 mg oral tablet 100 mg, 1, tablet, By Mouth, Refills 0, Maintenance, 01/24/22 4:26:00 PM EST, Partial fill upon patient request if the prescription is for a schedule II opioid drug. Start Date: 01/24/22 Status: Ordered Repeat number: 1 venlafaxine 150 mg oral capsule, extended release 1 capsule, By Mouth, Daily, # 90 capsule, 0 Refills, Maintenance, 09/21/23 4:25:00 PM EDT, [facility], 160, cm, 09/21/23 14:48:00 EDT, Height Start Date: 09/21/23 Status: Ordered Quantity: 90.0 Unit: capsule Repeat number: 1 venlafaxine 75 mg oral capsule, extended release 75 mg, 1, capsule, By Mouth, Daily, # 90 capsule, Refills 0, Tot. Refills 0, Maintenance, 09/21/23 4:25:00 PM EDT, Route to Pharmacy Electronically, [facility], Partial fill upon patient request if the prescription is for a schedule II opioid drug., 160, cm, 09/21/23 14:48:00 EDT, Height Start Date: 09/21/23 Status: Ordered Quantity: 90.0 Unit: capsule Repeat number: 1 Problem List Condition Confirmation Course Effective Dates Status Health Status Informant Discoloration of skin of foot Confirmed Active Condyloma acuminata Confirmed Active Difficulty sleeping Confirmed Active Elevated sedimentation rate Confirmed Active Family history of colon cancer in father Confirmed Active LYRIC (generalized anxiety disorder) Confirmed Active History of COVID-19 Confirmed Active Hypercholesterolemia Confirmed Active Iron deficiency anemia Confirmed Active Lipoma of back Confirmed Active Current use of insulin Confirmed Active Neuropathy due to type 2 diabetes mellitus Confirmed Active Depression, major, recurrent, in partial remission Confirmed Active Severe obesity Confirmed Active History of tobacco use Confirmed Active Diabetes mellitus type 2 in obese Confirmed Active Vital Signs Most recent to oldest [Reference Range]: 1 Height 160 cm (03/01/24 1:51 PM) Weight 113.0 kg (03/01/24 1:51 PM) Oxygen Saturation [94-100 %] 100 % (03/01/24 1:51 PM) Pulse Rate [55-90 bpm] 114 bpm *H* (03/01/24 1:51 PM) Body Mass Index [18.5-24.99 kg/m2] 44.14 kg/m2 *>HHI* (03/01/24 1:51 PM) Blood Pressure [90-138/55-84 mm Hg] 146/ 75mm Hg *H* (03/01/24 1:51 PM) Temperature [96.8-100.4 DegF] 98.7 DegF (03/01/24 1:51 PM) Blood pressure sites Arm, right (03/01/24 1:51 PM) Temperature Route Oral (03/01/24 1:51 PM) Weight Obtained Via Standing scale (03/01/24 1:51 PM) Social History Social History Type Response Smoking Status Former smoker, quit more than 30 days ago entered on: 08/10/21 Sex Sex Representation Female (finding) Patient Care team information Care Team Personnel Name: Mohit Dove MD Position: [facility] Physician - Primary Care Member Role: PCP Address: [address] [place] [id number] Telecom: Care Team Related Persons Name: TRISTEN LEWIS Name: ESTEFANI DAWKINS Name: EMELIA ALLEN Insurance Providers Guarantor name: DUSTIN LEWIS Health Plan Information #: 1 Payer: [facility] Member Number: [id number] Policy Number: NA Group Number: NA Health Plan Information #: 2 Payer: [facility] Member Number: [id number] Policy Number: NA Group Number: NA
--- OUTSIDE RECORDS SUMMARY | 2024-03-19 19:39 | XMS_ITS | Continuity of Care Document ---
Author Organization [facility] Reg Mayur lt Address [address] [place] [address]- Care Team Providers Care Manager Gas Name Role Phone Petty DUNN, Mohit Jesus Primary Care Physician [id number] Date(s): 12/19/23 - 02/25/24 [facility] Marty Finney Adult [address] [place] [address]- Attending Physician: Maddison Floyd NP Referring Physician: Mohit Dove MD Encounter Type: Pre Office Visit Allergies, Adverse Reactions, Alerts Substance [...] tetanus-diphtheria toxoids (Td) 03/26/19 Given 1Result Comment: [facility]: 65124-721-02 Medications buPROPion 300 mg/24 hours (XL) oral tablet, extended release 1 tablet, By Mouth, Daily, # 30 tablet, 6 Refills, 08/10/21 9:23:00 AM EDT, [facility], 160, cm, 08/10/21 8:55:00 EDT, Height Start Date: 08/10/21 Status: Ordered Quantity: 30.0 Unit: tablet Repeat number: 7 Dexcom G6 Superintendent Production Kit Dexcom G6 Superintendent Production Kit, See Instructions, # 1 pack/packet, Refills 0, Tot. Refills 0, Maintenance, Dexcom G6 Superintendent Production KIt-1 pack [facility] [id number] use to monitor blood glucose, 10/02/23 3:45:00 [...] Kit, refill 1 pack every 3 months [facility] [id number] change transmitter every 3 months , fastened on top of the sensor and wirelessly sends date to sales ledger administrator, 03/10/23 3:31:00 PM EST, Supply, 160, cm, 03/10/23 15:20:00 EST, Height Start Date: 03/10/23 Status: Ordered Quantity: 1.0 Unit: pack/packet Repeat number: 5 Diflucan 150 mg oral tablet 1 tablet = 150 mg, By Mouth, Once, # 1 tablet, 0 Refills, Soft Stop, 09/21/23 3:33:00 PM EDT, Tablet, [facility], Partial fill upon patient request if the prescription is for a schedule II opioid drug., 160, cm, 09/21/23 14:48:00 EDT, Height Start Date: 09/21/23 Status: Ordered Quantity: 1.0 Unit: tablet Repeat number: 1 EpiPen 2-Mihir 0.3 mg injectable kit = 0.3 mg, Intramuscular, Once, CALL 911 IF USING, # 1 each, 1 Refills, Soft Stop, 12/23/22 1:39:00 PM EDT, [facility], Partial fill upon [...] 10:54:00 AM EST, Route to Pharmacy Electronically, [facility], 160, cm, 12/19/23 8:53:00 EDT, Height Start Date: 01/18/24 Status: Ordered Quantity: 270.0 Unit: capsule Repeat number: 1 glipiZIDE 10 mg oral tablet, extended release See Instructions, TAKE 2 TABLETS BY MOUTH ONCE DAILY WITH BREAKFAST, # 180 tablet, 0 Refills, Maintenance, 09/21/23 4:28:00 PM EDT, [facility], 160, cm, 09/21/23 14:48:00 EDT, Height Start Date: 09/21/23 Status: Ordered Quantity: 180.0 Unit: tablet Repeat number: 1 guanFACINE 1 mg oral tablet, extended release 1 tablet = 1 mg, By Mouth, Daily, do not chew or break tablets 1mg and then titrate to 2mg., # 14 tablet, 0 Refills, Maintenance, 10/03/23 4:36:00 PM EDT, ER Tablet, [facility], Partial fill upon patient request if [...] Maintenance, 09/21/23 4:26:00 PM EDT, ER Tablet, [facility], Partial fill upon patient request if the prescription is for a schedule II opioid drug., 160, cm, 09/21/23 14:48:00 EDT, Height Start Date: 09/21/23 Status: Ordered Quantity: 60.0 Unit: tablet Repeat number: 1 hydrOXYzine hydrochloride 25 mg oral tablet 1 tablet, By Mouth, Daily at bedtime, PRN NEEDED FOR SLEEP, # 30 tablet, 5 Refills, Maintenance,08/10/21 9:23:00 AM EDT, [facility], 160, cm, 08/10/21 8:55:00 EDT, Height [...] 11 Refills, Maintenance, 03/30/22 11:40:00 AM EST, [facility], Partial fill upon [...] 11 Refills, Maintenance, 06/29/22 10:12:00 AM EDT, [facility], use before testingsugars [...] 0 Refills, Maintenance, 12/27/21 12:55:00 PM EDT, [facility], 160, cm, 10/22/21 7:00:00 EDT, Height Start Date: 12/27/21 Status: Ordered Quantity: 90.0 Unit: mL Repeat number: 1 Pen [place], 31 G x 5 mm BD Ultra [...] Mouth, Daily, # 30 tablet, 5 Refills, 7/11/24 4:28:00 PM EDT, [facility], 160, cm, 09/21/23 [...] 0 Refills, Maintenance, 09/21/23 4:25:00 PM EDT, [facility], 160, cm, 09/21/23 14:48:00 EDT, Height Start Date: 09/21/23 Status: Ordered Quantity: 90.0 Unit: capsule Repeat number: 1 venlafaxine 75 mg oral capsule, extended release 75 mg, 1, capsule, By Mouth, Daily, # 90 capsule, Refills 0, Tot. Refills 0, Maintenance, 09/21/23 4:25:00 PM EDT, Route to Pharmacy Electronically, [facility], Partial fill upon [...] mellitus type 2 in obese Confirmed Active Social History Social History Type Response Smoking Status Former smoker, quit more than 30 days ago entered on: 08/10/21 Sex Sex Representation Female (finding) Patient Care team information Care Team Personnel Name: Mohit Dove MD Position: [facility] Physician - Primary Care Member Role: PCP Address: [address] [place] [address]- Telecom: Care Team Related Persons Name: TRISTEN LEWIS Name: ESTEFANI DAWKINS Name: EMELIA ALLEN Insurance Providers Guarantor name: DUSTIN LEWIS Health Plan Information #: 1 Payer: [facility] [employer] Member Number: [id number] Policy Number: NA Group Number: NA Health Plan Information #: 2 Payer: [facility] [employer] Member Number: [id number] Policy Number: NA Group Number: NA
[2024-03-19 20:04] LABS: MANUAL DIFF FLAG NO
[2024-03-19 20:09] LABS: Basophils Absolute Auto 0.1 X10*3/uL (0.0-0.2); Basophils Percent Auto 0.8 % (0-2); Eosinophils Absolute Auto 0.1 X10*3/uL (0.0-0.4); Eosinophils Percent Auto 1.5 % (0-4); Hematocrit 36.3 % (37.0-47.0); Hemoglobin 10.7 g/dl (12.0-16.0); Imm Gran Abs Auto 0.04 X10*3/uL (0.00-0.03); Imm Gran Pct Auto 0.6 % (0.0-0.4); Lymphocytes Absolute Auto 1.4 X10*3/uL (1.2-4.9); Lymphocytes Percent Auto 22.5 % (20-40); Mean Corpuscular HGB Conc 29.5 g/dl (31.0-35.0); Mean Corpuscular Hemoglobin 20.7 pg (27.0-33.0); Mean Corpuscular Volume 70.2 fL (80.0-98.0); Mean Platelet Volume 10.1 fL (9.4-12.3); Monocytes Absolute Auto 0.6 X10*3/uL (0.1-1.2); Monocytes Percent Auto 9.1 % (2-11); Neutrophils Percent Auto 65.5 % (45-73); Platelet Count 393 X10*3/uL (160-400); Red Blood Count 5.17 X10*6/uL (4.20-5.50); Red Cell Distribution Width 23.6 % (11.0-16.0); White Blood Count 6.2 X10*3/uL (4.8-10.8)
[2024-03-19 20:30] LABS: Lactic Acid 0.8 mmol/L (0.5-2.0)
[2024-03-19 20:34] LABS: Alanine Aminotransferase 15 U/L (0-31); Albumin Level 3.7 g/dL (3.5-5.0); Alkaline Phosphatase 75 U/L (39-117); Anion Gap 12 (12-20); Aspartate Amino Transferase 20 U/L (5-31); Bilirubin Total 0.3 mg/dL (0.0-1.0); Blood Urea Nitrogen 29 mg/dL (9-16); C Reactive Protein 1.28 mg/dL (< or = 0.50); Calcium 9.2 mg/dL (8.4-10.2); Carbon Dioxide 26 mmol/L (22-29); Chloride 100 mmol/L (96-108); Creatinine Clr Calc Pharmacy 73.2; Estimated Glomerular Filt Rate 53; Glucose Random 413 mg/dL (60-115); Sodium 134 mmol/L (135-145); Total Protein 7.7 g/dL (6.5-8.0)
[2024-03-19 21:03] LABS: Erythrocyte Sedimentation Rate 34 MM/HR (0-20)
[2024-03-19 21:13] VITALS: BP 153/80; PULSE 86; RESP 18; TEMP 36.9; O2SAT 96
[2024-03-19] MEDS: 0.9 % Sodium Chloride 1,000 ML 999 ML IV (21:57)
[2024-03-19] MEDS: Piperacillin Sodium/Tazobactam 3.375 GM in 0.9 % Sodium Chloride 50 ML IV (22:05)
[2024-03-19] MEDS: Insulin Lispro 100 UNIT/ML 3 ML VIAL 12 UNIT SUBCUT (22:06)
--- NOTE | 2024-03-19 22:06 | PC.NURSE ---
Pt a&ox4, no signs of distress Pt denies pain at this time Pt medicated per mar. Plan of care ongoing.
[2024-03-19] MEDS: vancomycin/NS 2,000 MG/500 ML PLAST..BAG 250 MG IV (22:44)
--- NOTE | 2024-03-19 22:47 | PC.NURSE ---
Pt medicated per may. Plan of care ongoing.
[2024-03-20] VITALS (7 sets, daily range): BP systolic 133–147; BP diastolic 65–97; PULSE 75–79; RESP 16–20; TEMP 36.1–36.8; O2SAT 97–100; BMI 43.2
--- NOTE | 2024-03-20 01:30 | PM.IMHP ---
History of Present Illness Date of Service: 03/20/24 Attending physician on admission: Sabrina Kat Chief Complaint: non-healing foot ulcer This is a 43-year-old female with pertinent history of insulin-dependent diabetes mellitus, mood disorder, mixed hyperlipidemia who presents to the emergency department for concerns of nonhealing diabetic right foot ulcer. She was recently admitted from 03/01-03/03 for right foot cellulitis and discharged home with doxycycline and Augmentin times 10 days. The patient reports that she completed this treatments but continues to have these ulcer on her foot with a foul odor and purulent drainage. She denies any foot pain, nausea, vomiting, fever or chills. She was sent back here by her PCP as wound care has not reached out to her since her discharge. Her blood sugars have been very elevated. In the emergency department, POC 413, lactic acid 0.8, CRP 1.28 and ESR 34. Patient was initiated on IV vancomycin and Zosyn and hospital medicine team consulted for admission. Review of Systems Constitutional: Constitutional: Denies body ache(s), Denies chills, Denies fatigue, Denies fever(s) and Denies headache(s) Eyes: Eyes: Denies change in vision ENT: Denies headache(s), Denies nasal congestion, Denies nasal discharge and Denies sore throat Cardiovascular: Cardiovascular: Denies chest pain, Denies rapid heart rate, Denies leg edema, Denies lightheadedness and Denies dyspnea Respiratory: Respiratory: Denies chest congestion, Denies cough, Denies dyspnea and Denies wheezing Gastrointestinal: Gastrointestinal: Denies constipation, Denies diarrhea, Denies nausea and Denies vomiting Genitourinary: Genitourinary: Denies dysuria and Denies urinary urgency Musculoskeletal: Musculoskeletal: Denies myalgias Integumentary/Breasts: Skin/Breast: Reports as per HPI Neurologic: Denies confusion and Denies headache(s) Psychiatric: Psychiatric: Denies confusion Endocrine: Endocrine: Denies fatigue Hematologic/Lymphatic: Hematologic/Lymphatic: Denies easy bleeding and Denies easy bruising Allergic/Immunologic: Allergic/Immunologic: Denies wheezing [facility] Medical History Anemia Bacteremia Neuropathy Diabetes Functional capacity: independent ambulation Surgical History History of laparoscopic cholecystectomy Social History Household Members: Children Housing: House Do you presently have visiting nurse or other home services: No Alcohol intake: current Alcohol intake frequency: does not drink Comment: refuses to put nonskid socks Patient Tobacco Use Status: Former Tobacco user Smoked in Last 30 Days: No Second Hand Smoke Exposure: No Use of substances other than those prescribed or required for medical reasons: No Advance Directives: No Advance Directives Information Provided: No Do you have a plan to hurt others: No Plan service: No Current occupational status: employed Meds Allergies Allergy/AdvReac Type Severity Reaction Status Date / Time No Known Allergies Allergy Verified 03/19/24 19:09 Active Medications: Current Medications Acetaminophen (Acetaminophen 325 Mg Tablet) 975 mg PO Q6H PRN PRN Reason: Pain, Mild 1-3,fever,headache Calcium Carbonate (Calcium Carbonate 750 Mg Tab.Chew) 750 mg PO Q4H PRN PRN Reason: Heartburn Enoxaparin Sodium (Enoxaparin Sodium 40 Mg/0.4 Ml Syringe) 40 mg SUBCUT Q24H ALEXUS Glucose (Glucose Gel 15 Gm Gel..Gram.) 15 gm PO Q15M PRN; Protocol PRN Reason: per Hypoglycemia Standing Ord. Dextrose (D10) 250 mls @ 750 mls/hr IV Q15M PRN; Protocol PRN Reason: per Hypoglycemia Standing Ord. Insulin Glargine (Insulin Glargine,Hum.Rec.Anlog 100 Unit/Ml 10 Ml Vial) 48 unit SUBCUT BEDTIME ALEXUS Insulin Human Lispro (Insulin Lispro 100 Unit/Ml 3 Ml Vial) 0 unit SUBCUT QIDACHS ALEXUS; Protocol Magnesium Hydroxide (Milk Of Magnesia 30 Ml Oral.Susp) 30 ml PO DAILY PRN PRN Reason: Constipation Melatonin (Melatonin 3 Mg Tablet) 6 mg PO BEDTIME PRN PRN Reason: Insomnia Morphine Sulfate (Morphine Sulfate 4 Mg/Ml Cartridge) 2 mg IVPUSH Q6H PRN; Protocol PRN Reason: Pain, Severe (Pain Scale 7-10) Ondansetron HCl (Ondansetron Hcl 4 Mg/2 Ml Vial) 4 mg IVPUSH Q8H PRN PRN Reason: Nausea and Vomiting Oxycodone HCl (Oxycodone Hcl Immed Release 5 Mg Tablet) 5 mg PO Q6H PRN PRN Reason: Pain, Moderate(Pain Scale 4-6) Sodium Chloride (0.9 % Sodium Chloride Flush 3 Ml Syringe) 3 ml IVFLUSH QSHIFT [facility] Home Medications ?Medication ?Instructions ?Recorded ?Confirmed ?Last Taken ?Type gabapentin 300 mg capsule 3 cap PO BEDTIME 07/04/21 03/02/24 07/03/21 History glipizide 10 mg tablet, extended 1 tab PO DAILY 07/04/21 03/02/24 07/03/21 History release 24 hr rosuvastatin 5 mg tablet 1 tab PO BEDTIME 07/04/21 03/02/24 07/03/21 History venlafaxine 150 mg 1 cap PO BEDTIME 07/04/21 03/02/24 07/03/21 History capsule,extended release 24 hr venlafaxine 75 mg capsule,extended 1 cap PO BEDTIME 07/04/21 03/02/24 07/03/21 History release 24 hr acetaminophen 325 mg tablet 650 mg PO TID PRN Pain 03/02/24 03/02/24 Unknown History clobetasol 0.05 % topical ointment 1 appl topical DAILY PRN Rash 03/02/24 03/02/24 Unknown History Physical Exam Vital Signs and Narrative: Vital Signs: Last Vital Signs Temp 98.2 F 03/20/24 01:08 Pulse 77 03/20/24 01:08 Resp 16 03/20/24 01:08 BP 147/87 H 03/20/24 01:08 Pulse Ox 97 03/20/24 01:08 O2 Del Method Room Air 03/20/24 01:08 BMI result Body Mass Index 42.7 General: AOx3, no acute distress, pt attempting to sleep during enitre interview, answers questions but not engaged Resp: CTA bilaterally CVS: S1, S2, RRR GI: +BS, NT, no distention Skin: Warm, dry. Foul odor between right 1st and 2nd toes with a wound at the base of the greater toe. No active drainage or surrounding erythema. Extremities: No LE edema. Psych: Appropriate affect Const: General: No confusion Orientation/consciousness: No confusion Neuro: General: No confusion Results Labs 03/19/24 19:58 03/19/24 19:58 Labs: Laboratory Results - last 24 hr 03/19/24 19:58 MCV 70.2 L MCH 20.7 L MCHC 29.5 L RDW 23.6 H Plt Count 393 D MPV 10.1 Immature Gran % (Auto) 0.6 H Neut % (Auto) 65.5 Lymph % (Auto) 22.5 [place] % (Auto) 9.1 Eos % (Auto) 1.5 Baso % (Auto) 0.8 Lymph # (Auto) 1.4 [place] # (Auto) 0.6 Eos # (Auto) 0.1 Baso # (Auto) 0.1 Abs Immat Gran (auto) 0.04 H Absolute Neuts (auto) 4.0 Absolute Nucleated RBC 0.000 Nucleated RBC % (auto) 0.0 ESR 34 H Anion Gap 12 Estim Creat Clear Calc 73.2 Estimated GFR 53 Random Glucose 413 H* Lactic Acid 0.8 Calcium 9.2 D Total Bilirubin 0.3 AST 20 ALT 15 Alkaline Phosphatase 75 C-Reactive Protein 1.28 H Total Protein 7.7 Albumin 3.7 Assessment and Plan (1) Diabetic foot infection: Status: Acute (2) Anemia: Status: Acute (3) Morbid obesity with BMI of 40.0-44.9, adult: Status: Chronic (4) CKD (chronic kidney disease) stage 3, GFR 30-59 ml/min: Status: Chronic Plan This is a 43-year-old female with pertinent history of insulin-dependent diabetes mellitus, mood disorder, mixed hyperlipidemia who presents to the emergency department for concerns of nonhealing diabetic right foot ulcer. Recent admission for cellulitis right foot, discharged home with Augmentin and doxycycline. Has not seen wound care since discharge. Nonhealing diabetic right foot ulcer - no leukocytosis, lactic acid normal, blood cultures x2 pending, vitals stable, no sepsis - ESR and CRP elevated at 34 and 1.28 respectively - x-ray negative for osteomyelitis - started on vancomycin and Zosyn in the ED, continue - MRI right foot to assess for osteomyelitis - wound care consult - monitor CBC and BMP Anemia - improved from previous admission - monitor CBC Insulin-dependent diabetes - blood sugars poorly controlled - diabetic diet - sliding scale insulin - resume Lantus 48 units nightly Mood disorder - continue home meds once med rec done HLD - continue home meds once med rec done Obesity - BMI 42.7 - weight loss encouraged CKD 3 - creatinine stable, 1.11 Full code VTE prophylaxis: Lovenox Med rec not complete upon admission Patient with nonhealing diabetic right foot ulcer with failed outpatient treatment, requiring admission for at least 2 midnights stay for IV antibiotics and wound care assessment. Quality Stroke Does the patient have a stroke diagnosis?: No VTE Prior VTE?: No VTE Risk Level:: Medical - moderate - high VTE Device Contraindication: Treatment Not Indicated VTE Drug Contraindication: N/A - Med Ordered
[2024-03-20 01:50] LABS: Glucose, Whole Blood 337 mg/dL (60-115)
--- NOTE | 2024-03-20 01:55 | PC.NURSE ---
POC of 337. provider Ashley Nash notified and aware. No new orders at this time Plan of care ongoing
[2024-03-20] MEDS: Insulin Glargine,Hum.rec.anlog 100 UNIT/ML 10 ML VIAL 48 UNIT SUBCUT ×2 (02:39→20:10)
[2024-03-20] MEDS: Enoxaparin Sodium 40 MG/0.4 ML SYRINGE SUBCUT (02:40)
--- NOTE | 2024-03-20 02:43 | PC.NURSE ---
Pt medicated per [facility] Plan of care ongoing.
[2024-03-20 04:52] LABS: MANUAL DIFF FLAG NO
[2024-03-20 04:56] LABS: Eosinophils Absolute Auto 0.1 X10*3/uL (0.0-0.4); Eosinophils Percent Auto 2.3 % (0-4); Hematocrit 33.2 % (37.0-47.0); Hemoglobin 9.6 g/dl (12.0-16.0); Imm Gran Abs Auto 0.03 X10*3/uL (0.00-0.03); Imm Gran Pct Auto 0.8 % (0.0-0.4); Lymphocytes Absolute Auto 1.2 X10*3/uL (1.2-4.9); Lymphocytes Percent Auto 28.8 % (20-40); Mean Corpuscular HGB Conc 28.9 g/dl (31.0-35.0); Mean Corpuscular Hemoglobin 20.5 pg (27.0-33.0); Mean Corpuscular Volume 70.8 fL (80.0-98.0); Mean Platelet Volume 9.8 fL (9.4-12.3); Monocytes Absolute Auto 0.5 X10*3/uL (0.1-1.2); Monocytes Percent Auto 11.3 % (2-11); Neutrophils Absolute Auto 2.2 x10*3/uL (2.0-8.3); Neutrophils Percent Auto 55.8 % (45-73); Platelet Count 294 X10*3/uL (160-400); Red Blood Count 4.69 X10*6/uL (4.20-5.50); Red Cell Distribution Width 23.9 % (11.0-16.0)
[2024-03-20 05:18] LABS: Anion Gap 10 (12-20); Blood Urea Nitrogen 23 mg/dL (9-16); Calcium 8.6 mg/dL (8.4-10.2); Carbon Dioxide 24 mmol/L (22-29); Chloride 107 mmol/L (96-108); Creatinine Clr Calc Pharmacy 94.4; Estimated Glomerular Filt Rate > 60; Glucose Random 354 mg/dL (60-115); Potassium 4.5 mmol/L (3.3-5.1); Sodium 136 mmol/L (135-145)
[2024-03-20] MEDS: Piperacillin Sodium/Tazobactam 3.375 GM in 0.9 % Sodium Chloride 50 ML IV ×3 (06:21→23:00)
--- NOTE | 2024-03-20 06:28 | PC.NURSE ---
Pt medicated per [facility] Plan of care ongoing.
[2024-03-20 06:54] LABS: Glucose, Whole Blood 328 mg/dL (60-115)
[2024-03-20 06:54] LABS: Hemoglobin A1C 376.7821 umol/L; Hemoglobin A1c % > 14.0 % (<6.0); Total Hemoglobin (HGBA1C) 2765.8205 umol/L
--- NOTE | 2024-03-20 07:16 | PHA.PROG ---
Admission Date/Time: March 20, 2024 01:20 Indication: skin + skin structure Weight in k kg Adjusted body weight in Kg: Lynn body weight in Kg: Obesity Dosing Indication % IBW: BMI 42.7 Serum Creatinine - Last 168 Hours 03/19/24 03/20/24 19:58 04:47 Creatinine 1.11 0.86 Estimated CrCl and GFR - Last 168 Hours 03/19/24 03/20/24 19:58 04:47 Estim Creat Clear Calc 73.2 94.4 Estimated GFR 53 > 60 Vancomycin Loading Dose: 2000mg X1 Current Vancomycin Dosing Regimen: 1000mg Q12H Vancomycin Monitoring using AUC goal of 400 - 600 range with trough as surrogate marker: 554 Date and Time for next Vancomycin Level to be drawn: 03/21 @0900 Pharmacist Comments on Vancomycin Plan: Patient's SCr came down since 03/19, and appears stable. Predicted trough 16.5 and targeting higher end as patient has suspected osteo and BMI is 42.7. Vancomycin dosing will take advantage of [employer] as a clinical decision support tool that uses Bayesian modeling to calculate individual patient's pharmacokinetic parameters and forecast the patient's drug concentration time course with the target goal AUC 24 range of 400 - 600 mg/L/hr.
[2024-03-20] MEDS: Insulin Lispro 100 UNIT/ML 3 ML VIAL SUBCUT ×7 (07:47→20:11)
[2024-03-20] MEDS: 0.9 % Sodium Chloride Flush 3 ML SYRINGE IVFLUSH ×3 (08:01→20:11)
--- NOTE | 2024-03-20 08:14 | PM.EVENT ---
Event Note Date of Service: 03/20/24 Event Note: This is a 43-year-old female with pertinent history of insulin-dependent diabetes mellitus, mood disorder, mixed hyperlipidemia who presents to the emergency department for concerns of nonhealing diabetic right foot ulcer. Recent admission for cellulitis right foot, discharged home with Augmentin and doxycycline. Has not seen wound care since discharge. Nonhealing diabetic right foot ulcer no leukocytosis, lactic acid normal, blood cultures x2 pending, vitals stable, no sepsis ESR and CRP elevated at 34 and 1.28 respectively x-ray negative for osteomyelitis started on vancomycin and Zosyn in the ED, continue MRI right foot to assess for osteomyelitis wound care consult monitor CBC and BMP Anemia improved from previous admission monitor CBC Insulin-dependent diabetes with hyperglycemia blood sugars poorly controlled diabetic diet sliding scale insulin with mealtime insulin Lantus 48 units nightly Mood disorder continue home meds once med rec done HLD continue home meds once med rec done Obesity BMI 42.7 Discussed importance of weight management as this may be contributing to worsening of other comorbidities CKD 3 creatinine stable, 1.11 Full code VTE prophylaxis: Lovenox Patient with nonhealing diabetic right foot ulcer with failed outpatient treatment, requiring admission for at least 2 midnights stay for IV antibiotics and wound care assessment. Time Spent With Patient Time: Total time managing care of this patient today ____ minutes.
[2024-03-20 09:20] LABS: Glucose, Whole Blood 352 mg/dL (60-115)
--- NOTE | 2024-03-20 10:39 | PHA.MEDREC ---
Pharmacy Consult ? Medication Reconciliation Pharmacy has completed the medication reconciliation, spoke to patient at bedside, she was able to cofirm all meds. Patient stated she was discharged last time on amox and doxy, said she had a PCP visit and was put on cephalexin which her last dose was last night. Patient also stated she does not take oxycodone because she is terrified of it, has the bottle but does not use it ever.
[2024-03-20] MEDS: vancomycin HCL 1,000 MG in 0.9 % Sodium Chloride 250 ML 270 MG IV ×2 (10:49→23:32)
[2024-03-20 11:27] LABS: Glucose, Whole Blood 304 mg/dL (60-115)
--- NOTE | 2024-03-20 13:55 | HO.WOUND ---
Wound Consult: Attempted Arrival to bedside patient off unit at MRI procedure will attempt assessment at future time and or date.
[2024-03-20] MEDS: gadobutroL 10 ML VIAL IVPUSH (14:03)
--- NOTE | 2024-03-20 15:53 | MHC.CM.PN ---
PATIENT LIVES IN A HOME W/ HER 2 CHILDREN (12&17 YO) FUNCTIONALLY INDEPENDENT. DENIES USE OF DME OR SERVICES. RECENTLY [place] [facility] [place] [facility] [place] PLAN TO F/U W/ WOUND CLINIC. HOWEVER, PATIENT REPORTS WOUND CLINIC DID NOT REACH OUT TO HER AND SHE DID NOT ATTEMPT TO REACH THE CLINIC. 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 PCP EMORY JARA HUMANE OFFICER REPORTS SHE HAS AN HCP NAMING HER MOTHER [facility]. COPY REQUESTED. DP: GOAL IS HOME, FOLLOW UP W/ WOUND CLINIC. MOTHER TO TRANSPORT. CM WILL CONTINUE TO FOLLOW.
[2024-03-20 16:18] LABS: Glucose, Whole Blood 298 mg/dL (60-115)
--- NOTE | 2024-03-20 16:32 | HO.WOUND ---
Wound Consult: Initial 43yr old?female admitted to [facility] on 03/20/24 - See progress notes and H&P for detailed history.? Wound consult placed for Right Diabetic Wound.? Patient agreeable to assessment and photo documentation.? Patient reports her sugars are poorly controlled. She reports she does not follow with center machine operator. She reports her PCP manages her diabetes. She was educated on the importance of close blood sugar control and follow up. [facility] center machine operator office information provided. She report she has been to outpt wound clinic in past for nonhealing right foot wound. She reports she is agreeable to return to outpt wound clinic at time of d/c. Education on the importance of blood sugar control and wound healing and development and importance of regular foot checks. Of note the left foot was assessed and noted for multiple fissures along the heel and plantar area. She was educated on the importance of lotions and callus removal, recommended podiatry follow up. Right Plantar Wound Right 1st and 2nd webspace Etiology: ??Diabetic wound Present on Admission Measurements: 4cm x 1cm x 1cm Wound Bed: two open areas communicate - pink moist tissue with adherent yellow slough noted Drainage / Odor: kauffman brown dried crusted drainage noted to periwound and bed linen - no dressing in place - mild odor noted Edges: ? callused and macerated Lydia wound: ?Macerated and callused tissue - No Induration, Fluctuance or Warmth noted Pain: Denies - reports neuropathy Goals of Treatment: ? Durafiber [employer] for moisture management Recommendations: 1. Maintain blood glucose levels per Providers order. 2. Right Foot - Cleanse and irrigate with normal saline, pat dry. Apply skin prep to the periwound. Lightly pack wound bed with Durafiber AG, cover with dry gauze, ABD pad and wrap. Change daily while inpatient and every other day at time of discharge. Elevate lower leg throughout the day and limit direct standing and ambulation. Recommend follow up out patient Wound Clinic at [address] [place] [id number] and to call for an appointment at time of discharge. [phone].? Re-consult wound care Nurse for wound deterioration or wound changes.
[2024-03-20 19:47] LABS: Glucose, Whole Blood 219 mg/dL (60-115)
[2024-03-20] MEDS: Gabapentin 300 MG CAPSULE 900 MG PO (20:10)
[2024-03-20] MEDS: Venlafaxine HCl ER 75 MG CAP.ER.24H PO (20:10)
[2024-03-20] MEDS: Venlafaxine HCl ER 150 MG CAP.ER.24H PO (20:10)
[2024-03-21 02:55] VITALS: BP 144/83; PULSE 77; RESP 18; TEMP 37.3; O2SAT 97
[2024-03-21] MEDS: Enoxaparin Sodium 40 MG/0.4 ML SYRINGE SUBCUT (02:55)
[2024-03-21] MEDS: Piperacillin Sodium/Tazobactam 3.375 GM in 0.9 % Sodium Chloride 50 ML IV ×4 (05:23→22:39)
[2024-03-21 06:57] LABS: MANUAL DIFF FLAG NO
[2024-03-21 07:02] LABS: Basophils Absolute Auto 0.1 X10*3/uL (0.0-0.2); Basophils Percent Auto 1.4 % (0-2); Eosinophils Absolute Auto 0.1 X10*3/uL (0.0-0.4); Eosinophils Percent Auto 2.2 % (0-4); Hematocrit 32.5 % (37.0-47.0); Hemoglobin 9.5 g/dl (12.0-16.0); Imm Gran Abs Auto 0.03 X10*3/uL (0.00-0.03); Imm Gran Pct Auto 0.8 % (0.0-0.4); Lymphocytes Absolute Auto 1.1 X10*3/uL (1.2-4.9); Lymphocytes Percent Auto 29.8 % (20-40); Mean Corpuscular HGB Conc 29.2 g/dl (31.0-35.0); Mean Corpuscular Volume 71.7 fL (80.0-98.0); Monocytes Absolute Auto 0.4 X10*3/uL (0.1-1.2); Monocytes Percent Auto 11.8 % (2-11); Platelet Count 276 X10*3/uL (160-400); Red Blood Count 4.53 X10*6/uL (4.20-5.50); Red Cell Distribution Width 24.1 % (11.0-16.0); White Blood Count 3.6 X10*3/uL (4.8-10.8)
[2024-03-21 07:15] LABS: Anion Gap 12 (12-20); Blood Urea Nitrogen 14 mg/dL (9-16); Calcium 8.5 mg/dL (8.4-10.2); Carbon Dioxide 26 mmol/L (22-29); Chloride 107 mmol/L (96-108); Creatinine Clr Calc Pharmacy 99.7; Estimated Glomerular Filt Rate > 60; Glucose Random 223 mg/dL (60-115); Potassium 4.2 mmol/L (3.3-5.1); Sodium 141 mmol/L (135-145)
[2024-03-21 07:46] LABS: Glucose, Whole Blood 212 mg/dL (60-115)
[2024-03-21 08:11] VITALS: BP 142/80; PULSE 79; RESP 18; TEMP 36.5; O2SAT 94
[2024-03-21] MEDS: Ferrous Sulfate 324 MG TABLET.DR PO (08:49)
[2024-03-21] MEDS: Insulin Lispro 100 UNIT/ML 3 ML VIAL SUBCUT ×5 (08:49→16:57)
[2024-03-21] MEDS: 0.9 % Sodium Chloride Flush 3 ML SYRINGE IVFLUSH ×3 (08:50→21:20)
[2024-03-21] MEDS: vancomycin HCL 1,000 MG in 0.9 % Sodium Chloride 250 ML 270 MG IV ×2 (11:04→23:13)
[2024-03-21 11:34] LABS: Glucose, Whole Blood 150 mg/dL (60-115)
[2024-03-21 12:29] VITALS: BP 175/97; PULSE 85; RESP 18; TEMP 36.1; O2SAT 98
--- NOTE | 2024-03-21 13:01 | P.CONGS_ITS ---
History of Present Illness Consult details Consult date: 03/21/24 <HEIKE Butt Last Filed: 03/21/24 13:31> Requesting physician: Zena Mckay <HEIKE Butt Last Filed: 03/21/24 13:31> Narrative: 43-year-old female with pertinent PMH of insulin-dependent diabetes mellitus, neuropathy, mood disorder, mixed hyperlipidemia who presented to the emergency department for concerns of nonhealing diabetic right foot ulcer. She was recently admitted 03/01-03/03 for cellulitis of the right foot and was subsequently discharged home on Augmentin and doxycycline. She was instructed to follow up with wound care however states she never received a call to schedule an appointment. She reports she continued to have some clear drainage from the wound site and saw her PCP yesterday who sent her to the ED. She reports the foot looks overall improved. She denies any pain in the foot. She denies fever, chills, nausea, vomiting. She was admitted to the medical service for further treatment of the right foot cellulitis and started on IV vancomycin and Zosyn. Surgery consult was obtained for possible abscess of the right foot. <Carmen Chu PA-C Last Filed: 03/21/24 13:31> Review of Systems 2 Constitutional: Constitutional: Denies chills and Denies fever(s) < HEIKE Butt Last Filed: 03/21/24 13:31> ENT: Denies dizziness <HEIKE Butt Last Filed: 03/21/24 13:31> Cardiovascular: Cardiovascular: Denies chest pain and Denies dyspnea < HEIKE Butt Last Filed: 03/21/24 13:31> Respiratory: Respiratory: Denies dyspnea <HEIKE Butt Last Filed: 03/21/24 13:31> Gastrointestinal: Gastrointestinal: Denies abdominal pain, Denies nausea and Denies vomiting <HEIKE Butt Last Filed: 03/21/24 13:31> Integumentary/Breasts: Skin/Breast: Reports rash and Reports wounds < HEIKE Butt Last Filed: 03/21/24 13:31> Neurologic: Denies dizziness <HEIKE Butt Last Filed: 03/21/24 13:31> [facility] Past Medical History Medical History: Medical History Anemia Bacteremia Neuropathy Diabetes <HEIKE Butt Last Filed: 03/21/24 13:31> Surgical History Surgical History: Surgical History History of laparoscopic cholecystectomy <HEIKE Butt Last Filed: 03/21/24 13:31> Social History Social History: Social History Household Members: Children Housing: House Do you presently have visiting nurse or other home services: Yes (other) Alcohol intake: current Alcohol intake frequency: does not drink Comment: refuses to put nonskid socks Patient Tobacco Use Status: Former Tobacco user Second Hand Smoke Exposure: No service: No Current occupational status: employed <HEIKE Butt Last Filed: 03/21/24 13:31> Meds Allergies/Adverse reactions: Allergies Allergy/AdvReac Type Severity Reaction Status Date / Time No Known Allergies Allergy Verified 03/19/24 19:09 <HEIKE Butt Last Filed: 03/21/24 13:31> Active Medications: Current Medications Acetaminophen (Acetaminophen 325 Mg Tablet) 975 mg PO Q6H PRN PRN Reason: Pain, Mild 1-3,fever,headache Calcium Carbonate (Calcium Carbonate 750 Mg Tab.Chew) 750 mg PO Q4H PRN PRN Reason: Heartburn Enoxaparin Sodium (Enoxaparin Sodium 40 Mg/0.4 Ml Syringe) 40 mg SUBCUT Q24H [facility] Last Admin: 03/21/24 02:55 Dose: 40 mg Ferrous Sulfate (Ferrous Sulfate 324 Mg Tablet.Dr) 324 mg PO DAILY [facility] Last Admin: 03/21/24 08:49 Dose: 324 mg Gabapentin (Gabapentin 300 Mg Capsule) 900 mg PO BEDTIME [facility] Last Admin: 03/20/24 20:10 Dose: 900 mg Glucose (Glucose Gel 15 Gm Gel..Gram.) 15 gm PO Q15M PRN; Protocol PRN Reason: per Hypoglycemia Standing Ord. Dextrose (D10) 250 mls @ 750 mls/hr IV Q15M PRN; Protocol PRN Reason: per Hypoglycemia Standing Ord. Piperacillin Sod/Tazobactam (Sod 3.375 gm/ Sodium Chloride) 50 mls @ 100 mls/hr IV Q6H [facility] Last Admin: 03/21/24 12:29 Dose: 100 mls/hr Vancomycin HCl 1,000 mg/ (Sodium Chloride) 270 mls @ 270 mls/hr IV Q12H [facility] Last Infusion: 03/21/24 12:34 Dose: Infused Insulin Glargine (Insulin Glargine,Hum.Rec.Anlog 100 Unit/Ml 10 Ml Vial) 48 unit SUBCUT BEDTIME [facility] Last Admin: 03/20/24 20:10 Dose: 48 unit Insulin Human Lispro (Insulin Lispro 100 Unit/Ml 3 Ml Vial) 0 unit SUBCUT QIDAS [facility]; Protocol Last Admin: 03/21/24 11:39 Dose: Not Given Insulin Human Lispro (Insulin Lispro 100 Unit/Ml 3 Ml Vial) 5 unit SUBCUT QIDACHS [facility] Last Admin: 03/21/24 11:57 Dose: 5 unit Magnesium Hydroxide (Milk Of Magnesia 30 Ml Oral.Susp) 30 ml PO DAILY PRN PRN Reason: Constipation Melatonin (Melatonin 3 Mg Tablet) 6 mg PO BEDTIME PRN PRN Reason: Insomnia Morphine Sulfate (Morphine Sulfate 2 Mg/Ml Cartridge) 2 mg IVPUSH Q6H PRN; Protocol PRN Reason: Pain, Severe (Pain Scale 7-10) Ondansetron HCl (Ondansetron Hcl 4 Mg/2 Ml Vial) 4 mg IVPUSH Q8H PRN PRN Reason: Nausea and Vomiting Oxycodone HCl (Oxycodone Hcl Immed Release 5 Mg Tablet) 5 mg PO Q6H PRN PRN Reason: Pain, Moderate(Pain Scale 4-6) Pharmacy Consult (Consult Rx Vancomycin Dosing) 1 each MISCELLANE DAILY PRN PRN Reason: Consult order Sodium Chloride (0.9 % Sodium Chloride Flush 3 Ml Syringe) [facility] Admin: 03/21/24 08:50 Dose: 3 ml Venlafaxine HCl (Venlafaxine Hcl Er 75 Mg Cap.Er.24h) 75 mg PO BEDTIME [facility] Last Admin: 03/20/24 20:10 Dose: 75 mg Venlafaxine HCl (Venlafaxine Hcl Er 150 Mg Cap.Er.24h) 150 mg PO BEDTIME [facility] Last Admin: 03/20/24 20:10 Dose: 150 mg <HEIKE Butt Last Filed: 03/21/24 13:31> Home medications: Home Medications ?Medication ?Instructions ?Recorded ?Confirmed ?Last Taken ?Type gabapentin 300 mg capsule 3 cap PO BEDTIME 07/04/21 03/20/24 03/19/24 21:00 History glipizide 10 mg tablet, extended 1 tab PO DAILY 07/04/21 03/20/24 07/03/21 History release 24 hr rosuvastatin 5 mg tablet 1 tab PO BEDTIME 07/04/21 03/20/24 07/03/21 History venlafaxine 150 mg 1 cap PO BEDTIME 07/04/21 03/20/24 07/03/21 History capsule,extended release 24 hr venlafaxine 75 mg capsule,extended 1 cap PO BEDTIME 07/04/21 03/20/24 07/03/21 History release 24 hr acetaminophen 325 mg tablet 650 mg PO TID PRN Pain 03/02/24 03/20/24 Unknown History clobetasol 0.05 % topical ointment 1 appl topical DAILY PRN Rash 03/02/24 03/20/24 Unknown History cephalexin 500 mg capsule 500 mg PO TID 03/20/24 03/20/24 03/19/24 History <HEIKE Butt Last Filed: 03/21/24 13:31> Physical Exam 2 Vital Signs: Vital Signs: Last Vital Signs Temp 96.9 F 03/21/24 12:29 Pulse 85 03/21/24 12:29 Resp 18 03/21/24 12:29 BP 175/97 H 03/21/24 12:29 Pulse Ox 98 03/21/24 12:29 O2 Del Method Room Air 03/21/24 12:29 BMI result Body Mass Index 43.2 <HEIKE Butt Last Filed: 03/21/24 13:31> Const: General: comfortable, no acute distress and alert <Carmen Estrellabodeau VAZQUEZSusanneBrandi Skinner Last Filed: 03/21/24 13:31> Orientation/consciousness: patient oriented x3 <Carmen BuchanandeauVAZQUEZRemy Skinner Last Filed: 03/21/24 13:31> Resp: Effort & Inspection: normal respiratory effort <Carmen BuchanandeauVAZQUEZRemy Skinner Last Filed: 03/21/24 13:31> Skin: General skin exam: no rashes or lesions noted <Carmen EstrellabodeauVAZQUEZRemy Skinner Last Filed: 03/21/24 13:31> Neuro: General: patient oriented x3 <Carmen EstrellabodeauVAZQUEZRemy Skinner Last Filed: 03/21/24 13:31> Extrem: Other: right foot with moderate edema and erythema of dorsal aspect with open wound between first and second metatarsals with second wound on the plantar aspect, no necrotic tissue noted, some bogginess of plantar aspect but no palpable fluctuance, no purulent drainage noted <Carmen EstrellabodeauVAZQUEZRemy Skinner Last Filed: 03/21/24 13:31> Results Labs Result diagrams: 03/21/24 05:49 03/21/24 05:49 <Carmen Estrellayonas HEIKE Skinner Last Filed: 03/21/24 13:31> Labs: Abnormal lab results 03/20/24 03/20/24 03/21/24 Range/Units 16:07 19:22 05:49 WBC 3.6 L (4.8-10.8) X10*3/uL Hgb 9.5 L (12.0-16.0) g/dl Hct 32.5 L (37.0-47.0) % MCV 71.7 L (80.0-98.0) fL MCH 21.0 L (27.0-33.0) pg MCHC 29.2 L (31.0-35.0) g/dl RDW 24.1 H (11.0-16.0) % Immature Gran % (Auto) 0.8 H (0.0-0.4) % [place] % (Auto) 11.8 H (2-11) % Lymph # (Auto) 1.1 L (1.2-4.9) X10*3/uL POC Glucose 298 H 219 H (60-115) mg/dL Random Glucose 223 H (60-115) mg/dL Random Vancomycin (15-20) mcg/mL 03/21/24 03/21/24 03/21/24 Range/Units 07:36 09:08 11:23 WBC (4.8-10.8) X10*3/uL Hgb (12.0-16.0) g/dl Hct (37.0-47.0) % MCV (80.0-98.0) fL MCH (27.0-33.0) pg MCHC (31.0-35.0) g/dl RDW (11.0-16.0) % Immature Gran % (Auto) (0.0-0.4) % [place] % (Auto) (2-11) % Lymph # (Auto) (1.2-4.9) X10*3/uL POC Glucose 212 H 150 H (60-115) mg/dL Random Glucose (60-115) mg/dL Random Vancomycin 13.0 L (15-20) mcg/mL Short CBC 03/21/24 Range/Units 05:49 WBC 3.6 L (4.8-10.8) X10*3/uL Hgb 9.5 L (12.0-16.0) g/dl Hct 32.5 L (37.0-47.0) % Plt Count 276 (160-400) X10*3/uL BMP 03/21/24 05:49 Sodium 141 Potassium 4.2 Chloride 107 Carbon Dioxide 26 BUN 14 Creatinine 0.82 Calcium 8.5 All other labs normal. <Carmen Chu PA-C - Last Filed: 03/21/24 13:31> Assessment and Plan (1) Cellulitis of right foot: Status: Acute <HEIKE Butt Last Filed: 03/21/24 13:31> (2) Diabetic foot infection: Status: Acute <Carmen Chu PA-C - Last Filed: 03/21/24 13:31> 43-year-old female with pertinent PMH of insulin-dependent diabetes mellitus, neuropathy, mood disorder, mixed hyperlipidemia admitted for right foot wound and cellulitis. She had MRI which showed no evidence of osteomyelitis but showed a 4.2 x 2.7 x 1.2 cm fluid collection, question of abscess. She has an open wound between the first and second metatarsals and one of the plantar aspect which are overall clean appearing. She does have some bogginess of the plantar aspect surrounding the wound but no palpable fluctuance and no purulent drainage from the wound. At this point, can continue daily wound care with silver alginate followed by dry dressing and kerlix wrap. Cont right leg elevation to reduce edema. Discussed need for better control of POCs for wound healing. <Carmen Chu PA-C - Last Filed: 03/21/24 13:31> 43-year-old female with pertinent PMH of insulin-dependent diabetes mellitus, neuropathy, mood disorder, mixed hyperlipidemia admitted for right foot wound and cellulitis. She had MRI which showed no evidence of osteomyelitis but showed a 4.2 x 2.7 x 1.2 cm fluid collection, question of abscess. She has an open wound between the first and second metatarsals and one of the plantar aspect which are overall clean appearing. She does have some bogginess of the plantar aspect surrounding the wound but no palpable fluctuance and no purulent drainage from the wound. At this point, can continue daily wound care with silver alginate followed by dry dressing and kerlix wrap. Cont right leg elevation to reduce edema. Discussed need for better control of POCs for wound healing. As noted above <Dmitriy Luis MD - Last Filed: 03/21/24 13:35> Procedures Date of Service Date of Service: 03/21/24 <Carmen Chu PA-C - Last Filed: 03/21/24 13:31> 03/21/24 <Dmitriy Luis MD - Last Filed: 03/21/24 13:35>
--- NOTE | 2024-03-21 15:22 | P.PNIM_ITS ---
Subjective Subjective Date of Service: 03/21/24 Interval History: seen and examined this morning follow up for right foot wound no fever or chills Review of Systems Review of Systems: Yes all other systems are reviewed and are negative Constitutional Constitutional: Denies chills and Denies fever(s) Physical Exam 2 Vital Signs: Vital Signs: Last Vital Signs Temp 96.9 F 03/21/24 12:29 Pulse 85 03/21/24 12:29 Resp 18 03/21/24 12:29 BP 175/97 H 03/21/24 12:29 Pulse Ox 98 03/21/24 12:29 O2 Del Method Room Air 03/21/24 12:29 BMI result Body Mass Index 43.2 Const: General: comfortable, no acute distress, alert and awake Nutritional Appearance: obese Orientation/consciousness: patient oriented x3 Resp: Effort & Inspection: normal respiratory effort, able to speak in complete sentences, no respiratory distress and no use of accessory muscles Cardio: Rate: regular rate GI: Inspection: No distended Palpation (GI): Soft to palpation Skin: Other: right foot wrapped in c/d/i dressing; see surgical note for updated picture Neuro: General: patient oriented x3, moves all extremities and CN's II-XI intact bilaterally Objective Data Active Medications Acetaminophen (Acetaminophen 325 Mg Tablet) 975 mg PO Q6H PRN PRN Reason: Pain, Mild 1-3,fever,headache Calcium Carbonate (Calcium Carbonate 750 Mg Tab.Chew) 750 mg PO Q4H PRN PRN Reason: Heartburn Enoxaparin Sodium (Enoxaparin Sodium 40 Mg/0.4 Ml Syringe) 40 mg SUBCUT Q24H [facility] Last Admin: 03/21/24 02:55 Dose: 40 mg Documented By: CARLOS Ferrous Sulfate (Ferrous Sulfate 324 Mg Tablet.) 324 mg PO DAILY [facility] Last Admin: 03/21/24 08:49 Dose: 324 mg Documented By: RONA Gabapentin (Gabapentin 300 Mg Capsule) 900 mg PO BEDTIME [facility] Last Admin: 03/20/24 20:10 Dose: 900 mg Documented By: CARLOS Glucose (Glucose Gel 15 Gm Gel..Gram.) 15 gm PO Q15M PRN; Protocol PRN Reason: per Hypoglycemia Standing Ord. Dextrose (D10) 250 mls @ 750 mls/hr IV Q15M PRN; Protocol PRN Reason: per Hypoglycemia Standing Ord. Piperacillin Sod/Tazobactam (Sod 3.375 gm/ Sodium Chloride) 50 mls @ 100 mls/hr IV Q6H [facility] Last Infusion: 03/21/24 13:18 Dose: Infused Documented By: RONA Vancomycin HCl 1,000 mg/ (Sodium Chloride) 270 mls @ 270 mls/hr IV Q12H [facility] Last Infusion: 03/21/24 12:34 Dose: Infused Documented By: RONA Insulin Glargine (Insulin Glargine,Hum.Rec.Anlog 100 Unit/Ml 10 Ml Vial) 48 unit SUBCUT BEDTIME [facility] Last Admin: 03/20/24 20:10 Dose: 48 unit Documented By: TASHRISLili Insulin Human Lispro (Insulin Lispro 100 Unit/Ml 3 Ml Vial) 0 unit SUBCUT QIDACHS [facility]; Protocol Last Admin: 03/21/24 11:39 Dose: Not Given Documented By: RONA Non-Admin Reason: No Insulin Coverage Insulin Human Lispro (Insulin Lispro 100 Unit/Ml 3 Ml Vial) 5 unit SUBCUT QIDACHS [facility] Last Admin: 03/21/24 11:57 Dose: 5 unit Documented By: RONA Magnesium Hydroxide (Milk Of Magnesia 30 Ml Oral.Susp) 30 ml PO DAILY PRN PRN Reason: Constipation Melatonin (Melatonin 3 Mg Tablet) 6 mg PO BEDTIME PRN PRN Reason: Insomnia Morphine Sulfate (Morphine Sulfate 2 Mg/Ml Cartridge) 2 mg IVPUSH Q6H PRN; Protocol PRN Reason: Pain, Severe (Pain Scale 7-10) Ondansetron HCl (Ondansetron Hcl 4 Mg/2 Ml Vial) 4 mg IVPUSH Q8H PRN PRN Reason: Nausea and Vomiting Oxycodone HCl (Oxycodone Hcl Immed Release 5 Mg Tablet) 5 mg PO Q6H PRN PRN Reason: Pain, Moderate(Pain Scale 4-6) Pharmacy Consult (Consult Rx Vancomycin Dosing) 1 each MISCELLANE DAILY PRN PRN Reason: Consult order Sodium Chloride (0.9 % Sodium Chloride Flush 3 Ml Syringe) 3 ml IVFLUSH QSHIFT [facility] Last Admin: 03/21/24 08:50 Dose: 3 ml Documented By: ROAN Venlafaxine HCl (Venlafaxine Hcl Er 75 Mg Cap.Er.24h) 75 mg PO BEDTIME [facility] Last Admin: 03/20/24 20:10 Dose: 75 mg Documented By: CARLOS Venlafaxine HCl (Venlafaxine Hcl Er 150 Mg Cap.Er.24h) 150 mg PO BEDTIME [facility] Last Admin: 03/20/24 20:10 Dose: 150 mg Documented By: CARLOS Labs 03/21/24 05:49 03/21/24 05:49 Labs: Laboratory Results - last 24 hr 03/20/24 03/20/24 03/21/24 16:07 19:22 05:49 MCV 71.7 L MCH 21.0 L MCHC 29.2 L RDW 24.1 H Plt Count 276 MPV 10.0 Immature Gran % (Auto) 0.8 H Neut % (Auto) 54.0 Lymph % (Auto) 29.8 [place] % (Auto) 11.8 H Eos % (Auto) 2.2 Baso % (Auto) 1.4 Lymph # (Auto) 1.1 L [place] # (Auto) 0.4 Eos # (Auto) 0.1 Baso # (Auto) 0.1 Abs Immat Gran (auto) 0.03 Absolute Neuts (auto) 2.0 Absolute Nucleated RBC 0.000 Nucleated RBC % (auto) 0.0 Anion Gap 12 Estim Creat Clear Calc 99.7 Estimated GFR > 60 POC Glucose 298 H 219 H Random Glucose 223 H Calcium 8.5 Random Vancomycin 03/21/24 03/21/24 03/21/24 07:36 09:08 11:23 MCV MCH MCHC RDW Plt Count MPV Immature Gran % (Auto) Neut % (Auto) Lymph % (Auto) [place] % (Auto) Eos % (Auto) Baso % (Auto) Lymph # (Auto) [place] # (Auto) Eos # (Auto) Baso # (Auto) Abs Immat Gran (auto) Absolute Neuts (auto) Absolute Nucleated RBC Nucleated RBC % (auto) Anion Gap Estim Creat Clear Calc Estimated GFR POC Glucose 212 H 150 H Random Glucose Calcium Random Vancomycin 13.0 L Microbiology Microbiology Results: Microbiology 03/19/24 20:06 Blood Culture - Preliminary Blood - Venous No growth after 24 hours. 03/19/24 19:58 Blood Culture - Preliminary Blood - Venous No growth after 24 hours. Assessment and Plan (1) Diabetic foot infection: Status: Acute Plan This is a 43-year-old female with pertinent history of insulin-dependent diabetes mellitus, mood disorder, mixed hyperlipidemia who presents to the emergency department for concerns of nonhealing diabetic right foot ulcer. Recent admission for cellulitis right foot, discharged home with Augmentin and doxycycline. Has not seen wound care since discharge. Nonhealing diabetic right foot ulcer no sepsis MRI negative for osteo, concern for possible abscess - seen by general surgery no abscess to drain continue IV vancomycin and Zosyn blood cultures negative to date ID consult pending chronic microcytic Anemia improved from previous admission. H/H stable Insulin-dependent diabetes with hyperglycemia Hba1c >14 continue lantus (not on lantus at baseline?), SSI, ADA diet started on scheduled pre-meal insulin; follow POCs closely Hold glipizide Mood disorder Continue baseline medication HLD statin on hold Obesity BMI 42.7 Discussed importance of weight management as this may be contributing to worsening of other comorbidities CKD 3 creatinine stable Full code VTE prophylaxis: Lovenox Requires ongoing inpatient stay for IV antibiotics for treatment of nonhealing diabetic foot wound with poorly controlled diabetes Quality Stroke Does the patient have a stroke diagnosis?: No VTE Prior VTE?: No VTE Risk Level:: Medical - moderate - high VTE Device Contraindication: Treatment Not Indicated VTE Drug Contraindication: N/A - Med Ordered
[2024-03-21 15:52] VITALS: BP 171/82; PULSE 82; RESP 18; TEMP 36.7; O2SAT 97
[2024-03-21 16:17] LABS: Glucose, Whole Blood 235 mg/dL (60-115)
[2024-03-21 18:00] VITALS: BP 170/90
[2024-03-21 19:38] VITALS: BP 168/94; PULSE 80; RESP 18; TEMP 36.7; O2SAT 98
[2024-03-21 20:26] LABS: Glucose, Whole Blood 21 mg/dL (60-115)
[2024-03-21] MEDS: Dextrose 10 % 250 ML 750 ML IV (20:28)
[2024-03-21 20:51] LABS: Glucose, Whole Blood 219 mg/dL (60-115)
[2024-03-21] MEDS: Gabapentin 300 MG CAPSULE 900 MG PO (21:19)
[2024-03-21] MEDS: Venlafaxine HCl ER 150 MG CAP.ER.24H PO (21:19)
[2024-03-21] MEDS: Venlafaxine HCl ER 75 MG CAP.ER.24H PO (21:20)
--- NOTE | 2024-03-21 21:50 | PC.NURSE ---
2013 pt's blood sugar was 21.pt's only symptom was that she felt shaky.pt had not eaten her dinner.she sat up and ate 100% of her dinner.we gave her orange juice and 250cc D10 IV.repeat blood sugar was 219. notified all evening insulins held.
--- NOTE | 2024-03-21 23:10 | W.PM.IDCN ---
History of Present Illness Data of Consult Service Date: 03/21/24 Requesting physician: Zena Mckay Primary Care Provider: Maddison Floyd NP [facility] Reason for consult: right foot wound She presents with redness and swelling right foot. SHe has discomfort last two weeks. She said Augmentin and Doxycycline po didnt help.MRI shows 4 cm x 1.2 and 7 Review of Systems Review of Systems: Yes all other systems are reviewed and are negative [facility] Past Medical History Medical History Anemia Bacteremia Neuropathy Diabetes Family History Family history: reviewed and not pertinent Surgical History Surgical History History of laparoscopic cholecystectomy Social History Social History Household Members: Children Housing: House Do you presently have visiting nurse or other home services: Yes (other) Alcohol intake: current Alcohol intake frequency: does not drink Comment: refuses to put nonskid socks Patient Tobacco Use Status: Former Tobacco user Second Hand Smoke Exposure: No service: No Current occupational status: employed Meds Allergies Allergy/AdvReac Type Severity Reaction Status Date / Time No Known Allergies Allergy Verified 03/19/24 19:09 Active Medications: Current Medications Acetaminophen (Acetaminophen 325 Mg Tablet) 975 mg PO Q6H PRN PRN Reason: Pain, Mild 1-3,fever,headache Calcium Carbonate (Calcium Carbonate 750 Mg Tab.Chew) 750 mg PO Q4H PRN PRN Reason: Heartburn Enoxaparin Sodium (Enoxaparin Sodium 40 Mg/0.4 Ml Syringe) 40 mg SUBCUT Q24H [facility] Last Admin: 03/21/24 02:55 Dose: 40 mg Ferrous Sulfate (Ferrous Sulfate 324 Mg Tablet.Dr) 324 mg PO DAILY [facility] Last Admin: 03/21/24 08:49 Dose: 324 mg Gabapentin (Gabapentin 300 Mg Capsule) 900 mg PO BEDTIME [facility] Last Admin: 03/21/24 21:19 Dose: 900 mg Glucose (Glucose Gel 15 Gm Gel..Gram.) 15 gm PO Q15M PRN; Protocol PRN Reason: per Hypoglycemia Standing Ord. Dextrose (D10) 250 mls @ 750 mls/hr IV Q15M PRN; Protocol PRN Reason: per Hypoglycemia Standing Ord. Last Infusion: 03/21/24 20:53 Dose: Infused Piperacillin Sod/Tazobactam (Sod 3.375 gm/ Sodium Chloride) 50 mls @ 100 mls/hr IV Q6H [facility] Last Admin: 03/21/24 22:39 Dose: 100 mls/hr Vancomycin HCl 1,000 mg/ (Sodium Chloride) 270 mls @ 270 mls/hr IV Q12H [facility] Last Infusion: 03/21/24 12:34 Dose: Infused Insulin Glargine (Insulin Glargine,Hum.Rec.Anlog 100 Unit/Ml 10 Ml Vial) 48 unit SUBCUT BEDTIME [facility] Last Admin: 03/21/24 20:54 Dose: Not Given Insulin Human Lispro (Insulin Lispro 100 Unit/Ml 3 Ml Vial) 0 unit SUBCUT QIDACHS [facility]; Protocol Last Admin: 03/21/24 20:54 Dose: Not Given Insulin Human Lispro (Insulin Lispro 100 Unit/Ml 3 Ml Vial) 5 unit SUBCUT QIDACHS [facility] Last Admin: 03/21/24 20:55 Dose: Not Given Magnesium Hydroxide (Milk Of Magnesia 30 Ml Oral.Susp) 30 ml PO DAILY PRN PRN Reason: Constipation Melatonin (Melatonin 3 Mg Tablet) 6 mg PO BEDTIME PRN PRN Reason: Insomnia Morphine Sulfate (Morphine Sulfate 2 Mg/Ml Cartridge) 2 mg IVPUSH Q6H PRN; Protocol PRN Reason: Pain, Severe (Pain Scale 7-10) Ondansetron HCl (Ondansetron Hcl 4 Mg/2 Ml Vial) 4 mg IVPUSH Q8H PRN PRN Reason: Nausea and Vomiting Oxycodone HCl (Oxycodone Hcl Immed Release 5 Mg Tablet) 5 mg PO Q6H PRN PRN Reason: Pain, Moderate(Pain Scale 4-6) Pharmacy Consult (Consult Rx Vancomycin Dosing) 1 each MISCELLANE DAILY PRN PRN Reason: Consult order Sodium Chloride (0.9 % Sodium Chloride Flush 3 Ml Syringe) 3 ml IVFLUSH QSHIFT [facility] Last Admin: 03/21/24 21:20 Dose: 3 ml Venlafaxine HCl (Venlafaxine Hcl Er 75 Mg Cap.Er.24h) 75 mg PO BEDTIME [facility] Last Admin: 03/21/24 21:20 Dose: 75 mg Venlafaxine HCl (Venlafaxine Hcl Er 150 Mg Cap.Er.24h) 150 mg PO BEDTIME [facility] Last Admin: 03/21/24 21:19 Dose: 150 mg Home Medications ?Medication ?Instructions ?Recorded ?Confirmed ?Last Taken ?Type gabapentin 300 mg capsule 3 cap PO BEDTIME 07/04/21 03/20/24 03/19/24 21:00 History glipizide 10 mg tablet, extended 1 tab PO DAILY 07/04/21 03/20/24 07/03/21 History release 24 hr rosuvastatin 5 mg tablet 1 tab PO BEDTIME 07/04/21 03/20/24 07/03/21 History venlafaxine 150 mg 1 cap PO BEDTIME 07/04/21 03/20/24 07/03/21 History capsule,extended release 24 hr venlafaxine 75 mg capsule,extended 1 cap PO BEDTIME 07/04/21 03/20/24 07/03/21 History release 24 hr acetaminophen 325 mg tablet 650 mg PO TID PRN Pain 03/02/24 03/20/24 Unknown History clobetasol 0.05 % topical ointment 1 appl topical DAILY PRN Rash 03/02/24 03/20/24 Unknown History cephalexin 500 mg capsule 500 mg PO TID 03/20/24 03/20/24 03/19/24 History Physical Exam Vital Signs: Vital Signs: Last Vital Signs Temp 98.0 F 03/21/24 19:38 Pulse 80 03/21/24 19:38 Resp 18 03/21/24 19:38 BP 168/94 H 03/21/24 19:38 Pulse Ox 98 03/21/24 19:38 O2 Del Method Room Air 03/21/24 19:38 BMI result Body Mass Index 43.2 Const: General: cooperative HEENT: Head: Yes normal to inspection Face and sinus: Yes normal facial exam Mouth: Normal oral and palatal mucosa present Teeth and gingiva: dentition normal Eyes: General: appearance normal, both eyes and all related structures Pupils: Equal, round and reactive pupils present Resp: Effort & Inspection: normal respiratory effort Cardio: Rate: regular rate Rhythm: regular rhythm GI: Palpation (GI): Soft to palpation and nontender : General: Yes no CVA tenderness Back/Spine/Pelvis: Back: no CVA tenderness Skin: General skin exam: no rashes or lesions noted Neuro: General: moves all extremities Cranial nerves: Yes Equal, round and reactive pupils present Extrem: Other: redness between right 1st and 2nd toes neuropathy Psych: Appearance: grossly normal Results Labs 03/21/24 05:49 03/21/24 05:49 Labs: Short CBC 03/21/24 Range/Units 05:49 WBC 3.6 L (4.8-10.8) X10*3/uL Hgb 9.5 L (12.0-16.0) g/dl Hct 32.5 L (37.0-47.0) % Plt Count 276 (160-400) X10*3/uL BMP 03/21/24 05:49 Sodium 141 Potassium 4.2 Chloride 107 Carbon Dioxide 26 BUN 14 Creatinine 0.82 Calcium 8.5 Microbiology Microbiology Results: Microbiology 03/19/24 20:06 Blood - Venous Blood Culture - Preliminary No growth after 48 hours. 03/19/24 19:58 Blood - Venous Blood Culture - Preliminary No growth after 48 hours. Assessment and Plan (1) CKD (chronic kidney disease) stage 3, GFR 30-59 ml/min: Status: Chronic (2) Cellulitis of right foot: Status: Acute Plan Augmentin and Doxycline from home should work for a week and more if needed. Follow Podiatry outpatient
[2024-03-22] VITALS (8 sets, daily range): BP systolic 140–168; BP diastolic 72–92; PULSE 70–80; RESP 17–18; TEMP 36–36.9; O2SAT 95–98
[2024-03-22] MEDS: Enoxaparin Sodium 40 MG/0.4 ML SYRINGE SUBCUT (02:57)
[2024-03-22] MEDS: Piperacillin Sodium/Tazobactam 3.375 GM in 0.9 % Sodium Chloride 50 ML IV ×4 (05:19→23:12)
--- NOTE | 2024-03-22 06:52 | PM.EVENT ---
Event Note Date of Service: 03/22/24 Event Note: abscess found but no OM on MRI. Follow on oral agents as area improving and no intermediate IV antibiotics indicated without OM and with improving foot. Follow Surgery or Podiatry Time Spent With Patient Time: Total time managing care of this patient today ____ minutes.
[2024-03-22 07:37] LABS: Glucose, Whole Blood 185 mg/dL (60-115)
[2024-03-22] MEDS: 0.9 % Sodium Chloride Flush 3 ML SYRINGE IVFLUSH ×3 (08:06→19:59)
[2024-03-22] MEDS: Insulin Lispro 100 UNIT/ML 3 ML VIAL SUBCUT ×2 (08:06→19:58)
[2024-03-22] MEDS: Ferrous Sulfate 324 MG TABLET.DR PO (08:06)
[2024-03-22 09:00] LABS: MANUAL DIFF FLAG NO
[2024-03-22 09:02] LABS: Eosinophils Absolute Auto 0.1 X10*3/uL (0.0-0.4); Eosinophils Percent Auto 2.4 % (0-4); Hematocrit 37.6 % (37.0-47.0); Hemoglobin 10.6 g/dl (12.0-16.0); Imm Gran Abs Auto 0.02 X10*3/uL (0.00-0.03); Imm Gran Pct Auto 0.5 % (0.0-0.4); Lymphocytes Absolute Auto 1.2 X10*3/uL (1.2-4.9); Lymphocytes Percent Auto 29.2 % (20-40); Mean Corpuscular HGB Conc 28.2 g/dl (31.0-35.0); Mean Corpuscular Hemoglobin 20.5 pg (27.0-33.0); Mean Corpuscular Volume 72.9 fL (80.0-98.0); Mean Platelet Volume 9.6 fL (9.4-12.3); Monocytes Absolute Auto 0.4 X10*3/uL (0.1-1.2); Neutrophils Absolute Auto 2.4 x10*3/uL (2.0-8.3); Neutrophils Percent Auto 57.9 % (45-73); Platelet Count 316 X10*3/uL (160-400); Red Blood Count 5.16 X10*6/uL (4.20-5.50); Red Cell Distribution Width 24.3 % (11.0-16.0); White Blood Count 4.1 X10*3/uL (4.8-10.8)
[2024-03-22 09:22] LABS: Anion Gap 8 (12-20); Blood Urea Nitrogen 9 mg/dL (9-16); Calcium 9.1 mg/dL (8.4-10.2); Carbon Dioxide 30 mmol/L (22-29); Chloride 105 mmol/L (96-108); Creatinine Clr Calc Pharmacy 85.2; Estimated Glomerular Filt Rate > 60; Glucose Random 183 mg/dL (60-115); Potassium 4.4 mmol/L (3.3-5.1); Sodium 139 mmol/L (135-145)
[2024-03-22 09:44] LABS: Vancomycin Random 13.8 mcg/mL (15-20)
[2024-03-22] MEDS: vancomycin HCL 1,000 MG in 0.9 % Sodium Chloride 250 ML 270 MG IV (10:40)
[2024-03-22 11:34] LABS: Glucose, Whole Blood 228 mg/dL (60-115)
--- NOTE | 2024-03-22 15:02 | HO.PM.IMPN ---
Subjective Subjective Date of Service: 03/22/24 Interval History: Seen and examined this morning Follow-up for diabetic foot infection Had episode of hypoglycemia overnight, patient was symptomatic. this morning no complaints pain controlled Review of Systems Review of Systems: Yes all other systems are reviewed and are negative Constitutional Constitutional: Denies chills and Denies fever(s) Physical Exam Vital Signs: Vital Signs: Last Vital Signs Temp 97.4 F 03/22/24 11:44 Pulse 77 03/22/24 11:44 Resp 18 03/22/24 11:44 BP 162/84 H 03/22/24 11:44 Pulse Ox 98 03/22/24 11:44 O2 Del Method Room Air 03/22/24 11:44 BMI result Body Mass Index 43.2 Const: General: comfortable, no acute distress, alert and awake Nutritional Appearance: obese Orientation/consciousness: patient oriented x3 Resp: Effort & Inspection: normal respiratory effort, able to speak in complete sentences, no respiratory distress and no use of accessory muscles Cardio: Rate: regular rate GI: Inspection: No distended Palpation (GI): Soft to palpation Skin: Other: right foot wrapped in c/d/i dressing; see surgical note for updated picture Neuro: General: patient oriented x3, moves all extremities and CN's II-XI intact bilaterally Objective Data Active Medications Acetaminophen (Acetaminophen 325 Mg Tablet) 975 mg PO Q6H PRN PRN Reason: Pain, Mild 1-3,fever,headache Calcium Carbonate (Calcium Carbonate 750 Mg Tab.Chew) 750 mg PO Q4H PRN PRN Reason: Heartburn Enoxaparin Sodium (Enoxaparin Sodium 40 Mg/0.4 Ml Syringe) 40 mg SUBCUT Q24H [facility] Last Admin: 03/22/24 02:57 Dose: 40 mg Documented By: CARLOS Ferrous Sulfate (Ferrous Sulfate 324 Mg Tablet.) 324 mg PO DAILY [facility] Last Admin: 03/22/24 08:06 Dose: 324 mg Documented By: RONA Gabapentin (Gabapentin 300 Mg Capsule) 900 mg PO BEDTIME [facility] Last Admin: 03/21/24 21:19 Dose: 900 mg Documented By: CARLOS Glucose (Glucose Gel 15 Gm Gel..Gram.) 15 gm PO Q15M PRN; Protocol PRN Reason: per Hypoglycemia Standing Ord. Dextrose (D10) 250 mls @ 750 mls/hr IV Q15M PRN; Protocol PRN Reason: per Hypoglycemia Standing Ord. Last Infusion: 03/21/24 20:53 Dose: Infused Documented By: CARLOS Piperacillin Sod/Tazobactam (Sod 3.375 gm/ Sodium Chloride) 50 mls @ 100 mls/hr IV Q6H [facility] Last Infusion: 03/22/24 12:32 Dose: Infused Documented By: RONA Doxycycline Hyclate 100 mg/ (Sodium Chloride) 250 mls @ 166.67 mls/hr IV Q12H [facility] Insulin Glargine (Insulin Glargine,Hum.Rec.Anlog 100 Unit/Ml 10 Ml Vial) 48 unit SUBCUT BEDTIME [facility] Last Admin: 03/21/24 20:54 Dose: Not Given Documented By: CARLOS Non-Admin Reason: Physician Held Med Insulin Human Lispro (Insulin Lispro 100 Unit/Ml 3 Ml Vial) 0 unit SUBCUT QIDACHS [facility]; Protocol Last Admin: 03/22/24 14:50 Dose: Not Given Documented By: RONA Non-Admin Reason: pt refused lunch, no insulin given Insulin Human Lispro (Insulin Lispro 100 Unit/Ml 3 Ml Vial) 5 unit SUBCUT QIDACHS [facility] Last Admin: 03/22/24 07:40 Dose: Not Given Documented By: RONA Non-Admin Reason: MD held med Lisinopril (Lisinopril 5 Mg Tablet) 5 mg PO DAILY [facility]; Protocol Magnesium Hydroxide (Milk Of Magnesia 30 Ml Oral.Susp) 30 ml PO DAILY PRN PRN Reason: Constipation Melatonin (Melatonin 3 Mg Tablet) 6 mg PO BEDTIME PRN PRN Reason: Insomnia Morphine Sulfate (Morphine Sulfate 2 Mg/Ml Cartridge) 2 mg IVPUSH Q6H PRN; Protocol PRN Reason: Pain, Severe (Pain Scale 7-10) Ondansetron HCl (Ondansetron Hcl 4 Mg/2 Ml Vial) 4 mg IVPUSH Q8H PRN PRN Reason: Nausea and Vomiting Oxycodone HCl (Oxycodone Hcl Immed Release 5 Mg Tablet) 5 mg PO Q6H PRN PRN Reason: Pain, Moderate(Pain Scale 4-6) Sodium Chloride (0.9 % Sodium Chloride Flush 3 Ml Syringe) [facility] Last Admin: 03/22/24 08:06 Dose: 3 ml Documented By: RONA Venlafaxine HCl (Venlafaxine Hcl Er 75 Mg Cap.Er.24h) 75 mg PO BEDTIME [facility] Last Admin: 03/21/24 21:20 Dose: 75 mg Documented By: CARLOS Venlafaxine HCl (Venlafaxine Hcl Er 150 Mg Cap.Er.24h) 150 mg PO BEDTIME [facility] Last Admin: 03/21/24 21:19 Dose: 150 mg Documented By: CARLOS Labs 03/22/24 08:52 03/22/24 08:52 Labs: Laboratory Results - last 24 hr 03/21/24 03/21/24 03/21/24 16:09 20:13 20:46 MCV MCH MCHC RDW Plt Count MPV Immature Gran % (Auto) Neut % (Auto) Lymph % (Auto) [place] % (Auto) Eos % (Auto) Baso % (Auto) Lymph # (Auto) [place] # (Auto) Eos # (Auto) Baso # (Auto) Abs Immat Gran (auto) Absolute Neuts (auto) Absolute Nucleated RBC Nucleated RBC % (auto) Anion Gap Estim Creat Clear Calc Estimated GFR POC Glucose 235 H 21 L* 219 H Random Glucose Calcium Random Vancomycin 03/22/24 03/22/24 03/22/24 07:19 08:52 11:16 MCV 72.9 L MCH 20.5 L MCHC 28.2 L RDW 24.3 H Plt Count 316 MPV 9.6 Immature Gran % (Auto) 0.5 H Neut % (Auto) 57.9 Lymph % (Auto) 29.2 [place] % (Auto) 9.0 Eos % (Auto) 2.4 Baso % (Auto) 1.0 Lymph # (Auto) 1.2 [place] # (Auto) 0.4 Eos # (Auto) 0.1 Baso # (Auto) 0.0 Abs Immat Gran (auto) 0.02 Absolute Neuts (auto) 2.4 Absolute Nucleated RBC 0.000 Nucleated RBC % (auto) 0.0 Anion Gap 8 L Estim Creat Clear Calc 85.2 Estimated GFR > 60 POC Glucose 185 H 228 H Random Glucose 183 H Calcium 9.1 D Random Vancomycin 13.8 L Microbiology Microbiology Results: Microbiology 03/19/24 20:06 Blood Culture - Preliminary Blood - Venous No growth after 48 hours. 03/19/24 19:58 Blood Culture - Preliminary Blood - Venous No growth after 48 hours. Assessment and Plan (1) Diabetic foot infection: Status: Acute Plan This is a 43-year-old female with pertinent history of insulin-dependent diabetes mellitus, mood disorder, mixed hyperlipidemia who presents to the emergency department for concerns of nonhealing diabetic right foot ulcer. Recent admission for cellulitis right foot, discharged home with Augmentin and doxycycline. Has not seen wound care since discharge. Nonhealing diabetic right foot ulcer no sepsis MRI negative for osteo, concern for possible abscess - seen by general surgery no abscess to drain seen by wound care nurse - wound care recs:Right Foot - Cleanse and irrigate with normal saline, pat dry. Apply skin prep to the periwound. Lightly pack wound bed with Durafiber AG, cover with dry gauze, ABD pad and wrap. Change daily while inpatient and every other day at time of discharge. Elevate lower leg throughout the day and limit direct standing and ambulation. continue IV vancomycin and Zosyn, transition to doxy; plan for home with doxy/augmentin per ID rec blood cultures negative to date chronic microcytic Anemia improved from previous admission. H/H stable Insulin-dependent diabetes with hyperglycemia Hba1c >14 Episode of hypoglycemia overnight We will hold long-acting insulin, premeal scheduled Tessalon Follow POCs, continue sliding scale for now; monitor blood sugar closely The patient reports being noncompliant with both Lantus and glipizide at baseline. Does not check blood sugar on a regular basis Mood disorder Continue baseline medication HLD statin on hold Obesity BMI 42.7 Discussed importance of weight management as this may be contributing to worsening of other comorbidities CKD 3 creatinine stable Full code VTE prophylaxis: Lovenox Requires ongoing inpatient stay for IV antibiotics for treatment of nonhealing diabetic foot wound with poorly controlled diabetes Quality Stroke Does the patient have a stroke diagnosis?: No VTE Prior VTE?: No VTE Risk Level:: Medical - moderate - high VTE Device Contraindication: Treatment Not Indicated VTE Drug Contraindication: N/A - Med Ordered
[2024-03-22] MEDS: lisinopriL 5 MG TABLET PO (16:02)
[2024-03-22] MEDS: Doxycycline Hyclate 100 MG in 0.9 % Sodium Chloride 250 ML 166.67 MG IV (16:12)
[2024-03-22 16:22] LABS: Glucose, Whole Blood 191 mg/dL (60-115)
--- NOTE | 2024-03-22 18:05 | ECG_ITS ---
Test Reason : chest pain Blood Pressure : */* mmHG Vent. Rate : 74 BPM Atrial Rate : 74 BPM P-R Int : 184 ms QRS Dur : 88 ms QT Int : 392 ms P-R-T Axes : 39 -11 31 degrees QTcB Int : 435 ms Normal sinus rhythm Low voltage QRS Borderline ECG When compared with ECG of 04-Jul-2021 13:04, QRS duration has decreased Referred By: Zena Mckay Electronically Signed By: RAVINDRA NASCIMENTO
--- NOTE | 2024-03-22 18:18 | PC.NURSE ---
1800 patient c/o dull left shoulder pain that radiated up to neck and across chest, Zena SHUKLA notified and ordered stat EKG and troponin
[2024-03-22 19:43] LABS: Troponin-I High Sensitivity < 2.7 ng/L (<3.5-17.0)
[2024-03-22] MEDS: Gabapentin 300 MG CAPSULE 900 MG PO (19:58)
[2024-03-22] MEDS: Venlafaxine HCl ER 150 MG CAP.ER.24H PO (19:59)
[2024-03-22] MEDS: Venlafaxine HCl ER 75 MG CAP.ER.24H PO (19:59)
[2024-03-22 20:09] LABS: Glucose, Whole Blood 252 mg/dL (60-115)
[2024-03-23 04:00] VITALS: BP 145/79; PULSE 80; RESP 18; TEMP 36.4; O2SAT 97
[2024-03-23] MEDS: Enoxaparin Sodium 40 MG/0.4 ML SYRINGE SUBCUT (04:01)
[2024-03-23] MEDS: Doxycycline Hyclate 100 MG in 0.9 % Sodium Chloride 250 ML 166.67 MG IV (04:06)
[2024-03-23] MEDS: Piperacillin Sodium/Tazobactam 3.375 GM in 0.9 % Sodium Chloride 50 ML IV (05:47)
[2024-03-23 07:36] LABS: Creatinine Clr Calc Pharmacy 99.7; Estimated Glomerular Filt Rate > 60
[2024-03-23 07:56] LABS: Glucose, Whole Blood 146 mg/dL (60-115)
[2024-03-23 08:29] VITALS: BP 140/70; PULSE 73; RESP 18; TEMP 37; O2SAT 98
[2024-03-23] MEDS: 0.9 % Sodium Chloride Flush 3 ML SYRINGE IVFLUSH (08:34)
[2024-03-23] MEDS: lisinopriL 5 MG TABLET PO (08:34)
[2024-03-23] MEDS: Ferrous Sulfate 324 MG TABLET.DR PO (08:34)
--- NOTE | 2024-03-23 10:08 | P.DS_ITS ---
DS: Providers Provider Date of Service: 03/23/24 Date of admission: 03/20/24 01:20 Date of discharge: 03/23/24 Primary care physician: Maddison Floyd NP Consults: 03/20/24 01:31 Consult to Wound Care Routine Reason for consultation: non-healing foot ulcer Has provider been notified: No 03/21/24 08:05 Consult to General Surgery Routine Consulting Provider: [facility] [place] [facility] Reason for consultation: right foot infection with abscess Has provider been notified: No 03/21/24 11:30 Consult to Infectious Diseases Routine Consulting Provider: [facility] [place] [facility] Reason for consultation: diabetic foot wound with abscess Has provider been notified: No Attending physician on discharge: Javier Stewart Discharging clinician: Zena Mckay DS: Diagnosis Discharge Diagnosis (1) Diabetic foot infection: Status: Acute DS: Summary Hospital Course Hospital Course: From H&P on the day of admission This is a 43-year-old female with pertinent history of insulin-dependent diabetes mellitus, mood disorder, mixed hyperlipidemia who presents to the emergency department for concerns of nonhealing diabetic right foot ulcer. She was recently admitted from 03/01- 03/03 for right foot cellulitis and discharged home with doxycycline and Augmentin times 10 days. The patient reports that she completed this treatments but continues to have these ulcer on her foot with a foul odor and purulent drainage. She denies any foot pain, nausea, vomiting, fever or chills. She was sent back here by her PCP as wound care has not reached out to her since her discharge. Her blood sugars have been very elevated. In the emergency department, POC 413, lactic acid 0.8, CRP 1.28 and ESR 34. Patient was initiated on IV vancomycin and Zosyn and hospital medicine team consulted for admission Nonhealing diabetic right foot ulcer no sepsis. MRI negative for osteo, but with concern for possible abscess. she was seen by general surgery who found no drainable fluid collection. She was seen by the wound care nurse who made recommendations about wound care: Right Foot - Cleanse and irrigate with normal saline, pat dry. Apply skin prep to the periwound. Lightly pack wound bed with Durafiber AG, cover with dry gauze, ABD pad and wrap. Change daily while inpatient and every other day at time of discharge. Elevate lower leg throughout the day and limit direct standing and ambulation. She was initially treated with IV vancomycin and zosyn, she was seen by ID who recommended one week of doxycycline and Augmentin upon discharge. Blood cultures have remained negative to date. Patient's redness and swelling have improved significantly and she is now stable for discharge home. The impor tance of blood sugar control and outpatient follow up was discussed. Insulin-dependent diabetes with hyperglycemia Hba1c >14. Patient has prescription for Lantus 60 units that she has not filled in several months, she has not been compliant with Lantus or her glipizide at home. In the hospital she was started on 48 units of Lantus, she had an episode of hypoglycemia on the morning of March 21 with blood sugar of 21 which was symptomatic. Lantus was discontinued and she was maintained on sliding scale of insulin. She will be discharged home to resume glipizide and sliding scale of insulin. She will resume use of her CGM and follow up with PCP, will send referal to endocrinology. She is instructed to call PCP if blood sugars are consistently above 250 as low dose lantus may need to be resumed. HTN blood pressure was persistently elevated. she was started on lisinopril - will likely need further titration Time Attestation Discharge Coordination Time (in mins): 40 Quality: Safe Use of Opioids Does Pt have an Active Cancer Diagnosis on the Problem List?: No Quality: Stroke Does the patient have a stroke diagnosis?: No Physical Exam Vital Signs: Vital Signs: Last Vital Signs Temp 98.6 F 03/23/24 08:29 Pulse 73 03/23/24 08:29 Resp 18 03/23/24 08:29 BP 140/70 H 03/23/24 08:29 Pulse Ox 98 03/23/24 08:29 O2 Del Method Room Air 03/23/24 08:29 BMI result Body Mass Index 43.2 Const: General: cooperative, comfortable, no acute distress, alert and awake Nutritional Appearance: overweight Orientation/consciousness: patient oriented x3 Resp: Effort & Inspection: normal respiratory effort, able to speak in complete sentences, no respiratory distress and no use of accessory muscles Cardio: Rate: regular rate Skin: Other: right foot erythema and swelling significantly improved Neuro: General: patient oriented x3 DS: Data Data Completed and Pending Completed studies during hospitalization [Text1]: Procedures Transfusion of Nonautologous Red Blood Cells into Peripheral Vein, Percutaneous Approach (03/01/24) Labs on day of discharge: Laboratory Results - last 24 hr 03/22/24 03/22/24 03/22/24 11:16 16:11 18:44 Hold Purple Top Creatinine Estim Creat Clear Calc Estimated GFR POC Glucose 228 H 191 H Troponin I High Sens < 2.7 03/22/24 03/23/24 03/23/24 19:49 06:03 07:28 Hold Purple Top SEE NOTE Creatinine 0.82 Estim Creat Clear Calc 99.7 Estimated GFR > 60 POC Glucose 252 H 146 H Troponin I High Sens Preliminary micro results at discharge 03/19/24 20:06 Blood Culture - Preliminary Blood - Venous No growth after 48 hours. 03/19/24 19:58 Blood Culture - Preliminary Blood - Venous No growth after 48 hours. Discharge Plan Discharge Anticipated Discharge Date/Time: 03/23/24 11:13 Patient Disposition: Home, Self-Care Discharge Diagnosis: diabetic foot wound hypertension Referrals: Wm Sanchez MD [Physician] - 1 Week Maddison Floyd NP [Primary Care Provider] - 1 Week Mary Sullivan MD [Physician] - 1 Week Discharge Medications: New doxycycline monohydrate 100 mg tablet 100 mg PO BID 7 Days Qty: 14 0RF amoxicillin-pot clavulanate 875-125 mg tablet 1 tab PO Q12H 7 Days Qty: 14 0RF lisinopril 5 mg tablet 5 mg PO DAILY 90 Days Qty: 90 0RF insulin lispro [Humalog KwikPen Insulin] 100 unit/mL insulin pen 1 sliding scale dose SUBCUT QIDACHS MDD 40u Qty: 15 0RF Rx Instructions: Blood Sugar: <150 - 0 units 151-200 - 2 units 201-250 - 4 units 251-300 - 6 units 301-350 - 8 units >350 - 10 units (DME) Durafiber Dressing 2 X 2 bandage See Rx Instructions .Route Qty: 200 0RF Rx Instructions: As directed Continued venlafaxine 75 mg capsule,extended release 24hr 1 cap PO BEDTIME venlafaxine 150 mg capsule,extended release 24hr 1 cap PO BEDTIME gabapentin 300 mg capsule 3 cap PO BEDTIME rosuvastatin 5 mg tablet 1 tab PO BEDTIME acetaminophen 325 mg tablet 650 mg PO TID PRN (Reason: Pain) clobetasol 0.05 % ointment 1 appl topical DAILY PRN (Reason: Rash) ferrous sulfate 324 mg (65 mg iron) tablet,delayed release (DR/EC) 324 mg PO DAILY Qty: 30 0RF Changed glipizide 10 mg tablet extended release 24hr 10 mg PO DAILY 90 Days Qty: 90 0RF Discontinued cephalexin 500 mg capsule 500 mg PO TID Discharge Orders: Discharge Order (Routine); Ordered 03/23/24 Ordered By: Zena Mckay Activity on Discharge: As tolerated Stand Alone Forms: Patient Portal Discharge page Print Language: Kiswahili Activity Restrictions/Additional Instructions: Topical Wound Care Recommendations: Right Foot - Cleanse and irrigate with normal saline, pat dry. Apply skin prep to the periwound. Lightly pack wound bed with Durafiber AG, cover with dry gauze, ABD pad and wrap. Change every other day at time of discharge. Elevate lower leg throughout the day and limit direct standing and ambulation. Recommend follow up out patient [facility] at [address] [place] [address] and to call for an appointment at time of discharge. [phone].? Care Plan Goals: see below Health Concerns: diabetic foot infection with cellulitis hypertension uncontrolled diabetes Plan of Treatment: Complete course of antibiotics for foot infection. Dressing changes as per wound care nurse above Call to schedule follow-up appointment at [facility] for monitoring of wound Call to schedule follow-up appointment with PCP for monitoring of blood sugar and blood pressure Start taking lisinopril for control blood pressure Use CGM 4 check blood sugars before meals and at bedtime Take glipizide as prescribed for blood sugar control. use sliding scale of insulin as needed. if blood sugars are persistently elevated above 250 call PCP, you may need lantus resumed call to schedule appointment with endocrinology Assessment: see discharge summary
--- NOTE | 2024-03-23 10:44 | MHC.CM.PN ---
pt dcd home self care
[2024-03-23 11:38] LABS: Glucose, Whole Blood 206 mg/dL (60-115)
[2024-03-23] MEDS: Insulin Lispro 100 UNIT/ML 3 ML VIAL SUBCUT (11:50)
== END 2024-03-23 12:19 | disposition home or self-care (01) | DRG 380 ==
LOC: HO.ED 03-20 00:38 → HO.EDOVER 03-20 01:27 → HO.S3 03-20 07:44
PROVIDERS: Internal Medicine; Nurse Practitioner Acute Care; Physician Assistant; Admitting Provider Physician Assistant; Emergency Provider Internal Medicine; PCP Nurse Practitioner Adult Health; Visit Provider Physician Assistant Medical
DX: E11.621 Type 2 diabetes mellitus with foot ulcer (principal); L97.519 Non-pressure chronic ulcer of other part of right foot with unspecified severity; E11.22 Type 2 diabetes mellitus with diabetic chronic kidney disease; E11.40 Type 2 diabetes mellitus with diabetic neuropathy, unspecified; D50.9 Iron deficiency anemia, unspecified; E11.65 Type 2 diabetes mellitus with hyperglycemia; I12.9 Hypertensive chronic kidney disease with stage 1 through stage 4 chronic kidney disease, or unspecified chronic kidney disease; F39 Unspecified mood [affective] disorder; E78.2 Mixed hyperlipidemia; N18.30 Chronic kidney disease, stage 3 unspecified; E66.9 Obesity, unspecified; Z71.3 Dietary counseling and surveillance; Z68.41 Body mass index [BMI] 40.0-44.9, adult; Z87.891 Personal history of nicotine dependence; Z79.4 Long term (current) use of insulin; Z79.85 Long-term (current) use of injectable non-insulin antidiabetic drugs; Z79.899 Other long term (current) drug therapy
CPT/HCPCS: 36415; 73620; 73720; 80048; 80053; 80202; 82565; 82947; 83036; 83605; 84484; 85025; 85652; 86140; 87040; 93005; 99285; A9585; J1650; J2543; J3370

== ENCOUNTER → 2024-03-19 19:12 | Outpatient (BNV) | payer OTHER, SELFPAY | PROVIDERS: PCP Nurse Practitioner Adult Health; Visit Provider Radiology Diagnostic Radiology | DX: L03.115 Cellulitis of right lower limb (principal) | CPT/HCPCS: 73630 ==

== ENCOUNTER 2024-03-20 01:20 | Outpatient (BNV) | payer OTHER, SELFPAY | END 2024-03-20 13:40 | PROVIDERS: Admitting Provider Physician Assistant; Emergency Provider Internal Medicine; PCP Nurse Practitioner Adult Health; Visit Provider Radiology Diagnostic Radiology | DX: L03.115 Cellulitis of right lower limb (principal); E11.628 Type 2 diabetes mellitus with other skin complications | CPT/HCPCS: 73720 ==

== ENCOUNTER 2024-03-20 01:20 | Outpatient (BNV) | payer OTHER, SELFPAY | END 2024-03-22 18:05 | PROVIDERS: Admitting Provider Physician Assistant; Emergency Provider Internal Medicine; PCP Nurse Practitioner Adult Health; Visit Provider Internal Medicine | DX: R07.9 Chest pain, unspecified (principal); R94.31 Abnormal electrocardiogram [ECG] [EKG] | CPT/HCPCS: 93010 ==

== ENCOUNTER → 2024-03-20 01:20 | Outpatient (BNV) | payer OTHER, SELFPAY | PROVIDERS: Admitting Provider Physician Assistant; Emergency Provider Internal Medicine; PCP Nurse Practitioner Adult Health; Visit Provider Physician Assistant | DX: E11.621 Type 2 diabetes mellitus with foot ulcer (principal); L97.519 Non-pressure chronic ulcer of other part of right foot with unspecified severity; L08.9 Local infection of the skin and subcutaneous tissue, unspecified | CPT/HCPCS: 99223; 99232; 99233; 99239; 99499 ==

== ENCOUNTER → 2024-03-20 01:20 | Outpatient (BNV) | payer OTHER, SELFPAY | PROVIDERS: Admitting Provider Physician Assistant; Emergency Provider Internal Medicine; PCP Nurse Practitioner Adult Health; Visit Provider Internal Medicine | DX: N18.30 Chronic kidney disease, stage 3 unspecified (principal); L03.115 Cellulitis of right lower limb | CPT/HCPCS: 99222; 99499 ==

== ENCOUNTER → 2024-03-20 01:20 | Outpatient (BNV) | payer OTHER, SELFPAY | PROVIDERS: Admitting Provider Physician Assistant; Emergency Provider Internal Medicine; PCP Nurse Practitioner Adult Health; Visit Provider Physician Assistant Surgical | DX: L03.115 Cellulitis of right lower limb (principal); E11.628 Type 2 diabetes mellitus with other skin complications; L08.9 Local infection of the skin and subcutaneous tissue, unspecified | CPT/HCPCS: 99222 ==